=== PATIENT | female | born 2000 | race Two or more races ===

== ENCOUNTER 2024-11-10 09:34 | Outpatient (OUT) | payer OTHER, SELFPAY ==
--- OUTSIDE RECORDS SUMMARY | 2024-04-20 12:30 | XMS_ITS ---
Author Organization [facility] es Address [address] [place] [address] Care Team Providers Care Assistant Financial Accountant Name Role Phone Elizabeth Keating Primary Care Provider [phone] DUKE ANDREWS Unavailable Unavailable Sarita Allen Unavailable [phone] REASON FOR VISIT biweekly f/u Encounters Encounter Location Date Provider Diagnosis [facility] [address] [place] [address] 04/20/2024 Sarita Allen Plan Of Treatment Next Appt Details Provider Name:Elizabeth hazel, 12/09/2024 03:15:00 PM, [address] [place], [address], Progress Notes * JOSÉ LUIS NOVOA PDOB:2000 (23 yo F)Acc No.[id number]:04/20/2024 F/U - Patient Patient: Corie JIN JOSÉ LUIS Reyes Provider: Reynaldo Allen LPC :2000 A ge:23 Y S ex:Female Date:04/20/2024 Address:[address] [facility], [address] , [place], [place] Pcp:Elizabeth Keating Subjective: * Chief Complaints: * 1 . Biweekly f/u. Objective: Therapeutic Interventions: Assessment: Plan: * Images: Care Plan Details* * Electronic signature of Makenna Allen LPC on 11/10/2024 at 09:44 AM EDT Sign off status: Pending * Provider: Reynaldo Allen LPC Date: 06/20/2023 Generated for John otney/Wagner/Vivek on: 0 11/10/2024 09:44 AM EDT
--- OUTSIDE RECORDS SUMMARY | 2024-10-27 11:40 | XMS_ITS | Encounter Summary ---
Author Organization [facility] Address [address] [place] [address] Care Team Providers Care Water Quality Analyst Name Role Phone Kym Peraza MD Primary Care Provider [phone] Rosita Yanes MD Unavailable [phone] Reason for Visit * Reason Comments Nausea Diarrhea Encounter Details Date Type Department Care Team ([facility] Contact Info) Description 10/27/2024 11:40 AM EDT Office Visit [facility] [address] [place] [address] Kym Peraza MD [address] [place] [address] Nausea (Primary Dx); Diarrhea, unspecified type; 8 weeks gestation of Social History Tobacco Use Types Packs/Day Years Used Date Smoking Tobacco: Never Smokeless Tobacco: Never Alcohol Use Standard Drinks/Week Comments Never 0 (1 standard drink = 0.6 oz pur e alcohol) Humiliation, Afraid, Rape, and Kick questionnair e Answer Date Recorded Within the last year, have y ou been afraid of your partner or ex-partner? No 02/20/2023 Within the last year, have y ou been humiliated or emotionally abused in other ways by your partner or ex-partner? No Within the last year, have y ou been kicked, hit, slapped, or otherwise physically hurt by your partner or ex-partner? No 02/20/2023 Within the last year, have y ou been raped or forced to have any kind of sexual activity by your partner or ex-partner? No 02/20/2023 Social Connection and Isolat ion Panel [NHANES] Answer Date Recorded In a typical week, how many times do you talk on the phone with family, friends, or neighbors? More than three times a week 02/20/2023 How often do you get togethe r with friends or relatives? More than three times a week 02/20/2023 How often do you attend chur ch or samaritan services? 1 to 4 times per year 02/20/2023 Do you belong to any clubs o r organizations such as adventism groups, unions, fraternal or athletic groups, or school groups? No 02/20/2023 How often do you attend meet ings of the clubs or organizations you belong to? Never 02/20/2023 Are you , , di vorced, , never , or living with a partner? Living with partner 02/20/2023 AUDIT-C Answer Date Recorded Q1: How often do you have a drink containing alc ohol? Monthly or less 02/20/2023 Q2: How many drinks containi ng alcohol do you have on a typical day when you are drinking? 3 or 4 02/20/2023 Q3: How often do you have si x or more drinks on one occasion? Never 02/20/2023 Overall Financial Resource Strain (CARDIA) Answe r Date Recorded How hard is it for you to pa y for the very basics like food, housing, medical care, and heating? Not very hard 02/20/2023 PHQ-2 Answer Date Recorded Patient Health Questionnaire-2 Score 0 10/27/2024 [facility] - Occupational Stress Questionnaire Answer Date Recorded Do you feel stress - tense, restless, nervous, or anxious, or unable to sleep at night because your mind is troubled all the time - these days? Only a little 02/20/2023 Exercise Vital Sign Answer Date Recorde d On average, how many days pe r week do you engage in moderate to strenuous exercise (like a brisk walk)? 3 days 02/20/2023 On average, how many minutes do you engage in exercise at this level? 150+ min 02/20/2023 Hunger Vital Sign Answer Date Recorded Within the past 12 months, y ou worried that your food would run out before you got the money to buy more. Never true 02/21/20 23 Within the past 12 months, t he food you bought just didn't last and you didn't have money to get more. Never true 02/20/2023 PRAPARE - Transportation Answer Date Re corded In the past 12 months, has l ack of transportation kept you from medical appointments or from getting medications? No 11/2022 In the past 12 months, has l ack of transportation kept you from meetings, work, or from getting things needed for daily living? No 02/20/2023 Housing Stability Vital Sign Answer Amado e Recorded In the last 12 months, was t here a time when you were not able to pay the mortgage or rent on time? No 02/20/2023 In the last 12 months, how many places have you lived? 1 02/20/2023 In the last 12 months, was t here a time when you did not have a steady place to sleep or slept in a long term (including now)? No 02/20/2023 Estimated Date of Delivery Comme nts Yes 06/14/2025 Based on Ultraso und, FHR- 176 Sex and Gender Information Value Date Recorded Sex Assigned at Not on file Legal Sex Female 6:51 PM EDT Gender Identity Not on file Sexual Orientation Not on file documented as of this encounter Last Filed Vital Signs Vital Sign Reading Time Taken Comments Blood Pressure 114/70 10/27/2024 11:44 AM EDT Pulse 81 10/27/2024 11:44 AM EDT Temperature 36.8 C (98.3 F) 10/27/2024 11:44 AM EDT Respiratory Rate - - Oxygen Saturation 98% 10/27/2024 11:44 AM EDT Inhaled Oxygen Concentration - - Weight 52.2 kg (115 lb) 10/27/2024 11:44 AM EDT Height 165.1 cm (5' 5 ) 10/27/2024 11:44 AM EDT Body Mass Index 19.14 10/27/2024 11:44 AM EDT documented in this encounter Functional Status * Over the past 2 weeks, how often have you been bothered by any of the following problems? Question Answer Date of Assessment Author Little interest or pleasure in doing things Not at all 10/27/2024 2:05 PM EDT Kym Peraza MD Feeling down, depressed, or hopeless Not at all 10/27/2024 2:05 PM EDT Kym Peraza MD Patient Health Questionnaire -2 Score 0 10/27/2024 2:05 PM EDT Kym Peraza MD documented as of this encounter Progress Notes * Kym Peraza MD - 10/27/2024 11:40 AM EDT Images from the original note were not included. Subjective Patient ID: Augustine Jimenes is a 23 y.o. female who presents for Nausea and Diarrhea. HPI Pt here for acute visit. States she has had 1-2 days of nausea w/o vomiting and NB diarrhea. Denies significant abd pain. NoOTC tx. Has tried to eat more bland foods. No known sick contacts. Is currently 8 weeks , will follow w/ Dr. Rosa. Review of Systems General: Denies fever, chills CV: Denies CP, palpitations or swelling in legs Resp: denies cough, SOB or wheezing Skin: Denies rash Neuro: Denies LH or dizziness Objective Blood pressure 114/70, pulse 81, temperature 98.3 ??F, height 5' 5 , weight 115 lb, SpO2 98%. Body mass index is 19.14 kg/m??. Physical Exam General: alert & oriented, NAD Head: NC/AT Oral Cavity: MMM Skin: warm, dry Heart: RRR, No m/r/g, S1S2 nml Lungs: CTA b/l Abdomen: soft, ND/NT, BS wnl Musculoskeletal: normal gait Extremities: no clubbing, cyanosis or edema Neurological: nonfocal Psych: mood/affect full range Assessment/Plan Augustine was seen today for nausea and diarrhea. Diagnoses and all orders for this visit: Nausea (Primary) - ondansetron ODT (Zofran-ODT) 4 MG disintegrating tablet; Take 1 tablet (4 mg) by mouth every 8 (eight) hours if needed for vomiting or nausea Discussed sx tx, side effects of meds and concerning sx to monitor for. Diarrhea, unspecified type 8 weeks gestation of - multivitamin () 27-0.8 MG tablet; Take 1 tablet by mouth Daily - continue to follow w/ OB documented in this encounter Plan of Treatment Upcoming Encounters Date Type Department Care Team (Late st Contact Info) Description 12/09/2024 1:20 PM EDT Routine [facility] [address] [facility] [place] [address] Mendel Rosa, DO [address] [facility] [place] [address] documented as of this encounter Visit Diagnoses Diagnosis Nausea- Primary Nausea alone Diarrhea, unspecified type 8 weeks gestation of documented in this encounter Care Teams Water Quality Analyst Relationship Specialty Start Date End Date Kym Peraza MD [address] [place] [address] PCP - General Family Medicine 11/28/22 Rosita Yanes MD [address] [place] [address] Referring Physician Family Medicine 11/28/22 documented as of this encounter
--- OUTSIDE RECORDS SUMMARY | 2024-11-06 09:00 | XMS_ITS | Encounter Summary ---
Author Organization [facility] Address [address] [place] [address] Care Team Providers Care Cctv Technician Name Role Phone Kym Peraza MD Primary Care Provider [phone] Rosita Yanes MD Unavailable [phone] Encounter Details Date Type Department Care Team (Late st Contact Info) Description 11/06/2024 9:00 AM EDT Ancillary Procedure [facility] [address] [place] [address] [place] [address] Missed menses Social History Tobacco Use Types Packs/Day Years [...] often do you attend chur ch or lutheran services? 1 to 4 times per year 02/20/2023 Do you belong to any clubs o r organizations such as restoration groups, unions, fraternal or athletic groups, or [...] Recorded Patient Health Questionnaire-2 Score 0 10/27/2024 [facility] - Occupational Stress Questionnaire Answer Date Recorded [...] place to sleep or slept in a fdc (including now)? No 02/20/2023 Estimated Date of Delivery Comme nts Yes 06/14/2025 Based on Ultraso und, FHR- 176 Sex and Gender Information Value Date Recorded Sex Assigned at Not on file Legal Sex Female 6:51 PM EDT Gender Identity Not on file Sexual Orientation Not on file documented as of this encounter Plan of Treatment Upcoming Encounters Date Type Department Care Team (Late st Contact Info) Description 12/09/2024 1:20 PM EDT Routine [facility] [address] [facility] [place] [address] Mendel Rosa, DO [address] [place] [address] [place] [address] documented as of this encounter Procedures Procedure Name Priority Date/Time Associated Diagnosis Comments US OB TRANSVAGINAL Routine 11/06/2024 9: 29 AM EDT Missed menses documented in this encounter Results * US OB transvaginal (11/06/2024 9:29 AM EDT) Anatomical Region Laterality Modality Body Ultrasound 11/06/2024 12:2 1 PM EDT Narrative 11/06/2024 12:21 PM EDT EXAM: US OB TRANSVAGINAL HISTORY: Dating. COMPARISON: None available. TECHNIQUE: Two-dimensional transvaginal grayscale ultrasound imaging of the pelvis was performed. Color Doppler evaluation of the ovaries was also performed. FINDINGS: The uterus demonstrates a normal homogeneous echotexture. The cervix measures 4.4 cm in length and the cervical os is closed. The right ovary measures 2.2 x 1.5 x 1.9 cm and demonstrates a normal echotexture. There is normal color Doppler flow. The left ovary measures 4.1 x 2.0 x 2.9 cm and demonstrates a normal echotexture. There is normal color Doppler flow. No fluid is present within the cul-de-sac. There is a single, live intrauterine gestation identified with a heart rate of 176 beats per minute and a crown-rump length measurement of 2.0 cm, correlating to a gestational age of 8 weeks 4 days (+/- 5 days). There is a 1.8 cm subchorionic hemorrhage visualized. A yolk sac is visualized. IMPRESSION: 1. Single, live intrauterine gestation with today's ultrasound measurements correlating to a gestational age of 8 weeks 4 days (+/- 5 days). MAKENZIE by today's ultrasound is 06/14/2025. 2. Subchorionic hemorrhage. A short-term follow-up ultrasound is recommended to monitor for resolution. 3. Normal color Doppler evaluation of the bilateral ovaries. Interpreted by: Electronically signed by PRATEEK MIKE II, MD, PHD at 06-Nov-2024 12:20:22 PM [facility] Procedure Note Prateek Mike MD - 11/06/2024 EXAM: US OB TRANSVAGINAL HISTORY: Dating. COMPARISON: None available. TECHNIQUE: Two-dimensional transvaginal grayscale ultrasound imaging ofthe pelvis was performed. Color Doppler evaluation of the ovaries was alsoperformed. FINDINGS: The uterus demonstrates a normal homogeneous echotexture. The cervixmeasures 4.4 cm in length and the cervical os is closed. The right ovary measures 2.2 x 1.5 x 1.9 cm and demonstrates a normalechotexture. There is normal color Doppler flow. The left ovary measures 4.1 x 2.0 x 2.9 cm and demonstrates a normalechotexture. There is normal color Doppler flow. No fluid is present within the cul-de-sac. There is a single, live intrauterine gestation identified with a fetalheart rate of 176 beats per minute and a crown-rump length measurement of2.0 cm, correlating to a gestational age of 8 weeks 4 days (+/- 5 days).There is a 1.8 cm subchorionic hemorrhage visualized. A yolk sac isvisualized. IMPRESSION: 1. Single, live intrauterine gestation with today's ultrasoundmeasurements correlating to a gestational age of 8 weeks 4 days (+/- 5days). MAKENZIE by today's ultrasound is 06/14/2025. 2. Subchorionic hemorrhage. A short-term follow-up ultrasound isrecommended to monitor for resolution. 3. Normal color Doppler evaluation of the bilateral ovaries. Interpreted by: Electronically signed by PRATEEK MIKE II, MD, PHD [id number] 12:20:22 PM [facility] us Mendel Shelley DO IMG OB US PROCEDURES Final Resul t documented in this encounter Visit Diagnoses Diagnosis Missed menses documented in this encounter Care Teams Cctv Technician Relationship Specialty Start Date End Date Kym Peraza MD [address] [place] [address] PCP - General Family Medicine 11/28/22 Rosita Yanes MD [address] [place] [address] Referring Physician Family Medicine 11/28/22 documented as of this encounter
--- OUTSIDE RECORDS SUMMARY | 2024-11-06 09:30 | XMS_ITS | Encounter Summary ---
Author Organization [facility] Address [address] [place] [address] Care Team Providers Care Technical Rep Name Role Phone Kym Peraza MD Primary Care Provider [phone] Rosita Yanes MD Unavailable [phone] Reason for Visit * Reason Comments Amenorrhea Encounter Details Date Type Department Care Team (Late st Contact Info) Description 11/06/2024 9:30 AM EDT Initial [facility] OB [address] [place] [address] [place] [address] [place]: 8w4d Social History Tobacco Use Types Packs/Day Years [...] 02/20/2023 How often do you attend chur or muslim services? 1 to 4 times per year 02/20/2023 Do you belong to any clubs o r organizations such as buddhism groups, unions, fraternal or athletic groups, or [...] Recorded Patient Health Questionnaire-2 Score 0 10/27/2024 [facility] - Occupational Stress Questionnaire Answer Date Recorded [...] place to sleep or slept in a longterm (including now)? No 02/20/2023 Estimated Date of [...] Sign Reading Time Taken Comments Blood Pressure 120/70 11/06/2024 9:56 AM EDT Pulse - - Temperature - - Respiratory Rate - - Oxygen Saturation - - Inhaled Oxygen Concentration - - Weight 53.4 kg (117 lb 12.8 oz) 11/06/2024 9:56 AM EDT Height - - Body Mass Index 19.6 10/27/2024 11:44 AM EDT documented in this encounter Progress Notes * Roselyn Ramesh LPN - 11/06/2024 9:30 AM EDT Reason for Appointment: Patient ID: Augustine Jimenes is a 23 y.o. female who presents for Amenorrhea Patient presents today for a Nurse OB Intake appointment. Patient is 8w4d with a Estimated Date of Delivery: 06/14/25 OB History Para Term AB Living 5 2 2 2 1 SAB IAB Ectopic Multiple Live Births 2 1 # Outcome Date GA Lbr Alexandr/2nd Weight Sex Type Anes PTL Lv 5 Current 4 IAB 2024 3 IAB 2023 2 Term 11/30/21 7 lb 3 oz M Vag-Spont KEI 1 Term 12/08/19 7 lb 6 oz M Vag-Spont Current Medications: has a current medication list which includes the following prescription(s): multivitamin and ondansetron odt. Medical History: Active Ambulatory Problems Diagnosis Date Noted Anxiety 11/30/2022 Mild episode of recurrent major depressive disorder (HCC) (CMS/HCC) 11/30/2022 Resolved Ambulatory Problems Diagnosis Date Noted Bronchospasm 08/02/2023 Acute cough 08/23/2023 No Additional Past Medical History Family History Problem Relation Name Age of Onset Hypertension Other Social History Tobacco Use Smoking status: Never Smokeless tobacco: Never Substance Use Topics Alcohol use: Never Drug use: Yes Types: Marijuana History reviewed. No pertinent surgical history. No Known Allergies Vitals: Estimated body mass index is 19.6 kg/m?? as calculated from the following: Height as of 10/27/24: 5' 5 . Weight as of this encounter: 117 lb 12.8 oz. BP: 120/70 No LMP recorded. Patient is . Assessment/Plan Diagnoses and all orders for this visit: Missed menses - US OB transvaginal; Future - Type and screen; Future - ABO/Rh; Future - CBC and differential - Hemoglobin A1c - RPR - Rubella antibody, IgG - Hepatitis B surface antigen - Hepatitis C antibody - HIV-1 and HIV-2 antibodies - Urine culture - POCT , urine manually resulted - POCT urinalysis dipstick manually resulted , unspecified gestational age - Type and screen; Future - ABO/Rh; Future - CBC and differential - Hemoglobin A1c - RPR - Rubella antibody, IgG - Hepatitis B surface antigen - Hepatitis C antibody - HIV-1 and HIV-2 antibodies - Rapid drug screen, urine; Future Encounter for supervision of normal first in first trimester - Rapid drug screen, urine; Future Nurse Note: OB Intake: Patient presents today for first OB visit. Patients history has been reviewed in great detail including any potential risks. Patient signed consent forms and patient desires testing in both trimesters. Patient currently has no complaints and has been advised to drink 6-8 glasses of water a day, eatno raw or undercooked meat, and stay away from [facility]. Patient has also been advised to not change litter boxes and eat 6 small meals a day. Patient has been consulted regarding the do's and don'ts ofpregnancy. Patient was given labs and all questions and concerns were answered. Patient given [place] labs to have completed with Routine initial labs. Follow Up: Patient is to return in 4 weeks for routine OB appointment. Follow Up: Patient is to have labs drawn at directed and return to office for initial OB appointment with provider. Patient may call office as needed with any concerns or questions. Nurse Visit Completed by: Roselyn Ramesh LPN documented in this encounter Plan of Treatment Upcoming Encounters Date Type Department Care Team (Late st Contact Info) Description 12/09/2024 1:20 PM EDT Routine [facility] OB [address] [facility] [place] [address] Mendel Rosa, [address] [facility] [place] [address] Scheduled Orders Name Type Priority Associated Diagnoses Orde r Schedule Type and screen Lab Routine Missed menses , unspecified gestational age Expected: 11/06/2024 (Approximate), Expires: 11/06/2025 ABO/Rh Lab Routine Missed menses , unspecified gestational age Expected: 11/06/2024 (Approximate), Expires: 11/06/2025 CBC and differential Lab Routine Missed menses , unspecified gestational age Ordered: 11/06/2024 Hemoglobin A1c Lab Routine Missed menses , unspecified gestational age Ordered: 11/06/2024 RPR Lab Routine Missed menses , unspecified gestational age Ordered: 11/06/2024 Rubella antibody, IgG Lab Routine Missed menses , unspecified gestational age Ordered: 11/06/2024 Hepatitis B surface antigen Lab Routine Missed menses , unspecified gestational age Ordered: 11/06/2024 Hepatitis C antibody Lab Routine Missed menses , unspecified gestational age Ordered: 11/06/2024 HIV-1 and HIV-2 antibodies Lab Routine Missed menses , unspecified gestational age Ordered: 11/06/2024 Urine culture Microbiology Routine Missed menses Ordered: 11/06/2024 Rapid drug screen, urine Lab Routine , unspecified gestational age Encounter for supervision of normal first in first trimester Expected: 11/06/2024 (Approximate), Expires: 11/06/2025 documented as of this encounter Procedures Procedure Name Priority Date/Time Associated Diagnosis Comments POCT , URINE Routine 11/06/2024 9:32 AM EDT Missed menses POCT URINALYSIS DIPSTICK Routine 11/06/2024 9:32 AM EDT Missed menses documented in this encounter Results * (ABNORMAL) POCT urinalysis dipstick manually resulted (11/06/2024 9:32 AM EDT) Color, UA Yellow Clarity, UA Clear Glucose, UA Negative Negative - 2000(110) ++++ mg/dL Bilirubin, UA Negative Negative - 4(70) +++ mg/dL Ketones, UA Negative Negative - 160(16) ++++ mg/dL Spec Grav, UA 1.030 1 - 1.03 Blood, UA Negative Negative - 50 Ryder/mcL pH, UA 6.0 5 - 9 Protein, UA Trace Negative - 2000(20) ++++ mg/dL Urobilinogen, UA 0.2 0.2 - 12 mg/dL Leukocytes, UA Negative Negative - 500+++ Astrid/mcL Nitrite, UA Negative Negative - Positive Urine 11/06/2024 9:32 AM EDT us Mendel Shelley DO POINT OF CARE TEST ENTER/EDIT OR DERABLES Final Result * (ABNORMAL) POCT , urine manually resulted (11/06/2024 9:32 AM EDT) Preg Test, Ur Positive Negative Urine 11/06/2024 9:32 AM EDT us Mendel Shelley DO POINT OF CARE TEST ENTER/EDIT OR DERABLES Final Result * US OB transvaginal (11/06/2024 9:29 AM [...] II, MD, PHD at 06-Nov-2024 12:20:22 PM [facility] Procedure Note Prateek Mike MD - [...] signed by PRATEEK MIKE II, MD, PHD 12:20:22 PM [facility] us Mendel Shelley DO IMG OB US PROCEDURES Final Resul t documented in this encounter Visit Diagnoses Diagnosis Missed menses Missed menses , unspecified gestational age Encounter for supervision of normal first in first trimester documented in this encounter Care Teams Technical Rep Relationship Specialty Start Date End Date Kym Peraza MD [address] [place] [address] PCP - General Family Medicine 11/28/22 Rosita Yanes MD [address] [place] [address] Referring Physician Family Medicine 11/28/22 documented as of this encounter
--- OUTSIDE RECORDS SUMMARY | 2024-11-10 09:44 | XMS_ITS | Clinical Summary ---
Author Organization [facility] Address [address] [place] [address] Phone Care Team Providers Care Teacher'S Aide Name Role Phone Unavailable Primary Care Provider Unavailabl e Social History Tobacco Use Types Packs/Day Years Used Date Smoking Tobacco: Never Assessed Comments Unknown Sex and Gender Information Value Date Recorded Sex Assigned at Not on file Legal Sex Female 3:31 PM EST Gender Identity Not on file Sexual Orientation Not on file Plan of Treatment Not on file
--- OUTSIDE RECORDS SUMMARY | 2024-11-10 09:44 | XMS_ITS | Encounter Summary ---
Author Organization [facility] Address [address] [place] [address] Care Team Providers Care Cattle Tester Name Role Phone Kym Peraza MD Primary Care Provider [phone] Rosita Yanes MD Unavailable [phone] Encounter Details Date Type Department Care Team (Late st Contact Info) Description 01/24/2024 Orders Only [facility] [address] [place] [address] Timmy Marcelo MD [address] [place] [address] Social History Tobacco Use Types Packs/Day Years [...] often do you attend chur ch or moravian services? 1 to 4 times per year 02/20/2023 Do you belong to any clubs o r organizations such as hindu groups, unions, fraternal or athletic groups, or [...] Date Recorded Patient Health Questionnaire-2 Score 0 11/30/2022 [facility] - Occupational Stress Questionnaire Answer Date [...] place to sleep or slept in a penitentiary (including now)? No 02/20/2023 Comments Unknown Sex and Gender Information Value Date Recorded Sex Assigned at Not on file Legal Sex Female 6:51 PM EDT Gender Identity Not on file Sexual Orientation Not on file documented as of this encounter Plan of Treatment Upcoming Encounters Date Type Department Care Team (Late st Contact Info) Description 12/09/2024 1:20 PM EDT Routine [facility] OB [address] [place] [address] Mendel Rosa, DO [address] [place], [place] [id number] documented as of this encounter Procedures Procedure Name Priority Date/Time Associated Diagnosis Comments HM PAP SMEAR Routine 01/16/2024 4:54 PM EDT documented in this encounter Results * Hm Pap Smear (01/16/2024 4:54 PM EDT) Timmy Marcelo MD HEALTH MAINTENANCE Final Resul t documented in this encounter Visit Diagnoses Not on filedocumented in this encounter Care Teams Cattle Tester Relationship Specialty Start Date End Date Kym Peraza MD [address] [place] [address] PCP - General Family Medicine 11/28/22 Rosita Yanes MD [address] [place] [address] Referring Physician Family Medicine 11/28/22 documented as of this encounter
--- OUTSIDE RECORDS SUMMARY | 2024-11-10 09:44 | XMS_ITS | Encounter Summary ---
Author Organization [facility] Address [address] [place] [address] Care Team Providers Care Staff Toxicologist Name Role Phone Kym Peraza MD Primary Care Provider [phone] Rosita Yanes MD Unavailable [phone] Encounter Details Date Type Department Care Team (Late st Contact Info) Description 11/10/2024 Abstract [facility] OB [address] [facility] [place] [address] Mendel Rosa, DO [address] [facility] [place] [address] Social History Tobacco Use Types Packs/Day Years [...] often do you attend chur ch or advent services? 1 to 4 times per year 02/20/2023 Do you belong to any clubs o r organizations such as sabianism groups, unions, fraternal or athletic groups, or [...] Recorded Patient Health Questionnaire-2 Score 0 10/27/2024 [facility] ional Health - Occupational Stress [...] place to sleep or slept in a fpc (including now)? No 02/20/2023 Estimated Date of [...] EDT Routine [facility] OB [address] [place] [address] Mendel Rosa, DO [address] [facility] [address] [place], [place] [id number] documented as of this encounter Visit Diagnoses Not on filedocumented in this encounter Care Teams Staff Toxicologist Relationship Specialty Start Date End Date Kym Peraza MD [address] [place] [address] PCP - General Family Medicine 11/28/22 Rosita Yanes MD [address] [place] [address] Referring Physician Family Medicine 11/28/22 documented as of this encounter
--- OUTSIDE RECORDS SUMMARY | 2024-11-10 09:44 | XMS_ITS | Encounter Summary ---
Author Organization [facility] Address [address] [place] [address] Care Team Providers Care Game Protector Name Role Phone Kym Peraza MD Primary Care Provider [phone] Rosita Yanes MD Unavailable Encounter Details Date Type Department Care Team (Latest Contact Info) Description 11/03/2024 Travel Social History Tobacco Use Types Packs/Day Years [...] week 02/20/2023 How often do you attend [facility] or episcopal services? 1 to 4 times per year 02/20/2023 Do you belong to any clubs o r organizations such as latter-day groups, unions, fraternal or athletic groups, or [...] Recorded Patient Health Questionnaire-2 Score 0 10/27/2024 [facility] - Occupational Stress [...] place to sleep or slept in a residential (including now)? No 02/20/2023 Estimated Date of [...] BCP OB [address] [place] [address] Mendel Rosa, DO [address] [place] [address] documented as of this encounter Visit Diagnoses Not on filedocumented in this encounter Care Teams Game Protector Relationship Specialty Start Date End Date Kym Peraza MD [address] [place] [address] PCP - General Family Medicine 11/28/22 Rosita Yanes MD [address] [place] [address] Referring Physician Family Medicine 11/28/22 documented as of this encounter
--- OUTSIDE RECORDS SUMMARY | 2024-11-10 09:44 | XMS_ITS | Encounter Summary ---
Author Organization [facility] Healthcare Address [address] [place] [address] Care Team Providers Care Manager Of Change Name Role Phone Kym Peraza MD Primary Care Provider [phone] Rosita Yanes MD Unavailable [phone] Encounter Details Date Type Department Care Team (Late st Contact Info) Description 11/06/2024 Abstract [facility] OB [address] [facility] [place] [address] Mendel Rosa, DO [address] [facility] [place] [address] Social History Tobacco Use Types Packs/Day Years [...] often do you attend chur ch or caodaism services? 1 to 4 times per year 02/20/2023 Do you belong to any clubs o r organizations such as yarsanism groups, unions, fraternal or athletic groups, or [...] Recorded Patient Health Questionnaire-2 Score 0 10/27/2024 [facility] Occupat ional Health - Occupational Stress [...] place to sleep or slept in a nursing home (including now)? No 02/20/2023 Estimated Date of [...] BCP OB [address] [place] [address] Mendel Rosa, DO [address] [facility] [address] [place], [place] [id number] documented as of this encounter Visit Diagnoses Not on filedocumented in this encounter Care Teams Manager Of Change Relationship Specialty Start Date End Date Kym Peraza MD [address] [place] [address] PCP - General Family Medicine 11/28/22 Rosita Yanes MD [address] [place] [address] Referring Physician Family Medicine 11/28/22 documented as of this encounter
--- OUTSIDE RECORDS SUMMARY | 2024-11-10 09:45 | XMS_ITS | Patient Health Record ---
Author Organization [facility] Address [address] [place] [address] Care Team Providers Care Pipe Finisher Name Role Phone Elizabeth Keating Primary Care Provider ANETTE PERAZA Unavailable Unavailable Sarita Allen Unavailable [phone] Reason For Referral Reason 03/20 pt. sheduled referral from Anette Peraza with dx of anxiety. Diagnosis 1 Anxiety (F41.9) Referral Organization Referrals Referring Provider First Name ANETTE Referring Provider Last Name DARRYL Referring Provider Speciality Family Med icine Referred Organization [facility] Referred Provider Sarita Allen Referred Address [address] [place],[address], Referred Provider Specialty Behavioral H ealt Referral Priority Routine Reason 04/06 attempted to r each pt. she requested to call back to scheduled as she was driving. referral from Sarita Allen for eval to treat of anxiety and BPD, requesting female provider. 04/17 *2nd attempt, spoke with pt. and she stated I'm busy . She was informed that referral would be closed but she may call to scheduled with she was ready. Will update referring provider. Diagnosis 1 Encounter for screen ing examination for mental health and behavioral disorders (Z13.30) Referral Organization [facility] Jackie Referring Provider First Name Sarita Referring Provider Last Name Tiffany [facility] Referred Organization [facility] Referred Provider Edie Davis Referred Address [address],[place], [place],[address],[place] Referred Provider Specialty Behavioral H ealt Referral Priority Routine Problems Problem Type SNOMED Code ICD Code Onset Dates Problem Status W/U Status Risk Notes Problem Anxiety (23417185) Anxiety (F41.9) Active confirmed Problem Borderline personality disorder in adult (F60.3) Active confirmed Encounters Encounter Location Date Provider Diagnosis [facility] [address] [place] [address] 04/03/2024 Sarita Allen [facility] [address] [place] [address] 04/17/2024 Sarita Allen [facility] [address] [place] [address] 04/03/2024 Sarita Allen Borderline personality disorder in adult F60.3 and Anxiety F41.9 Assessments Encounter Date Diagnosis (ICD Code) Assessment Notes Treatment Notes Treatment Clinical Notes Section Notes 04/03/2024 Anxiety (ICD-10 - F41.9) 04/03/2024 Borderline personality disorder in adult (ICD-10 - F60.3) Plan Of Treatment Next Appt Details Provider Name:Elizabeth hazel, 12/09/2024 03:15:00 PM, [address] [place], [address], Insurance Providers Payer Name Payer Address Payer Phone Subscriber Number Group Number Insured Name Patient Relationship to Insured Coverage Start Date Coverage End Date [employer] [place] [employer] [address] [place] [address] [phone] [id number] JOSÉ LUIS NOVOA Self - patient is the insured 4 [facility] [address] [place] [address] [id number] JOSÉ LUIS NOVOA Self - patient is the insured 4
--- OUTSIDE RECORDS SUMMARY | 2024-11-10 09:45 | XMS_ITS | Encounter Summary ---
Author Organization [facility] Address [address] [place] [address] Care Team Providers Care Shirring Tender Name Role Phone Kym Peraza MD Primary Care Provider [phone] Rosita Yanes MD Unavailable [phone] Encounter Details Date Type Department Care Team (Late st Contact Info) Description 10/27/2024 Bamboo flowsheet [facility] [address] [place] [address] Kym Peraza MD [address] [place] [address] Social History Tobacco Use Types Packs/Day Years [...] How often do you attend chur or shinto services? 1 to 4 times per year 02/20/2023 Do you belong to any clubs o r organizations such as lutheran groups, unions, fraternal or athletic groups, or [...] Recorded Patient Health Questionnaire-2 Score 0 10/27/2024 [facility] Occupat ional Health - Occupational [...] place to sleep or slept in a long-term (including now)? No 02/20/2023 Estimated Date of [...] BCP OB [address] [place] [id number] Mendel Rosa, DO [address] [place], [place] [id number] documented as of this encounter Visit Diagnoses Not on filedocumented in this encounter Care Teams Shirring Tender Relationship Specialty Start Date End Date Kym Peraza MD [address] [place] [address] PCP - General Family Medicine 11/28/22 Rosita Yanes MD [address] [place] [address] Referring Physician Family Medicine 11/28/22 documented as of this encounter
--- OUTSIDE RECORDS SUMMARY | 2024-11-10 09:45 | XMS_ITS | Encounter Summary ---
Author Organization [facility] Address [address] [place] [address] Care Team Providers Care Resident Physician Name Role Phone Kym Peraza MD Primary Care Provider Rosita Yanes MD Unavailable [phone] Encounter Details Date Type Department Care Team (Latest Contact Info) Description 10/27/2024 Travel Social History Tobacco Use Types Packs/Day [...] week 02/20/2023 How often do you attend [facility] or [facility] services? 1 to 4 times per year 02/20/2023 Do you belong to any clubs o r organizations such as islam groups, unions, fraternal or athletic groups, or [...] Recorded Patient Health Questionnaire-2 Score 0 10/27/2024 [facility] Occupat ional Health - Occupational Stress [...] place to sleep or slept in a fci (including now)? No 02/20/2023 Estimated Date of Delivery Comme nts Yes 06/14/2025 Based on Ultraso und, FHR- 176 Sex and Gender Information Value Date Recorded Sex Assigned at Not on file Legal Sex Female 6:51 PM EDT Gender Identity Not on file Sexual Orientation Not on file documented as of this encounter Functional Status * Over the [...] Peraza MD documented as of this encounter Plan of Treatment Upcoming Encounters Date Type Department Care Team (Late st Contact Info) Description 12/09/2024 1:20 PM EDT Routine [facility] [address] [place] [address] Mendel Rosa, DO [address] [place], [place] [id number] documented as of this encounter Visit Diagnoses Not on filedocumented in this encounter Care Teams Resident Physician Relationship Specialty Start Date End Date Kym Peraza MD [address] [place] [address] PCP - General Family Medicine 11/28/22 Rosita Yanes MD [address] [place] [address] Referring Physician Family Medicine 11/28/22 documented as of this encounter
--- OUTSIDE RECORDS SUMMARY | 2024-11-10 09:45 | XMS_ITS | Encounter Summary ---
Author Organization [facility] Address [address] [place] [address] Care Team Providers Care Straight Line Edger Name Role Phone Kym Peraza MD Primary Care Provider [phone] Rosita Yanes MD Unavailable Encounter Details Date Type Department Care Team (Late st Contact Info) Description 10/07/2024 Abstract [facility] OB [address] [place] [address] Mendel Rosa, DO [address] [facility] [place] [address] Social History Tobacco Use Types Packs/Day Years [...] often do you attend chur ch or sabianist services? 1 to 4 times per year 02/20/2023 Do you belong to any clubs o r organizations such as roman catholic groups, unions, fraternal or athletic groups, or [...] Recorded Patient Health Questionnaire-2 Score 0 11/30/2022 [facility] of Occupat ional Health - Occupational Stress [...] place to sleep or slept in a halfway (including now)? No 02/20/2023 Comments No Sex and Gender Information Value Date Recorded Sex Assigned at Not on file Legal Sex Female 6:51 PM EDT Gender Identity Not on file Sexual Orientation Not on file documented as of this encounter Plan of Treatment Upcoming Encounters Date Type Department Care Team (Late st Contact Info) Description 12/09/2024 1:20 PM EDT Routine [facility] [address] [place] [place] [address] Mendel Rosa, DO [address] [facility] [place] [address] documented as of this encounter Visit Diagnoses Not on filedocumented in this encounter Care Teams Straight Line Edger Relationship Specialty Start Date End Date Kym Peraza MD [address] [place] [address] PCP - General Family Medicine 11/28/22 Rosita Yanes MD [address] [place] [address] Referring Physician Family Medicine 11/28/22 documented as of this encounter
[2024-11-10 10:11] LABS: BOX Test Reference Lab UNITY; BOX Test Sent Out UNITY
[2024-11-10 10:14] LABS: Basophils Percent Auto 0.8 % (0.2-2.0); Eosinophils Absolute Auto 0.2 10^3/uL (0.0-0.7); Eosinophils Percent Auto 3.9 % (0.9-7.0); Hematocrit 38.5 % (36.0-48.0); Immature Granulocytes Abs Auto 0.01 10^3/uL (0.00-0.03); Immature Granulocytes Pct Auto 0.2 % (0.0-0.5); Lymphocytes Absolute Auto 1.6 10^3/uL (1.2-3.8); Lymphocytes Percent Auto 32.4 % (20.5-60.0); Mean Corpuscular HGB Conc 33.8 g/dL (29.9-35.2); Mean Corpuscular Hemoglobin 27.9 pg (26.7-34.0); Mean Corpuscular Volume 82.6 fL (81.0-99.0); Mean Platelet Volume 9.1 fL (9.5-13.5); Monocytes Absolute Auto 0.3 10^3/uL (0.3-0.8); Monocytes Percent Auto 5.4 % (1.7-12.0); Neutrophils Absolute Auto 2.8 10^3/uL (1.4-6.5); Neutrophils Percent Auto 57.3 % (43.0-75.0); Platelet Count 271 10^3/uL (150-450); Red Blood Count 4.66 10^6/uL (4.20-5.40); Red Cell Distribution Width 12.2 % (11.0-15.0); White Blood Count 4.9 10^3/uL (4.0-11.0)
[2024-11-10 10:34] LABS: Amphetamine Screen Urine NEGATIVE (NEGATIVE); Barbiturates Screen Urine NEGATIVE (NEGATIVE); Benzodiazepines Screen Urine NEGATIVE (NEGATIVE); Buprenorphine Screen Urine NEGATIVE (NEGATIVE); Cannabinoid Screen Urine NEGATIVE (NEGATIVE); Cocaine Screen Urine NEGATIVE (NEGATIVE); Methadone Screen Urine NEGATIVE (NEGATIVE); Methamphetamines Screen Urine NEGATIVE (NEGATIVE); Opiate Screen Urine NEGATIVE (NEGATIVE); Oxycodone Screen Urine NEGATIVE (NEGATIVE); Phencyclidine Screen Urine NEGATIVE (NEGATIVE); Tricyclic Antidepressant Urine NEGATIVE (NEGATIVE)
[2024-11-10 11:20] LABS: Estimated Average Glucose 103 mg/dL; Glycohemoglobin A1C 5.2 % (4.5-6.2)
[2024-11-11 05:07] LABS: HIV Ab/p24 Ag Screen Non Reactive (Non Reactive)
[2024-11-11 06:08] LABS: HBsAg Screen Negative (Negative); HCV Ab Non Reactive (Non Reactive)
[2024-11-11 08:08] LABS: Rubella Antibodies, IgG <0.90 index (Immune >0.99)
[2024-11-11 12:08] LABS: Rapid Plasma Reagin, Quant Non Reactive titer (NonRea<1:1)
== END 2024-11-10 09:35 | disposition home or self-care (01) ==
PROVIDERS: PCP Student in an Organized Health Care Education/Training Program; Visit Provider Obstetrics & Gynecology
DX: Z34.01 Encounter for supervision of normal first pregnancy, first trimester (principal); Z36.0 Encounter for antenatal screening for chromosomal anomalies; N92.6 Irregular menstruation, unspecified
CPT/HCPCS: 36415; 80307; 83036; 85025; 86592; 86762; 86803; 86850; 86900; 86901; 87086; 87340; 87389

== ENCOUNTER 2025-02-03 20:05 | Outpatient (REF) | payer OTHER, SELFPAY ==
[2025-02-06 11:09] LABS: Age Gdln ACOG Testing Note (.); IGP, rfx Aptima HPV ASCU Note (.)
== END 2025-02-03 20:06 | disposition home or self-care (01) ==
LOC: LAB 20:05
PROVIDERS: PCP Student in an Organized Health Care Education/Training Program; Visit Provider Obstetrics & Gynecology
DX: Z01.419 Encounter for gynecological examination (general) (routine) without abnormal findings (principal)
CPT/HCPCS: 88175

== ENCOUNTER 2025-03-29 13:37 | Observation (INO) | payer OTHER, SELFPAY ==
--- OUTSIDE RECORDS SUMMARY | 2024-04-20 12:30 | XMS_ITS ---
Author Organization [facility] Address [address] [facility] [place] [address] Care Team Providers Care Poultry Slaughterer Name Role Phone Elizabeth Keating Primary Care Provider [phone] DUKE ANDREWS Unavailable Unavailable Sarita Allen Unavailable [phone] REASON FOR VISIT biweekly f/u Encounters Encounter Location Date Provider Diagnosis [place] [address] [place] [address] 04/20/2024 Sarita Allen Plan Of Treatment No Information Progress Notes * JOSÉ LUIS NOVOA PDOB:2000 (24 yo F)Acc No.[id number]:04/20/2024 F/U - Patient Patient: Corie JOSÉ LUIS JIN Provider: Reynaldo Allen LPC :2000 A ge:23 Y S ex:Female Date:04/20/2024 Address:[address] [place] [address], [address] [place] [address] Pcp:Elizabeth Keating Subjective: * Chief Complaints: * B iweekly f/u Care Plan Details* * Electronic signature of Makenna Allen LPC on 03/29/2025 at 01:43 PM EDT Sign off status: Pending * Provider: Reynaldo Allen LPC Date: 06/20/2023 Generated for Printi ng/Faxing/eTransmitting on: 01:43 PM EDT
--- OUTSIDE RECORDS SUMMARY | 2024-12-09 11:15 | XMS_ITS ---
Author Organization 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 Encounters Encounter Location Date Provider Diagnosis [place] [address] [place] [address] 12/09/2024 Elizabeth Keating Plan Of Treatment No Information Progress Notes * JOSÉ LUIS NOVOA PDOB:2000 (24 yo F)Acc No.[id number]:12/09/2024 Patient: JOSÉ LUIS GRIFFITH Provider: Rupali Keating DDS :2000 A ge:23 Y S ex:Female Date:12/09/2024 Address:[address] [place] [address], [address] [place], [place] [address] Subjective: * Chief Complaints: * N p exam Billing Information: * Procedure Codes: * Electronic signature of Isabela Keating DDS on 03/29/2025 at 01:42 PM EDT Sign off status: Pending * Provider: Rupali Keating DDS Date: 0 12/09/2024 Generated for John toney/Wagner/eTransmitting on: 1 01:42 PM EDT
--- OUTSIDE RECORDS SUMMARY | 2025-03-24 10:30 | XMS_ITS | Encounter Summary ---
Author Organization [facility] Healthcare Address [address] [place] [address] Care Team Providers Care Helper Coordinator Name Role Phone Kym Peraza MD Primary Care Provider [phone] Rosita Yanes MD Unavailable [phone] Reason for Visit * Reason Comments Routine Visit Encounter Details Date Type Department Care Team (Latest Contact Info) Description 03/24/2025 10:30 AM EDT Routine [facility] OBG[facility] [address] [facility] [place] [address] Radha Resendez, CLAU [address] [facility] [place] [place] [address] size inconsistent with dates ([facility]) (Primary Dx); Third trimester ([facility]); 28 weeks gestation of ([facility]) Social History Tobacco Use Types Packs/Day Years [...] or ex-partner? No 02/20/2023 Social Connection and Isolation Panel Answer Date Recorded In a typical week, how many times do you talk on the phone with family, friends, or neighbors? More than three times a week 02/20/2023 How often do you get togethe r with friends or relatives? More than three times a week 02/20/2023 How often do you attend [facility] or baptist services? 1 to 4 times per year 02/20/2023 Do you belong to any clubs o r organizations such as mormonism groups, unions, fraternal or athletic groups, or [...] Date Recorded Patient Health Questionnaire-2 Score 0 03/11/2025 [facility] of Occupat [...] Sign Reading Time Taken Comments Blood Pressure 122/72 03/24/2025 10:39 AM EDT Pulse - - Temperature - - Respiratory Rate - - Oxygen Saturation - - Inhaled Oxygen Concentration - - Weight 63.8 kg (140 lb 12 oz) 03/24/2025 10:39 A M EDT Height - - Body Mass Index 23.42 10/27/2024 11:44 AM EDT documented in this encounter Progress Notes * Radha Resendez NP - 03/24/2025 10:30 AM EDT Reason for Appointment: Patient ID: Augustine Jimenes is a 24 y.o. female who presents for Routine Visit Patient presents today for Return OB appointment. MEDICATIONS Current Outpatient Medications Medication Instructions multivitamin () 27-0.8 MG tablet 1 tablet, Oral, Daily ondansetron ODT (ZOFRAN-ODT) 4 mg, Oral, Every 8 hours PRN pseudoephedrine (SUDAFED) 30 mg, Every 4 hours PRN ALLERGIES No Known Allergies PROBLEMS Active Ambulatory Problems Diagnosis Date Noted Anxiety 11/30/2022 Mild episode of recurrent major depressive disorder 11/30/2022 Resolved Ambulatory Problems Diagnosis Date Noted Bronchospasm 08/02/2023 Acute cough 08/23/2023 No Additional Past Medical History HISTORY PAST MEDICAL HISTORY SOCIAL HISTORY No past medical history on file. Social History Tobacco Use Smoking status: Never Smokeless tobacco: Never Substance Use Topics Alcohol use: Never Drug use: Yes Types: Marijuana FAMILY HISTORY Family History Problem Relation Name Age of Onset Bone cancer Paternal Grandfather Cancer Paternal Grandfather Hypertension Other SURGICAL HISTORY No past surgical history on file. REVIEW OF SYSTEMS Review of Systems: Review of Systems Constitutional: Negative. HENT: Negative. Eyes: Negative. Respiratory: Negative. Cardiovascular: Negative. Gastrointestinal: Negative. Genitourinary: Negative. Musculoskeletal: Negative. Skin: Negative. Neurological: Negative. All other systems reviewed and are negative. Hematological: Negative. Endocrine: Negative. Allergic/Immunologic: Negative. OBJECTIVE Objective: Physical Exam Constitutional: Appearance: Normal appearance. She is well-developed. Cardiovascular: Rate and Rhythm: Normal rate and regular rhythm. Pulmonary: Effort: Pulmonary effort is normal. Breath sounds: Normal breath sounds. Abdominal: General: Bowel sounds are normal. There is no distension. Palpations: Abdomen is soft. Tenderness: There is no abdominal tenderness. There is no guarding or rebound. Musculoskeletal: General: No swelling. Normal range of motion. Right lower leg: No edema. Left lower leg: No edema. Neurological: Mental Status: She is alert and oriented to person, place, and time. Skin: General: Skin is warm and dry. Psychiatric: Mood and Affect: Mood normal. Behavior: Behavior normal. Vitals and nursing note reviewed. Exam conducted with a short filler bunch machine operator present. Vitals: Estimated body mass index is 23.42 kg/m?? as calculated from the following: Height as of 10/27/24: 5' 5 . Weight as of this encounter: 140 lb 12 oz. BP: 122/72 No LMP recorded. Patient is . ASSESSMENT & PLAN ICD-10-CM 1. Third trimester ([facility]) Z34.93 POCT urinalysis dipstick manually resulted 2. 28 weeks gestation of ([facility]) Z3A.28 Return OB: Patient presents today for a routine obstetrics appointment. Patient is currently 28w2d . Patient states she is doing well but has complaints of being tired due to current . Patient has verbalizes frequent movement. labor precautions was discussed/given and patient was instructed to perform kick counts three times a day. Orders Placed This Encounter Procedures POCT urinalysis dipstick manually resulted Follow Up: Patient is to return to office in 2 week for routine OB appointment. Documented by Radha Resendez NP on behalf of: Radha Resendez NP documented in this encounter Plan of Treatment Upcoming Encounters Date Type Department Care Team (Late st Contact Info) Description 03/31/2025 1:30 PM EDT Ancillary Procedure [facility] [address] [facility] [phone] 04/07/2025 10:50 AM EDT Routine [facility] [address] [facility] [address] Marianna Herrera PA [address] [facility] [place] [address] Scheduled Orders Name Type Priority Associated Diagnoses Orde r Schedule US OB follow up transabdominal approach Imaging Routine size inconsistent with dates ([facility]) Expected: 03/24/2025, Expires: 07/25/2025 documented as of this encounter Procedures Procedure Name Priority Date/Time Associated Diagnosis Comments POCT URINALYSIS DIPSTICK Routine 03/24/2025 10:44 AM EDT Third trimester ([facility]) documented in this encounter Results * (ABNORMAL) POCT urinalysis dipstick manually resulted (03/24/2025 10:44 AM EDT) Color, UA Yellow Clarity, UA Clear Glucose, UA Negative Negative - 2000(110) ++++ mg/dL Bilirubin, UA Negative Negative - 4(70) +++ mg/dL Ketones, UA Negative Negative - 160(16) ++++ mg/dL Spec Grav, UA 1.015 1 - 1.03 Blood, UA Negative Negative - 50 Ryder/mcL pH, UA 7.0 5 - 9 Protein, UA Positive Negative - 2000(20) ++++ mg/dL Comment:Trace Urobilinogen, UA 0.2 0.2 - 12 mg/dL Leukocytes, UA Positive Negative - 500+++ Astrid/mcL Comment:3+ Nitrite, UA Negative Negative - Positive Urine 03/24/2025 10:4 4 AM EDT Radha Resendez NP POINT OF CARE TEST ENTER/EDIT ORDERABLES Final Result documented in this encounter Visit Diagnoses Diagnosis size inconsistent with dates ([facility])- Primary Third trimester ([facility]) state, incidental 28 weeks gestation of ([facility]) documented in this encounter Care Teams Helper Coordinator Relationship Specialty Start Date End Date Kym Peraza MD [address] [place] [id number] PCP - General Family Medicine 11/28/22 Rosita Yanes MD [address] [place] [id number] Referring Physician Family Medicine 11/28/22 documented as of this encounter
--- OUTSIDE RECORDS SUMMARY | 2025-03-29 13:41 | XMS_ITS | Encounter Summary ---
Author Organization [facility] Address [address] [place] [address] Care Team Providers Care Dietician Name Role Phone Kym Peraza MD Primary Care Provider [phone] Rosita Yanes MD Unavailable [phone] Encounter Details Date Type Department Care Team (Late st Contact Info) Description 11/24/2024 Abstract [facility] An[facility] CASONN [address] [place] [address] [place] [phone] Tony Cadiz, MA Social History Tobacco Use Types Packs/Day Years [...] often do you attend chur ch or jew services? 1 to 4 times per year 02/20/2023 Do you belong to any clubs o r organizations such as synagogue groups, unions, fraternal or athletic groups, or [...] Recorded Patient Health Questionnaire-2 Score 0 10/27/2024 [facility] - Occupational Stress Questionnaire Answer [...] place to sleep or slept in a half-way (including now)? No 02/20/2023 Estimated Date of [...] 1:30 PM EDT Ancillary Procedure [facility] An[facility] NUNEZ [address] [place] [phone] 04/07/2025 10:50 AM EDT Routine [facility] NUNE[facility] [address] [place] [address] Marianna Herrrea PA [address] [place] [address] documented as of this encounter Visit Diagnoses Not on filedocumented in this encounter Care Teams Dietician Relationship Specialty Start Date End Date Kym Peraza MD [address] [place] [address] PCP - General Family Medicine 11/28/22 Rosita Yanes MD [address] [place] [address] Referring Physician Family Medicine 11/28/22 documented as of this encounter
--- OUTSIDE RECORDS SUMMARY | 2025-03-29 13:41 | XMS_ITS | Encounter Summary ---
Author Organization [facility] Address [address] [place] [address] Care Team Providers Care Cmo Name Role Phone Kym Peraza MD Primary Care Provider [phone] Rosita Yanes MD Unavailable [phone] Encounter Details Date Type Department Care Team (Late st Contact Info) Description 11/16/2024 Abstract [facility] [address] [facility] [place] [address] Mendel Rosa DO [address] [facility] [place] [address] Social History Tobacco Use Types Packs/Day Years [...] How often do you attend chur or hinduism services? 1 to 4 times per year 02/20/2023 Do you belong to any clubs o r organizations such as zoroastrian groups, unions, fraternal or athletic groups, or [...] Recorded Patient Health Questionnaire-2 Score 0 10/27/2024 [facility] of Occupat ional Health - Occupational Stress [...] place to sleep or slept in a senior living (including now)? No 02/20/2023 Estimated Date of [...] EDT Ancillary Procedure [facility] An[facility] NUNEZ [address] [facility] [place] [phone] 04/07/2025 10:50 AM EDT Routine NOMRadha NUNEZ [address] [facility] [place] [address] Marianna Herrera PA [address] [facility] [place] [address] documented as of this encounter Visit Diagnoses Not on filedocumented in this encounter Care Teams Cmo Relationship Specialty Start Date End Date Kym Peraza MD [address] [place] [address] PCP - General Family Medicine 11/28/22 Rosita Yanes MD [address] [place] [address] Referring Physician Family Medicine 11/28/22 documented as of this encounter
--- OUTSIDE RECORDS SUMMARY | 2025-03-29 13:42 | XMS_ITS | Encounter Summary ---
Author Organization [facility] Address [address] [place] [address] Care Team Providers Care Manager Private Name Role Phone Kym Peraza MD Primary Care Provider [phone] Rosita Yanes MD Unavailable [phone] Encounter Details Date Type Department Care Team (Late st Contact Info) Description 03/16/2025 Abstract [facility] NUNEZ [address] [place] [address] [place] [phone] Tony [place], [place] Social History Tobacco Use Types Packs/Day [...] often do you attend chur ch or quaker services? 1 to 4 times per year [...] Recorded Patient Health Questionnaire-2 Score 0 03/11/2025 [facility] Health - Occupational Stress Questionnaire [...] EDT Ancillary Procedure [facility] An[facility] NUNEZ [address] [place] [phone] 04/07/2025 10:50 AM EDT Routine [facility] An[facility] NUNE[facility] [address] [place] [address] Marianna Herrera PA [address] [place] [address] documented as of this encounter Visit Diagnoses Not on filedocumented in this encounter Care Teams Manager Private Relationship Specialty Start Date End Date Kym Peraza MD [address] [place] [address] PCP - General Family Medicine 11/28/22 Rosita Yanes MD [address] [place] [address] Referring Physician Family Medicine 11/28/22 documented as of this encounter
--- OUTSIDE RECORDS SUMMARY | 2025-03-29 13:42 | XMS_ITS | Encounter Summary ---
Author Organization [facility] Address [address] [place] [address] Care Team Providers Care Equine Intern Name Role Phone Kym Peraza MD Primary Care Provider [phone] Rosita Yanes MD Unavailable [phone] Encounter Details Date Type Department Care Team (Late st Contact Info) Description 03/29/2025 Telephone [facility] OBGYEvaristo [address] [email or web address] [address] Mendel Rosa DO [address] [place], [facility] Social History Tobacco Use Types Packs/Day Years [...] How often do you attend chur or pentecostal services? 1 to 4 times per year 02/20/2023 Do you belong to any clubs o r organizations such as caodaism groups, unions, fraternal or athletic groups, or [...] Recorded Patient Health Questionnaire-2 Score 0 03/11/2025 [facility] of Occupat ional Health - Occupational [...] place to sleep or slept in a custodial (including now)? No 02/20/2023 Estimated Date of Delivery Comme nts Yes 06/14/2025 Based on Ultraso und, FHR- 176 Sex and Gender Information Value Date Recorded Sex Assigned at Not on file Legal Sex Female 6:51 PM EDT Gender Identity Not on file Sexual Orientation Not on file documented as of this encounter Miscellaneous Notes * Telephone Encounter - Roselyn Ramesh LPN - 03/29/2025 12:46 PM EDT Patient states that she did have some contractions on Saturday. Patient states that she does have swelling and they feel. Patient states that she has been waiting the past few hours to see if will get better but has not. Patient states has not gone to the bathroom so not sure if anything she states does have some discharge and mom told her could be UTI but she is not having any symptoms. Patient reassured with the continuing cramping to report to [facility]. Called and gave update that patient would be coming over. Episods sent. documented in this encounter Plan of Treatment Upcoming Encounters Date Type Department Care Team (Late st Contact Info) Description 03/31/2025 1:30 PM EDT Ancillary Procedure [facility] An[facility] OBGYEvaristo [address] [place] [address] [place] [address] 04/07/2025 10:50 AM EDT Routine [facility] An[facility] NUNEZ [address] [facility] [place] [address] Marianna Herrera PA [address] [place] [address] documented as of this encounter Visit Diagnoses Not on filedocumented in this encounter Care Teams Equine Intern Relationship Specialty Start Date End Date Kym Peraza MD [address] [place] [address] PCP - General Family Medicine 11/28/22 Rosita Yanes MD [address] [place] [address] Referring Physician Family Medicine 11/28/22 documented as of this encounter
--- OUTSIDE RECORDS SUMMARY | 2025-03-29 13:42 | XMS_ITS | Encounter Summary ---
Author Organization [facility] Address [address] [place] [address] Care Team Providers Care Clay Preparation Supervisor Name Role Phone Kym Peraza MD Primary Care Provider [phone] Rosita Yanes MD Unavailable [phone] Encounter Details Date Type Department Care Team (Late st Contact Info) Description 11/10/2024 Abstract [facility] [address] [facility] [address] Mendel Rosa DO [address] [facility] [place] [address] Social History Tobacco Use Types Packs/Day Years [...] How often do you attend chur or holiness services? 1 to 4 times per year [...] Recorded Patient Health Questionnaire-2 Score 0 10/27/2024 [facility] of Occupat ional Health - Occupational Stress [...] place to sleep or slept in a alf (including now)? No 02/20/2023 Estimated Date of [...] EDT Ancillary Procedure [facility] Anil NUNEZ [address] [facility] [address] 04/07/2025 10:50 AM EDT Routine NOMRadha NUNEZ [address] [facility] [place] [address] Marianna Herrera PA [address] [facility] [place] [address] documented as of this encounter Visit Diagnoses Not on filedocumented in this encounter Care Teams Clay Preparation Supervisor Relationship Specialty Start Date End Date Kym Peraza MD [address] [place] [address] PCP - General Family Medicine 11/28/22 Rosita Yanes MD [address] [place] [address] Referring Physician Family Medicine 11/28/22 documented as of this encounter
--- OUTSIDE RECORDS SUMMARY | 2025-03-29 13:42 | XMS_ITS | Encounter Summary ---
Author Organization [facility] Address [address] [place] [address] Care Team Providers Care Tongue Trimmer Name Role Phone Kym Peraza MD Primary Care Provider [phone] Rosita Yanes MD Unavailable [phone] Encounter Details Date Type Department Care Team (Late st Contact Info) Description 02/19/2025 Orders Only [facility] Anil KRAUSGYEvaristo [address] [place] [address] [place] [address] Kaveh Jimenezserrasukumar [place] Social History Tobacco Use Types Packs/Day Years [...] often do you attend chur ch or shinto services? 1 to 4 times per year 02/20/2023 Do you belong to any clubs o r organizations such as rastafarian groups, unions, fraternal or athletic groups, or [...] Recorded Patient Health Questionnaire-2 Score 0 10/27/2024 [facility] - Occupational Stress Questionnaire Answer Date [...] in a penitentiary (including now)? No 02/20/2023 Estimated Date of [...] Description 03/31/2025 1:30 PM EDT Ancillary Procedure ROZ NUNEZ [address] [place] [address] 04/07/2025 10:50 AM EDT Routine NOMRadha NUNEZ [address] [place] [address] Marianna Herrera PA [address] [facility] [address] [place], [place] [address] documented as of this encounter Procedures Procedure Name Priority Date/Time Associated Diagnosis Comments PAP SMEAR Routine 02/03/2025 12:00 AM EDT documented in this encounter Results * Pap Smear (02/03/2025 12:00 AM EDT) Swab Cervical swab / Unknown us Mendel Shelley DO LAB CYTOLOGY ORDERABLES Final Re sult EXTERNAL LAB documented in this encounter Visit Diagnoses Not on filedocumented in this encounter Care Teams Tongue Trimmer Relationship Specialty Start Date End Date Kym Peraza MD [address] [place] [address] PCP - General Family Medicine 11/28/22 Rosita Yanes MD [address] [place] [address] Referring Physician Family Medicine 11/28/22 documented as of this encounter
--- OUTSIDE RECORDS SUMMARY | 2025-03-29 13:42 | XMS_ITS | Encounter Summary ---
Author Organization [facility] Address [address] [place] [address] Care Team Providers Care Sewer Separation Designer Name Role Phone Kym Peraza MD Primary Care Provider [phone] Rosita Yanes MD Unavailable [phone] Encounter Details Date Type Department Care Team (Late st Contact Info) Description 03/24/2025 Bamboo flowsheet [facility] OBGYN [address] [facility] [place] [address] Radha Resendez, CLAU [address] [place] [address] Social History Tobacco Use Types Packs/Day Years [...] often do you attend chur ch or christianity services? 1 to 4 times per year 02/20/2023 Do you belong to any clubs o r organizations such as protestant groups, unions, fraternal or athletic groups, or [...] Recorded Patient Health Questionnaire-2 Score 0 03/11/2025 [facility] - Occupational Stress Questionnaire Answer Date [...] place to sleep or slept in a detention (including now)? No 02/20/2023 Estimated Date of [...] PM EDT Ancillary Procedure ROZ NUNEZ [address] [facility] [place] [address] 04/07/2025 10:50 AM EDT Routine NOMRdaha NUNEZ [address] [facility] [place] [address] Marianna Herrera PA [address] [place] [address] documented as of this encounter Visit Diagnoses Not on filedocumented in this encounter Care Teams Sewer Separation Designer Relationship Specialty Start Date End Date Kym Peraza MD [address] [place] [address] PCP - General Family Medicine 11/28/22 Rosita Yanes MD [address] [place] [address] Referring Physician Family Medicine 11/28/22 documented as of this encounter
--- OUTSIDE RECORDS SUMMARY | 2025-03-29 13:42 | XMS_ITS | Encounter Summary ---
Author Organization [facility] Healthcare Address [address] [place] [address] Care Team Providers Care Document Image Technician Name Role Phone Kym Peraza MD Primary Care Provider [phone] Rosita Yanes MD Unavailable [phone] Encounter Details Date Type Department Care Team (Late st Contact Info) Description 03/10/2025 Abstract [facility] [address] [place] [phone] Marianna Galdamez LPN [address] [place] [address] Social History Tobacco Use Types Packs/Day Years [...] How often do you attend chur or anglican services? 1 to 4 times per year 02/20/2023 Do you belong to any clubs o r organizations such as sikhism groups, unions, fraternal or athletic groups, or [...] Recorded Patient Health Questionnaire-2 Score 0 03/11/2025 [facility] - Occupational Stress Questionnaire [...] place to sleep or slept in a [place] [facility] [place] facility (including now)? No 02/20/2023 Estimated Date of [...] pleasure in doing things Not at all 03/11/2025 10:12 AM EDT Marianna Galdamez LP N Feeling down, depressed, or hopeless Not at all 03/11/2025 10:12 AM EDT Marianna Galdamez LP N Patient Health Questionnaire -2 Score 0 03/11/2025 10:12 AM EDT Marianna Galdamez LP N documented as of this encounter Plan of Treatment Upcoming Encounters Date Type Department Care Team (Late st Contact Info) Description 03/31/2025 1:30 PM EDT Ancillary Procedure [facility] Anil NUNEZ [address] [place] [address] 04/07/2025 10:50 AM EDT Routine [facility] Anil NUNEZ [address] [facility] [place] [phone] Marianna Herrera PA [address] [facility] [place] [address] documented as of this encounter Visit Diagnoses Not on filedocumented in this encounter Care Teams Document Image Technician Relationship Specialty Start Date End Date Kym Peraza MD [address] [place] [address] PCP - General Family Medicine 11/28/22 Rosita Yanes MD [address] [place] [address] Referring Physician Family Medicine 11/28/22 documented as of this encounter
--- OUTSIDE RECORDS SUMMARY | 2025-03-29 13:42 | XMS_ITS ---
Author Organization [facility] Healthcare Address [address] [facility] [place] [address] Care Team Providers Care Bottom Steep Tender Name Role Phone Kym Peraza MD Primary Care Provider [phone] Rosita Yanes MD Unavailable [facility] Status:Enrolled (Active) Start date:03/01/2025 Enrollment date:03/11/2025 Enrollment reason:Identified by Health Plan Case Team Name Relationship Phone Marianna Galdamez LPN(Responsible Staff) Licensed [facility] [phone] Continued Care and Services Coordination
--- OUTSIDE RECORDS SUMMARY | 2025-03-29 13:42 | XMS_ITS | Encounter Summary ---
Author Organization [facility] Address [address] [place] [address] Care Team Providers Care Research Administrator Name Role Phone Kym Peraza MD Primary Care Provider [phone] Rosita Yanes MD Unavailable [phone] Encounter Details Date Type Department Care Team (Late st Contact Info) Description 11/10/2024 Abstract [facility] [address] [place] [address] Mendel Rosa DO [address] [facility] [place] [address] Social History Tobacco Use Types Packs/Day Years [...] How often do you attend chur or congregation services? 1 to 4 times per year [...] Recorded Patient Health Questionnaire-2 Score 0 10/27/2024 [facility]at [facility] [...] place to sleep or slept in a mcfp (including now)? No 02/20/2023 Estimated Date of [...] EDT Ancillary Procedure [facility] [address] [place] [id number] 04/07/2025 10:50 AM EDT Routine [facility] [address] [place] [address] Marianna Herrera PA [address] [facility] [place] [address] documented as of this encounter Visit Diagnoses Not on filedocumented in this encounter Care Teams Research Administrator Relationship Specialty Start Date End Date Kym Peraza MD [address] [place] [address] PCP - General Family Medicine 11/28/22 Rosita Yanes MD [address] [place] [address] Referring Physician Family Medicine 11/28/22 documented as of this encounter
--- OUTSIDE RECORDS SUMMARY | 2025-03-29 13:42 | XMS_ITS | Encounter Summary ---
Author Organization [facility] Address [address] [place] [address] Care Team Providers Care Channel Marketing Manager Name Role Phone Kym Peraza MD Primary Care Provider [phone] Rosita Yanes MD Unavailable [phone] Encounter Details Date Type Department Care Team (Late st Contact Info) Description 10/07/2024 Abstract [facility] [address] [facility] [place] [address] Mendel Rosa DO [address] [facility] [place] [address] Social History Tobacco Use Types Packs/Day Years [...] How often do you attend chur or buddhism services? 1 to 4 times per year 02/20/2023 Do you belong to any clubs o r organizations such as confucianist groups, unions, fraternal or athletic groups, or [...] Recorded Patient Health Questionnaire-2 Score 0 11/30/2022 [facility] - Occupational [...] in a detention (including now)? No 02/20/2023 Comments No Sex [...] EDT Ancillary Procedure [facility] [address] [facility] [place] [phone] 04/07/2025 10:50 AM EDT Routine [facility] [address] [facility] [place] [address] Marianna Herrera PA [address] [facility] [place] [address] documented as of this encounter Visit Diagnoses Not on filedocumented in this encounter Care Teams Channel Marketing Manager Relationship Specialty Start Date End Date Kym Peraza MD [address] [place] [address] PCP - General Family Medicine 11/28/22 Rosita Yanes MD [address] [place] [address] Referring Physician Family Medicine 11/28/22 documented as of this encounter
--- OUTSIDE RECORDS SUMMARY | 2025-03-29 13:42 | XMS_ITS | Encounter Summary ---
Author Organization [facility] Address [address] [place] [address] Care Team Providers Care Oracle Sql Developer Name Role Phone Kym Peraza MD Primary Care Provider [phone] Rosita Yanes MD Unavailable [phone] Encounter Details Date Type Department Care Team (Late st Contact Info) Description 11/10/2024 Abstract [facility] [address] [place] [address] Mendel Rosa DO [address] [facility] [place] [address] Social History Tobacco Use Types Packs/Day Years [...] How often do you attend chur or cheondoism services? 1 to 4 times per year 02/20/2023 Do you belong to any clubs o r organizations such as oriental orthodox groups, unions, fraternal or athletic groups, or [...] EDT Ancillary Procedure [facility] [address] [facility] [place] [address] 04/07/2025 10:50 AM EDT Routine [facility] [address] [facility] [place] [address] Marianna Herrera PA [address] [facility] [place] [address] documented as of this encounter Visit Diagnoses Not on filedocumented in this encounter Care Teams Oracle Sql Developer Relationship Specialty Start Date End Date Kym Peraza MD [address] [place] [address] PCP - General Family Medicine 11/28/22 Rosita Yanes MD [address] [place] [address] Referring Physician Family Medicine 11/28/22 documented as of this encounter
--- OUTSIDE RECORDS SUMMARY | 2025-03-29 13:42 | XMS_ITS | Encounter Summary ---
Author Organization [facility] Address [address] [place] [address] Care Team Providers Care Interactive Media Marketing Specialist Name Role Phone Kym Peraza MD Primary Care Provider [phone] Rosita Yanes MD Unavailable [phone] Encounter Details Date Type Department Care Team (Late st Contact Info) Description 11/16/2024 Abstract [facility] [address] [facility] [place] [address] Mendel Rosa DO [address] [place] [address] Social History Tobacco Use Types Packs/Day Years [...] How often do you attend chur or spiritism services? 1 to 4 times per year 02/20/2023 Do you belong to any clubs o r organizations such as alevism groups, unions, fraternal or athletic groups, or [...] Recorded Patient Health Questionnaire-2 Score 0 10/27/2024 [facility] Occupat ional Health - Occupational Stress [...] NUNEZ [address] [facility] [phone] 04/07/2025 10:50 AM EDT Routine [facility] [address] [facility] [place] [address] Marianna Herrera PA [address] [place] [address] documented as of this encounter Visit Diagnoses Not on filedocumented in this encounter Care Teams Interactive Media Marketing Specialist Relationship Specialty Start Date End Date Kym Peraza MD [address] [place] [address] PCP - General Family Medicine 11/28/22 Rosita Yanes MD [address] [place] [address] Referring Physician Family Medicine 11/28/22 documented as of this encounter
--- OUTSIDE RECORDS SUMMARY | 2025-03-29 13:42 | XMS_ITS | Encounter Summary ---
Author Organization [facility] Address [address] [place] [address] Care Team Providers Care Tool And Die Repairer Name Role Phone Kym Peraza MD Primary Care Provider [phone] Rosita Yanes MD Unavailable [phone] Encounter Details Date Type Department Care Team (Late st Contact Info) Description 11/10/2024 Abstract [facility] [address] [place] [address] Mendel Rosa DO [address] [facility] [place] [address] Social History Tobacco Use Types Packs/Day Years [...] How often do you attend chur or zoroastrianism services? 1 to 4 times per year [...] Recorded Patient Health Questionnaire-2 Score 0 10/27/2024 [facility] Occupat ional Health - [...] EDT Ancillary Procedure [facility] [address] [place] [phone] 04/07/2025 10:50 AM EDT Routine [facility] [address] [place] [address] Marianna Herrera PA [address] [facility] [place] [address] documented as of this encounter Visit Diagnoses Not on filedocumented in this encounter Care Teams Tool And Die Repairer Relationship Specialty Start Date End Date Kym Peraza MD [address] [place] [address] PCP - General Family Medicine 11/28/22 Rosita Yanes MD [address] [place] [address] Referring Physician Family Medicine 11/28/22 documented as of this encounter
--- OUTSIDE RECORDS SUMMARY | 2025-03-29 13:42 | XMS_ITS | Patient Health Record ---
Author Organization [facility] Address [address] [address] Care Team Providers Care Computer Salesperson Retail Name Role Phone Elizabeth Keating Primary Care Provider [phone] Unavailable Unavailable Sarita Allen Unavailable [phone] Reason For Referral Reason 04/06 attempted to r each pt. [...] health and behavioral disorders (Z13.30) Referral Organization [facility] Referring Provider First Name Sarita Referring Provider Last Name Tiffany Referring Provider Speciality Behavioral Health Referred Organization [facility] Referred Provider Edie Davis Referred Address [address] [place], [place], Referred Provider Specialty Behavioral [facility] Referral Priority Routine Problems Problem Type SNOMED Code ICD Code Onset Dates Problem Status W/U Status Risk Notes Problem Anxiety (59440326) Anxiety (F41.9) Active confirmed Problem Borderline personality disorder (79032391) Borderline personality disorder in adult (F60.3) Active confirmed Encounters Encounter Location Date Provider Diagnosis [facility] [address] [place] [address] 04/03/2024 Sarita Allen [facility] [address] [place] [address] 04/17/[address] [facility] [address] [facility] [place] [address] 04/03/2024 Sarita Allen Borderline personality disorder in adult F60.3 and Anxiety F41.9 Assessments Encounter Date Diagnosis (ICD Code) Assessment Notes Treatment Notes Treatment Clinical Notes Section Notes 04/03/2024 Anxiety (ICD-10 - F41.9) 04/03/2024 Borderline personality disorder in adult (ICD-10 - F60.3) Plan Of Treatment No Information Insurance Providers Payer Name Payer Address Payer Phone Subscriber Number Group Number Insured Name Patient Relationship to Insured Coverage Start Date Coverage End Date [employer] [place] [employer] [address] [place] [address] [phone] [id number] JOSÉ LUIS NOVOA Self - patient is the insured [address] [facility] [address] [place] [address] [id number] JOSÉ LUIS NOVOA Self - patient is the insured 4
--- OUTSIDE RECORDS SUMMARY | 2025-03-29 13:43 | XMS_ITS | Encounter Summary ---
Author Organization [facility] Address [address] [place] [address] Care Team Providers Care Benefits Technician Name Role Phone Kym Peraza MD Primary Care Provider [phone] Rosita Yanes MD Unavailable [phone] Encounter Details Date Type Department Care Team (Late st Contact Info) Description 01/24/2024 Orders Only [facility] Family [facility] [address] [place] [address] Timmy Marcelo MD [address] [place] [address] Social History Tobacco Use Types [...] often do you attend chur ch or episcopal services? 1 to 4 times [...] Recorded Patient Health Questionnaire-2 Score 0 11/30/2022 [facility] - Occupational [...] place to sleep or slept in a retirement (including now)? No 02/20/2023 Comments Unknown Sex [...] EDT Ancillary Procedure [facility] [address] [facility] [place] [address] 04/07/2025 10:50 AM EDT Routine [facility] [address] [facility] [place] [address] Marianna Herrera PA [address] [facility] [place] [address] documented as of this encounter Procedures Procedure Name Priority Date/Time Associated Diagnosis Comments HM PAP SMEAR Routine 01/16/2024 4:54 PM EDT documented in this encounter Results * Hm Pap Smear (01/16/2024 4:54 PM EDT) Timmy Marcelo MD HEALTH MAINTENANCE Final Resul t documented in this encounter Visit Diagnoses Not on filedocumented in this encounter Care Teams Benefits Technician Relationship Specialty Start Date End Date Kym Peraza MD [address] [place] [address] PCP - General Family Medicine 11/28/22 Rosita Yanes MD [address] [place] [address] Referring Physician Family Medicine 11/28/22 documented as of this encounter
--- OUTSIDE RECORDS SUMMARY | 2025-03-29 13:43 | XMS_ITS | Encounter Summary ---
Author Organization [facility] Address [address] [place] [address] Care Team Providers Care Mixer Driver Name Role Phone Kym Peraza MD Primary Care Provider [phone] Rosita Yanes MD Unavailable [phone] Encounter Details Date Type Department Care Team (Late st Contact Info) Description 11/10/2024 Abstract [facility] [address] [facility] [place] [address] Mendel Rosa DO [address] [facility] [place] [address] Social History Tobacco Use Types Packs/Day Years [...] How often do you attend chur or latter day services? 1 to 4 times per year 02/20/2023 Do you belong to any clubs o r organizations such as holiness groups, unions, fraternal or athletic groups, or [...] Recorded Patient Health Questionnaire-2 Score 0 10/27/2024 [facility] - Occupational [...] EDT Ancillary Procedure [facility] [address] [facility] [place] [address] 04/07/2025 10:50 AM EDT Routine [facility] [address] [facility] [place] [address] Marianna Herrera PA [address] [facility] [place] [address] documented as of this encounter Visit Diagnoses Not on filedocumented in this encounter Care Teams Mixer Driver Relationship Specialty Start Date End Date Kym Peraza MD [address] [place] [address] PCP - General Family Medicine 11/28/22 Rosita Yanes MD [address] [place] [address] Referring Physician Family Medicine 11/28/22 documented as of this encounter
--- OUTSIDE RECORDS SUMMARY | 2025-03-29 13:43 | XMS_ITS | Clinical Summary ---
Author Organization [facility] Healthcare Address [address] [place] [address] Care Team Providers Care Fundraising Manager Name Role Phone Kym Peraza MD Primary Care Provider [phone] Rosita Yanes MD Unavailable [phone] Allergies No known active allergies Medications ondansetron ODT (Zofran-ODT) 4 MG disintegrating tabletIndications: Nausea Take 1 tablet (4 mg) by mouth every 8 (eight) hours if needed for vomiting or nausea 20 tablet 5 Active multivitamin () 27-0.8 MG tabletIndications: 8 weeks gestation of ([facility]) Take 1 tablet by mouth Daily 90 tablet 3 5 026 Active pseudoephedrine (Sudafed) 30 MG tablet Take 30 mg by mouth every 4 (four) hours if needed for congestion Active Active Problems Problem Noted Date Diagnosed Date Anxiety 11/30/2022 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/30/2022 Estimated Date of Delivery Comme nts Yes 06/14/2025 Based on Ultraso und, FHR- 176 Resolved Problems Problem Noted Date Diagnosed Date Resolved Date Acute cough 08/23/2023 03/19/2024 Bronchospasm 08/02/2023 03/19/2024 Assessment & Plan (08/02/2023 3:58 PM EST): Will try inhaler and follow up as needed or if symptoms change or worsen Encounters Date Type Department Care Team Description 03/29/2025 Telephone [facility] [address] [address] Charlene RosayDO 03/24/2025 10:30 AM EDT Routine [facility] [address] [address] Radha Resendez, CLAU size inconsistent with dates ([facility]) (Primary Dx); Third trimester ([facility]); 28 weeks gestation of ([facility]) 03/24/2025 Bamboo flowsheet [facility] [address] [place] [address] Radha Resendez NP 03/16/2025 Abstract [facility] [address] [place] [address] Lenka Jimenez [place] 03/11/[address] [facility] [address] [place] [address] Marianna Galdamez LPN 03/10/2025 Abstract [facility] [address] [place] [address] Marianna Galdamez LPN 03/03/2025 10:30 AM EDT Routine [facility] [address] [address] Marianna Herrera PA 25 weeks gestation of ([facility]); Second trimester ([facility]); Diabetes mellitus screening 03/03/2025 Bamboo flowsheet [facility] [address] [address] Marianna Herrera PA 02/19/2025 Orders Only [facility] [address] [address] Lenka Jimenez MI 02/03/2025 11:30 AM EDT Routine [facility] [address] [place] [address] Mendel Rosa, DO 21 weeks gestation of ([facility]); Second trimester ([facility]); Exposure to STD; Vaginal discharge; Well woman exam with routine gynecological exam; Diabetes mellitus screening; Urinary tract infection without hematuria, site unspecified 02/03/2025 Clinisync Result Encounter [facility] External Department Unsolicited Mendel Rosa, DO 02/03/2025 External Result Encounter [facility] External Department Unsolicited Mendel Rosa, DO 02/03/2025 Bamboo flowsheet [facility] [address] [place] [address] Mendel Rosa, DO 01/27/2025 11:00 AM EDT Ancillary Procedure [facility]ON[facility] [address] [place] [address] Screening, , for anatomic survey ([facility]) 01/06/2025 2:40 PM EDT Routine [facility] [address] [place] [address] Marianna Herrera PA Screening, , for anatomic survey ([facility]); Second trimester ([facility]); 17 weeks gestation of ([facility]) 01/06/2025 Bamboo flowsheet [facility] [address] [place] [address] Marianna Herrera PA from Last 3 Months Immunizations Immunization Administration Dates Next Due DTP 01/23/2005,05/07/2001,02/15/2000 DTaP, Unspecified 04/11/2000 HPV 9-Valent 09/10/2016,05/15/2016,03/12/2016 Hep A, ped/adol, 2 dose 09/10/2016,03/12/2016 Hep B, Adolescent or Pediatric 09/23/2000,1999,1999 HiB, unspecified 06/16/2001,05/07/2001, 0,02/05/2000 MMR 01/23/2005,06/16/2001 Meningococcal B, Omv 05/15/2016,03/12/2016 Meningococcal MCV4P 03/12/2016 Polio, Unspecified 01/23/2005,05/07/2001, 000,02/15/2000 Tdap 12/01/2021,12/08/2019,03/03/2012 Varicella 05/15/2016,01/01/2001 Family History Medical History Relation Name Comments Hypertension Other Bone cancer Paternal Grandfather Cancer Paternal Grandfather Relation Name Status Comments Other Paternal Grandfather Social History Tobacco Use Types Packs/Day Years Used Date Smoking Tobacco: Never Smokeless Tobacco: Never Tobacco Cessation:Counseling Given: Not Answered Alcohol Use Standard Drinks/Week Comments Never 0 [...] any clubs o r organizations such as christian groups, unions, fraternal or athletic groups, or [...] Recorded Patient Health Questionnaire-2 Score 0 03/11/2025 [facility] - [...] to sleep or slept in a senior care (including now)? No 02/20/2023 Estimated Date of Delivery Comme nts Yes 06/14/2025 Based on Ultraso und, FHR- 176 Sex and Gender Information Value Date Recorded Sex Assigned at Not on file Legal Sex Female 6:51 PM EDT Gender Identity Not on file Sexual Orientation Not on file Last Filed Vital Signs Vital Sign Reading Time Taken Comments Blood Pressure 122/72 03/24/2025 10:39 AM EDT Pulse 81 10/27/2024 11:44 AM EDT Temperature 36.8 C (98.3 F) 10/27/2024 11:44 AM EDT Respiratory Rate - - Oxygen Saturation 98% 10/27/2024 11:44 AM EDT Inhaled Oxygen Concentration - - Weight 63.8 kg (140 lb 12 oz) 03/24/2025 10:39 A M EDT Height 165.1 cm (5' 5 ) 10/27/2024 11:44 AM EDT Body Mass Index 23.42 10/27/2024 11:44 AM EDT Plan of Treatment Upcoming Encounters Date Type Department Care Team (Late st Contact Info) Description 03/31/2025 1:30 PM EDT Ancillary Procedure [facility] [address] [address] 04/07/2025 10:50 AM EDT Routine [facility] [address] [place] [address] Marianna Herrera PA [address] [place] [address] Health Maintenance Due Date Last Done Comments Influenza Vaccine (#1) 2025 Procedures Procedure Name Priority Date/Time Associated Diagnosis Comments POCT URINALYSIS DIPSTICK Routine 03/24/2025 10:44 AM EDT Third trimester ([facility]) POCT URINALYSIS DIPSTICK Routine 03/03/2025 10:37 AM EDT 25 weeks gestation of ([facility] Second trimester ([facility]) URINARY TRACT INFECTION (HTRX) Routine 02/03/2025 12:13 PM EDT RECURRENT VAGINITIS (HTRX) Routine 02/03/2025 12:11 PM EDT POCT URINALYSIS DIPSTICK Routine 02/03/2025 12:05 PM EDT 21 weeks gestation of ([facility]) Second trimester ([facility]) IGP,APTIMA HPV,AGE GDLN Routine 02/03/2025 11:48 AM EDT PAP SMEAR Routine 02/03/2025 12:00 AM EDT US OB 14+ WEEKS ANATOMY SCAN Routine 01/27/2025 11:57 AM EDT Screening, , for anatomic survey ([facility]) POCT URINALYSIS DIPSTICK Routine 01/06/2025 2:44 PM EDT Screening, , for anatomic survey ([facility]) from Last 3 Months Results * (ABNORMAL) POCT urinalysis dipstick manually resulted (03/24/2025 10:44 AM EDT) Only the most recent of4 resultswithin the time period is included. Color, UA Yellow Clarity, UA Clear Glucose, UA Negative Negative - 1999(110) ++++ mg/dL Bilirubin, UA Negative Negative - 4(70) +++ mg/dL Ketones, UA Negative Negative - 160(16) ++++ mg/dL Spec Grav, UA 1.015 1 - 1.03 Blood, UA Negative Negative - 50 Ryder/mcL pH, UA 7.0 5 - 9 Protein, UA Positive Negative - 1999(20) ++++ mg/dL Comment:Trace Urobilinogen, UA 0.2 0.2 - 12 mg/dL Leukocytes, UA Positive Negative - 500+++ Astrid/mcL Comment:3+ Nitrite, UA Negative Negative - Positive Urine 03/24/2025 10:4 4 AM EDT Radha Resendez NP POINT OF CARE TEST ENTER/EDIT ORDERABLES Final Result * URINARY TRACT INFECTION (HTRX) (02/03/2025 12:13 PM EDT) [facility] ACINETOBACTER BAUMANII 0 19.961 - 24.689 ppm 02/04/2025 7:12 AM EDT [facility] ACINETOBACTER BAUMANII Not Detected 19.961 - 24.689 ppm 02/04/2025 7:12 AM EDT [facility] CITROBACTER FREUNDII 0 23.000 - 32.015 ppm 02/04/2025 7:12 AM EDT [facility] CITROBACTER FREUNDII Not Detected 23.000 - 32.015 ppm 02/04/2025 7:12 AM EDT [facility] ENTEROBACTER AEROGENES, CLOACAE 0 23.000 - 32.290 ppm 02/04/2025 7:12 AM EDT [facility] ENTEROBACTER AEROGENES, CLOACAE Not Detected 23.000 - 32.290 ppm 02/04/2025 7:12 AM EDT [facility] ENTEROCOCCUS FAECALIS, FAECIUM 0 26.000 - 33.043 ppm 02/04/2025 7:12 AM EDT [facility] ENTEROCOCCUS FAECALIS, FAECIUM Not Detected 26.000 - 33.043 ppm 02/04/2025 7:12 AM EDT [facility] ESCHERICHIA COLI 0 23.000 - 28.500 ppm 02/04/2025 7:12 AM EDT [facility] ESCHERICHIA COLI Not Detected 23.000 - 28.500 ppm 02/04/2025 7:12 AM EDT [facility] KLEBSIELLA PNEUMONIAE, OXYTOCA 0 23.000 - 31.865 ppm 02/04/2025 7:12 AM EDT [facility] KLEBSIELLA PNEUMONIAE, OXYTOCA Not Detected 23.000 - 31.865 ppm 02/04/2025 7:12 AM EDT [facility] MORGANELLA MORGANII 0 19.961 - 24.689 ppm 02/04/2025 7:12 AM EDT [facility] MORGANELLA MORGANII Not Detected 19.961 - 24.689 ppm 02/04/2025 7:12 AM EDT [facility] PROTEUS MIRABILIS, VULGARIS 0 23.000 - 28.500 ppm 02/04/2025 7:12 AM EDT [facility] PROTEUS MIRABILIS, VULGARIS Not Detected 23.000 - 28.500 ppm 02/04/2025 7:12 AM EDT [facility] PSEUDOMONAS AERUGINOSA 0 23.000 - 31.801 ppm 02/04/2025 7:12 AM EDT [facility] PSEUDOMONAS AERUGINOSA Not Detected 23.000 - 31.801 ppm 02/04/2025 7:12 AM EDT [facility] STAPHYLOCOCCUS AUREUS 0 26.000 - 31.595 ppm 02/04/2025 7:12 AM EDT [facility] STAPHYLOCOCCUS AUREUS Not Detected 26.000 - 31.595 ppm 02/04/2025 7:12 AM EDT [facility] STREPTOCOCCUS AGALACTIAE (GROUP B STREP) 0 26.000 - 32.435 ppm 02/04/2025 7:12 AM EDT [facility] STREPTOCOCCUS AGALACTIAE (GROUP B STREP) Not Detected 26.000 - 32.435 ppm 02/04/2025 7:12 AM EDT [facility] HORACE ALBICANS, PARAPSILOSIS, TROPICALIS 0 23.000 - 30.347 ppm 02/04/2025 7:12 AM EDT [facility] HORACE ALBICANS, PARAPSILOSIS, TROPICALIS Not Detected 23.000 - 30.347 ppm 02/04/2025 7:12 AM EDT [facility] HORACE GLABRATA 0 23.000 - 31.618 ppm 02/04/2025 7:12 AM EDT [facility] HORACE GLABRATA Not Detected 23.000 - 31.618 ppm 02/04/2025 7:12 AM EDT [facility] HORACE KRUSEI 0 23.000 - 30.873 ppm 02/04/2025 7:12 AM EDT [facility] HORACE KRUSEI Not Detected 23.000 - 30.873 ppm 02/04/2025 7:12 AM EDT [facility] SERRATIA MARCESCENS 0 23.000 - 31.581 ppm 02/04/2025 7:12 AM EDT [facility] SERRATIA MARCESCENS Not Detected 23.000 - 31.581 ppm 02/04/2025 7:12 AM EDT [facility] STREPTOCOCCUS PYOGENES (GROUP A STREP) 0 19.961 - 24.689 ppm 02/04/2025 7:12 AM EDT [facility] STREPTOCOCCUS PYOGENES (GROUP A STREP) Not Detected 19.961 - 24.689 ppm 02/04/2025 7:12 AM EDT [facility] STAPHYLOCOCCUS EPIDERMIDIS, HAEMOLYTICUS, LUGDUNENSIS, SAPROPHYTICUS (URINA 0 19.961 - 24.689 ppm 02/04/2025 7:12 AM EDT [facility] STAPHYLOCOCCUS EPIDERMIDIS, HAEMOLYTICUS, LUGDUNENSIS, SAPROPHYTICUS (URINA Not Detected 19.961 - 24.689 ppm 02/04/2025 7:12 AM EDT [facility] STAPHYLOCOCCUS EPIDERMIDIS, HAEMOLYTICUS, LUGDUNENSIS, SAPROPHYTICUS (URINA 0 19.961 - 24.689 ppm 02/04/2025 7:12 AM EDT [facility] STAPHYLOCOCCUS EPIDERMIDIS, HAEMOLYTICUS, LUGDUNENSIS, SAPROPHYTICUS (URINA Not Detected 19.961 - 24.689 ppm 02/04/2025 7:12 AM EDT [facility] Urine 02/03/2025 12:1 3 PM EDT 02/04/2025 1:34 AM EDT us Mendel Shelley DO LAB BLOOD ORDERABLES Final Resul t [facility] [address] [address] * RECURRENT VAGINITIS (HTRX) (02/03/2025 12:11 PM EDT) [facility] ATOPOBIUM VAGINAE 0 19.961 - 24.689 ppm 02/04/2025 6:13 AM EDT [facility] ATOPOBIUM VAGINAE Not Detected 19.961 - 24.689 ppm 02/04/2025 6:13 AM EDT [facility] BVAB 2,3 (BACTERIAL VAGINOSIS ASSOCIATED BACTERIA 2, 3); MOBILUNCUS SPP 0 19.961 - 24.689 ppm 02/04/2025 6:13 AM EDT [facility] BVAB 2,3 (BACTERIAL VAGINOSIS ASSOCIATED BACTERIA 2, 3); MOBILUNCUS SPP Not Detected 19.961 - 24.689 ppm 02/04/2025 6:13 AM EDT [facility] HORACE ALBICANS, PARAPSILOSIS, TROPICALIS 0 23.000 - 30.347 ppm 02/04/2025 6:13 AM EDT [facility] HORACE ALBICANS, PARAPSILOSIS, TROPICALIS Not Detected 23.000 - 30.347 ppm 02/04/2025 6:13 AM EDT [facility] HORACE GLABRATA 0 23.000 - 31.618 ppm 02/04/2025 6:13 AM EDT [facility] HORACE GLABRATA Not Detected 23.000 - 31.618 ppm 02/04/2025 6:13 AM EDT [facility] HORACE KRUSEI 0 23.000 - 30.873 ppm 02/04/2025 6:13 AM EDT [facility] HORACE KRUSEI Not Detected 23.000 - 30.873 ppm 02/04/2025 6:13 AM EDT [facility] CHLAMYDIA TRACHOMATIS 0 23.000 - 31.586 ppm 02/04/2025 6:13 AM EDT [facility] CHLAMYDIA TRACHOMATIS Not Detected 23.000 - 31.586 ppm 02/04/2025 6:13 AM EDT [facility] GARDNERELLA VAGINALIS 0 19.961 - 24.689 ppm 02/04/2025 6:13 AM EDT [facility] GARDNERELLA VAGINALIS Not Detected 19.961 - 24.689 ppm 02/04/2025 6:13 AM EDT [facility] MEGASPHAERA (TYPES 1, 2) 0 19.961 - 24.689 ppm 02/04/2025 6:13 AM EDT [facility] MEGASPHAERA (TYPES 1, 2) Not Detected 19.961 - 24.689 ppm 02/04/2025 6:13 AM EDT [facility] NEISSERIA GONORRHOEAE 0 23.000 - 32.587 ppm 02/04/2025 6:13 AM EDT [facility] NEISSERIA GONORRHOEAE Not Detected 23.000 - 32.587 ppm 02/04/2025 6:13 AM EDT [facility] TRICHOMONAS VAGINALIS 0 23.000 - 31.995 ppm 02/04/2025 6:13 AM EDT [facility] TRICHOMONAS VAGINALIS Not Detected 23.000 - 31.995 ppm 02/04/2025 6:13 AM EDT [facility] MYCOPLASMA GENITALIUM 0 19.961 - 24.689 ppm 02/04/2025 6:13 AM EDT [facility] MYCOPLASMA GENITALIUM Not Detected 19.961 - 24.689 ppm 02/04/2025 6:13 AM EDT [facility] Tissue 02/03/2025 12:1 1 PM EDT 02/04/2025 1:34 AM EDT us Mendel Rosa DO LAB BLOOD ORDERABLES Final Resul t [facility] [address] [address] * IGP,APTIMA HPV,AGE GDLN (02/03/2025 11:48 AM EDT) Pathologist [facility] AGE GDLN ACOG TESTING Note . [facility] Comment: TESTS RESULT FLAG UNITS REF RANGE LAB Clinician Provided Cytology Information Source.............Endocervix No. of containers..01 ThinPrep Vial Age Laurao AC Nighat... FLAG LEGEND: L-Low Normal,H-High Normal,LL-Alert Low,HH-Alert High <-Panic Low,>-Panic High,A-Abnormal,AA-Critical Abnormal Performed at: 01 =G [address] [address] Brittany Marshall MD, IGP, RFX APTIMA HPV ASCU Note . [facility] Comment: TESTS RESULT FLAG UNITS REF RANGE LAB DIAGNOSIS: 02 NEGATIVE FOR INTRAEPITHELIAL LESION OR MALIGNANCY. Specimen adequacy: 02 Satisfactory for evaluation. No endocervical component is identified. Performed by: 02 Meliza Rangel Life Insurance Sales Agent ([facility]) . 02 Note: Note 02 The Pap smear is a screening test designed to aid in the detection of premalignant and malignant conditions of the uterine cervix. It is not a diagnostic procedure and should not be used as the sole means of detecting cervical cancer. Both false-positive and false-negative reports do occur. Test Methodology: Note 02 This liquid based ThinPrep(R) pap test was screened with the use of an image guided system. . 02 The HPV DNA reflex criteria were not met with this specimen result therefore, no HPV testing was performed. FLAG LEGEND: L-Low Normal,H-High Normal,LL-Alert Low,HH-Alert High <-Panic Low,>-Panic High,A-Abnormal,AA-Critical Abnormal Performed at: [address] [address] Brittany Marshall MD, Performed at: = - [facility] [id number] Oleo Hasher And Renderer: Brittany Marshall MD, Phone: [phone] Performed at: [address] [id number] Oleo Hasher And Renderer: Brittany Marshall MD, Phone: [phone] 02/03/2025 11:4 8 AM EDT 02/03/2025 9:18 PM EDT Narrative [facility] - 02/06/2025 11:09 AM EDT SPATULA-ALONE ENDOCERVIX Mendel Rosa DO LAB BLOOD ORDERABLES Final Resul t [facility] * Pap Smear (02/03/2025 12:00 AM EDT) Swab Cervical swab / Unknown [employer] Mendel Shelley DO LAB CYTOLOGY ORDERABLES Final Re sult EXTERNAL LAB * US OB 14+ weeks anatomy scan (01/27/2025 11:57 AM EDT) Anatomical Region Laterality Modality Body Ultrasound 01/27/2025 1:37 PM EDT Impressions 01/28/2025 7:54 AM EDT Single, live intrauterine , current sonographic age of 20 weeks and 5 days, with an estimated date of delivery of June 11, 2025. * Estimated Weight (g) by Percentile is based upon an accurate estimated age based on last menstrual period. TRANSCRIBED BY: ELECTRONICALLY SIGNED BY: Laci Boykin MD Narrative 01/28/2025 7:54 AM EDT FINDINGS: Comparison made with prior examination of November 06, 2024 delivery date at that time was June 14, 2025. A single, live intrauterine is present with normal cardiac rate of 144 beats per minute. Normal activity and amniotic fluid volume. Morphology is grossly normal. The cervix is long and closed, cm. The placenta is anterior, inferior margin 5.3 cm from the closed internal cervical os, 3.3 cm length. not associated with the cervical os. The current sonographic age is 20 weeks and 5 days, based on the following measurements: BPD 4.9 cm (20 weeks, 6 days) Head Circumference 18.6cm (21 weeks, 0 days) Abdominal Circumference 14.8cm (20 weeks, 0 days) Femur Length 3.4cm ( 20 weeks,5 days) Presentation Cephalic Placenta Anterior Weight (g) by Percentile 54.9 % * These measurements result in an estimated date of delivery of June 11, 2025 The current estimated weight is 355 +/- 53 grams ( pound, 13 ounces). Procedure Note Laci Boykin MD - 01/28/2025 FINDINGS: Comparison made with prior examination of November 06, 2024 delivery date atthat time was June 14, 2025. A single, live intrauterine ispresent with normal cardiac rate of 144 beats per minute. Normalfetal activity and amniotic fluid volume. Morphology is grossly normal.The cervix is long and closed, cm. The placenta is anterior, inferiormargin 5.3 cm from the closed internal cervical os, 3.3 cm length. notassociated with the cervical os. The current sonographic age is 20 weeksand 5 days, based on the following measurements: BPD 4.9 cm (20 weeks, 6 days) Head Circumference 18.6cm (21 weeks, 0 days) Abdominal Circumference 14.8cm (20 weeks, 0 days) Femur Length 3.4cm ( 20 weeks,5 days) Presentation Cephalic Placenta Anterior Weight (g) by Percentile 54.9 % * These measurements result in an estimated date of delivery of May The current estimated weight is 355 +/- 53 grams ( pound,13 ounces). IMPRESSION: Single, live intrauterine , current sonographic age of 20 weeksand 5 days, with an estimated date of delivery of June 11, 2025. * Estimated Weight (g) by Percentile is based upon an accurateestimated age based on last menstrual period. TRANSCRIBED BY: ELECTRONICALLY SIGNED BY: Laci Boykin MD us Marianna SMITH IMG OB US PROCEDURES Final Resul t from Last 3 Months Insurance [employer] Care Teams Fundraising Manager Relationship Specialty Start Date End Date Kym Peraza MD [address] [place] [address] PCP - General Family Medicine 11/28/22 Rosita Yanes MD [address] [place] [address] Referring Physician Family Medicine 11/28/22
--- OUTSIDE RECORDS SUMMARY | 2025-03-29 13:43 | XMS_ITS | Encounter Summary ---
Author Organization [facility] Address [address] [place] [address] Care Team Providers Care Flour Distributor Name Role Phone Kym Peraza MD Primary Care Provider [phone] Rosita Yanes MD Unavailable [phone] Encounter Details Date Type Department Care Team (Late st Contact Info) Description 11/06/2024 Abstract [facility] [address] [place] [address] Mendel Rosa DO [address] [place] [address] Social History Tobacco Use Types Packs/Day Years [...] How often do you attend chur or hindu services? 1 to 4 times per year [...] Recorded Patient Health Questionnaire-2 Score 0 10/27/2024 [facility] - Occupational [...] EDT Ancillary Procedure [facility] [address] [place] [id number] 04/07/2025 10:50 AM EDT Routine [facility] [address] [place] [address] Marianna Herrera PA [address] [place] [address] documented as of this encounter Visit Diagnoses Not on filedocumented in this encounter Care Teams Flour Distributor Relationship Specialty Start Date End Date Kym Peraza MD [address] [place] [address] PCP - General Family Medicine 11/28/22 Rosita Yanes MD [address] [place] [address] Referring Physician Family Medicine 11/28/22 documented as of this encounter
[2025-03-29 13:50] VITALS: BP 131/79; PULSE 87
[2025-03-29 14:25] LABS: Glucose Urine UA NEGATIVE (NEGATIVE)
[2025-03-29 14:38] LABS: Cast Seen? NONE SEEN #/LPF (NONE SEEN); Crystals Seen? None Seen #/HPF (None Seen)
[2025-03-29 14:39] LABS: Urine Culture Indicated YES-LC
== END 2025-03-29 15:15 | disposition home or self-care (01) ==
PROVIDERS: Admitting Provider Obstetrics & Gynecology; PCP Student in an Organized Health Care Education/Training Program; Visit Provider Obstetrics & Gynecology
DX: O26.893 Other specified pregnancy related conditions, third trimester (principal); R10.9 Unspecified abdominal pain; Z3A.29 29 weeks gestation of pregnancy
CPT/HCPCS: 81001; 87086; G0378; G0379

== ENCOUNTER 2025-04-07 11:40 | Outpatient (OUT) | payer OTHER, SELFPAY ==
[2025-04-07 12:31] VITALS: BP 121/71; PULSE 74
== END 2025-04-07 12:32 | disposition home or self-care (01) ==
LOC: FBCO 11:42 → FBC 12:04
PROVIDERS: PCP Student in an Organized Health Care Education/Training Program; Visit Provider Physician Assistant
DX: O41.03X0 Oligohydramnios, third trimester, not applicable or unspecified (principal); O28.8 Other abnormal findings on antenatal screening of mother; Z3A.30 30 weeks gestation of pregnancy
CPT/HCPCS: 59025

== ENCOUNTER 2025-04-10 15:30 | Outpatient (OUT) | payer OTHER, SELFPAY ==
--- OUTSIDE RECORDS SUMMARY | 2024-04-20 12:30 | XMS_ITS ---
Author Organization [facility] es Address [address] [facility] [address] Care Team Providers Care Elastic Tape Inserter Name Role Phone Elizabeth Keating Primary Care Provider DUKE ANDREWS Unavailable Unavailable Sarita Allen Unavailable [phone] REASON FOR VISIT biweekly f/u Encounters Encounter Location Date Provider Diagnosis [place] [address] [place] [address] 04/20/2024 Sarita Allen Plan Of Treatment No Information Progress Notes * JOSÉ LUIS NOVOA PDOB:2000 (24 yo F)Acc No.[id number]:04/20/2024 F/U - Patient Patient: Corie JIN JOSÉ LUIS Reyes :?Sarita Allen LPCDOB:2000???Age:23 Y ???Sex:FemaleDate:04/20/2024hone:[phone]:[address] [facility], [address], [place], [place]Xsh:Elizabeth Keating Subjective: * Chief Complaints: * B iweekly f/u Care Plan Details* * Electronic signature of Sarita Allen LPC on 04/10/2025 at 03:33 PM EDTSign off status: Pending * Provider: Reynaldo Allen LPC Date: 06/20/2023 Generated for Printing/Faxing/eTransmitting on:?04/10/2025 03:33 PM EDT
--- OUTSIDE RECORDS SUMMARY | 2024-12-09 11:15 | XMS_ITS ---
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 Encounters Encounter Location Date Provider Diagnosis [place] [address] [place] [address] 12/09/2024 Elizabeth Keating Plan Of Treatment No Information Progress Notes * JOSÉ LUIS NOVOA PDOB:2000 (24 yo F)Acc No.[id number]:12/09/2024 Patient:?JOSÉ LUIS NOVOA :?Elizabeth Keating DDSDOB:2000???Age:23 Y ???Sex:FemaleDate:12/09/2024Phone:[phone]:[address] [facility], [address], [place], [place] Subjective: * Chief Complaints: * N p exam Billing Information: * Procedure Codes: * Electronic signature of Elizabeth Keating DDS on 04/10/2025 at 03:33 PM EDTSign off status: Pending * Provider: Rupali Keating DDS Date: 0 12/09/2024 Generated for Printing/Faxing/eTransmitting on:?04/10/2025 03:33 PM EDT
--- OUTSIDE RECORDS SUMMARY | 2025-03-31 13:30 | XMS_ITS | Encounter Summary ---
Author Organization [facility] Address [address] [place] [address] Care Team Providers Care Guard Museum Name Role Phone Kym Peraza MD Primary Care Provider [phone] Rosita Yanes MD Unavailable [phone] Encounter Details DateTypeDepartmentCare Team (Latest Contact Info)Vutgovxvsck36/15/2025 1:30 PM EDTAncillary Procedure ROZ Ma OBGYEvaristo [address] [place] [address] [place] [phone] size inconsistent with dates ([facility]) Social History Tobacco UseTypesPacks/DayYears UsedDateSmoking [...] times a week02/20/2023How often do you attend faith or sabianist services?1 to 4 times per year02/20/2023 Do you belong to any clubs or organizations such as faith groups, unions, fraternal or athletic groups, or school groups?No02/20/2023How often do you attend meetings of the clubs or organizations you belong to?Never02/20/2023re you , , , , never , or living with a partner?Living with zbanilv2702/20/2023UDIT-CAnswerDate RecordedQ1: How often do you have a [...] and heating?Not very hard02/20/2023HQ-2AnswerDate RecordedPatient Health Questionnaire-2 Gidnl416Fincentral valley medical center [place] of Occupational Health - Occupational Stress QuestionnaireAnswerDate RecordedDo you feel stress - tense, restless, nervous, or anxious, or unable to sleep at night because yourmind is troubled all the time - these days?Only a biqrzk7102/20/2023Exercise Vital Sign AnswerDate RecordedOn average, how many [...] in ashelter (including now)?No 02/20/2023Estimated Date of ZcdmfdvuLxbmogqbBxs88/29/2025Based on Ultrasound, FHR- 176Sex and Gender InformationValueDate RecordedSex Assigned at BirthNot on fileLegal EyiIlrcok83/15/2023 6:51 PM EDTGender IdentityNot on file Sexual OrientationNot on filedocumented as of this encounter Plan of Treatment DateTypeDepartmentCare Team (Latest Contact Info)Dxnijjknsvb73/05/2025 11:00 AM ESTRoutine [facility] [address] [facility] [phone] Mendel Rosa, [address] [facility] [address] [place], [place] [phone] documented as of this encounter Procedures Procedure NamePriorityDate/TimeAssociated DiagnosisCommentsUS OB FOLLOW UP TRANSABDOMINAL NLMGSCXIWjsfpiu50/15/2025 1:59 PM EDT size inconsistent with dates ([facility]) documented in this encounter Results [...] Visit Diagnoses Diagnosis size inconsistent with dates ([facility]) documented in this encounter Care Teams Team MemberRelationshipSpecialtyStart DateEnd Date Kym Peraza MD [address] [place] [address] PCP - GeneralFamily Medicine11/28/22 Rosita Yanes MD [address] [place] [address] Referring PhysicianFamily Medicine11/28/22documented as of this encounter
--- OUTSIDE RECORDS SUMMARY | 2025-04-07 10:50 | XMS_ITS | Encounter Summary ---
Author Organization [facility] Address [address] [place] [address] Care Team Providers Care Investigator Cash Shortage Name Role Phone Kym Peraza MD Primary Care Provider [phone] Rosita Yanes MD Unavailable [phone] Reason for Visit * ReasonCommentsRoutine Visit Encounter Details DateTypeDepartmentCare Team (Latest Contact Info)Bfnqqfnehgn95/22/2025 10:50 AM EDTRoutine ROZ Ma OBGYEvaristo [address] [place] [address] Marianna Herrera PA [address] [place] [address] Third trimester ([facility]); 30 weeks gestation of ([facility]); Exposure to STD; RUCHI (amniotic fluid index) [...] times a week02/20/2023How often do you attend methodist or sikh services?1 to 4 times per year02/20/2023 Do you belong to any clubs or organizations such as methodist groups, unions, fraternal or athletic groups, or school groups?No02/20/2023How often do you attend meetings of the clubs or organizations you belong to?Never02/20/2023re you , , , , never , or living with a partner?Living with uhgcqxl0702/20/2023UDIT-CAnswerDate RecordedQ1: How often do you have a [...] and heating?Not very hard02/20/2023HQ-2AnswerDate RecordedPatient Health Questionnaire-2 Dpleo714Finencompass health [place] of Occupational Health - Occupational Stress QuestionnaireAnswerDate RecordedDo you feel stress - tense, restless, nervous, or anxious, or unable to sleep at night because yourmind is troubled all the time - these days?Only a qdslag6802/20/2023Exercise Vital Sign AnswerDate RecordedOn average, how many [...] steady place to sleep or slept in [place] (including now)?No 02/20/2023Estimated Date of YgpftaupDcbosumaIwa31/29/2025Based on Ultrasound, FHR- 176Sex and Gender InformationValueDate RecordedSex Assigned at BirthNot on fileLegal GmkMcsycl19/15/2023 6:51 PM EDTGender IdentityNot on file Sexual OrientationNot on filedocumented as of this encounter Last Filed Vital Signs Vital SignReadingTime TakenCommentsBlood Vhbuiuet225/7204/07/2025 10:51 AM EDT Pulse--Temperature--Respiratory Rate--Oxygen Saturation--Inhaled Oxygen Concentration--Bbxesd46.3 kg (144 lb)04/07/2025 10:51 AM EDTHeight--Body Mass [...] nursing note reviewed. Exam conducted with a honing machine set up operator tool present. Vitals: Estimated body mass index is 23.42 kg/m?? as calculated from the following: Height as of 10/27/24: 5' 5 . Weight as of 03/24/25: 140 lb 12 oz. BP: No LMP recorded. Patient is . Assessment/Plan ICD-10-CM 1. Third trimester ([facility]) Z34.93 POCT urinalysis dipstick manually resulted 2. 30 weeks gestation of ([facility]) Z3A.30 3. Exposure to STD Z20.2 SURESWAB(R) [...] Plan of Treatment DateTypeDepartmentCare Team (Latest Contact Info)Ukocceaytmy08/05/2025 11:00 AM ESTRoutine [facility] [address] [place] [phone] Mendel Rosa DO [address] [place] [address] NameTypePriorityAssociated DiagnosesOrder ScheduleSURESWAB(R) ADVANCED VAGINITIS PLUS, TMAPathology and CytologyRoutine Exposure to STD Ordered: 04/07/2025HLAMYDIA TRACHOMATIS (GENITO/STI)LabRoutine Exposure to STD Ordered: 04/07/2025Neisseria gonorrhea DNA probe, directLabRoutine Exposure to STD Ordered: 04/07/2025US biophysical profile w non stress testImagingRoutine RUCHI (amniotic fluid index) borderline low Expected: 04/07/2025 (Approximate), Expires: 10/06/2025documented as of this encounter Procedures Procedure NamePriorityDate/TimeAssociated DiagnosisCommentsPOCT URINALYSIS LYLMZLCOOtyxfbi52/22/2025 10:53 AM EDT Third trimester ([facility]) documented in this encounter Results * POCT [...] 10:53 AM EDT Narrative Authorizing ProviderResult TypeResult StatusRappahann[facility] TEST ENTER/EDIT ORDERABLESFinal Result documented in this encounter Visit Diagnoses Diagnosis Third trimester ([facility]) state, incidental 30 weeks gestation of ([facility]) Exposure to STD RUCHI (amniotic fluid index) borderline low Nonspecific abnormal finding in amniotic fluid BV (bacterial vaginosis) Unspecified vaginitis and vulvovaginitis documented in this encounter Care Teams Team MemberRelationshipSpecialtyStart DateEnd Date Kym Peraza MD [address] [place] [address] PCP - GeneralFamily Medicine11/28/22 Rosita Yanes MD [address] [place] [address] Referring PhysicianFamily Medicine11/28/22documented as of this encounter
--- OUTSIDE RECORDS SUMMARY | 2025-04-10 15:33 | XMS_ITS ---
Author Organization [facility] Source Produ ction (ClinicalSummary Clone) Address Unknown Care Team Providers Care Air Twist Operator Name Role Phone Unavailable Primary Care Physician Unavailab le Results * [UNITY] CARRIER SCREEN Performed by: [employer] Component Value Range Date Sickle Cell Disease/Beta-Thalassemia/Hemoglobino pathies carrier screen NEGATIVE 11/20/2024 06:29 pm UTCAlpha-Thalassemia carrier nohljoPETIHJEA11/06/2025 06:29 pm UTCCystic Fibrosis carrier oxdvaiVSRXYSDD68/06/2025 06:29 pm UTCSpinal Muscular Atrophy carrier screenNEGATIVE 2 SMN1 copies, SNP not jucsbwk9511/20/2024 06:29 pm UTCFor detailed report, see PDFSee PDF11/20/2024 06:29 pm UTC 11/20/2024 06:29 pm UTC Social History Observation Value Start Date End Date
--- OUTSIDE RECORDS SUMMARY | 2025-04-10 15:33 | XMS_ITS | Clinical Summary ---
Author Organization [facility] Healthcare Address [address] [place] [address] Care Team Providers Care Silk Brusher Name Role Phone Kym Peraza MD Primary Care Provider [phone] Rosita Yanes MD Unavailable [phone] Allergies No known active allergies Medications MedicationSigDispense QuantityRefillsLast FilledStart DateEnd DateStatus ondansetron ODT (Zofran-ODT) 4 MG disintegrating tablet Indications:NauseaTake 1 tablet (4 mg) by mouth every 8 (eight) hours if needed for vomiting or nausea 20 tablet 5Active multivitamin () 27-0.8 MG tablet Indications:8 weeks gestation of ([facility])Take 1 tablet by mouth Daily 90 tablet 6Active pseudoephedrine (Sudafed) 30 MG tablet Take 30 mg by mouth every 4 (four) hours if needed for congestionActive nitrofurantoin, macrocrystal-monohydrate, (Macrobid) 100 MG capsule TAKE 1 CAPSULE BY MOUTH EVERY MORNING, and ONE CAPSULE before bedtime FOR 7 DAYS 5Active metroNIDAZOLE (Metrogel) 0.75 % vaginal gel Indications:BV (bacterial vaginosis)Insert into the vagina Daily for 5 days 70 g 5Active metroNIDAZOLE (Flagyl) 500 MG tablet Indications:Vaginal odorTake 1 tablet (500 mg) by mouth in the morning and 1 tablet (500 mg) before bedtime. Do all this for 7 days. Do not drink alcohol while taking this medication. 14 tablet 10/13/316893/22/2025Discontinued(Therapy completed) Active Problems ProblemNoted DateDiagnosed UsxrYncubmq33/16/2023Mild episode of recurrent major depressive /16/2023Estimated Date of DeliveryCommentsYes 5Based on Ultrasound, FHR- 176 Resolved Problems ProblemNoted DateDiagnosed DateResolved DateAcute cough/08/2023 Jpvskqxixnvm38 Assessment & Plan (08/02/2023 3:58 PM EST): Will try inhaler and follow up as needed or if symptoms change or worsen Encounters DateTypeDepartmentCare UxfgOnfislyjcxk05/24/2025Patient Outreach [facility] [address] [place] [address] Marianna Galdamez LPN 04/07/2025 10:50 AM EDTRoutine N[facility] NUNEZ [address] [place] [address] Marianna Herrera PA Third trimester ([facility]); 30 weeks gestation of ([facility]); Exposure to STD; RUCHI (amniotic fluid index) borderline low; BV (bacterial vaginosis)04/07/2025amboo flowsheet [facility] An[facility] NUNEZ [address] [place] [address] Marianna Herrera PA 04/06/2025Telephone [facility] NUNE[facility] [address] [place] [address] Mendel Rosa DO 04/05/2025Telephone [facility] An[facility] KRAUSGYN [address] [place] [address] Lenka Jimenez MA 03/31/2025 1:30 PM EDTAncillary Procedure [facility] Anil KRAUSGYN [address] [place] [address] size inconsistent with dates ([facility])03/29/2025Telephone [facility] [address] [place] [phone] Mendel Rosa DO 03/24/2025 10:30 AM EDTRoutine N[facility] [address] [place] [phone] Radha Resendez, CLAU size inconsistent with dates ([facility]) (Primary Dx); Third trimester ([facility]); 28 weeks gestation of ([facility])03/24/2025amboo flowsheet [facility] [address] [place] [address] Radha Resendez NP 03/16/2025bstract [facility] [address] [place] [address] Lenka Jimenez MA 03/11/2025Patient Outreach [facility] [address] [place] [address] Marianna Galdamez LPN 03/10/2025bstract [facility] [address] [place] [address] Marianna Galdamez LPN 03/03/2025 10:30 AM EDTRoutine N[facility] [address] [place] [address] Marianna Herrera PA 25 weeks gestation of ([facility]); Second trimester ([facility]); Diabetes mellitus uopugpcya82/17/2025Bamboo flowsheet [facility] [address] [place] [address] Marianna Herrera PA 02/19/2025Orders Only [facility] [address] [place] [address] Lenka Jimenez MA 02/03/2025 11:30 AM EDTRoutine NOMS Anil OBPARISN [address] [place] [address] Mendel Rosa, DO 21 weeks gestation of ([facility]); Second trimester ([facility]); Exposure to STD; Vaginal discharge; Well woman exam with routine gynecological exam; Diabetes mellitus screening; Urinary tract infection without hematuria, site hzoywirwedh37/20/2025linisync Result Encounter NOMS External Department Unsolicited Mendel Rosa, DO 02/03/2025External Result Encounter NOMS External Department Unsolicited Mendel Rosa, DO 02/03/2025amboo flowsheet [facility] An[facility] [address]UN[address] [place] [address] Mendel Rosa, DO 01/27/2025 11:00 AM EDTAncillary Procedure [facility] An[facility] [address]UNEZ [address] [place] [address] Screening, , for anatomic survey ([facility])from Last 3 Months Immunizations ImmunizationAdministration DatesNext SqvNBE7201/23/2005,05/07/2001,02/15/2000DTaP, Kzrbqxroget34/26/2000HPV 9-Vmyavk3109/10/2016,05/15/2016,03/12/2016Hep A, ped/adol, 2 dose09/10/2016,03/12/2016Hep B, Adolescent or Cnhjhbfkj68/09/2001, 02/15/2000,1999HiB, edfbacnpbcz45/31/2001,05/07/2001,04/11/2000,02/05/2000 MMR01/23/2005,06/16/2001Meningococcal B, Omv107/15/2015,03/12/2016Meningococcal SAW3A0003/12/2016Polio, Drdetofbzrz24/09/2005,05/07/2001,04/11/2000,02/15/2000Tdap 12/01/2021,12/08/2019,03/03/20127480Nfvyxmiua48/29/2016,01/01/2001 Family History Medical HistoryRelationNameCommentsHypertensionOtherBone cancerPaternal GrandfatherCancerPaternal GrandfatherRelationNameStatusCommentsOtherPaternal Grandfather Social History Tobacco UseTypesPacks/DayYears UsedDateSmoking Tobacco: NeverSmokeless Tobacco: Never Tobacco Cessation:Counseling Given: Not Answered Alcohol UseStandard Drinks/WeekCommentsNever0 (1 standard drink = 0.6 oz pure alcohol)Humiliation, Afraid, Rape, and Kick questionnaireAnswerDate Recorded Within the last year, have you been afraid of your partner or ex-partner?No 02/20/2023Within the last year, have you been humiliated or emotionally abused in other ways by your partner or ex-partner?No02/20/2023Within the last year, have you been kicked, hit, slapped, or otherwise physically hurt by your partner or ex-partner?No02/20/2023Within the last year, have you been raped or forced to have any kind of sexual activity by your partner or ex-partner?No02/20/2023 Social Connection and Isolation PanelAnswerDate RecordedIn a typical week, how many times do you talk on the phone with family, friends, or neighbors?More than three times a week02/20/2023How often do you get together with friends or relatives?More than three times a week02/20/2023How often do you attend lutheran or roman catholic services?1 to 4 times per year02/20/2023o you belong to any clubs or organizations such as lutheran groups, unions, fraternal or athletic groups, or school groups?No02/20/2023How often do you attend meetings of the clubs or organizations you belong to?Never02/20/2023re you , , , , never , or living with a partner?Living with auxxhsx9002/20/2023 AUDIT-CAnswerDate RecordedQ1: How often do you have a drink containing alcohol? Monthly or less02/20/2023Q2: How many drinks containing alcohol do you have on a typical day when you are drinking?3 or Q3: How often do you have six or more drinks on one occasion?Never02/20/2023Overall Financial Resource Strain (CARDIA)AnswerDate RecordedHow hard is it for you to pay for the very basics like food, housing, medical care, and heating?Not very hard02/20/2023HQ-2Answer Date RecordedPatient Health Questionnaire-2 Sgvmn049Fin[facility] [place] [facility] Occup[facility] - Occupational Stress QuestionnaireAnswerDate RecordedDo you feel stress - tense, restless, nervous, or anxious, or unable to sleep at night because yourmind is troubled all the time - these days?Only a itbnvi2702/20/2023 Exercise Vital SignAnswerDate RecordedOn average, how many days per week do you engage in moderate to strenuous exercise (like a brisk walk)?3 days02/20/2023On average, how many minutes do you engage in exercise at this level?150+ min 02/20/2023Hunger Vital SignAnswerDate RecordedWithin the past 12 months, you worried that your food would run out before you got the money to buymore.Never true02/20/2023Within the past 12 months, the food you bought just didn't last and you didn't have money to get more.Never true02/20/2023RAPARE - TransportationAnswerDate RecordedIn the past 12 months, has lack of transportation kept you from medical appointments or from getting medications?No 02/20/2023In the past 12 months, has lack of transportation kept you from meetings, work, or from getting things needed for daily living?No02/20/2023 Housing Stability Vital SignAnswerDate RecordedIn the last 12 months, was there a time when you were not able to pay the mortgage or rent on time?No02/20/2023In the last 12 months, how many places have you lived?In the last 12 months, was there a time when you did not have a steady place to sleep or slept in ashelter (including now)?No02/20/2023Estimated Date of Delivery AmbaftqeQmm11/29/2025Based on Ultrasound, FHR- 176Sex and Gender Information ValueDate RecordedSex Assigned at BirthNot on fileLegal ZhhOidhwr57/15/2023 6:51 PM EDTGender IdentityNot on fileSexual OrientationNot on file Last Filed Vital Signs Vital SignReadingTime TakenCommentsBlood Vchamqus356/7204/07/2025 10:51 AM EDT Ibxlw861210/27/2024 11:44 AM NBBJhkvjrvbabd76.8 ??C (98.3 ??F)10/27/2024 11:44 AM EDTRespiratory Rate--Oxygen Bpkiqpufxy04%10/27/2024 11:44 AM EDTInhaled Oxygen Concentration--Xfjpdu79.3 kg (144 lb)04/07/2025 10:51 AM RGIUkigej798.1 cm (5' 5 )10/27/2024 11:44 AM EDTBody Mass Index23.9610/27/2024 11:44 AM EDT Plan of Treatment DateTypeDepartmentCare Team (Latest Contact Info)Lsjexfbqrqv53/05/2025 11:00 AM ESTRoutine N[facility] [address] [place] [address] Mendel Rosa, [address] [address] Health MaintenanceDue DateLast DoneCommentsInfluenza Vaccine (#1)02/15/2025 Procedures Procedure NamePriorityDate/TimeAssociated DiagnosisCommentsRECURRENT VAGINITIS (HTRX)Ohjvazl7104/07/2025 11:52 AM EDT POCT URINALYSIS JNQILEIQXxdseew93/22/2025 10:53 AM EDT Third trimester ([facility]) OB FOLLOW UP TRANSABDOMINAL ISYJYMYWPxjdxhx38/15/2025 1:59 PM EDT size inconsistent with dates ([facility]) POCT URINALYSIS ZLZTYIJHJcagyvl59/08/2025 10:44 AM EDT Third trimester ([facility]) POCT URINALYSIS GPKYWPPXAkkvgzl61/17/2025 10:37 AM EDT 25 weeks gestation of ([facility]) Second trimester ([facility]) URINARY TRACT INFECTION (HTRX)Kjxqtpd5202/03/2025 12:13 PM EDT RECURRENT VAGINITIS (HTRX)Ojgzdyh6702/03/2025 12:11 PM EDT POCT URINALYSIS LORHKCPQUmnbkxa69/20/2025 12:05 PM EDT 21 weeks gestation of ([facility]) Second trimester ([facility]) IGP,APTIMA HPV,AGE QNBXJuxiekm15/20/2025 11:48 AM EDT PAP QFYBDQgzumud00/20/2025 12:00 AM EDTUS OB 14+ WEEKS ANATOMY SCANRoutine 01/27/2025 11:57 AM EDT Screening, , for anatomic survey ([facility]) from Last 3 Months Results * RECURRENT VAGINITIS (HTRX) (04/07/2025 11:52 AM EDT) Only the most recent of2 resultswithin the time period is included. ComponentValueRef RangeTest MethodAnalysis TimePerformed AtPathologist Signature ATOPOBIUM RUHNFPV112.961 - 24.689 ppm04/08/2025 7:42 AM EDTHealthTrackRx at PeaceHealthATOPOBIUM VAGINAENot Wiwwseis71.961 - 24.689 ppm04/08/2025 7:42 AM EDT [facility]HealthBVAB 2,3 (BACTERIAL VAGINOSIS ASSOCIATED BACTERIA 2, 3); MOBILUNCUS JXY856.961 - 24.689 ppm04/08/2025 7:42 AM EDTHealthTrackRx at [facility] BVAB 2,3 (BACTERIAL VAGINOSIS ASSOCIATED BACTERIA 2, 3); MOBILUNCUS SPPNot Zyhplknc29.961 - 24.689 ppm04/08/2025 7:42 AM EDTHealthTrackRx at PeaceHealthCANDIDA ALBICANS, PARAPSILOSIS, EGEOGBVKZP962.000 - 30.347 ppm10/ 7:42 AM EDT [facility]HealthCANDIDA ALBICANS, PARAPSILOSIS, TROPICALISNot Detected 23.000 - 30.347 ppm04/08/2025 7:42 AM EDTHealthTrackRx at LabPortCANDIDA WXYIOGHJ342.000 - 31.618 ppm04/08/2025 7:42 AM EDTHealthTrackRx at [facility] HORACE GLABRATANot Zqghovoq24.000 - 31.618 ppm04/08/2025 7:42 AM EDT [facility] LabPortCANDIDA MTBJAL985.000 - 30.873 ppm04/08/2025 7:42 AM EDT [facility]PortCANDIDA KRUSEINot Xfkobdbd88.000 - 30.873 ppm04/08/2025 7:42 AM EDTHealthTrackRx at LabPortCHLAMYDIA SUVMYQKDQZD921.000 - 31.586 ppm 04/08/2025 7:42 AM EDTHealthTrackRx at LabPortCHLAMYDIA TRACHOMATISNot Detected 23.000 - 31.586 ppm04/08/2025 7:42 AM EDTHealthTrackRx at PeaceHealthGARDNERELLA SOFFZTUUI632.961 - 24.689 ppm04/08/2025 7:42 AM EDTHealthTrackRx at [facility] GARDNERELLA VAGINALISNot Fxkjaqbn72.961 - 24.689 ppm04/08/2025 7:42 AM EDT [facility] at LabPortMEGASPHAERA (TYPES 1, 2)019.961 - 24.689 ppm04/08/2025 7:42 AM EDTHealthTrackRx at LabPortMEGASPHAERA (TYPES 1, 2)Not Myqlbzrm07.961 - 24.689 ppm04/08/2025 7:42 AM EDTHealthTrackRx at LabPortNEISSERIA GONORRHOEAE0 23.000 - 32.587 ppm04/08/2025 7:42 AM EDTHealthTrackRx at LabPortNEISSERIA GONORRHOEAENot Hptukoxx72.000 - 32.587 ppm04/08/2025 7:42 AM EDTHealthTrackRx at LabPortTRICHOMONAS FZTQZIRGG591.000 - 31.995 ppm04/08/2025 7:42 AM EDT [facility] at LabPortTRICHOMONAS VAGINALISNot Cfspvkie76.000 - 31.995 ppm 04/08/2025 7:42 AM EDTHealthTrackRx at LabSchneck Medical CenterMYCOPLASMA QJZLNATBDS303.961 - 24.689 ppm04/08/2025 7:42 AM EDTHealthTrackRx at LabSchneck Medical CenterMYCOPLASMA GENITALIUMNot Mtbimxzd93.961 - 24.689 ppm04/08/2025 7:42 AM EDTHealthTrackRx at [facility] Specimen (Source)Anatomical Location / LateralityCollection Method / Volume Collection TimeReceived OosrLnlsgo82/22/2025 11:52 AM EDT1 1:22 AM EDT Narrative Authorizing ProviderResult TypeResult StatusAmy [facility] BLOOD ORDERABLES Final ResultPerforming OrganizationAddressCity/State/ZIP CodePhone Number [facility] [address] [address] * POCT urinalysis dipstick manually resulted (04/07/2025 10:53 AM EDT) Only the most recent of4 resultswithin the time period is included. ComponentValueRef RangeTest MethodAnalysis TimePerformed AtPathologist Signature Color, UAYellowClarity, UAClearGlucose, UANegativeNegative - 1999(110) ++++ mg/dLBilirubin, UANegativeNegative - 4(70) +++ mg/dLKetones, UANegativeNegative - 160(16) ++++ mg/dLSpec Grav, UA1.0101 - 1.03Blood, UANegativeNegative - 50 Ryder/mcLpH, UA7.05 - 9Protein, UANegativeNegative - 2000(20) ++++ mg/dL Urobilinogen, UA1.00.2 - 12 mg/dLLeukocytes, UANegativeNegative - 500+++ Astrid/mcL Nitrite, UANegativeNegative - PositiveSpecimen (Source)Anatomical Location / LateralityCollection Method / VolumeCollection TimeReceived CkgfZuakl85/22/2025 10:53 AM EDT Narrative Authorizing ProviderResult TypeResult StatusAmy Sharon [facility] TEST ENTER/EDIT ORDERABLESFinal Result * US OB follow up transabdominal approach [...] BY: Laci Boykin MD Authorizing ProviderResult TypeResult StatusKrThe [facility] NPIMG OB US PROCEDURESFinal Result * URINARY TRACT INFECTION (HTRX) (02/03/2025 12:13 PM EDT)ComponentValueRef RangeTest MethodAnalysis TimePerformed AtPathologist SignatureACINETOBACTER KQMBIQLG601.961 - 24.9 ppm02/04/2025 7:12 AM EDTHealthTrackRx at [facility]Port ACINETOBACTER BAUMANIINot Lvpurjus70.961 - 24.689 ppm02/04/2025 7:12 AM EDT [facility] at LabPortCITROBACTER SEGMBOXL039.000 - 32.015 ppm02/04/2025 7:12 AM EDTHealthTrackRx at LabPortCITROBACTER FREUNDIINot Updotezf88.000 - 32.015 ppm02/04/2025 7:12 AM EDTHealthTrackRx at LabPortENTEROBACTER AEROGENES, ZZFJIHS758.000 - 32.290 ppm02/04/2025 7:12 AM EDTHealthTrackRx at LabPortENTEROBACTER AEROGENES, CLOACAENot Ssozizvx74.000 - 32.290 ppm 02/04/2025 7:12 AM EDTHealthTrackRx at LabPortENTEROCOCCUS FAECALIS, FAECIUM0 26.000 - 33.043 ppm02/04/2025 7:12 AM EDTHealthTrackRx at LabPortENTEROCOCCUS FAECALIS, FAECIUMNot Rhenavwc77.000 - 33.043 ppm02/04/2025 7:12 AM EDT [facility] at LabPortESCHERICHIA UPLW703.000 - 28.500 ppm02/04/2025 7:12 AM EDTHealthTrackRx at LabPortESCHERICHIA COLINot Ysvbjxil94.000 - 28.500 ppm 02/04/2025 7:12 AM EDTHealthTrackRx at LabPortKLEBSIELLA PNEUMONIAE, OXYTOCA0 23.000 - 31.865 ppm02/04/2025 7:12 AM EDTHealthTrackRx at LabPortKLEBSIELLA PNEUMONIAE, OXYTOCANot Bnzaxfbu04.000 - 31.865 ppm02/04/2025 7:12 AM EDT [facility] at LabPortMORGANELLA BVTGFUCE940.961 - 24.689 ppm02/04/2025 7:12 AM EDTHealthTrackRx at LabPortMORGANELLA MORGANIINot Ltgvilgc92.961 - 24.689 ppm02/04/2025 7:12 AM EDTHealthTrackRx at LabPortPROTEUS MIRABILIS, VULGARIS0 23.000 - 28.500 ppm02/04/2025 7:12 AM EDTHealthTrackRx at LabPortPROTEUS MIRABILIS, VULGARISNot Lzuvithl96.000 - 28.500 ppm02/04/2025 7:12 AM EDT [facility] at LabPortPSEUDOMONAS HIXDVGECIJ561.000 - 31.801 ppm02/04/2025 7:12 AM EDTHealthTrackRx at LabPortPSEUDOMONAS AERUGINOSANot Zafrvkdd31.000 - 31.801 ppm02/04/2025 7:12 AM EDTHealthTrackRx at LabPortSTAPHYLOCOCCUS AUREUS0 26.000 - 31.595 ppm02/04/2025 7:12 AM EDTHealthTrackRx at [facility] STAPHYLOCOCCUS AUREUSNot Eqyfabkd53.000 - 31.595 ppm02/04/2025 7:12 AM EDT [facility] at LabPortSTREPTOCOCCUS AGALACTIAE (GROUP B STREP)026.000 - 32.435 ppm02/04/2025 7:12 AM EDTHealthTrackRx at LabPortSTREPTOCOCCUS AGALACTIAE (GROUP B STREP)Not Ifybcpgg86.000 - 32.435 ppm02/04/2025 7:12 AM EDTHealthTrackRx at LabPortCANDIDA ALBICANS, PARAPSILOSIS, QPGMVUYDIE973.000 - 30.347 ppm02/04/2025 7:12 AM EDTHealthTrackRx at LabPortCANDIDA ALBICANS, PARAPSILOSIS, TROPICALISNot Axdopvgh66.000 - 30.347 ppm02/04/2025 7:12 AM EDT [facility] LabPortCANDIDA XZORHCHS254.000 - 31.618 ppm02/04/2025 7:12 AM EDTHealthTrackRx at LabPortCANDIDA GLABRATANot Dbwhhxmu38.000 - 31.618 ppm 02/04/2025 7:12 AM EDTHealthTrackRx at LabPortCANDIDA YOEAZS582.000 - 30.873 ppm02/04/2025 7:12 AM EDTHealthTrackRx at LabPortCANDIDA KRUSEINot Detected 23.000 - 30.873 ppm02/04/2025 7:12 AM EDTHealthTrackRx at LabPortSERRATIA QWTLALMRLH915.000 - 31.581 ppm02/04/2025 7:12 AM EDTHealthTrackRx at LabPort SERRATIA MARCESCENSNot Euztvaet15.000 - 31.581 ppm02/04/2025 7:12 AM EDT [facility]HealthSTREPTOCOCCUS PYOGENES (GROUP A STREP)019.961 - 24.689 ppm02/04/2025 7:12 AM EDTHealthTrackRx at PeaceHealthSTREPTOCOCCUS PYOGENES (GROUP A STREP)Not Tpjjccql37.961 - 24.689 ppm02/04/2025 7:12 AM EDTHealthTrackRx at PeaceHealthSTAPHYLOCOCCUS EPIDERMIDIS, HAEMOLYTICUS, LUGDUNENSIS, SAPROPHYTICUS (LRGGQ196.961 - 24.689 ppm02/04/2025 7:12 AM EDTHealth[facility] at [facility] STAPHYLOCOCCUS EPIDERMIDIS, HAEMOLYTICUS, LUGDUNENSIS, SAPROPHYTICUS (URINANot Ybzwtjyp85.961 - 24.689 ppm02/04/2025 7:12 AM EDTHealth[facility] at [facility] STAPHYLOCOCCUS EPIDERMIDIS, HAEMOLYTICUS, LUGDUNENSIS, SAPROPHYTICUS (URINA0 19.961 - 24.689 ppm02/04/2025 7:12 AM EDT[facility] at [facility] STAPHYLOCOCCUS EPIDERMIDIS, HAEMOLYTICUS, LUGDUNENSIS, SAPROPHYTICUS (URINANot Tjctfkfn20.961 - 24.689 ppm02/04/2025 7:12 AM EDTHealth[facility]Rx at [facility] Specimen (Source)Anatomical Location / LateralityCollection Method / Volume Collection TimeReceived XhzsIhqud98/20/2025 12:13 PM EDT02/04/2025 1:34 AM EDT Narrative Authorizing ProviderResult TypeResult StatusCorey Shelley DOLAB BLOOD ORDERABLES Final ResultPerforming OrganizationAddressCity/State/ZIP CodePhone Number [facility] [address] [phone] * IGP,APTIMA HPV,AGE GDLN (02/03/2025 11:48 AM EDT)ComponentValueRef RangeTest MethodAnalysis TimePerformed AtPathologist SignatureAGE GDLN ACOG TESTINGNote. TBHComment: ?? TESTS ? RESULT ??FLAG ??UNITS ?REF RANGE ??LAB ?? Clinician Provided Cytology Information ?? Source.............Endocervix ?? No. of containers..01 ThinPrep Vial Age Algo ACOG Nighat... ??- ? 01 ?FLAG LEGEND: ?L-Low Normal,H-High Normal,LL-Alert Low,HH-Alert High <-Panic Low,>-Panic High,A-Abnormal,AA-Critical Abnormal Performed at: 01 =G ?[facility] ?? [address] [place] ??[phone] ?? Brittany Marshall MD, IGP, RFX APTIMA HPV ASCUNote.TBHComment: ?? TESTS ? RESULT ??FLAG ??UNITS ?REF RANGE ??LAB DIAGNOSIS: ?02 ?? NEGATIVE FOR INTRAEPITHELIAL LESION OR MALIGNANCY. Specimen adequacy: ?02 ?? Satisfactory for evaluation. No endocervical component is identified. Performed by: ? 02 ?? Meliza Rangel, Dry Transfer Man (ASCP) . ? 02 Note: ? Note ?02 ?? The Pap smear is a screening test designed to aid in the ?? detection of premalignant and malignant conditions of the ?? uterine cervix. ??It is not a diagnostic procedure and ?? should not be used as the sole means of detecting cervical ?? cancer. ??Both false-positive and false-negative reports do ?? occur. Test Methodology: ? Note ?02 ?? This liquid based ThinPrep(R) pap test was screened with ?? the use of an image guided system. . ? 02 ?? The HPV DNA reflex criteria were not met with this specimen ?? result therefore, no HPV testing was performed. ?FLAG LEGEND: ?L-Low Normal,H-High Normal,LL-Alert Low,HH-Alert High <-Panic Low,>-Panic High,A-Abnormal,AA-Critical Abnormal Performed at: 02 WB ?[facility] ?? [address] [place], [place] ??[phone] ?? Brittany Marshall MD, Performed at: ??=G - [facility] [place] ??[id number] Spool Salvager: Brittany Marshall MD, Phone: ??[phone] Performed at: ??WB - [facility] [place] ??[id number] Spool Salvager: Brittany Marshall MD, Phone: ??[phone] Specimen (Source)Anatomical Location / LateralityCollection Method / Volume Collection TimeReceived Time02/03/2025 11:48 AM EDT02/03/2025 9:18 PM EDT Narrative CLINISYNC - 02/06/2025 11:09 AM EDT SPATULA-ALONE ENDOCERVIX Authorizing ProviderResult TypeResult StatusCorey Shelley DOLAB BLOOD ORDERABLES Final ResultPerforming OrganizationAddressCity/State/ZIP CodePhone Number [facility]INIS[facility]NC [facility] * Pap Smear (02/03/2025 12:00 AM EDT)Specimen (Source)Anatomical Location / LateralityCollection Method / VolumeCollection TimeReceived TimeSwabCervical swab / Unknown Narrative Authorizing ProviderResult TypeResult StatusCorey Shelley DOLAB CYTOLOGY ORDERABLESFinal ResultPerforming OrganizationAddressCity/State/ZIP CodePhone Number EXTERNAL LAB * US OB 14+ weeks anatomy scan (01/27/2025 11:57 AM EDT)Anatomical Region LateralityModalityBodyUltrasoundSpecimen (Source)Anatomical Location / LateralityCollection Method / VolumeCollection TimeReceived Time01/27/2025 1:37 PM EDT Impressions 01/28/2025 7:54 AM EDT Single, live intrauterine , current sonographic age of 20 weeks and 5 days, with an estimated date of delivery of June 11, 2025. * ??Estimated Weight (g) by Percentile is based upon an accurate estimated age based onlast menstrual period. ?? TRANSCRIBED BY: ? ELECTRONICALLY SIGNED BY: Laci Boykin MD Narrative 01/28/2025 7:54 AM EDT FINDINGS: Comparison made with prior examination of November 06, 2024 delivery date at that time was June 14, 2025. A single, live intrauterine is present with normal cardiac rate of 144 ??beatsper minute. Normal activity and amniotic fluid volume. ??Morphology is grossly normal. The cervix is long and closed, ?cm. ??The placenta is anterior, inferior margin 5.3 cm from the closedinternal cervical os, 3.3 cm length. not associated with the cervical os. ??The current sonographicage is 20 weeks and 5 ??days, based on the following measurements: BPD ? 4.9 cm (20 ??weeks, ??6 days) Head Circumference ? 18.6cm (21 ??weeks, 0 days) Abdominal Circumference ? 14.8cm (20 ??weeks, 0 days) Femur Length ?3.4cm ( 20 weeks,5 ??days) Presentation ? Cephalic ? Placenta ? Anterior Weight (g) by Percentile ??54.9 % * These measurements result in an estimated date of delivery of June 11, 2025 ?? The current estimated weight is ??355 ??+/- 53 ??grams ( ??pound, 13 ??ounces). ?? Procedure Note Laci Boykin MD - 01/28/2025 [...] BY: Laci Boykin MD Authorizing ProviderResult TypeResult StatusAmy [facility] US PROCEDURES Final Result from Last 3 Months Insurance Care Teams Team MemberRelationshipSpecialtyStart DateEnd Kym Peraza MD [address] [place] [address] PCP - GeneralFachanning home Medicine11/28/22 Rosita Yanes MD [address] [place] [address] Referring PhysicianSouth [facility]11/28/22
--- OUTSIDE RECORDS SUMMARY | 2025-04-10 15:33 | XMS_ITS | Encounter Summary ---
Author Organization [facility] Address [address] [place] [address] Care Team Providers Care Field Producer Name Role Phone Kym Peraza MD Primary Care Provider [phone] Rosita Yanes MD Unavailable [phone] Encounter Details DateTypeDepartmentCare Team (Latest Contact Info)Fdmyqkoletg71/22/2025amboo flowsheet ROZ NUNEZ [address] [place] [address] Marianna Herrera PA [address] [place], [facility]11 Social History Tobacco UseTypesPacks/DayYears UsedDateSmoking Tobacco: NeverSmokeless [...] otherwise physically hurt by your partner or ex-partner?02/20/2023Within the last year, have you been raped or forced to have any kind of sexual activity by your part ner or ex-partner?02/20/2023Social Connection and Isolation PanelAnswerDate RecordedIn a typical week, how many times do you talk on the phone with family, friends, or neighbors?More than three times a week02/20/2023How often do you get together with friends or relatives?More than three times a week02/20/2023How often do you attend taoism or synagogue services?1 to 4 times per year02/20/2023 Do you belong to any clubs or organizations such as taoism groups, unions, fraternal or athletic groups, or school groups?No02/20/2023How often do you attend meetings of the clubs or organizations you belong to?Never02/20/2023re you , , , , never , or living with a partner?Living with rditjoo7802/20/2023UDIT-CAnswerDate RecordedQ1: How often do you have a [...] and heating?Not very hard02/20/2023HQ-2AnswerDate RecordedPatient Health Questionnaire-2 Pyhhq832F[facility] [place] of Occupational Health - Occupational Stress QuestionnaireAnswerDate RecordedDo you feel stress - tense, restless, nervous, or anxious, or unable to sleep at night because yourmind is troubled all the time - these days?Only a juayko9002/20/2023Exercise Vital Sign AnswerDate RecordedOn average, how many [...] you didn't have money to get more.Never true3PRAPARE - TransportationAnswerDate RecordedIn the past 12 months, [...] sleep or slept in ashelter (including now)?No 3Estimated Date of IoqtelqgOofnynysMxl96/29/2025Based on Ultrasound, FHR- 176Sex and Gender InformationValueDate RecordedSex Assigned at BirthNot on fileLegal KgfKczjbl21/15/2023 6:51 PM EDTGender IdentityNot on file Sexual OrientationNot on filedocumented as of this encounter Plan of Treatment DateTypeDepartmentCare Team (Latest Contact Info)Pwyrjdhebfu30/05/2025 11:00 AM ESTRoutine [facility] [address] [place] [phone] Mendel Rosa DO [address] [place], [place] [id number] documented as of this encounter Visit Diagnoses Not on filedocumented in this encounter Care Teams Team MemberRelationshipSpecialtyStart DateEnd Date Kym Peraza MD [address] [place] [address] PCP - GeneralFloyd Valley Healthcarely Medicine11/28/22 Rosita Yanes MD [address] [place] [address] Referring PhysicianFamily Medicine11/28/22documented as of this encounter
--- OUTSIDE RECORDS SUMMARY | 2025-04-10 15:33 | XMS_ITS | Encounter Summary ---
Author Organization [facility] Address [address] [place] [address] Care Team Providers Care Global Chief Creative Officer Name Role Phone Kym Peraza MD Primary Care Provider Rosita Yanes MD Unavailable [phone] Encounter Details DateTypeDepartmentCare Team (Latest Contact Info)Rlvpxqagihl52/20/2025Telephone ROZ Ma [facility] [place] [address] Lenka Jimenez MA Social History Tobacco UseTypesPacks/DayYears UsedDateSmoking Tobacco: NeverSmokeless [...] week02/20/2023How often do you attend methodist or presybeterian services?1 to 4 times per year02/20/2023 Do you belong to any clubs or organizations such as methodist groups, unions, fraternal or athletic groups, or school groups?No02/20/2023How often do you attend meetings of the clubs or organizations you belong to?Never02/20/2023re you , , , , never , or living with a partner?Living with fbbcqma6002/20/2023UDIT-CAnswerDate RecordedQ1: How often do you have a [...] and heating?Not very hard02/20/2023HQ-2AnswerDate RecordedPatient Health Questionnaire-2 Lhxev605Finblue mountain hospital, inc[facility] [place] of Occupational Health - Occupational Stress QuestionnaireAnswerDate RecordedDo you feel stress - tense, restless, nervous, or anxious, or unable to sleep at night because yourmind is troubled all the time - these days?Only a wfujsd3102/20/2023Exercise Vital Sign AnswerDate RecordedOn average, how many [...] in ashelter (including now)?No 02/20/2023Estimated Date of ZdwdxdmkAckauqumSgg64/29/2025Based on Ultrasound, FHR- 176Sex and Gender InformationValueDate RecordedSex Assigned at BirthNot on fileLegal IveNsubaf73/15/2023 6:51 PM EDTGender IdentityNot on file Sexual OrientationNot on filedocumented as of this encounter Miscellaneous Notes * Telephone Encounter - Lenka Jimenez MA - 04/05/2025 3:24 PM EDT Pt advised of results and recommendations. Pt has an appt on Saturday and will cook pickled meat paperwork on how to schedule appts then. documented in this encounter Plan of Treatment DateTypeDepartmentCare Team (Latest Contact Info)Evlawvugmrt40/05/2025 11:00 AM ESTRoutine [facility] [address] [address] Mendel Rosa, [address] [place] [address] NameTypePriorityAssociated DiagnosesOrder ScheduleUS biophysical profile w non stress testImagingRoutine Oligohydramnios in third trimester, fetus 1 of multiple gestation ([facility]) Expected: 04/05/2025 (Approximate), Expires: 10/04/2025documented as of this encounter Visit Diagnoses Diagnosis Oligohydramnios in third trimester, fetus 1 of multiple gestation ([facility]) documented in this encounter Care Teams Team MemberRelationshipSpecialtyStart DateEnd Date Kym Peraza MD [address] [place] [address] PCP - GeneralFamily Medicine11/28/22 Rosita Yanes MD [address] [place] [address] Referring PhysicianFamily Medicine11/28/22documented as of this encounter
--- OUTSIDE RECORDS SUMMARY | 2025-04-10 15:33 | XMS_ITS | Encounter Summary ---
Author Organization [facility] Address [address] [place] [address] Care Team Providers Care Health Aid Name Role Phone Kym Peraza MD Primary Care Provider [phone] Rosita Yanes MD Unavailable [phone] Encounter Details DateTypeDepartmentCare Team (Latest Contact Info)Pzaikatyptb97/13/2025Telephone RO[facility] [address] [place] [address] Mendel Rosa DO [address] [place], [facility]11 Social History Tobacco UseTypesPacks/DayYears UsedDateSmoking Tobacco: NeverSmokeless [...] times a week02/20/2023How often do you attend tenriism or yazidism services?1 to 4 times per year02/20/2023 Do you belong to any clubs or organizations such as tenriism groups, unions, fraternal or athletic groups, or school groups?No02/20/2023How often do you attend meetings of the clubs or organizations you belong to?Never02/20/2023re you , , , , never , or living with a partner?Living with hthycgg7202/20/2023UDIT-CAnswerDate RecordedQ1: How often do you have a [...] and heating?Not very hard02/20/2023HQ-2AnswerDate RecordedPatient Health Questionnaire-2 Gogdx821Fin[facility] [place] of Occupational Health - Occupational Stress QuestionnaireAnswerDate RecordedDo you feel stress - tense, restless, nervous, or anxious, or unable to sleep at night because yourmind is troubled all the time - these days?Only a kpakei1602/20/2023Exercise Vital Sign AnswerDate RecordedOn average, how many [...] in ashelter (including now)?No 02/20/2023Estimated Date of JjepvbinEgpdaqbaRav28/29/2025Based on Ultrasound, FHR- 176Sex and Gender InformationValueDate RecordedSex Assigned at BirthNot on fileLegal MfmLdnaok41/15/2023 6:51 PM EDTGender IdentityNot on file Sexual OrientationNot on filedocumented as of this encounter Miscellaneous Notes * Addendum Note - Roselyn Peterson LPN - 03/29/2025 3:25 PM EDTAddended by: ROSELYN PETERSON on: 03/29/2025 03:25 PM Modules accepted: Orders * Telephone Encounter - Roselyn Peterson LPN - 03/29/2025 3:24 PM EDT Verbal orders received to send script for patient for odor and would like flagyl. Script sent at this time. * Telephone Encounter - Roselyn Peterson LPN - 03/29/2025 12:46 PM EDT Patient [...] Plan of Treatment DateTypeDepartmentCare Team (Latest Contact Info)Chlmycgutdd55/05/2025 11:00 AM ESTRoutine [facility] [address] [facility] [place] [address] Mendel Rosa DO [address] [facility] [address] [address] documented as of this encounter Visit Diagnoses Diagnosis Vaginal odor Unspecified symptom associated with female genital organs documented in this encounter Care Teams Team MemberRelationshipSpecialtyStart DateEnd Date Kym Peraza MD [address] [place] [address] PCP - GeneralFamily Medicine11/28/22 Rosita Yanes MD [address] [place] [address] Referring PhysicianFamily Medicine11/28/22documented as of this encounter
--- OUTSIDE RECORDS SUMMARY | 2025-04-10 15:33 | XMS_ITS ---
Author Organization [facility] Source Produ ction (ClinicalSummary Clone) Address Unknown Care Team Providers Care Elementary School Band Director Name Role Phone Unavailable Primary Care Physician Unavailab le Results * [UNITY] ANEUPLOIDY NIPT Performed by: INVOLTA Component Value Range Date Fraction 6.6% 11/15/2024 05:07 pm UTCRh(D) NIPTRhD DYAGWYUB03/01/2025 05:07 pm UTCSex Chromosome AneuploidyNOT HRWHCEPV91/01/2025 05:07 pm UTCMonosomy XLOW RISK <1 in , 05:07 pm UTCTrisomy 13LOW RISK <1 in , 05:07 pm UTCTrisomy 18LOW RISK <1 in , 05:07 pm UTCTrisomy 21LOW RISK <1 in 10, 05:07 pm UTCFetal AmzPFDA4211/15/2024 05:07 pm UTCPregnancy WzskwrhicGFEEQQZZR35/01/2025 05:07 pm UTCFor detailed report, see PDFSee PDF 11/15/2024 05:07 pm UTC11/15/2024 05:07 pm UTC Social History Observation Value Start Date End Date
--- OUTSIDE RECORDS SUMMARY | 2025-04-10 15:33 | XMS_ITS | Encounter Summary ---
Author Organization [facility] Address [address] [place] [address] Care Team Providers Care Project Administrator Name Role Phone Kym Peraza MD Primary Care Provider [phone] Rosita Yanes MD Unavailable [phone] Encounter Details DateTypeDepartmentCare Team (Latest Contact Info)Yxedytpntuo25/21/2025Telephone RO[facility] [address] [facility] [place] [address] Mendel Rosa DO [address] [place], [facility]11 Social History Tobacco UseTypesPacks/DayYears UsedDateSmoking Tobacco: NeverSmokeless [...] times a week02/20/2023How often do you attend alevism or jew services?1 to 4 times per year02/20/2023 Do you belong to any clubs or organizations such as alevism groups, unions, fraternal or athletic groups, or school groups?No02/20/2023How often do you attend meetings of the clubs or organizations you belong to?Never02/20/2023re you , , , , never , or living with a partner?Living with fzwzohb1802/20/2023UDIT-CAnswerDate RecordedQ1: How often do you have a [...] and heating?Not very hard02/20/2023HQ-2AnswerDate RecordedPatient Health Questionnaire-2 Tlumz531Finhighland ridge hospital [place] of Occupational Health - Occupational Stress QuestionnaireAnswerDate RecordedDo you feel stress - tense, restless, nervous, or anxious, or unable to sleep at night because yourmind is troubled all the time - these days?Only a saiyra8502/20/2023Exercise Vital Sign AnswerDate RecordedOn average, how many [...] in ashelter (including now)?No 02/20/2023Estimated Date of MgyyjpvpLuinbvzkRjn44/29/2025Based on Ultrasound, FHR- 176Sex and Gender InformationValueDate RecordedSex Assigned at BirthNot on fileLegal CaoCqxzev39/15/2023 6:51 PM EDTGender IdentityNot on file Sexual OrientationNot on filedocumented as of this encounter Miscellaneous Notes * Telephone Encounter - Amrita Madera LPN - 04/06/2025 3:04 PM EDT 04/06/25 3:04 pm Called patient to discuss symptoms. Advised patient to increase oral fluid intake.Patient denies vaginal bleeding and states she is just having a discharge. Patient voiced that she has not been able to take antibiotic as directed. Patient desires to have vaginal cultures obtained at next appointment. Patient voiced she is still feeling movement and that has not been effecte d at all. Amrita Gomez LPN * Telephone Encounter - Giselle Coronado - 04/06/2025 11:26 AM EDT Patient reached out and was concerned as she having some lower pelvic cramping, she states she alsohad some increased discharge past few days. She is currently around 30 weeks and recently went to [facility] er and they sent her home as everything checked out ok, Patient is scheduled tomorrow. Please advise. documented in this encounter Plan of Treatment DateTypeDepartmentCare Team (Latest Contact Info)Bprqplvxhna99/05/2025 11:00 AM ESTRoutine [facility] [address] [place] [address] Mendel Rosa DO [address] [facility] [place] [address] documented as of this encounter Visit Diagnoses Not on filedocumented in this encounter Care Teams Team MemberRelationshipSpecialtyStart DateEnd Date Kym Peraza MD [address] [place] [address] PCP - GeneralFamily Medicine11/28/22 Rosita Yanes MD [address] [place] [address] Referring PhysicianFamily Medicine11/28/22documented as of this encounter
--- OUTSIDE RECORDS SUMMARY | 2025-04-10 15:33 | XMS_ITS | Patient Health Record ---
Author Organization [facility] Address [address] [place] [address] Care Team Providers Care Tank Setter Name Role Phone Elizabeth Keating Primary Care Provider DUKE ANDREWS Unavailable Unavailable Sarita Allen Unavailable [phone] Reason For Referral No Information Problems Problem Type SNOMED Code ICD Code Onset Dates Problem Status W/U Status Risk Notes Problem Anxiety (60044292) Anxiety (F41.9) ActiveconfirmedProblemBorderline personality disorder (43426773)Borderline personality disorder in adult (F60.3)Activeconfirmed Encounters Encounter Location Date Provider [facility] [address] [place] [address] 04/17/2024 Sarita Allen Plan Of Treatment No Information Insurance Providers Payer Name Payer Address Payer Phone Subscriber Number Group Number Insured Name Patient Relationship to Insured Coverage Start Date Coverage End Date [employer] [place] [employer] [address] [facility] [address] [id number] Tip NOVOA - patient is the [id number] 2024 [address] [facility] [address] [place] [id number], MORGANSelf - patient is the [id number] 2023
--- OUTSIDE RECORDS SUMMARY | 2025-04-10 15:33 | XMS_ITS | Encounter Summary ---
Author Organization [facility] Address [address] [place] [address] Care Team Providers Care Senior Technical Analyst Name Role Phone Kym Peraza MD Primary Care Provider [phone] Rosita Yanes MD Unavailable [phone] Encounter Details DateTypeDepartmentCare Team (Latest Contact Info)Lgvzlpfdboy97/24/2025Patient Outreach [facility] [address] [place] [address] Marianna Galdamez, GABRIELLA [address] [place] [address] Social History Tobacco UseTypesPacks/DayYears UsedDateSmoking Tobacco: NeverSmokeless [...] times a week02/20/2023How often do you attend gnosticism or christian services?1 to 4 times per year02/20/2023 Do you belong to any clubs or organizations such as gnosticism groups, unions, fraternal or athletic groups, or school groups?No02/20/2023How often do you attend meetings of the clubs or organizations you belong to?Never02/20/2023re you , , , , never , or living with a partner?Living with elmhgzt4202/20/2023UDIT-CAnswerDate RecordedQ1: How often do you have a [...] and heating?Not very hard02/20/2023HQ-2AnswerDate RecordedPatient Health Questionnaire-2 Hmabj972Finsevier valley hospital [place] of Occupational Health - Occupational Stress QuestionnaireAnswerDate RecordedDo you feel stress - tense, restless, nervous, or anxious, or unable to sleep at night because yourmind is troubled all the time - these days?Only a tbtopq5902/20/2023Exercise Vital Sign AnswerDate RecordedOn average, how many [...] in ashelter (including now)?No 02/20/2023Estimated Date of CvzetylzYftwmgsoEqv75/29/2025Based on Ultrasound, FHR- 176Sex and Gender InformationValueDate RecordedSex Assigned at BirthNot on fileLegal NdxEatjgw36/15/2023 6:51 PM EDTGender IdentityNot on file Sexual OrientationNot on filedocumented as of this encounter Functional Status * Over the past 2 weeks, how often have you been bothered by any of the following problems?QuestionAnswerDate of AssessmentAuthorLittle interest or pleasure in doing thingsNot at all04/09/2025 3:42 PM Marianna Santos LPN Feeling down, depressed, or hopelessNot at all04/09/2025 3:42 PM Marianna Santos LPNPatient Health Questionnaire-2 Lyxnm392 3:42 PM Marianna Santos LPN documented as of this encounter Progress Notes * Marianna Galdamez LPN - 04/09/2025 3:41 PM EDT Monthly Outreach. Call to pt. Pt report she feels bay moving frequently. Appetite and sleep are adequate. Pt had one episode of vomiting today she believes due to eating too fast. Bowels are regular.Pt denies any depression or difficulty coping at this time. Pt denies any questions, concerns or needs today. Next OB OV 11/5/25. documented in this encounter Plan of Treatment DateTypeDepartmentCare Team (Latest Contact Info)Yaabcwiohiw48/05/2025 11:00 AM ESTRoutine [facility] [address] [place] [address] Mendel Rosa DO [address] [facility] [place] [address] documented as of this encounter Visit Diagnoses Not on filedocumented in this encounter Care Teams Team MemberRelationshipSpecialtyStart DateEnd Date Kym Peraza MD [address] [place] [address] PCP - GeneralFamily Medicine11/28/22 Rosita Yanes MD [address] [place] [address] Referring PhysicianFamily Medicine11/28/22documented as of this encounter
[2025-04-10 15:36] VITALS: BP 125/73; PULSE 90
== END 2025-04-10 16:00 | disposition home or self-care (01) ==
LOC: FBCO 15:30 → FBC 15:33
PROVIDERS: PCP Student in an Organized Health Care Education/Training Program; Visit Provider Obstetrics & Gynecology
DX: O26.893 Other specified pregnancy related conditions, third trimester (principal); Z3A.30 30 weeks gestation of pregnancy
CPT/HCPCS: 59025

== ENCOUNTER 2025-04-14 10:56 | Outpatient (OUT) | payer OTHER, SELFPAY ==
--- OUTSIDE RECORDS SUMMARY | 2024-04-20 12:30 | XMS_ITS ---
Author Organization [facility] Address [address] [facility] [place] [address] Care Team Providers Care Content Checker Name Role Phone Elizabeth Keating Primary Care Provider DUKE ANDREWS Unavailable Unavailable Sarita Allen Unavailable [phone] REASON FOR VISIT biweekly f/u Encounters Encounter Location Date Provider Diagnosis [place] [address] [place] [address] 04/20/2024 Sarita Allen Plan Of Treatment No Information Progress Notes * JOSÉ LUIS NOVOA PDOB:2000 (24 yo F)Acc No.[id number]:04/20/2024 F/U - Patient Patient: Corie JIN JOSÉ LUIS Reyes :?Sarita Allen LPCDOB:2000???Age:23 Y ???Sex:FemaleDate:04/20/2024hone:[phone]:[address] [facility], [address], [place], [place]Trf:Elizabeth Keating Subjective: * Chief Complaints: * B iweekly f/u Care Plan Details* * Electronic signature of Sarita Allen LPC on 04/14/2025 at 11:00 AM EDTSign off status: Pending * Provider: Reynaldo Allen LPC Date: 06/20/2023 Generated for Printing/Faxing/eTransmitting on:?04/14/2025 11:00 AM EDT
--- OUTSIDE RECORDS SUMMARY | 2024-12-09 11:15 | XMS_ITS ---
Author Organization [facility] Address [address] [place] [address] Care Team Providers Care Remnant Sorter Name Role Phone Elizabeth Keating Primary Care Provider DUKE ANDREWS Unavailable Unavailable REASON FOR VISIT acid concentrator exam Encounters Encounter Location Date Provider Diagnosis [place] [address] [place] [address] 12/09/2024 Elizabeth Keating Plan Of Treatment No Information Progress Notes * JOSÉ LUIS NOVOA PDOB:2000 (24 yo F)Acc No.[id number]:12/09/2024 Patient:?JOSÉ LIUS NOVOA :?Elizabeth Keating DDSDOB:2000???Age:23 Y ???Sex:FemaleDate:12/09/2024Phone:[phone]:[address] [facility], [address], [place], [place] Subjective: * Chief Complaints: * N p exam Billing Information: * Procedure Codes: * Electronic signature of Elizabeth Keating DDS on 04/14/2025 at 11:00 AM EDTSign off status: Pending * Provider: Rupali Keating DDS Date: 0 12/09/2024 Generated for Printing/Faxing/eTransmitting on:?04/14/2025 11:00 AM EDT
--- OUTSIDE RECORDS SUMMARY | 2025-03-31 13:30 | XMS_ITS | Encounter Summary ---
Author Organization [facility] Address [address] [place] [address] Care Team Providers Care Mortgage Or Loan Underwriter Name Role Phone Kym Peraza MD Primary Care Provider [phone] Rosita Yanes MD Unavailable [phone] Encounter Details DateTypeDepartmentCare Team (Latest Contact Info)Oorzhuhxpyp14/15/2025 1:30 PM EDTAncillary Procedure ROZ Ma OBGYEvaristo [address] [place] [address] [place] [phone] size inconsistent with dates ([facility]) Social History Tobacco UseTypesPacks/DayYears UsedDateSmoking Tobacco: NeverSmokeless Tobacco: NeverAlcohol UseStandard Drinks/WeekCommentsNever0 (1 standard drink = 0.6 oz pure alcohol)Humiliation, Afraid, Rape, and Kick questionnaireAnswerDate RecordedWithin the last year, have you been afraid of your partner or ex-partner?No02/20/2023Within the last year, have you been humiliated or emotionally abused in other ways by your partner or ex-partner?No02/20/2023 Within the last year, have you been kicked, hit, slapped, or otherwise physically hurt by your partner or ex-partner?No02/20/2023Within the last year, have you been raped or forced to have any kind of sexual activity by your part ner or ex-partner?No02/20/2023Social Connection and Isolation PanelAnswerDate RecordedIn a typical week, how many times do you talk on the phone with family, friends, or neighbors?More than three times a week02/20/2023How often do you get together with friends or relatives?More than three times a week02/20/2023How often do you attend hinduism or protestant services?1 to 4 times per year02/20/2023 Do you belong to any clubs or organizations such as hinduism groups, unions, fraternal or athletic groups, or school groups?No02/20/2023How often do you attend meetings of the clubs or organizations you belong to?Never02/20/2023re you , , , , never , or living with a partner?Living with mwbiomz0902/20/2023UDIT-CAnswerDate RecordedQ1: How often do you have a drink containing alcohol?Monthly or less02/20/2023Q2: How many drinks containing alcohol do you have on a typical day when you are drinking?3 or 4 02/20/2023Q3: How often do you have six or more drinks on one occasion?Never 02/20/2023Overall Financial Resource Strain (CARDIA)AnswerDate RecordedHow hard is it for you to pay for the very basics like food, housing, medical care, and heating?Not very hard02/20/2023HQ-2AnswerDate RecordedPatient Health Questionnaire-2 Ehwtq043[facility] [place] of Occupational Health - Occupational Stress QuestionnaireAnswerDate RecordedDo you feel stress - tense, restless, nervous, or anxious, or unable to sleep at night because yourmind is troubled all the time - these days?Only a drvtat4902/20/2023Exercise Vital Sign AnswerDate RecordedOn average, how many days per week do you engage in moderate to strenuous exercise (like a brisk walk)?3 days02/20/2023On average, how many minutes do you engage in exercise at this level?150+ min02/20/2023Hunger Vital SignAnswerDate RecordedWithin the past 12 months, you worried that your food would run out before you got the money to buymore.Never true02/20/2023Within the past 12 months, the food you bought just didn't last and you didn't have money to get more.Never true09/06/2023PRAPARE - TransportationAnswerDate RecordedIn the past 12 months, has lack of transportation kept you from medical appointments or from getting medications?No02/20/2023In the past 12 months, has lack of transportation kept you from meetings, work, or from getting things needed for daily living?No02/20/2023Housing Stability Vital SignAnswerDate RecordedIn the last 12 months, was there a time when you were not able to pay the mortgage or rent on time?No02/20/2023In the last 12 months, how many places have you lived?In the last 12 months, was there a time when you did not have a steady place to sleep or slept in ashelter (including now)?No 02/20/2023Estimated Date of WpojszdmSfiunsjqZjo44/29/2025Based on Ultrasound, FHR- 176Sex and Gender InformationValueDate RecordedSex Assigned at BirthNot on fileLegal VwmGyxkyg65/15/2023 6:51 PM EDTGender IdentityNot on file Sexual OrientationNot on filedocumented as of this encounter Plan of Treatment DateTypeDepartmentCare Team (Latest Contact Info)Qlmzvuhslco74/05/2025 11:00 AM ESTRoutine [facility] [address] [place] [phone] Mendel Rosa, [address] [place], [place] [id number] documented as of this encounter Procedures Procedure NamePriorityDate/TimeAssociated DiagnosisCommentsUS OB FOLLOW UP TRANSABDOMINAL VPLERWAFZrjswrp32/15/2025 1:59 PM EDT size inconsistent with dates ([facility]) documented in this encounter Results * US OB follow up transabdominal approach (03/31/2025 1:59 PM EDT)Anatomical RegionLateralityModalityBodyUltrasoundSpecimen (Source)Anatomical Location / LateralityCollection Method / VolumeCollection TimeReceived Time04/01/2025 12:35 PM EDT Impressions 04/01/2025 1:17 PM EDT 1. Single, live intrauterine , current sonographic age of 29 weeks and 5 days, with an estimated date of delivery of June 11, 2025. 2. ??Prior examination date of delivery was June 11, 2025 and weight was 59%. 3. ??RUCHI measures 9.0 cm * ??Estimated Weight (g) by Percentile is based upon an accurate estimated age based onlast menstrual period. ?? TRANSCRIBED BY: ? ELECTRONICALLY SIGNED BY: Laci Boykin MD Narrative 04/01/2025 1:17 PM EDT Comparison made with prior examination of January 26, 2025. A single, live intrauterine is present with normal cardiac rate of 147 beats per minute. Normal activity and amniotic fluid volume. Amniotic fluid index is 9.0 cm. (Largest fluid pocket 3.5 cm) he current sonographic age is 29 weeks and 5 days, based on the following measurements: BPD ? 7.6cm (30 weeks, 3 days) Head Circumference ?27.9cm (30 weeks,3 ??days) Abdominal Circumference ? 24.8cm (29 weeks, 0 days) Femur Length ? 5.5cm ( 28weeks, 0 ??days) Presentation ? Cephalic ? Weight (g) by Percentile ??34.6 % * These measurements result in an estimated date of delivery of June 11, 2025. The current estimated weight is 1357 grams ( 3 pound, 0 ounces). ?? Procedure Note Laci Boykin MD - 04/01/2025 Comparison made with prior examination of January 26, 2025. A single, live intrauterine is present with normal cardiac rate of 147beats per minute. Normal activity and amniotic fluid volume.Amniotic fluid index is 9.0 cm. (Largest fluid pocket 3.5 cm) hecurrent sonographic age is 29 weeks and 5 days, based on the followingmeasurements: BPD 7.6cm (30 weeks, 3 days) Head Circumference 27.9cm (30 weeks,3 days) Abdominal Circumference 24.8cm (29 weeks, 0 days) Femur Length 5.5cm ( 28weeks, 0 days) Presentation Cephalic Weight (g) by Percentile 34.6 % * These measurements result in an estimated date of delivery of May. The current estimated weight is 1357 grams ( 3 pound, 0ounces). IMPRESSION: 1. Single, live intrauterine , current sonographic age of 29weeks and 5 days, with an estimated date of delivery of May. 2. Prior examination date of delivery was June 11, 2025 and fetalweight was 59%. 3. RUCHI measures 9.0 cm * Estimated Weight (g) by Percentile is based upon an accurateestimated age based on last menstrual period. TRANSCRIBED BY: ELECTRONICALLY SIGNED BY: Laci Boykin MD Authorizing ProviderResult TypeResult StatusRadha Resendez NPIMG OB US PROCEDURESFinal Result documented in this encounter Visit Diagnoses Diagnosis size inconsistent with dates ([facility]) documented in this encounter Care Teams Team MemberRelationshipSpecialtyStart DateEnd Date Kym Peraza MD [address] [place] [address] PCP - GeneralFamily Medicine11/28/22 Rosita Yanes MD [address] [place] [address] Referring PhysicianFamily Medicine11/28/22documented as of this encounter
--- OUTSIDE RECORDS SUMMARY | 2025-04-07 10:50 | XMS_ITS | Encounter Summary ---
Author Organization [facility] Address [address] [place] [address] Care Team Providers Care Medical Authorization Specialist Name Role Phone Kym Peraza MD Primary Care Provider [phone] Rosita Yanes MD Unavailable [phone] Reason for Visit * ReasonCommentsRoutine Visit Encounter Details DateTypeDepartmentCare Team (Latest Contact Info)Mdnbcepfxnn79/22/2025 10:50 AM EDTRoutine ROZ Ma OBGYEvaristo [address] [place] [phone] Marianna Herrera PA [address] [address] Third trimester ([facility]); 30 weeks gestation of ([facility]); Exposure to STD; RUCHI (amniotic fluid [...] times a week02/20/2023How often do you attend yazidism or taoism services?1 to 4 times per year02/20/2023 Do you belong to any clubs or organizations such as yazidism groups, unions, fraternal or athletic groups, or school groups?No02/20/2023How often do you attend meetings of the clubs or organizations you belong to?Never02/20/2023re you , , , , never , or living with a partner?Living with ktbfnze4502/20/2023UDIT-CAnswerDate RecordedQ1: How often do you have a [...] and heating?Not very hard02/20/2023HQ-2AnswerDate RecordedPatient Health Questionnaire-2 Lifwr826Fin[facility] of Occupational Health - Occupational Stress QuestionnaireAnswerDate RecordedDo you feel stress - tense, restless, nervous, or anxious, or unable to sleep at night because yourmind is troubled all the time - these days?Only a xewfcc7402/20/2023Exercise Vital Sign AnswerDate RecordedOn average, how many [...] steady place to sleep or slept in vancouverelter (including now)?No 02/20/2023Estimated Date of TsvvpicxCxmusuonGpu91/29/2025Based on Ultrasound, FHR- 176Sex and Gender InformationValueDate RecordedSex Assigned at BirthNot on fileLegal TvzZmsqhf23/15/2023 6:51 PM EDTGender IdentityNot on file Sexual OrientationNot on filedocumented as of this encounter Last Filed Vital Signs Vital SignReadingTime TakenCommentsBlood Gnaievcs644/7204/07/2025 10:51 AM EDT Pulse--Temperature--Respiratory Rate--Oxygen Saturation--Inhaled Oxygen Concentration--Gogymz71.3 kg (144 lb)04/07/2025 10:51 AM EDTHeight--Body Mass [...] nursing note reviewed. Exam conducted with a jigger machine operator present. Vitals: Estimated body mass index is 23.42 kg/m?? as calculated from the following: Height as of 10/27/24: 5' 5 . Weight as of 03/24/25: 140 lb 12 oz. BP: No LMP recorded. Patient is . Assessment/Plan ICD-10-CM 1. Third trimester ([facility]) Z34.93 POCT urinalysis dipstick manually resulted 2. 30 weeks gestation of ([facility]) Z3A.30 3. Exposure to STD Z20.2 [...] Plan of Treatment DateTypeDepartmentCare Team (Latest Contact Info)Gpbutbmrhlq52/05/2025 11:00 AM ESTRoutine [facility] [address] [place] [phone] Mendel Rosa DO [address] [place] [address] NameTypePriorityAssociated DiagnosesOrder ScheduleSURESWAB(R) ADVANCED VAGINITIS PLUS, TMAPathology and CytologyRoutine Exposure to STD Ordered: 04/07/2025HLAMYDIA TRACHOMATIS (GENITO/STI)LabRoutine Exposure to STD Ordered: 04/07/2025Neisseria gonorrhea DNA probe, directLabRoutine Exposure to STD Ordered: 04/07/2025US biophysical profile w non stress testImagingRoutine RUCHI (amniotic fluid index) borderline low Expected: 04/07/2025 (Approximate), Expires: 10/06/2025documented as of this encounter Procedures Procedure NamePriorityDate/TimeAssociated DiagnosisCommentsPOCT URINALYSIS MVWDBARORcqawby23/22/2025 10:53 AM EDT Third trimester ([facility]) documented in this encounter Results * [...] AM EDT Narrative Authorizing ProviderResult TypeResult Status[facility] TEST [facility]TER/EDIT ORDERABLESFinal Result documented in this encounter Visit Diagnoses Diagnosis Third trimester ([facility]) state, incidental 30 weeks gestation of ([facility]) Exposure to STD RUCHI (amniotic fluid index) borderline low Nonspecific abnormal finding in amniotic fluid BV (bacterial vaginosis) Unspecified vaginitis and vulvovaginitis documented in this encounter Care Teams Team MemberRelationshipSpecialtyStart DateEnd Date Kym Peraza MD [address] [place] [address] PCP - GeneralFamily Medicine11/28/22 Rosita Yanes MD [address] [place] [address] Referring PhysicianFamily Medicine11/28/22documented as of this encounter
--- NOTE | 2025-04-14 | US_ITS ---
[facility] [place] [id number] Patient Name: JOSÉ LUIS NOVOA MRN: [id number] date: 2000 Sex: F Assigned Patient Location: [facility] Current Patient Location: [facility] Accession/Order Number: [id number] Exam Date: 04/14/2025 11:00 Report Date: 04/14/2025 11:19 At the request of: CRESENCIO VARELA Procedure: US OB BPP w non-stress BIOPHYSICAL PROFILE: CLINICAL INFORMATION: OLIGOHYDRAMNIOS COMPARISON: None. There is a single live intrauterine gestation in cephalic presentation. The reported gestational age is 31 weeks 2 days. The heart rate measures 139 beats per minute. FINDINGS: TONE: 1 or more episodes of activity extension and flexion of extremity or opening and closing of the hand [Y] 2/2 GROSS BODY MOVEMENTS: 3 or more discrete body or limb movements [Y] 2/2 BREATHING MOVEMENTS: 1 or more episodes of breathing lasting at least 30 seconds [Y] 2/2 RUCHI: A single deepest vertical pocket of amniotic fluid greater than 2 cm [Y] 2/2 RUCHI: 11.5 cm. This is in low-normal range. Total score: 8/8 US/US OB BPP w non-stress IMPRESSION: NORMAL BIOPHYSICAL PROFILE Impression dictated by: Jacqui Mendoza M.D. 04/14/2025 11:19 AM Dictation Location: [place] [address] Electronically authenticated by: [id number] Y Date: 04/14/2025 11:19
--- OUTSIDE RECORDS SUMMARY | 2025-04-14 11:00 | XMS_ITS | Encounter Summary ---
Author Organization [facility] Healthcare Address [address] [place] [address] Care Team Providers Care Patient Safety Officer Name Role Phone Kym Peraza MD Primary Care Provider [phone] Rosita Yanes MD Unavailable [phone] Encounter Details DateTypeDepartmentCare Team (Latest Contact Info)Vxiosyydgko63/24/2025Patient Outreach [facility] [address] [place] [address] Marianna Galdamez, GABRIELLA [address] [place] [address] Social History Tobacco UseTypesPacks/DayYears UsedDateSmoking Tobacco: NeverSmokeless [...] times a week02/20/2023How often do you attend voodoo or sikh services?1 to 4 times per year02/20/2023 Do you belong to any clubs or organizations such as voodoo groups, unions, fraternal or athletic groups, or school groups?No02/20/2023How often do you attend meetings of the clubs or organizations you belong to?Never02/20/2023re you , , , , never , or living with a partner?Living with jilhazr6202/20/2023UDIT-CAnswerDate RecordedQ1: How often do you have a [...] and heating?Not very hard02/20/2023HQ-2AnswerDate RecordedPatient Health Questionnaire-2 Fzylb417Finalta [facility] hospital [place] of Occupational Health - Occupational Stress QuestionnaireAnswerDate RecordedDo you feel stress - tense, restless, nervous, or anxious, or unable to sleep at night because yourmind is troubled all the time - these days?Only a trvyrx5602/20/2023Exercise Vital Sign AnswerDate RecordedOn average, how many [...] in ashelter (including now)?No 02/20/2023Estimated Date of NohkggphYswvausuPdl19/29/2025Based on Ultrasound, FHR- 176Sex and Gender InformationValueDate RecordedSex Assigned at BirthNot on fileLegal OjsFsixdd53/15/2023 6:51 PM EDTGender IdentityNot on file Sexual OrientationNot on filedocumented as of this encounter Functional Status * Over the past 2 weeks, how often have you been bothered by any of the following problems?QuestionAnswerDate of AssessmentAuthorLittle interest or pleasure in doing thingsNot at all04/09/2025 3:42 PM Marianna Santos LPN Feeling down, depressed, or hopelessNot at all04/09/2025 3:42 PM Marianna Santos LPNPatient Health Questionnaire-2 Kegey193 3:42 PM Marianna Santos LPN documented as [...] Plan of Treatment DateTypeDepartmentCare Team (Latest Contact Info)Kvlozdmxlqv13/05/2025 11:00 AM ESTRoutine [facility] [address] [address] Mendel Rosa DO [address] [place] [address] documented as of this encounter Visit Diagnoses Not on filedocumented in this encounter Care Teams Team MemberRelationshipSpecialtyStart DateEnd Date Kym Peraza MD [address] [place] [address] PCP - GeneralFamily Medicine11/28/22 Rosita Yanes MD [address] [place] [address] Referring PhysicianFamily Medicine11/28/22documented as of this encounter
--- OUTSIDE RECORDS SUMMARY | 2025-04-14 11:00 | XMS_ITS | Patient Health Record ---
Author Organization [facility] Address [address] [place] [address] Care Team Providers Care Vice President Of Business Development Name Role Phone Elizabeth Keating Primary Care Provider DUKE ANDREWS Unavailable Unavailable Sarita Allen Unavailable [phone] Reason For Referral No Information Problems Problem Type SNOMED Code ICD Code Onset Dates Problem Status W/U Status Risk Notes Problem Anxiety (84605633) Anxiety (F41.9) ActiveconfirmedProblemBorderline personality disorder (06921039)Borderline personality disorder in adult (F60.3)Activeconfirmed Encounters Encounter Location Date Provider [facility] [address] [place] [address] 04/17/2024 Sarita Allen Plan Of Treatment No Information Insurance Providers Payer Name Payer Address Payer Phone Subscriber Number Group Number Insured Name Patient Relationship to Insured Coverage Start Date Coverage End Date [employer] [place] [employer] [address] [facility] [place] [address] [id number] Tip NOVOA - patient is the [id number] 2024 [address] [facility] [address] [place] [id number], MORGANSelf - patient is the [id number] 2023
--- OUTSIDE RECORDS SUMMARY | 2025-04-14 11:01 | XMS_ITS | Encounter Summary ---
Author Organization [facility] Address [address] [place] [address] Care Team Providers Care Chair Installer Name Role Phone Kym Peraza MD Primary Care Provider [phone] Rosita Yanes MD Unavailable [phone] Encounter Details DateTypeDepartmentCare Team (Latest Contact Info)Jzmbfurgjxs62/22/2025amboo flowsheet ROZ NUNEZ [address] [place] [address] Marianna Herrera PA [address] [facility] [address] [place], [facility]11 Social History Tobacco UseTypesPacks/DayYears UsedDateSmoking Tobacco: [...] times a week02/20/2023How often do you attend scientology or congregational services?1 to 4 times per year02/20/2023 Do you belong to any clubs or organizations such as scientology groups, unions, fraternal or athletic groups, or school groups?No02/20/2023How often do you attend meetings of the clubs or organizations you belong to?Never02/20/2023re you , , , , never , or living with a partner?Living with xcxbtfo3702/20/2023UDIT-CAnswerDate RecordedQ1: How often do you have a [...] and heating?Not very hard02/20/2023HQ-2AnswerDate RecordedPatient Health Questionnaire-2 Yerhj716Finjordan [facility] [place] of Occupational Health - Occupational Stress QuestionnaireAnswerDate RecordedDo you feel stress - tense, restless, nervous, or anxious, or unable to sleep at night because yourmind is troubled all the time - these days?Only a dsybbx7902/20/2023Exercise Vital Sign AnswerDate RecordedOn average, how many [...] in ashelter (including now)?No 3Estimated Date of KldfwlnwXfqctrfeAtf20/29/2025Based on Ultrasound, FHR- 176Sex and Gender InformationValueDate RecordedSex Assigned at BirthNot on fileLegal WqyUckytw10/15/2023 6:51 PM EDTGender IdentityNot on file Sexual OrientationNot on filedocumented as of this encounter Plan of Treatment DateTypeDepartmentCare Team (Latest Contact Info)Khpclruiamq88/05/2025 11:00 AM ESTRoutine [facility] [address] [place] [phone] Mendel Rosa DO [address] [facility] [address] [place], [place] [id number] documented as of this encounter Visit Diagnoses Not on filedocumented in this encounter Care Teams Team MemberRelationshipSpecialtyStart DateEnd Date Kym Peraza MD [address] [place] [address] PCP - GeneralMercyone [facility] Centerly Medicine11/28/22 Rosita Yanes MD [address] [place] [address] Referring PhysicianFamily Medicine11/28/22documented as of this encounter
--- OUTSIDE RECORDS SUMMARY | 2025-04-14 11:01 | XMS_ITS | Clinical Summary ---
Author Organization [facility] Address [address] [place] [address] Care Team Providers Care Controlled Atmospheric Furnace Brazer Name Role Phone Kym Peraza MD Primary Care Provider [phone] Rosita Yanes MD Unavailable [phone] Allergies No known active allergies Medications MedicationSigDispense QuantityRefillsLast FilledStart DateEnd DateStatus ondansetron ODT (Zofran-ODT) 4 MG disintegrating tablet Indications:NauseaTake 1 tablet (4 mg) by mouth every 8 (eight) hours if needed for vomiting or nausea 20 tablet 5Active multivitamin () 27-0.8 MG tablet Indications:8 weeks gestation of ([facility])Take 1 tablet by mouth Daily 90 tablet /6Active pseudoephedrine (Sudafed) 30 MG tablet Take 30 mg by mouth every 4 (four) hours if needed for congestionActive nitrofurantoin, macrocrystal-monohydrate, (Macrobid) 100 MG capsule TAKE 1 CAPSULE BY MOUTH EVERY MORNING, and ONE CAPSULE before bedtime FOR 7 DAYS 5Active metroNIDAZOLE (Flagyl) 500 MG tablet Indications:Vaginal odorTake 1 tablet (500 mg) by mouth in the morning and 1 tablet (500 mg) before bedtime. Do all this for 7 days. Do not drink alcohol while taking this medication. 14 tablet /Discontinued(Therapy completed) metroNIDAZOLE (Metrogel) 0.75 % vaginal gel Indications:BV (bacterial vaginosis)Insert into the vagina Daily for 5 days 70 g 10/22/Expired Active Problems ProblemNoted DateDiagnosed MhmtEflrtoz20/16/2023Mild episode of recurrent major depressive /16/2023Estimated Date of DeliveryCommentsYes 06/14/2025ased on Ultrasound, FHR- 176 Resolved Problems ProblemNoted DateDiagnosed DateResolved DateAcute cough/08/2023 Ynmznffuytlw84 Assessment & Plan (08/02/2023 3:58 PM EST): Will try inhaler and follow up as needed or if symptoms change or worsen Encounters DateTypeDepartmentCare TqnsUprhlscfzvq45/24/2025Patient Outreach [facility] [address] [place] [address] Marianna Galdamez LPN 04/07/2025 10:50 AM EDTRoutine [facility] [address] [facility] [place] [address] Marianna Herrera PA Third trimester ([facility]); 30 weeks gestation of ([facility]); Exposure to STD; RUCHI (amniotic fluid index) borderline low; BV (bacterial vaginosis)04/07/2025amboo flowsheet [facility] [address] [facility] [place] [place] [address] Marianna Herrera PA 04/06/2025Telephone [facility] [address] [facility] [place] [place] [address] Mendel Rosa DO 04/05/2025Telephone [facility] [address] [facility] [place] [address] Lenka Jimenez MA 03/31/2025 1:30 PM EDTAncillary Procedure [facility] [address] [facility] [place] [place] [address] size inconsistent with dates ([facility])03/29/2025Telephone [facility] [address] [facility] [place] [address] Mendel Rosa DO 03/24/2025 10:30 AM EDTRoutine [facility] [address] [facility] [place] [place] [address] Radha Resendez, CLAU size inconsistent with dates ([facility]) (Primary Dx); Third trimester ([facility]); 28 weeks gestation of ([facility])03/24/2025amboo flowsheet [facility] [address] [facility] [place] [address] Radha Resendez, CLAU 03/16/2025bstract [facility] [address] [facility] [place] [place] [address] Lenka Jimenez MA 03/11/2025Patient Outreach [facility] [address] [place] [address] Marianna Galdamez LPN 03/10/2025bstract [facility] [address] [place] [address] Marianna Galdamez LPN 03/03/2025 10:30 AM EDTRoutine [facility] [address] [facility] [place] [address] Marianna Herrera PA 25 weeks gestation of ([facility]); Second trimester ([facility]); Diabetes mellitus lidmsuzuq36/17/2025Bamboo flowsheet [facility] [address] [facility] [place] [address] Marianna Herrera PA 02/19/2025Orders Only [facility] [address] [facility] [place] [place] [address] Lenka Jimenez MA 02/03/2025 11:30 AM EDTRoutine [facility] [address] [place] [address] Mendel Rosa, DO 21 weeks gestation of ([facility]); Second trimester ([facility]); Exposure to STD; Vaginal discharge; Well woman exam with routine gynecological exam; Diabetes mellitus screening; Urinary tract infection without hematuria, site yzppfxxiwbg41/20/2025linisync Result Encounter [facility] Unsolicited Mendel Rosa, DO 02/03/2025External Result Encounter [facility] External [facility] Unsolicited Mendel Rosa, DO 02/03/2025amboo flowsheet [facility] [address] [place] [address] Mendel Rosa, DO 01/27/2025 11:00 AM EDTAncillary Procedure [facility] NUNE[facility] [address] [place] [address] Screening, , for anatomic survey ([facility])from Last 3 Months Immunizations ImmunizationAdministration DatesNext NxdZAS9401/23/2005,05/07/2001,02/15/2000DTaP, Tqxsorijuie33/26/2000HPV 9-Yxlhto7109/10/2016,05/15/2016,03/12/2016Hep A, ped/adol, 2 dose09/10/2016,03/12/2016Hep B, Adolescent or Ggztmfzpk53/09/2001, 02/15/2000,1999HiB, xqzunrbeaxr92/31/2001,05/07/2001,04/11/2000,02/05/2000 MMR01/23/2005,06/16/2001Meningococcal B, Omv107/15/2015,03/12/2016Meningococcal BUA1U3203/12/2016Polio, Dxtylzeabyd45/09/2005,05/07/2001,04/11/2000,02/15/2000Tdap 12/01/2021,12/08/2019,03/03/20126670Aihlcatxz78/29/2016,01/01/2001 Family History Medical HistoryRelationNameCommentsHypertensionOtherBone cancerPaternal GrandfatherCancerPaternal GrandfatherRelationNameStatusCommentsOtherPaternal [...] times a week02/20/2023How often do you attend buddhism or scientologist services?1 to 4 times per year02/20/2023o you belong to any clubs or organizations such as buddhism groups, unions, fraternal or athletic groups, or school groups?No02/20/2023How often do you attend meetings of the clubs or organizations you belong to?Never02/20/2023re you , , , , never , or living with a partner?Living with oztukog5302/20/2023 AUDIT-CAnswerDate RecordedQ1: How often do you have [...] heating?Not very hard02/20/2023HQ-2Answer Date RecordedPatient Health Questionnaire-2 Rbcmp231Finjordan [facility] [place] of Occupational Health - Occupational Stress QuestionnaireAnswerDate RecordedDo you feel stress - tense, restless, nervous, or anxious, or unable to sleep at night because yourmind is troubled all the time - these days?Only a ihycox1502/20/2023 Exercise Vital SignAnswerDate RecordedOn average, how many [...] in ashelter (including now)?No02/20/2023Estimated Date of Delivery RohcoycdWtj57/29/2025Based on Ultrasound, FHR- 176Sex and Gender Information ValueDate RecordedSex Assigned at BirthNot on fileLegal SpdNzubyj10/ 6:51 PM EDTGender IdentityNot on fileSexual OrientationNot on file Last Filed Vital Signs Vital SignReadingTime TakenCommentsBlood Rygojjvt609/7204/07/2025 10:51 AM EDT Frvqp360810/27/2024 11:44 AM CTCSxjjgibloph81.8 ??C (98.3 ??F)10/27/2024 11:44 AM EDTRespiratory Rate--Oxygen Jtacnziflo03%10/27/2024 11:44 AM EDTInhaled Oxygen Concentration--Bmhlbf90.3 kg (144 lb)04/07/2025 10:51 AM EBBXszhxl438.1 cm (5' 5 )10/27/2024 11:44 AM EDTBody Mass Index23.9610/27/2024 11:44 AM EDT Plan of Treatment DateTypeDepartmentCare Team (Latest Contact Info)Exfznevtwyx59/05/2025 11:00 AM ESTRoutine [facility] [address] [facility] [place] [address] Mendel Rosa, [address] [facility] [place] [address] Health MaintenanceDue DateLast DoneCommentsInfluenza Vaccine (#1)02/15/2025 Procedures Procedure NamePriorityDate/TimeAssociated DiagnosisCommentsRECURRENT VAGINITIS (HTRX)Hegkulc4904/07/2025 11:52 AM EDT POCT URINALYSIS OXOIABBXTdazgea32/22/2025 10:53 AM EDT Third trimester ([facility]) US OB FOLLOW UP TRANSABDOMINAL NDWDQENVJxlhsnx65/15/2025 1:59 PM EDT size inconsistent with dates ([facility]) POCT URINALYSIS MSZVPKEPQodique65/08/2025 10:44 AM EDT Third trimester ([facility]) POCT URINALYSIS YTWPGBDYNbeepcu38/ 10:37 AM EDT 25 weeks gestation of ([facility]) Second trimester ([facility]) URINARY TRACT INFECTION (HTRX)Edugpbq5602/03/2025 12:13 PM EDT RECURRENT VAGINITIS (HTRX)Yanygtk9202/03/2025 12:11 PM EDT POCT URINALYSIS OTWWTHWGMkimufh29/20/2025 12:05 PM EDT 21 weeks gestation of ([facility]) Second trimester ([facility]) IGP,APTIMA HPV,AGE XJBCKqwjdpv24/20/2025 11:48 AM EDT PAP RAWCZXjbukvf68/20/2025 12:00 AM EDTUS OB 14+ WEEKS ANATOMY SCANRoutine 01/27/2025 11:57 AM EDT Screening, , for anatomic survey ([facility]) from Last 3 Months Results * RECURRENT VAGINITIS (HTRX) (04/07/2025 11:52 AM EDT) Only the most recent of2 resultswithin the time period is included. ComponentValueRef RangeTest MethodAnalysis TimePerformed AtPathologist Signature ATOPOBIUM DGJYYGH293.961 - 24.689 ppm04/08/2025 7:[address] Joseph Medical CenterATOPOBIUM VAGINAENot Gfldkjay40.961 - 24.689 ppm04/08/2025 7:42 AM EDT [facility] CenterBVAB 2,3 (BACTERIAL VAGINOSIS ASSOCIATED BACTERIA 2, 3); MOBILUNCUS QCA681.961 - 24.689 ppm04/08/2025 7:[address] [facility] BVAB 2,3 (BACTERIAL VAGINOSIS ASSOCIATED BACTERIA 2, 3); MOBILUNCUS SPPNot Obcggmvk69.961 - 24.689 ppm04/08/2025 7:[address] Joseph Medical CenterCANDIDA ALBICANS, PARAPSILOSIS, LZGLXAOUIF334.000 - 30.347 ppm04/08/2025 7:42 AM EDT [facility] LabO[facility] CenterCANDIDA ALBICANS, PARAPSILOSIS, TROPICALISNot Detected 23.000 - 30.347 ppm04/08/2025 7:42 AM EDTHealthTrackRx at LabPortCANDIDA TYKWCRPZ657.000 - 31.618 ppm04/08/2025 7:42 AM EDTHealthTrackRx at LabPort HORACE GLABRATANot Dhmrxiel77.000 - 31.618 ppm04/08/2025 7:42 AM EDT [facility] LabPortCANDIDA XWGBYE244.000 - 30.873 ppm04/08/2025 7:42 AM EDT [facility] LabPortCANDIDA KRUSEINot Kkrardhk25.000 - 30.873 ppm04/08/2025 7:42 AM EDTHealthTrackRx at LabPortCHLAMYDIA XSGKYXFWQTE814.000 - 31.586 ppm 04/08/2025 7:42 AM EDTHealthTrackRx at LabPortCHLAMYDIA TRACHOMATISNot Detected 23.000 - 31.586 ppm04/08/2025 7:[address] Joseph Medical CenterGARDNERELLA LDNPADOAZ086.961 - 24.689 ppm04/08/2025 7:42 AM EDTHealthTrackRx at LabPort GARDNERELLA VAGINALISNot Pyqpmgwg49.961 - 24.689 ppm04/08/2025 7:42 AM EDT [facility] at LabPortMEGASPHAERA (TYPES 1, 2)019.961 - 24.689 ppm04/08/2025 7:42 AM EDTHealthTrackRx at LabPortMEGASPHAERA (TYPES 1, 2)Not Wnqxzmjq16.961 - 24.689 ppm04/08/2025 7:42 AM EDTHealthTrackRx at LabPortNEISSERIA GONORRHOEAE0 23.000 - 32.587 ppm04/08/2025 7:42 AM EDTHealthTrackRx at LabPortNEISSERIA GONORRHOEAENot Cdywigsb79.000 - 32.587 ppm04/08/2025 7:42 AM EDTHealthTrackRx at LabPortTRICHOMONAS RZHMKRIHA129.000 - 31.995 ppm04/08/2025 7:42 AM EDT [facility] LabPortTRICHOMONAS VAGINALISNot Bmzvkbyy17.000 - 31.995 ppm 04/08/2025 7:42 AM EDTHealthTrackRx at LabPortMYCOPLASMA HRXDSBZFUA124.961 - 24.689 ppm04/08/2025 7:42 AM EDTHealthTrackRx at LabOaklawn Psychiatric CenterMYCOPLASMA GENITALIUMNot Btuiljea86.961 - 24.689 ppm04/08/2025 7:[address] Specimen (Source)Anatomical Location / LateralityCollection Method / Volume Collection TimeReceived HrfnAwexud07/22/2025 11:52 AM EDT1 1:22 AM EDT Narrative Authorizing ProviderResult TypeResult StatusAmy [facility] BLOOD ORDERABLES Final ResultPerforming OrganizationAddressCity/State/ZIP CodePhone Number [facility] [address] [facility] [address] [place] [address] * POCT urinalysis dipstick manually resulted (04/07/2025 [...] Location / LateralityCollection Method / VolumeCollection TimeReceived OqzdZdobm86/22/2025 10:53 AM EDT Narrative Authorizing ProviderResult TypeResult StatusAmy Sharon [facility] EMERGENCY [facility]PARTMENT TEST ENTER/EDIT ORDERABLESFinal Result * US OB [...] BY: Laci Boykin MD Authorizing ProviderResult TypeResult StatusKrHudson County Meadowview Hospital NPIMG OB US PROCEDURESFinal Result * URINARY TRACT INFECTION (HTRX) (02/03/2025 12:13 PM EDT)ComponentValueRef RangeTest MethodAnalysis TimePerformed AtPathologist SignatureACINETOBACTER KQMPQCVO518.961 - 24.9 ppm02/04/2025 7:12 AM EDTHealthTrackRx at LabPort ACINETOBACTER BAUMANIINot Vgvsqhmo99.961 - 24.689 ppm02/04/2025 7:12 AM EDT [facility] LabPortCITROBACTER ERCFKWOF056.000 - 32.015 ppm02/04/2025 7:12 AM EDTHealthTrackRx at LabPortCITROBACTER FREUNDIINot Ygswxwgd67.000 - 32.015 ppm02/04/2025 7:12 AM EDTHealthTrackRx at LabPortENTEROBACTER AEROGENES, ZIUQNPQ795.000 - 32.290 ppm02/04/2025 7:12 AM EDTHealthTrackRx at LabPortENTEROBACTER AEROGENES, CLOACAENot Oqzbquhn71.000 - 32.290 ppm 02/04/2025 7:12 AM EDTHealthTrackRx at LabPortENTEROCOCCUS FAECALIS, FAECIUM0 26.000 - 33.043 ppm02/04/2025 7:12 AM EDTHealthTrackRx at LabPortENTEROCOCCUS FAECALIS, FAECIUMNot Cuagejrb70.000 - 33.043 ppm02/04/2025 7:12 AM EDT [facility] LabPortESCHERICHIA XBGG763.000 - 28.500 ppm02/04/2025 7:12 AM EDTHealthTrackRx at LabPortESCHERICHIA COLINot Igvqqqlx85.000 - 28.500 ppm 02/04/2025 7:12 AM EDTHealthTrackRx at LabPortKLEBSIELLA PNEUMONIAE, OXYTOCA0 23.000 - 31.865 ppm02/04/2025 7:12 AM EDTHealthTrackRx at LabPortKLEBSIELLA PNEUMONIAE, OXYTOCANot Hxgsyrrh39.000 - 31.865 ppm02/04/2025 7:12 AM EDT [facility] LabPortMORGANELLA UMRZRRDL479.961 - 24.689 ppm02/04/2025 7:12 AM EDTHealthTrackRx at LabPortMORGANELLA MORGANIINot Xgihkxok71.961 - 24.689 ppm02/04/2025 7:12 AM EDTHealthTrackRx at LabPortPROTEUS MIRABILIS, VULGARIS0 23.000 - 28.500 ppm02/04/2025 7:12 AM EDTHealthTrackRx at LabPortPROTEUS MIRABILIS, VULGARISNot Edglewwt60.000 - 28.500 ppm02/04/2025 7:12 AM EDT [facility] at LabPortPSEUDOMONAS CCFTHQILQK128.000 - 31.801 ppm02/04/2025 7:12 AM EDTHealthTrackRx at LabPortPSEUDOMONAS AERUGINOSANot Kvfkhgnu05.000 - 31.801 ppm02/04/2025 7:12 AM EDTHealthTrackRx at LabPortSTAPHYLOCOCCUS AUREUS0 26.000 - 31.595 ppm02/04/2025 7:12 AM EDTHealthTrackRx at LabPort STAPHYLOCOCCUS AUREUSNot Nhkwapga56.000 - 31.595 ppm02/04/2025 7:12 AM EDT [facility] at LabPortSTREPTOCOCCUS AGALACTIAE (GROUP B STREP)026.000 - 32.435 ppm02/04/2025 7:12 AM EDTHealthTrackRx at LabPortSTREPTOCOCCUS AGALACTIAE (GROUP B STREP)Not Meopjcik57.000 - 32.435 ppm02/04/2025 7:12 AM EDTHealthTrackRx at LabPortCANDIDA ALBICANS, PARAPSILOSIS, FHZFPATSVG964.000 - 30.347 ppm02/04/2025 7:12 AM EDTHealthTrackRx at LabPortCANDIDA ALBICANS, PARAPSILOSIS, TROPICALISNot Srrqhwub49.000 - 30.347 ppm02/04/2025 7:12 AM EDT [facility] LabPortCANDIDA WCZMMNNB149.000 - 31.618 ppm02/04/2025 7:12 AM EDTHealthTrackRx at LabPortCANDIDA GLABRATANot Fmagpbch25.000 - 31.618 ppm 02/04/2025 7:12 AM EDTHealthTrackRx at LabPortCANDIDA PHIOWP465.000 - 30.873 ppm02/04/2025 7:12 AM EDTHealthTrackRx at LabPortCANDIDA KRUSEINot Detected 23.000 - 30.873 ppm02/04/2025 7:12 AM EDTHealthTrackRx at LabPortSERRATIA XWWVFUBYEC517.000 - 31.581 ppm02/04/2025 7:12 AM EDTHealthTrackRx at LabPort SERRATIA MARCESCENSNot Yfulqwid40.000 - 31.581 ppm02/04/2025 7:12 AM EDT [facility] CenterSTREPTOCOCCUS PYOGENES (GROUP A STREP)019.961 - 24.689 ppm02/04/2025 7:[address] Joseph Medical CenterSTREPTOCOCCUS PYOGENES (GROUP A STREP)Not Hqhtrkeh60.961 - 24.689 ppm02/04/2025 7:[address] Joseph Medical CenterSTAPHYLOCOCCUS EPIDERMIDIS, HAEMOLYTICUS, LUGDUNENSIS, SAPROPHYTICUS (BXMLE764.961 - 24.689 ppm02/04/2025 7:[address] [facility] STAPHYLOCOCCUS EPIDERMIDIS, HAEMOLYTICUS, LUGDUNENSIS, SAPROPHYTICUS (URINANot Reaxzmvh74.961 - 24.689 ppm02/04/2025 7:[address] [facility] STAPHYLOCOCCUS EPIDERMIDIS, HAEMOLYTICUS, LUGDUNENSIS, SAPROPHYTICUS (URINA0 19.961 - 24.689 ppm02/04/2025 7:[address] [facility] STAPHYLOCOCCUS EPIDERMIDIS, HAEMOLYTICUS, LUGDUNENSIS, SAPROPHYTICUS (URINANot Uqpqawkp77.961 - 24.689 02/04/2025 7:[address] Specimen (Source)Anatomical Location / LateralityCollection Method / Volume Collection TimeReceived YbbbLgtoc70/20/2025 12:13 PM EDT02/04/2025 1:34 AM EDT Narrative Authorizing ProviderResult TypeResult StatusCorey Shelley DOLAB BLOOD ORDERABLES Final ResultPerforming OrganizationAddressCity/State/ZIP CodePhone Number [facility] [address] [phone] * IGP,APTIMA HPV,AGE GDLN (02/03/2025 11:48 AM [...] at: 01 =G ?[facility] [address] ?? [address] [place] ??[phone] ?? Brittany Marshall MD, IGP, RFX APTIMA HPV ASCUNote.TBHComment: ?? TESTS ? RESULT ??FLAG ??UNITS ?REF RANGE ??LAB DIAGNOSIS: ?02 ?? NEGATIVE FOR INTRAEPITHELIAL LESION OR MALIGNANCY. Specimen adequacy: ?02 ?? Satisfactory for evaluation. No endocervical component is identified. Performed by: ? 02 ?? Meliza Rangel, School Physical Therapist (ASCP) . ? 02 Note: ? Note [...] High,A-Abnormal,AA-Critical Abnormal Performed at: 02 WB ?[facility] ?? [address] [place], [place] ??[phone] ?? Brittany Marshall MD, Performed at: ??=G - [facility] [address] ??[id number] Agriculture Instructor: Brittany Marshall MD, Phone: ??[phone] Performed at: ??WB - [facility] [address] ??[id number] Agriculture Instructor: Brittany Marshall MD, Phone: ??[phone] Specimen (Source)Anatomical Location / LateralityCollection Method / [...] Laci Boykin MD Authorizing ProviderResult TypeResult StatusAmy [facility] US PROCEDURES Final Result from Last 3 Months Insurance Care Teams Team MemberRelationshipSpecialtyStart DateEnd Kym Peraza MD [address] [place] [address] PCP - GeneralFamily Medicine11/28/22 Rosita Yanes MD [address] [place] [address] Referring PhysicianFamily Medicine11/28/22
--- OUTSIDE RECORDS SUMMARY | 2025-04-14 11:01 | XMS_ITS | Encounter Summary ---
Author Organization [facility] Address [address] [place] [address] Care Team Providers Care Highway Maintenance Technician Name Role Phone Kym Peraza MD Primary Care Provider [phone] Rosita Yanes MD Unavailable [phone] Encounter Details DateTypeDepartmentCare Team (Latest Contact Info)Fcumvajgmaj40/21/2025Telephone [facility] [address] [place] [address] Mendel Rosa DO [address] [place], [facility] Social History Tobacco UseTypesPacks/DayYears UsedDateSmoking Tobacco: [...] times a week02/20/2023How often do you attend rastafari or scientologist services?1 to 4 times per year02/20/2023 Do you belong to any clubs or organizations such as rastafari groups, unions, fraternal or athletic groups, or school groups?No02/20/2023How often do you attend meetings of the clubs or organizations you belong to?Never02/20/2023re you , , , , never , or living with a partner?Living with ulhjtwy1602/20/2023UDIT-CAnswerDate RecordedQ1: How often do you have a [...] and heating?Not very hard02/20/2023HQ-2AnswerDate RecordedPatient Health Questionnaire-2 Eezsx669[facility] [place] [facility] Occup[facility] - Occupational Stress QuestionnaireAnswerDate RecordedDo you feel stress - tense, restless, nervous, or anxious, or unable to sleep at night because yourmind is troubled all the time - these days?Only a vhiere7002/20/2023Exercise Vital Sign AnswerDate RecordedOn average, how many [...] in ashelter (including now)?No 02/20/2023Estimated Date of KghdcomuRjhaobjiEjr28/29/2025Based on Ultrasound, FHR- 176Sex and Gender InformationValueDate RecordedSex Assigned at BirthNot on fileLegal PzqZbpuiw05/15/2023 6:51 PM EDTGender IdentityNot on file Sexual [...] around 30 weeks and recently went to [facility] and they sent her home as everything checked out ok, Patient is scheduled tomorrow. Please advise. documented in this encounter Plan of Treatment DateTypeDepartmentCare Team (Latest Contact Info)Mgrtpuugjju25/05/2025 11:00 AM ESTRoutine [facility] [address] [place] [address] Mendel Rosa DO [address] [place] [address] documented as of this encounter Visit Diagnoses Not on filedocumented in this encounter Care Teams Team MemberRelationshipSpecialtyStart DateEnd Date Kym Peraza MD [address] [place] [address] PCP - GeneralFamily Medicine11/28/22 Rosita Yanes MD [address] [place] [address] Referring PhysicianFamily Medicine11/28/22documented as of this encounter
--- OUTSIDE RECORDS SUMMARY | 2025-04-14 11:01 | XMS_ITS | Encounter Summary ---
Author Organization [facility] Address [address] [place] [address] Care Team Providers Care Sensor Operator Name Role Phone Kym Peraza MD Primary Care Provider [phone] Rosita Yanes MD Unavailable [phone] Encounter Details DateTypeDepartmentCare Team (Latest Contact Info)Mnxtccpxyzj38/20/2025Telephone ROZ Ma OBGY[address] [place] [address] Lenka Jimenez MA Social History [...] times a week02/20/2023How often do you attend sikhism or mandaen services?1 to 4 times per year02/20/2023 Do you belong to any clubs or organizations such as sikhism groups, unions, fraternal or athletic groups, or school groups?No02/20/2023How often do you attend meetings of the clubs or organizations you belong to?Never02/20/2023re you , , , , never , or living with a partner?Living with ytumqxw6902/20/2023UDIT-CAnswerDate RecordedQ1: How often do you have a [...] and heating?Not very hard02/20/2023HQ-2AnswerDate RecordedPatient Health Questionnaire-2 Yfpqr366[facility] [place] of Occupational Health - Occupational Stress QuestionnaireAnswerDate RecordedDo you feel stress - tense, restless, nervous, or anxious, or unable to sleep at night because yourmind is troubled all the time - these days?Only a ecfqxw3702/20/2023Exercise Vital Sign AnswerDate RecordedOn average, how many [...] in ashelter (including now)?No 02/20/2023Estimated Date of QclyfhojRitynhxfBnq68/29/2025Based on Ultrasound, FHR- 176Sex and Gender InformationValueDate RecordedSex Assigned at BirthNot on fileLegal WmfVfnvzn82/15/2023 6:51 PM EDTGender IdentityNot on file Sexual OrientationNot on filedocumented as of this encounter Miscellaneous Notes * Telephone Encounter - Lenka Jimenez MA - 04/05/2025 3:24 PM EDT Pt advised of results and recommendations. Pt has an appt on Saturday and will sisal picker paperwork on how to schedule appts then. documented in this encounter Plan of Treatment DateTypeDepartmentCare Team (Latest Contact Info)Zynzkgnqsuh07/05/2025 11:00 AM ESTRoutine [facility] [address] [place] [address] Mendel Rosa, [address] [facility] [address] [place] [address] NameTypePriorityAssociated DiagnosesOrder ScheduleUS biophysical profile w non stress testImagingRoutine Oligohydramnios in third trimester, fetus 1 of multiple gestation ([facility]) Expected: 04/05/2025 (Approximate), Expires: 10/04/2025documented as of this encounter Visit Diagnoses Diagnosis Oligohydramnios in third trimester, fetus 1 of multiple gestation ([facility]) documented in this encounter Care Teams Team MemberRelationshipSpecialtyStart DateEnd Date Kym Peraza MD [address] [place] [address] PCP - GeneralFamily Medicine11/28/22 Rosita Yanes MD [address] [place] [address] Referring PhysicianFamily Medicine11/28/22documented as of this encounter
[2025-04-14 11:14] VITALS: BP 119/67; PULSE 84
== END 2025-04-14 11:51 | disposition home or self-care (01) ==
LOC: US 10:57 → FBC 10:58
PROVIDERS: PCP Student in an Organized Health Care Education/Training Program; Visit Provider Physician Assistant
DX: O28.8 Other abnormal findings on antenatal screening of mother (principal); Z3A.31 31 weeks gestation of pregnancy
CPT/HCPCS: 76818

== ENCOUNTER 2025-04-17 15:30 | Outpatient (OUT) | payer OTHER, SELFPAY ==
--- OUTSIDE RECORDS SUMMARY | 2024-04-20 12:30 | XMS_ITS ---
Author Organization [facility] es Address [address] [place] [address] Care Team Providers Care Food Prep Worker Name Role Phone Elizabeth Keating Primary Care Provider [phone] DUKE ANDREWS Unavailable Unavailable Sarita Allen Unavailable [phone] REASON FOR VISIT biweekly f/u Encounters Encounter Location Date Provider Diagnosis [place] [address] [place] [address] 04/20/2024 Sarita Allen Plan Of Treatment No Information Progress Notes * JOSÉ LUIS NOVOA PDOB:2000 (24 yo F)Acc No.[id number]:04/20/2024 F/U - Patient Patient: Corie JIN JOSÉ LUIS Reyes :?Sarita Allen LPCDOB:2000???Age:23 Y ???Sex:FemaleDate:04/20/2024hone:[phone]:[address] [facility], [address], [place], [place]Vav:Elizabeth Keating Subjective: * Chief Complaints: * B iweekly f/u Care Plan Details* * Electronic signature of Sarita Allen LPC on 04/17/2025 at 03:33 PM EDTSign off status: Pending * Provider: Reynaldo Allen LPC Date: 06/20/2023 Generated for Printing/Faxing/eTransmitting on:?04/17/2025 03:33 PM EDT
--- OUTSIDE RECORDS SUMMARY | 2024-12-09 11:15 | XMS_ITS ---
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 Encounters Encounter Location Date Provider Diagnosis [place] [address] [place] [address] 12/09/2024 Elizabeth Keating Plan Of Treatment No Information Progress Notes * JOSÉ LUIS NOVOA PDOB:2000 (24 yo F)Acc No.[id number]:12/09/2024 Patient:?JOSÉ LUIS NOVOA :?Elizabeth Keating DDSDOB:2000???Age:23 Y ???Sex:FemaleDate:12/09/2024Phone:[phone]:[address] [facility], [address], [place], [place] Subjective: * Chief Complaints: * N p exam Billing Information: * Procedure Codes: * Electronic signature of Elizabeth Keating DDS on 04/17/2025 at 03:33 PM EDTSign off status: Pending * Provider: Rupali Keating DDS Date: 0 12/09/2024 Generated for Printing/Faxing/eTransmitting on:?04/17/2025 03:33 PM EDT
--- OUTSIDE RECORDS SUMMARY | 2025-04-07 10:50 | XMS_ITS | Encounter Summary ---
Author Organization [facility] Address [address] [place] [address] Care Team Providers Care Textile Cutting Machine Operator Name Role Phone Kym Peraza MD Primary Care Provider [phone] Rosita Yanes MD Unavailable [phone] Reason for Visit * ReasonCommentsRoutine Visit Encounter Details DateTypeDepartmentCare Team (Latest Contact Info)Nwuqhsvxdlo26/22/2025 10:50 AM EDTRoutine ROZ Ma OBGYEvaristo [address] [phone] Marianna Herrera PA [address] [place] [place] [address] Third trimester ([facility]); 30 weeks gestation of ([facility]); Exposure to STD; RUCHI (amniotic [...] times a week02/20/2023How often do you attend uatsdin or sikh services?1 to 4 times per year02/20/2023 Do you belong to any clubs or organizations such as uatsdin groups, unions, fraternal or athletic groups, or school groups?No02/20/2023How often do you attend meetings of the clubs or organizations you belong to?Never02/20/2023re you , , , , never , or living with a partner?Living with hhyzrnv9302/20/2023UDIT-CAnswerDate RecordedQ1: How often do you have a [...] and heating?Not very hard02/20/2023HQ-2AnswerDate RecordedPatient Health Questionnaire-2 Ctnyw881Finmountainstar healthcare [place] of Occupational Health - Occupational Stress QuestionnaireAnswerDate RecordedDo you feel stress - tense, restless, nervous, or anxious, or unable to sleep at night because yourmind is troubled all the time - these days?Only a ybcqbo1102/20/2023Exercise Vital Sign AnswerDate RecordedOn average, how many [...] steady place to sleep or slept in stronghurstelter (including now)?No 02/20/2023Estimated Date of KtlwanuuIzbeogiuVuf80/29/2025Based on Ultrasound, FHR- 176Sex and Gender InformationValueDate RecordedSex Assigned at BirthNot on fileLegal YrzHpejoe09/15/2023 6:51 PM EDTGender IdentityNot on file Sexual OrientationNot on filedocumented as of this encounter Last Filed Vital Signs Vital SignReadingTime TakenCommentsBlood Ksraibma285/7204/07/2025 10:51 AM EDT Pulse--Temperature--Respiratory Rate--Oxygen Saturation--Inhaled Oxygen Concentration--Mrxizb62.3 kg (144 lb)04/07/2025 10:51 AM EDTHeight--Body Mass [...] nursing note reviewed. Exam conducted with a voice writing reporter present. Vitals: Estimated body mass index is 23.42 kg/m?? as calculated from the following: Height as of 10/27/24: 5' 5 . Weight as of 03/24/25: 140 lb 12 oz. BP: No LMP recorded. Patient is . Assessment/Plan ICD-10-CM 1. Third trimester ([facility]) Z34.93 POCT urinalysis dipstick manually resulted 2. 30 weeks gestation of ([facility]) Z3A.30 3. Exposure to STD [...] Plan of Treatment DateTypeDepartmentCare Team (Latest Contact Info)Tsbmcfqxtqa61/05/2025 11:00 AM ESTRoutine [facility] [address] [phone] Mendel Rosa DO [address] [place] [address] NameTypePriorityAssociated DiagnosesOrder ScheduleSURESWAB(R) ADVANCED VAGINITIS PLUS, TMAPathology and CytologyRoutine Exposure to STD Ordered: 04/07/2025HLAMYDIA TRACHOMATIS (GENITO/STI)LabRoutine Exposure to STD Ordered: 04/07/2025Neisseria gonorrhea DNA probe, directLabRoutine Exposure to STD Ordered: 04/07/2025US biophysical profile w non stress testImagingRoutine RUCHI (amniotic fluid index) borderline low Expected: 04/07/2025 (Approximate), Expires: 10/06/2025documented as of this encounter Procedures Procedure NamePriorityDate/TimeAssociated DiagnosisCommentsPOCT URINALYSIS ARUXOZUKRlvlqld50/22/2025 10:53 AM EDT Third trimester ([facility]) documented in this encounter [...] 10:53 AM EDT Narrative Authorizing ProviderResult TypeResult Status[facility]/EDIT ORDERABLESFinal Result documented in this encounter Visit Diagnoses Diagnosis Third trimester ([facility]) state, incidental 30 weeks gestation of ([facility]) Exposure to STD RUCHI (amniotic fluid index) borderline low Nonspecific abnormal finding in amniotic fluid BV (bacterial vaginosis) Unspecified vaginitis and vulvovaginitis documented in this encounter Care Teams Team MemberRelationshipSpecialtyStart DateEnd Date Kym Peraza MD [address] [place] [address] PCP - GeneralFamily Medicine11/28/22 Rosita Yanes MD [address] [place] [address] Referring PhysicianFamily Medicine11/28/22documented as of this encounter
--- OUTSIDE RECORDS SUMMARY | 2025-04-17 15:33 | XMS_ITS | Patient Health Record ---
Author Organization [facility] Address [address] [place] [address] Care Team Providers Care Supervisor Core Drilling Name Role Phone Elizabeth Keating Primary Care Provider DUKE ANDREWS Unavailable Unavailable Sarita Allen Unavailable [phone] Reason For Referral No Information Problems Problem Type SNOMED Code ICD Code Onset Dates Problem Status W/U Status Risk Notes Problem Anxiety (84697906) Anxiety (F41.9) ActiveconfirmedProblemBorderline personality disorder (87857553)Borderline personality disorder in adult (F60.3)Activeconfirmed Encounters Encounter Location Date Provider Diagnosis [facility] [address] [address] 04/17/2024 Sarita Allen Plan Of Treatment No Information Insurance Providers Payer Name Payer Address Payer Phone Subscriber Number Group Number Insured Name Patient Relationship to Insured Coverage Start Date Coverage End Date [employer] [place] [employer] [address] [facility] [place] [address] [id number] Tip NOVOA - patient is the [id number] 2024 [facility] [address] [place] [id number], MORGANSelf - patient is the [id number] 2023
--- OUTSIDE RECORDS SUMMARY | 2025-04-17 15:33 | XMS_ITS | Clinical Summary ---
Author Organization [facility] Healthcare Address [address] [place] [address] Care Team Providers Care Customer Experience Professional Name Role Phone Kym Peraza MD Primary Care Provider [phone] Rosita Yanes MD Unavailable [phone] Allergies No known active allergies Medications MedicationSigDispense QuantityRefillsLast FilledStart DateEnd DateStatus ondansetron ODT (Zofran-ODT) 4 MG disintegrating tablet Indications:NauseaTake 1 tablet (4 mg) by mouth every 8 (eight) hours if needed for vomiting or nausea 20 tablet 5Active multivitamin () 27-0.8 MG tablet Indications:8 weeks gestation of ([facility])Take 1 tablet by mouth Daily 90 tablet [...] 70 g 10/22/Expired Active Problems ProblemNoted DateDiagnosed LebiZijgltq08/16/2023Mild episode of recurrent major depressive rxunrdrk12/16/2023Estimated Date of DeliveryCommentsYes 06/14/2025ased on Ultrasound, FHR- 176 Resolved Problems ProblemNoted DateDiagnosed DateResolved DateAcute cough/08/2023 Ziuqnluzbsir69 Assessment & Plan (08/02/2023 3:58 PM EST): Will try inhaler and follow up as needed or if symptoms change or worsen Encounters DateTypeDepartmentCare CylcLegpivjwmhv02/29/2025Telephone [facility] [address] [place] [address] Mendel Rosa DO 04/14/2025linisync Result Encounter NOMS External Department Unsolicited Marianna Varela PA 04/09/2025Patient Outreach NOMS [address] [place] [address] Marianna Galdamez LPN 04/07/2025 10:50 AM EDTRoutine NOMS Anil [facility] [address] [place] [address] Marianna Varela PA Third trimester ([facility]); 30 weeks gestation of ([facility]); Exposure to STD; RUCHI (amniotic fluid index) borderline low; BV (bacterial vaginosis)04/07/2025amboo flowsheet NOMS Anil NUNE[facility] [address] [place] [address] Marianna Varela PA 04/06/2025Telephone NOM[facility] Anil [facility] [address] [facility] [place] [address] Mendel Rosa DO 04/05/2025Telephone [facility] Anil [facility] [address] [facility] [place] [address] Kaveh Jimenezserrat, MA 03/31/2025 1:30 PM EDTAncillary Procedure [facility] [place] [facility] [address] [facility] [place] [address] size inconsistent with dates ([facility])03/29/2025Telephone [facility] [address] [facility] [place] [address] Mendel Rosa DO 03/24/2025 10:30 AM EDTRoutine NOM[facility] [address] [facility] [place] [address] Radha Resendez, CLAU size inconsistent with dates ([facility]) (Primary Dx); Third trimester ([facility]); 28 weeks gestation of ([facility])03/24/2025amboo flowsheet [facility] [address] [facility] [place] [address] Radha Resendez NP 03/16/2025bstract [facility] [address] [facility] [place] [address] Tony [place], [place] 03/11/2025Patient Outreach [facility] [address] [place] [address] Marianna Galdamez LPN 03/10/2025bstract [facility] [address] [place] [address] Marianna Galdamez, GABRIELLA 03/03/2025 10:30 AM EDTRoutine [facility] [address] [facility] [place] [address] Marianna Varela, PA 25 weeks gestation of ([facility]); Second trimester ([facility]); Diabetes mellitus fbbpjyelr06/17/2025amboo flowsheet [facility] [address] [facility] [place] [address] Marianna Varela PA 02/19/2025Orders Only [facility] [address] [address] [place] [address] Lenka Jimenez MA 02/03/2025 11:30 AM EDTRoutine NOMS [facility] [address] [address] [place] [address] Mendel Rosa, DO 21 weeks gestation of ([facility]); Second trimester ([facility]); Exposure to STD; Vaginal discharge; Well woman exam with routine gynecological exam; Diabetes mellitus screening; Urinary tract infection without hematuria, site nqgxjtushrx56/20/2025linisync Result Encounter NOMS External Department Unsolicited Mendel Rosa, DO 02/03/2025External Result Encounter NOMS External Department Unsolicited Mendel Rosa, DO 02/03/2025[place] [address] Mendel Rosa, DO 01/27/2025 11:00 AM EDTAncillary Procedure [facility] [address] [address] [place] [address] Screening, , for anatomic survey ([facility])from Last 3 Months Immunizations ImmunizationAdministration DatesNext MuzDAC1201/23/2005,05/07/2001,02/15/2000DTaP, Pppxjgsppqp10/26/2000HPV 9-Uvqlae0009/10/2016,05/15/2016,03/12/2016Hep A, ped/adol, 2 dose09/10/2016,03/12/2016Hep B, Adolescent or Dsjmutzhg59/09/2001, 02/15/2000,1999HiB, eutywdnekmw56/31/2001,05/07/2001,04/11/2000,02/05/2000 MMR01/23/2005,06/16/2001Meningococcal B, Omv107/15/2015,03/12/2016Meningococcal JLU6J9703/12/2016Polio, Mgjdsyhcbzq32/02/2005,05/07/2001,04/11/2000,02/15/2000Tdap 12/01/2021,12/08/2019,03/03/20120509Kvxrgkfui54/29/2016,01/01/2001 Family History Medical HistoryRelationNameCommentsHypertensionOtherBone cancerPaternal GrandfatherCancerPaternal GrandfatherRelationNameStatusCommentsOtherPaternal [...] times a week02/20/2023How often do you attend nondenominational or adventist services?1 to 4 times per year02/20/2023o you belong to any clubs or organizations such as nondenominational groups, unions, fraternal or athletic groups, or school groups?No02/20/2023How often do you attend meetings of the clubs or organizations you belong to?Never02/20/2023re you , , , , never , or living with a partner?Living with mebozkw0202/20/2023 AUDIT-CAnswerDate RecordedQ1: How often do you have [...] heating?Not very hard02/20/2023HQ-2Answer Date RecordedPatient Health Questionnaire-2 Zgrmt939FinSt. Catherine Hospital [facility] - Occupational Stress QuestionnaireAnswerDate RecordedDo you feel stress - tense, restless, nervous, or anxious, or unable to sleep at night because yourmind is troubled all the time - these days?Only a ayssdg7202/20/2023 Exercise Vital SignAnswerDate RecordedOn average, how many [...] steady place to sleep or slept in [facility] (including now)?No3Estimated Date of Delivery IblvnwhvTtz08/29/2025Based on Ultrasound, FHR- 176Sex and Gender Information ValueDate RecordedSex Assigned at BirthNot on fileLegal JudZdaiee15/15/2023 6:51 PM EDTGender IdentityNot on fileSexual OrientationNot on file Last Filed Vital Signs Vital SignReadingTime TakenCommentsBlood Xsuiyzdx613/7210 10:51 AM EDT Dqsys056910/27/2024 11:44 AM YBINernmmnjdvx41.8 ??C (98.3 ??F)10/27/2024 11:44 AM EDTRespiratory Rate--Oxygen Opidhxphxd87%10/27/2024 11:44 AM EDTInhaled Oxygen Concentration--Fdkplt47.3 kg (144 lb)04/07/2025 10:51 AM BSARtkkty184.1 cm (5' 5 )10/27/2024 11:44 AM EDTBody Mass Index23.9610/27/2024 11:44 AM EDT Plan of Treatment DateTypeDepartmentCare Team (Latest Contact Info)Illavzvxste14/05/2025 11:00 AM ESTRoutine N[facility] [address] [place] [address] Mendel Rosa DO [address] [facility] [address] [place], [place] [id number] Health MaintenanceDue DateLast DoneCommentsCOVID-19 Vaccine (1 - season) 2025Influenza Vaccine (#1)2025DTaP/Tdap/Td Vaccines (8 - Td or Tdap) , 12/08/2019, 03/03/2012, Additional history existsHepatitis B YcdpbyjmIqiyxrjig89/09/2001, 02/15/2000, 1999HIB VaccinesCompleted 06/16/2001, 05/07/2001, 04/11/2000, Additional history existsIPV Vaccines Ncdymdyim54/09/2005, 05/07/2001, 04/11/2000, Additional history existsMMR CjpztyhgWdcertvms38/09/2005, 06/16/2001Meningococcal B VaccineCompleted 05/15/2016, 03/12/2016Varicella QjhbtnnxEwamnphur64/29/2016, 01/01/2001HPV EfbpiqcaIfzazlnxl87/27/2017, 05/15/2016, 03/12/2016Hepatitis A VaccinesCompleted 09/10/2016, 03/12/2016Meningococcal VaccineAged OutNo longer eligible based on patient's age to complete this topicPneumococcal Vaccine: Pediatrics (0 to 5 Years) and At-Risk Patients (6 to 64 Years)Aged OutNo longer eligible based on patient's age to complete this topicRotavirus VaccinesAged OutNo longer eligible based on patient's age to complete this topic Procedures Procedure NamePriorityDate/TimeAssociated DiagnosisCommentsUS OB BPP W NON-NVYFKR0804/14/2025 11:19 AM EDT RECURRENT VAGINITIS (HTRX)Gyhwcud9504/07/2025 11:52 AM EDT POCT URINALYSIS ZUMWYZWGTtwercu55/22/2025 10:53 AM EDT Third trimester ([facility]) OB FOLLOW UP TRANSABDOMINAL KRCIUTAUMoocfge29/15/2025 1:59 PM EDT size inconsistent with dates ([facility]) POCT URINALYSIS IIZQGPQCVoxaqrf04/08/2025 10:44 AM EDT Third trimester ([facility]) POCT URINALYSIS MNTYDVLABcqirnd83/17/2025 10:37 AM EDT 25 weeks gestation of ([facility]) Second trimester ([facility]) URINARY TRACT INFECTION (HTRX)Zlwnbrn4502/03/2025 12:13 PM EDT RECURRENT VAGINITIS (HTRX)Qoxibki5702/03/2025 12:11 PM EDT POCT URINALYSIS TVDLNTCZGjinzwg86/20/2025 12:05 PM EDT 21 weeks gestation of ([facility]) Second trimester ([facility]) IGP,APTIMA HPV,AGE NWIMFqegfnb14/20/2025 11:48 AM EDT PAP GWTFAYjovwnf41/20/2025 12:00 AM EDTUS OB 14+ WEEKS ANATOMY SCANRoutine 01/27/2025 11:57 AM EDT Screening, , for anatomic survey ([facility]) from Last 3 Months Results * US OB BPP W NON-STRESS (04/14/2025 11:19 AM EDT)Anatomical Region LateralityModalityOtherSpecimen (Source)Anatomical Location / Laterality Collection Method / VolumeCollection TimeReceived Time04/14/2025 11:19 AM EDT Narrative 04/14/2025 11:21 AM EDT [facility] ?[address] ? [place] [address] ? Ultrasound Report ? Signed ? Patient: JOSÉ LUIS NOVOA ? MR#: [id number] ?? : 2000 ?Acct:[id number] ?? Age/Sex: 24 / F ?ADM Date: 04/14/25 ?? Loc: [facility] ??250-1 ? Attending Dr: Marianna Varela ? Ordering Physician: Marianna Varela ?? Date of Service: 04/14/25 ?? Procedure(s): US OB BPP w non-stress ?? Accession Number(s): [id number] ? cc: Marianna Varela; [facility] ? [facility] ? [address] ? [place] [address] ? Patient Name: ?? JOSÉ LUIS ??SOMMER ? MRN: [id number] ? date: 2000 ?Sex: F ?? Assigned Patient Location: [facility] ?? Current Patient Location: [facility] ?? Accession/Order Number: [id number] ?? Exam Date: 04/14/2025 ??11:00 ?Report Date: 04/14/2025 ??11:19 ? At the request of: ?? MARIANNA ??NICHOLE ? Procedure: ??US OB BPP w non-stress ? BIOPHYSICAL PROFILE: ? CLINICAL INFORMATION: OLIGOHYDRAMNIOS ? COMPARISON: None. ? There is a single live intrauterine gestation in cephalic presentation. ??The ?? reported gestational age is 31 weeks 2 days. ??The heart rate measures ?? 139 beats per minute. ? FINDINGS: ? TONE: 1 or more episodes of activity extension and flexion of ?? extremity or opening and closing of the hand ?[Y] ? 2/2 ?? GROSS BODY MOVEMENTS: 3 or more discrete body or limb movements ?[Y] ? 2/2 ?? BREATHING MOVEMENTS: 1 or more episodes of breathing lasting at ?? least 30 seconds ? [Y] ? 2/2 ?? RUCHI: A single deepest vertical pocket of amniotic fluid greater than 2 cm ? [Y] ? 2/2 ?RUCHI: 11.5 cm. ??This is in low-normal range. ? Total score: ? 8/8 ? US/US OB BPP w non-stress ?? IMPRESSION: ? NORMAL BIOPHYSICAL PROFILE ? Impression dictated by: Jacqui Mendoza M.D. ??04/14/2025 11:19 AM ? Dictation Location: RADIO-PC-02 ? Electronically authenticated by: [id number] ??Y ?? Date: 04/14/2025 ??11:19 ? Dictated By: ?Jacqui Mendoza M.D. ? Signed By: ?10/29/25 1121 ? DD/ 1119 ? TD/TT: ? Instructor Tap Dancing: Procedure Note Radiology, Radiologist, - 04/14/2025 [place] [address] Ultrasound Report Signed Patient: JOSÉ LIUS NOVOAMR#: [id number] : 2000Acct:[id number] Age/Sex: 24 / FADM Date: 04/14/25 Loc: [facility] 250-[address]: Marianna Varela Ordering Physician: Marianna Varela Date of Service: 04/14/25 Procedure(s): US OB BPP w non-stress Accession Number(s): [id number] cc: Marianna Varela; [facility] The [address] [address] Patient Name: JOSÉ LUIS NOVOA MRN: [id number] date: 2000 Sex: F Assigned Patient Location: [facility] Current Patient Location: [facility] Accession/Order Number: [id number] Exam Date: 04/14/2025 11:00 Report Date: 04/14/2025 11:19 At the request of: MARIANNA VARELA Procedure: US OB BPP w non-stress BIOPHYSICAL PROFILE: CLINICAL INFORMATION: OLIGOHYDRAMNIOS COMPARISON: None. There is a single live intrauterine gestation in cephalic presentation.The reported gestational age is 31 weeks 2 days. The heart ratemeasures 139 beats per minute. FINDINGS: TONE: 1 or more episodes of activity extension and flexion of extremity or opening and closing of the hand [Y] 2/2 GROSS BODY MOVEMENTS: 3 or more discrete body or limb movements [Y] 2/2 BREATHING MOVEMENTS: 1 or more episodes of breathing lastingat least 30 seconds [Y] 2/2 RUCHI: A single deepest vertical pocket of amniotic fluid greater than 2 cm [Y] 2/2 RUCHI: 11.5 cm. This is in low-normal range. Total score: 8/8 US/ OB BPP w non-stress IMPRESSION: NORMAL BIOPHYSICAL PROFILE Impression dictated by: Jacqui Mendoza M.D. 04/14/2025 11:19 AM Dictation Location: [place] [address] Electronically authenticated by: [id number] Y Date: :19 Dictated By: Jacqui Mendoza M.D. Signed By:04/14/25 1121 DD/ 1119 TD/TT: Instructor Tap Dancing: Authorizing ProviderResult TypeResult StatusMarianna Varela PACLINISYNC IMAGINGFinal Result * RECURRENT VAGINITIS (HTRX) (04/07/2025 11:52 AM EDT) Only the most recent of2 resultswithin the time period is included. ComponentValueRef RangeTest MethodAnalysis TimePerformed AtPathologist Signature ATOPOBIUM HCJZHQL509.961 - 24.689 ppm04/08/2025 7:42 AM EDTHealthTrackRx at LabPortATOPOBIUM VAGINAENot Uqpyexdd04.961 - 24.689 ppm04/08/2025 7:42 AM EDT [facility] at LabPortBVAB 2,3 (BACTERIAL VAGINOSIS ASSOCIATED BACTERIA 2, 3); MOBILUNCUS BYK700.961 - 24.689 ppm04/08/2025 7:42 AM EDTHealthTrackRx at LabPortBVAB 2,3 (BACTERIAL VAGINOSIS ASSOCIATED BACTERIA 2, 3); MOBILUNCUS SPP Not Cpjxjhaq55.961 - 24.689 ppm04/08/2025 7:42 AM EDTHealthTrackRx at LabPort HORACE ALBICANS, PARAPSILOSIS, ZICJOEGIZB929.000 - 30.347 ppm04/08/2025 7:42 AM EDTHealthTrackRx at LabPortCANDIDA ALBICANS, PARAPSILOSIS, TROPICALISNot Emuwqwkj53.000 - 30.347 ppm04/08/2025 7:42 AM EDTHealthTrackRx at LabPortCANDIDA CISSNFZY770.000 - 31.618 ppm04/08/2025 7:42 AM EDTHealthTrackRx at LabPort HORACE GLABRATANot Zgbxudld57.000 - 31.618 ppm04/08/2025 7:42 AM EDT [facility] at LabPortCANDIDA AYGVSJ351.000 - 30.873 ppm04/08/2025 7:42 AM EDT [facility] at LabPortCANDIDA KRUSEINot Xalrneut89.000 - 30.873 ppm04/08/2025 7:42 AM EDTHealthTrackRx at LabPortCHLAMYDIA FZSEVUCUUDR206.000 - 31.586 ppm 04/08/2025 7:42 AM EDTHealthTrackRx at LabPortCHLAMYDIA TRACHOMATISNot Detected 23.000 - 31.586 ppm04/08/2025 7:42 AM EDTHealthTrackRx at LabPortGARDNERELLA SHTHIPLKC695.961 - 24.689 ppm04/08/2025 7:42 AM EDTHealthTrackRx at LabPort GARDNERELLA VAGINALISNot Stdevlim10.961 - 24.689 ppm04/08/2025 7:42 AM EDT [facility] at LabPortMEGASPHAERA (TYPES 1, 2)019.961 - 24.689 ppm04/08/2025 7:42 AM EDTHealthTrackRx at LabPortMEGASPHAERA (TYPES 1, 2)Not Qizysxxk82.961 - 24.689 ppm10 7:42 AM EDTHealthTrackRx at LabDeaconess HospitalNEISSERIA GONORRHOEAE0 23.000 - 32.587 ppm04/08/2025 7:42 AM EDTHealthTrackRx at LabDeaconess HospitalNEISSERIA GONORRHOEAENot Yaufioim12.000 - 32.587 ppm04/08/2025 7:42 AM EDTHealthTrackRx at LabDeaconess HospitalTRICHOMONAS WJFPKJHXQ747.000 - 31.995 ppm04/08/2025 7:42 AM EDT [facility] at LabDeaconess HospitalTRICHOMONAS VAGINALISNot Oyosjafn45.000 - 31.995 ppm 04/08/2025 7:42 AM EDTHealthTrackRx at Located within [facility] CenterMYCOPLASMA SWXDJQNQLB297.961 - 24.689 ppm04/08/2025 7:42 AM EDTHealthTrackRx at Located within [facility] CenterMYCOPLASMA GENITALIUMNot Lkciaqym47.961 - 24.689 ppm04/08/2025 7:42 AM EDTHealthTrackRx at Located within [facility] Specimen (Source)Anatomical Location / LateralityCollection Method / Volume Collection TimeReceived NdxdIzfcfh41/22/2025 11:52 AM EDT1 1:22 AM EDT Narrative Authorizing ProviderResult TypeResult StatusAmy [facility] BLOOD ORDERABLES Final ResultPerforming OrganizationAddressCity/State/ZIP CodePhone Number [facility] LabDeaconess Hospital [address] [facility] [address] [place] [address] * POCT urinalysis dipstick manually resulted (04/07/2025 10:53 AM EDT) Only the most recent of4 resultswithin the time period is included. ComponentValueRef RangeTest MethodAnalysis TimePerformed AtPathologist Signature Color, UAYellowClarity, UAClearGlucose, UANegativeNegative - 2000(110) ++++ mg/dLBilirubin, UANegativeNegative - 4(70) +++ mg/dLKetones, UANegativeNegative - 160(16) ++++ mg/dLSpec Grav, UA1.0101 - 1.03Blood, UANegativeNegative - 50 Ryder/mcLpH, UA7.05 - 9Protein, UANegativeNegative - 2000(20) ++++ mg/dL Urobilinogen, UA1.00.2 - 12 mg/dLLeukocytes, UANegativeNegative - 500+++ Astrid/mcL Nitrite, UANegativeNegative - PositiveSpecimen (Source)Anatomical Location / LateralityCollection Method / VolumeCollection TimeReceived EjxxAjkia66/22/2025 10:53 AM EDT Narrative Authorizing ProviderResult TypeResult StatusAmy [facility]'s HospitalOINT OF CARE TEST ENTER/EDIT ORDERABLESFinal Result * US OB [...] Boykin MD Authorizing ProviderResult TypeResult StatusRadha Resendez NPNORTHEAST GEORGIA MEDICAL C[facility] BARROW PROCEDURESFinal Result * URINARY TRACT INFECTION (HTRX) (02/03/2025 12:13 PM EDT)ComponentValueRef RangeTest MethodAnalysis TimePerformed AtPathologist SignatureROS MARTÍNEZII019.961 - 24.689 [facility]02/04/2025 7:12 AM EDTHealthTrackRx at LabPort ACINETOBACTER BAUMANIINot Iqgjibqj81.961 - 24.689 ppm02/04/2025 7:12 AM EDT [facility] at LabPortCITROBACTER PKYYIPDI320.000 - 32.015 ppm02/04/2025 7:12 AM EDTHealthTrackRx at LabPortCITROBACTER FREUNDIINot Hmtsnltg32.000 - 32.015 ppm02/04/2025 7:12 AM EDTHealthTrackRx at LabPortENTEROBACTER AEROGENES, ITWXIPH588.000 - 32.290 ppm02/04/2025 7:12 AM EDTHealthTrackRx at LabPortENTEROBACTER AEROGENES, CLOACAENot Rlpdlwdt39.000 - 32.290 ppm 02/04/2025 7:12 AM EDTHealthTrackRx at LabPortENTEROCOCCUS FAECALIS, FAECIUM0 26.000 - 33.043 ppm02/04/2025 7:12 AM EDTHealthTrackRx at LabPortENTEROCOCCUS FAECALIS, FAECIUMNot Lxxhylfq51.000 - 33.043 ppm02/04/2025 7:12 AM EDT [facility] at LabPortESCHERICHIA QAMQ291.000 - 28.500 ppm02/04/2025 7:12 AM EDTHealthTrackRx at LabPortESCHERICHIA COLINot Zxwdwbjt81.000 - 28.500 ppm 02/04/2025 7:12 AM EDTHealthTrackRx at LabPortKLEBSIELLA PNEUMONIAE, OXYTOCA0 23.000 - 31.865 ppm02/04/2025 7:12 AM EDTHealthTrackRx at LabPortKLEBSIELLA PNEUMONIAE, OXYTOCANot Vgmzawhi67.000 - 31.865 ppm02/04/2025 7:12 AM EDT [facility] at LabPortMORGANELLA YIDWEDIS815.961 - 24.689 ppm02/04/2025 7:12 AM EDTHealthTrackRx at LabPortMORGANELLA MORGANIINot Lhgyvuts24.961 - 24.689 ppm02/04/2025 7:12 AM EDTHealthTrackRx at LabPortPROTEUS MIRABILIS, VULGARIS0 23.000 - 28.500 ppm02/04/2025 7:12 AM EDTHealthTrackRx at LabPortPROTEUS MIRABILIS, VULGARISNot Lgivmnrc80.000 - 28.500 ppm02/04/2025 7:12 AM EDT [facility] at LabPortPSEUDOMONAS DRHMLBIWPI838.000 - 31.801 ppm02/04/2025 7:12 AM EDTHealthTrackRx at LabPortPSEUDOMONAS AERUGINOSANot Jpmscsxn06.000 - 31.801 ppm02/04/2025 7:12 AM EDTHealthTrackRx at LabPortSTAPHYLOCOCCUS AUREUS0 26.000 - 31.595 ppm02/04/2025 7:12 AM EDTHealthTrackRx at LabPort STAPHYLOCOCCUS AUREUSNot Vxhgcfqz64.000 - 31.595 ppm02/04/2025 7:12 AM EDT [facility] at LabPortSTREPTOCOCCUS AGALACTIAE (GROUP B STREP)026.000 - 32.435 ppm02/04/2025 7:12 AM EDTHealthTrackRx at LabPortSTREPTOCOCCUS AGALACTIAE (GROUP B STREP)Not Grtzodlg59.000 - 32.435 ppm02/04/2025 7:12 AM EDTHealthTrackRx at LabPortCANDIDA ALBICANS, PARAPSILOSIS, ZQIWUWRAEL214.000 - 30.347 ppm02/04/2025 7:12 AM EDTHealthTrackRx at LabPortCANDIDA ALBICANS, PARAPSILOSIS, TROPICALISNot Brlqpxwq63.000 - 30.347 ppm02/04/2025 7:12 AM EDT [facility] at LabPortCANDIDA ASLYFELU737.000 - 31.618 ppm02/04/2025 7:12 AM EDTHealthTrackRx at LabPortCANDIDA GLABRATANot Ddmeqcqa39.000 - 31.618 ppm 02/04/2025 7:12 AM EDTHealthTrackRx at LabPortCANDIDA DTHHTT172.000 - 30.873 ppm02/04/2025 7:12 AM EDTHealthTrackRx at LabPortCANDIDA KRUSEINot Detected 23.000 - 30.873 ppm02/04/2025 7:12 AM EDTHealthTrackRx at LabPortSERRATIA BOLPCLKQHB506.000 - 31.581 ppm02/04/2025 7:12 AM EDTHealthTrackRx at Located within [facility] SERRATIA MARCESCENSNot Yggnfwic16.000 - 31.581 ppm02/04/2025 7:12 AM EDT [facility] at LabDeaconess HospitalSTREPTOCOCCUS PYOGENES (GROUP A STREP)019.961 - 24.689 ppm02/04/2025 7:12 AM EDTHealthTrackRx at LabDeaconess HospitalSTREPTOCOCCUS PYOGENES (GROUP A STREP)Not Icvzqpik57.961 - 24.689 ppm02/04/2025 7:12 AM EDT [facility] at [facility] within [facility] CenterSTAPHYLOCOCCUS EPIDERMIDIS, HAEMOLYTICUS, LUGDUNENSIS, SAPROPHYTICUS (OVLDI915.961 - 24.689 ppm02/04/2025 7:12 AM EDTHealthTrackRx at [facility] within [facility] CenterSTAPHYLOCOCCUS EPIDERMIDIS, HAEMOLYTICUS, LUGDUNENSIS, SAPROPHYTICUS (URINANot Zybkyybz65.961 - 24.689 ppm02/04/2025 7:12 AM EDTHealthTrackRx at [facility] within [facility] CenterSTAPHYLOCOCCUS EPIDERMIDIS, HAEMOLYTICUS, LUGDUNENSIS, SAPROPHYTICUS (LDRXL659.961 - 24.689 ppm02/04/2025 7:12 AM EDTHealthTrackRx at [facility] within [facility] STAPHYLOCOCCUS EPIDERMIDIS, HAEMOLYTICUS, LUGDUNENSIS, SAPROPHYTICUS (URINANot Ufdxbigz86.961 - 24.689 ppm02/04/2025 7:12 AM EDTHealthTrackRx at [facility] within [facility] Specimen (Source)Anatomical Location / LateralityCollection Method / Volume Collection TimeReceived HzjzMkacp46/20/2025 12:13 PM EDT02/04/2025 1:34 AM EDT Narrative Authorizing ProviderResult TypeResult StatusCorey Shelleylorenzo ZHANG BLOOD ORDERABLES Final ResultPerforming OrganizationAddressCity/State/ZIP CodePhone Number [facility] at Located within [facility] [address] [facility] [address] [place] [address] * IGP,APTIMA HPV,AGE GDLN (02/03/2025 11:48 AM [...] at: 01 =G ?[facility] [address] ?? [address] [place], [place] ??[phone] ?? Brittany Marshall MD, IGP, RFX APTIMA HPV ASCUNote.TBHComment: ?? TESTS ? RESULT ??FLAG ??UNITS ?REF RANGE ??LAB DIAGNOSIS: ?02 ?? NEGATIVE FOR INTRAEPITHELIAL LESION OR MALIGNANCY. Specimen adequacy: ?02 ?? Satisfactory for evaluation. No endocervical component is identified. Performed by: ? 02 ?? Meliza Rangel Head Porter (ASCP) . ? 02 Note: ? Note [...] High,A-Abnormal,AA-Critical Abnormal Performed at: 02 WB ?[facility] ?? [address], [place] ??[id number] ?? Brittany Marshall MD, Performed at: ??=G - [facility] ??[id number] Play Writer: Brittany Marshall MD, Phone: ??[phone] Performed at: ??WB - [facility] [address], [place] ??[id number] Play Writer: Brittany Marshall MD, Phone: ??[phone] Specimen (Source)Anatomical Location / LateralityCollection Method / Volume Collection TimeReceived Time02/03/2025 11:48 AM EDT02/03/2025 9:18 PM EDT Narrative [facility]IN[facility] - 02/06/2025 11:09 AM EDT SPATULA-ALONE ENDOCERVIX Authorizing ProviderResult TypeResult StatusCorey Shelley DOLAB BLOOD ORDERABLES Final ResultPerforming OrganizationAddressCity/State/ZIP CodePhone Number [facility]UL[facility] * Pap Smear (02/03/2025 12:00 AM [...] Laci Boykin MD Authorizing ProviderResult TypeResult StatusAmy [facility] [place] PROCEDURES Final Result from Last 3 Months Insurance Care Teams Team MemberRelationshipSpecialtyStart DateEnd Date Kym Peraza MD [address] [place] [address] PCP - GeneralFamily Medicine11/28/22 Rosita Yanes MD [address] [place] [address] Referring PhysicianFamily Medicine11/28/22
--- OUTSIDE RECORDS SUMMARY | 2025-04-17 15:33 | XMS_ITS | Encounter Summary ---
Author Organization [facility] Healthcare Address [address] [place] [address] Care Team Providers Care Senior Government Program Analyst Name Role Phone Kym Peraza MD Primary Care Provider [phone] Rosita Yanes MD Unavailable [phone] Encounter Details DateTypeDepartmentCare Team (Latest Contact Info)Vnhfqkbsouy77/24/2025Patient Outreach [facility] POP[facility]ATION [facility] [address] [place] [address] Marianna Galdamez, GABRIELLA [address] [place] [address] Social History Tobacco UseTypesPacks/DayYears UsedDateSmoking Tobacco: NeverSmokeless [...] times a week02/20/2023How often do you attend confucianist or jainism services?1 to 4 times per year02/20/2023 Do you belong to any clubs or organizations such as confucianist groups, unions, fraternal or athletic groups, or school groups?No02/20/2023How often do you attend meetings of the clubs or organizations you belong to?Never02/20/2023re you , , , , never , or living with a partner?Living with ehnkkdk6102/20/2023UDIT-CAnswerDate RecordedQ1: How often do you have a [...] and heating?Not very hard02/20/2023HQ-2AnswerDate RecordedPatient Health Questionnaire-2 Gbppp356Fin[facility] [place] of Occupational Health - Occupational Stress QuestionnaireAnswerDate RecordedDo you feel stress - tense, restless, nervous, or anxious, or unable to sleep at night because yourmind is troubled all the time - these days?Only a vjebgv0502/20/2023Exercise Vital Sign AnswerDate RecordedOn average, how many [...] in ashelter (including now)?No 02/20/2023Estimated Date of EmrycstsQijhommmGoe30/29/2025Based on Ultrasound, FHR- 176Sex and Gender InformationValueDate RecordedSex Assigned at BirthNot on fileLegal OukEafdar88/15/2023 6:51 PM EDTGender IdentityNot on file Sexual OrientationNot on filedocumented as of this encounter Functional Status * Over the past 2 weeks, how often have you been bothered by any of the following problems?QuestionAnswerDate of AssessmentAuthorLittle interest or pleasure in doing thingsNot at all04/09/2025 3:42 PM Marianna Santos LPN Feeling down, depressed, or hopelessNot at all04/09/2025 3:42 PM Marianna Santos LPNPatient Health Questionnaire-2 Ovgfc097 3:42 PM Marianna Santos LPN documented as [...] Plan of Treatment DateTypeDepartmentCare Team (Latest Contact Info)Ynzepypqzyz29/05/2025 11:00 AM ESTRoutine [facility] [address] [facility] [place] [address] Mendel Rosa DO [address] [facility] [place] [address] documented as of this encounter Visit Diagnoses Not on filedocumented in this encounter Care Teams Team MemberRelationshipSpecialtyStart DateEnd Date Kym Peraza MD [address] [place] [address] PCP - GeneralFamily Medicine11/28/22 Rosita Yanes MD [address] [place] [address] Referring PhysicianFamily Medicine11/28/22documented as of this encounter
--- OUTSIDE RECORDS SUMMARY | 2025-04-17 15:33 | XMS_ITS | Encounter Summary ---
Author Organization [facility] Address [address] [place] [address] Care Team Providers Care Credit And Collections Analyst Name Role Phone Kym Peraza MD Primary Care Provider [phone] Rosita Yanes MD Unavailable [phone] Encounter Details DateTypeDepartmentCare Team (Latest Contact Info)Ggmjfnimfjg29/29/2025Telephone [facility] [address] [place] [address] Mendel oRsa DO [address] [place], [facility]11 Social History Tobacco UseTypesPacks/DayYears UsedDateSmoking Tobacco: [...] times a week02/20/2023How often do you attend jain or gnosticism services?1 to 4 times per year02/20/2023 Do you belong to any clubs or organizations such as jain groups, unions, fraternal or athletic groups, or school groups?No02/20/2023How often do you attend meetings of the clubs or organizations you belong to?Never02/20/2023re you , , , , never , or living with a partner?Living with msqodlf8502/20/2023UDIT-CAnswerDate RecordedQ1: How often do you have a [...] and heating?Not very hard02/20/2023HQ-2AnswerDate RecordedPatient Health Questionnaire-2 Oweig368Finlakeview hospital [place] of Occupational Health - Occupational Stress QuestionnaireAnswerDate RecordedDo you feel stress - tense, restless, nervous, or anxious, or unable to sleep at night because yourmind is troubled all the time - these days?Only a iltwps9002/20/2023Exercise Vital Sign AnswerDate RecordedOn average, how many [...] in ashelter (including now)?No 02/20/2023Estimated Date of TvkaqnaqVbkxkrhzSeq72/29/2025Based on Ultrasound, FHR- 176Sex and Gender InformationValueDate RecordedSex Assigned at BirthNot on fileLegal YrfYxyfdp28/15/2023 6:51 PM EDTGender IdentityNot on file Sexual OrientationNot on filedocumented as of this encounter Miscellaneous Notes * Telephone Encounter - Roselyn Ramesh LPN - 04/14/2025 1:10 PM EDT Patient called the office and she was asking for her Pap results in a message. Patient call was returned and she was asked if she received a letter as we mail these out and if no call then it is negative. Patient asked what this will test for and she was advised cervical cancer and HPV if abnormal.Patient asked if this would test for STI and she was advised this does not and she states that is what she wanted done last visit. Patient was advised on 04/07/2025 she did have cultures obtained as she did request these and that will test for BV, Yeast and STI and this was negative. Patient statesthat she is still having the drainage. Patient was advised that I can transfer her to schedule an appointment and she states that she works the next 2 days and can't do this. 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 documented in this encounter Plan of Treatment DateTypeDepartmentCare Team (Latest Contact Info)Yvxvfjunfgv40/05/2025 11:00 AM ESTRoutine [facility]il KRAUSGYN [address] [facility] [place] [address] Mendel Rosa DO [address] [facility] [place] [address] documented as of this encounter Visit Diagnoses Not on filedocumented in this encounter Care Teams Team MemberRelationshipSpecialtyStart DateEnd Date Kym Peraza MD [address] [place] [address] PCP - GeneralFamily Medicine11/28/22 Rosita Yanes MD [address] [place] [address] Referring PhysicianFamily Medicine11/28/22documented as of this encounter
--- OUTSIDE RECORDS SUMMARY | 2025-04-17 15:33 | XMS_ITS | Encounter Summary ---
Author Organization [facility] Address [address] [place] [address] Care Team Providers Care Biogeographer Name Role Phone Kym Peraza MD Primary Care Provider [phone] Rosita Yanes MD Unavailable [phone] Encounter Details DateTypeDepartmentCare Team (Latest Contact Info)Ftkfjlwyajo02/29/2025Clinisync Result Encounter [facility] External Department Unsolicited Marianna Varela PA [address] [place] [address] [place] [address] Social History Tobacco UseTypesPacks/DayYears UsedDateSmoking Tobacco: NeverSmokeless [...] times a week02/20/2023How often do you attend samaritan or caodaism services?1 to 4 times per year02/20/2023 Do you belong to any clubs or organizations such as samaritan groups, unions, fraternal or athletic groups, or school groups?No02/20/2023How often do you attend meetings of the clubs or organizations you belong to?Never02/20/2023re you , , , , never , or living with a partner?Living with rywgavl9202/20/2023UDIT-CAnswerDate RecordedQ1: How often do you have a [...] and heating?Not very hard02/20/2023HQ-2AnswerDate RecordedPatient Health Questionnaire-2 Raxym533Fin[facility] healthcare [place] of Occupational Health - Occupational Stress QuestionnaireAnswerDate RecordedDo you feel stress - tense, restless, nervous, or anxious, or unable to sleep at night because yourmind is troubled all the time - these days?Only a mhndnu0902/20/2023Exercise Vital Sign AnswerDate RecordedOn average, how many [...] in ashelter (including now)?No 3Estimated Date of OigxejwoUzxawjwyHzm86/29/2025Based on Ultrasound, FHR- 176Sex and Gender InformationValueDate RecordedSex Assigned at BirthNot on fileLegal QrdHwxtvc92/15/2023 6:51 PM EDTGender IdentityNot on file Sexual OrientationNot on filedocumented as of this encounter Plan of Treatment DateTypeDepartmentCare Team (Latest Contact Info)Bhvblmwzuwc00/05/2025 11:00 AM ESTRoutine [facility] [address] [facility] [place] [address] Mendel Rosa, [address] [facility] [place] [address] documented as of this encounter Procedures Procedure NamePriorityDate/TimeAssociated DiagnosisCommentsUS OB BPP W NON-NBYVXF6604/14/2025 11:19 AM EDT documented in this encounter Results * US OB BPP W NON-STRESS (04/14/2025 11:19 AM EDT)Anatomical Region LateralityModalityOtherSpecimen (Source)Anatomical Location / Laterality Collection Method / VolumeCollection TimeReceived Time04/14/2025 11:19 AM EDT Narrative 04/14/2025 11:21 AM EDT [facility] ?[address] ? [place] [address] ? Ultrasound Report ? Signed ? Patient: SOMMER,JOSÉ LUIS ? MR#: [id number] ?? : 2000 ?Acct:[id number] ?? Age/Sex: 24 / F ?ADM Date: 10/29/25 ?? Loc: [facility] ??250-1 ? Attending Dr: Marianna Varela ? Ordering Physician: Marianna Varela ?? Date of Service: 04/14/25 ?? Procedure(s): US OB BPP w non-stress ?? Accession Number(s): [id number] ? cc: Marianna Varela; DUKE PERAZA ? [facility] ? [address] ? [place] [address] ? Patient Name: ?? JOSÉ LUIS ??SOMMER ? MRN: [facility]:[id number] ? date: 2000 ?Sex: F ?? Assigned Patient Location: [facility] ?? Current Patient Location: [facility] ?? Accession/Order Number: [id number] ?? Exam Date: 04/14/2025 ??11:00 ?Report Date: [...] Dictation Location: RADIO-PC-02 ? Electronically authenticated by: [id number] ??Y ?? Date: 04/14/2025 ??11:19 ? Dictated By: ?Jacqui Mendoza M.D. ? Signed By: ?04/14/25 1121 ? DD/ 1119 ? TD/TT: ? Zinc Plater: Procedure Note Radiology, Radiologist, MD - 04/14/2025 [place] [address] Ultrasound Report Signed Patient: JOSÉ LUIS NOVOAMR#: [id number] : 2000Acct:[id number] Age/Sex: 24 / FADM Date: 04/14/25 Loc: [facility] 250- Attending Dr: Marianna Varela Ordering Physician: Marianna Varela Date of Service: 04/14/25 Procedure(s): US OB BPP w non-stress Accession Number(s): [id number] cc: Marianna Varela; DUKE PERAZA The [place] [id number] Patient Name: JOSÉ LUIS NOVOA MRN: [id number] date: 2000 Sex: F Assigned Patient Location: [facility] Current Patient Location: [facility] Accession/Order Number: [id number] Exam Date: 04/14/2025 11:00 Report Date: 04/14/2025 [...] is in low-normal range. Total score: 8/8 US/US OB BPP w non-stress IMPRESSION: NORMAL BIOPHYSICAL PROFILE Impression dictated by: Jacqui Mendoza M.D. 04/14/2025 11:19 AM Dictation Location: [place] [address] Electronically authenticated by: [id number] Y Date: 1:19 Dictated By: Jacqui Mendoza M.D. Signed By:04/14/25 1121 DD/ 1119 TD/TT: Zinc Plater: Authorizing ProviderResult TypeResult StatusAmy Nichole PACLINISYNC IMAGINGFinal Result documented in this encounter Visit Diagnoses Not on filedocumented in this encounter Care Teams Team MemberRelationshipSpecialtyStart DateEnd Date Kym Peraza MD [address] [place] [address] PCP - GeneralFamily Medicine11/28/22 Rosita Yanes MD [address] [place] [address] Referring PhysicianFamily Medicine11/28/22documented as of this encounter
--- OUTSIDE RECORDS SUMMARY | 2025-04-17 15:34 | XMS_ITS | Encounter Summary ---
Author Organization [facility] Address [address] [place] [address] Care Team Providers Care Bridal Stylist Sales Consultant Name Role Phone Kym Peraza MD Primary Care Provider [phone] Rosita Yanes MD Unavailable [phone] Encounter Details DateTypeDepartmentCare Team (Latest Contact Info)Neusybsrwrs24/21/2025Telephone [facility] [address] [place] [address] Mendel Rosa DO [address] [place], [facility]11 Social History Tobacco UseTypesPacks/DayYears UsedDateSmoking Tobacco: [...] week02/20/2023How often do you attend sikhism or voodoo services?1 to 4 times per year02/20/2023 Do you belong to any clubs or organizations such as sikhism groups, unions, fraternal or athletic groups, or school groups?No02/20/2023How often do you attend meetings of the clubs or organizations you belong to?Never02/20/2023re you , , , , never , or living with a partner?Living with fjairrk3202/20/2023UDIT-CAnswerDate RecordedQ1: How often do you have a [...] and heating?Not very hard02/20/2023HQ-2AnswerDate RecordedPatient Health Questionnaire-2 Ocjek105Finriverton hospital [place] of Occupational Health - Occupational Stress QuestionnaireAnswerDate RecordedDo you feel stress - tense, restless, nervous, or anxious, or unable to sleep at night because yourmind is troubled all the time - these days?Only a fyhtmf9602/20/2023Exercise Vital Sign AnswerDate RecordedOn average, how many [...] in ashelter (including now)?No 02/20/2023Estimated Date of ItfnharyFwtulvbwDuz55/29/2025Based on Ultrasound, FHR- 176Sex and Gender InformationValueDate RecordedSex Assigned at BirthNot on fileLegal EnoEswcnx41/15/2023 6:51 PM EDTGender IdentityNot on file Sexual [...] around 30 weeks and recently went to [facility] and they sent her home as everything checked out ok, Patient is scheduled tomorrow. Please advise. documented in this encounter Plan of Treatment DateTypeDepartmentCare Team (Latest Contact Info)Giqwankenaj92/05/2025 11:00 AM ESTRoutine [facility] [address] [place] [address] Mendel Rosa DO [address] [facility] [place] [address] documented as of this encounter Visit Diagnoses Not on filedocumented in this encounter Care Teams Team MemberRelationshipSpecialtyStart DateEnd Date Kym Peraza MD [address] [place] [address] PCP - GeneralFamily Medicine11/28/22 Rosita Yanes MD [address] [place] [address] Referring PhysicianFamily Medicine11/28/22documented as of this encounter
--- OUTSIDE RECORDS SUMMARY | 2025-04-17 15:34 | XMS_ITS | Encounter Summary ---
Author Organization [facility] Address [address] [place] [address] Care Team Providers Care Heating And Ventilating Drafter Name Role Phone Kym Peraza MD Primary Care Provider Rosita Yanes MD Unavailable [phone] Encounter Details DateTypeDepartmentCare Team (Latest Contact Info)Bbzanrpuads89/20/2025Telephone ROZ Ma OBGY[address] [place] [address] Lenka Jimenez MA Social History [...] times a week02/20/2023How often do you attend rastafarian or synagogue services?1 to 4 times per year02/20/2023 Do you belong to any clubs or organizations such as rastafarian groups, unions, fraternal or athletic groups, or school groups?No02/20/2023How often do you attend meetings of the clubs or organizations you belong to?Never02/20/2023re you , , , , never , or living with a partner?Living with ndadbov2402/20/2023UDIT-CAnswerDate RecordedQ1: How often do you have a [...] and heating?Not very hard02/20/2023HQ-2AnswerDate RecordedPatient Health Questionnaire-2 Aatwt057Fin[facility]s hospital [place] of Occupational Health - Occupational Stress QuestionnaireAnswerDate RecordedDo you feel stress - tense, restless, nervous, or anxious, or unable to sleep at night because yourmind is troubled all the time - these days?Only a hucxfk8402/20/2023Exercise Vital Sign AnswerDate RecordedOn average, how many [...] in ashelter (including now)?No 02/20/2023Estimated Date of KkqjhwhjHmkazzccUll57/29/2025Based on Ultrasound, FHR- 176Sex and Gender InformationValueDate RecordedSex Assigned at BirthNot on fileLegal HhpFvfref60/15/2023 6:51 PM EDTGender IdentityNot on file Sexual OrientationNot on filedocumented as of this encounter Miscellaneous Notes * Telephone Encounter - Lenka Jimenez MA - 04/05/2025 3:24 PM EDT Pt advised of results and recommendations. Pt has an appt on Saturday and will pick up worker paperwork on how to schedule appts then. documented in this encounter Plan of Treatment DateTypeDepartmentCare Team (Latest Contact Info)Vrwclixykem61/05/2025 11:00 AM ESTRoutine [facility] [address] [facility] [place] [address] Mendel Rosa, [address] [facility] [place] [address] NameTypePriorityAssociated DiagnosesOrder ScheduleUS biophysical profile w non stress testImagingRoutine Oligohydramnios in third trimester, fetus 1 of multiple gestation ([facility]) Expected: 04/05/2025 (Approximate), Expires: 10/04/2025documented as of this encounter Visit Diagnoses Diagnosis Oligohydramnios in third trimester, fetus 1 of multiple gestation ([facility]) documented in this encounter Care Teams Team MemberRelationshipSpecialtyStart DateEnd Date Kym Peraza MD [address] [place] [address] PCP - GeneralFamily Medicine11/28/22 Rosita Yanes MD [address] [place] [address] Referring PhysicianFamily Medicine11/28/22documented as of this encounter
--- OUTSIDE RECORDS SUMMARY | 2025-04-17 15:34 | XMS_ITS | Encounter Summary ---
Author Organization [facility] Address [address] [place] [address] Care Team Providers Care Cooler Deliverer Name Role Phone Kym Peraza MD Primary Care Provider [phone] Rosita Yanes MD Unavailable [phone] Encounter Details DateTypeDepartmentCare Team (Latest Contact Info)Myvfuzymwsm00/22/2025amboo flowsheet ROZ NUNEZ [address] [facility] [place] [address] Marianna Herrera PA [address] [facility] [address] [place], [facility]11 Social History Tobacco UseTypesPacks/DayYears UsedDateSmoking Tobacco: [...] times a week02/20/2023How often do you attend restorationist or moravian services?1 to 4 times per year02/20/2023 Do you belong to any clubs or organizations such as restorationist groups, unions, fraternal or athletic groups, or school groups?No02/20/2023How often do you attend meetings of the clubs or organizations you belong to?Never02/20/2023re you , , , , never , or living with a partner?Living with hunbhkr2102/20/2023UDIT-CAnswerDate RecordedQ1: How often do you have a [...] and heating?Not very hard02/20/2023HQ-2AnswerDate RecordedPatient Health Questionnaire-2 Twgyz720Finblue [facility] hospital [place] of Occupational Health - Occupational Stress QuestionnaireAnswerDate RecordedDo you feel stress - tense, restless, nervous, or anxious, or unable to sleep at night because yourmind is troubled all the time - these days?Only a njnprd7202/20/2023Exercise Vital Sign AnswerDate RecordedOn average, how many [...] in ashelter (including now)?No 3Estimated Date of KlyoitlrBntqutumPwr29/29/2025Based on Ultrasound, FHR- 176Sex and Gender InformationValueDate RecordedSex Assigned at BirthNot on fileLegal LnuHfbkrx45/15/2023 6:51 PM EDTGender IdentityNot on file Sexual OrientationNot on filedocumented as of this encounter Plan of Treatment DateTypeDepartmentCare Team (Latest Contact Info)Jgikcqwkuwh64/05/2025 11:00 AM ESTRoutine [facility] [address] [facility] [place] [address] Mendel Rosa DO [address] [facility] [address] [place], [place] [address] documented as of this encounter Visit Diagnoses Not on filedocumented in this encounter Care Teams Team MemberRelationshipSpecialtyStart DateEnd Date Kym Peraza MD [address] [place] [address] PCP - [facility] Hospitally [facility]11/28/22 Rosita Yanes MD [address] [place] [address] Referring PhysicianFamily Medicine11/28/22documented as of this encounter
[2025-04-17 15:35] VITALS: BP 120/67; PULSE 88
== END 2025-04-17 15:58 | disposition home or self-care (01) ==
LOC: FBCO 15:30 → FBC 15:32
PROVIDERS: PCP Student in an Organized Health Care Education/Training Program; Visit Provider Obstetrics & Gynecology
DX: O41.00X0 Oligohydramnios, unspecified trimester, not applicable or unspecified (principal)
CPT/HCPCS: 59025

== ENCOUNTER 2025-04-21 11:30 | Outpatient (OUT) | payer OTHER, SELFPAY ==
--- OUTSIDE RECORDS SUMMARY | 2024-04-20 11:30 | XMS_ITS ---
Author Organization [facility] es Address [address] [facility] [place] [address] Care Team Providers Care Laboratory Equipment Cleaner Name Role Phone Elizabeth Keating Primary Care Provider DUKE ANDREWS Unavailable Unavailable Sarita Allen Unavailable [phone] REASON FOR VISIT biweekly f/u Encounters Encounter Location Date Provider Diagnosis [place] [address] [place] [address] 04/20/2024 Sarita Allen Plan Of Treatment No Information Progress Notes * JOSÉ LUIS NOVOA PDOB:2000 (24 yo F)Acc No.[id number]:04/20/2024 F/U - Patient Patient: Corie JIN JOSÉ LUIS Reyes :?Sarita Allen LPCDOB:2000???Age:23 Y ???Sex:FemaleDate:04/20/2024hone:[phone]:[address] [facility], [address], [place], [place]Rny:Elizabeth Keating Subjective: * Chief Complaints: * B iweekly f/u Care Plan Details* * Electronic signature of Sarita Allen LPC on 04/21/2025 at 11:33 AM ESTSign off status: Pending * Provider: Reynaldo Allen LPC Date: 06/20/2023 Generated for Printing/Faxing/eTransmitting on:?04/21/2025 11:33 AM EST
--- OUTSIDE RECORDS SUMMARY | 2024-12-09 10:15 | XMS_ITS ---
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 Encounters Encounter Location Date Provider Diagnosis [place] [address] [place] [address] 12/09/2024 Elizabeth Keating Plan Of Treatment No Information Progress Notes * JOSÉ LUIS NOVOA PDOB:2000 (24 yo F)Acc No.[id number]:12/09/2024 Patient:?JOSÉ LUIS NOVOA :?Elizabeth Keating DDSDOB:2000???Age:23 Y ???Sex:FemaleDate:12/09/2024Phone:[phone]:[address] [facility], [address], [place], [place] Subjective: * Chief Complaints: * N p exam Billing Information: * Procedure Codes: * Electronic signature of Elizabeth Keating DDS on 04/21/2025 at 11:33 AM ESTSign off status: Pending * Provider: Rupali Keating DDS Date: 12/09/2024 Generated for Printing/Faxing/eTransmitting on:?04/21/2025 11:33 AM EST
--- OUTSIDE RECORDS SUMMARY | 2025-04-07 09:50 | XMS_ITS | Encounter Summary ---
Author Organization [facility] Address [address] [place] [address] Care Team Providers Care Tower Loader Operator Name Role Phone Kym Peraza MD Primary Care Provider [phone] Rosita Yanes MD Unavailable [phone] Reason for Visit * ReasonCommentsRoutine Visit Encounter Details DateTypeDepartmentCare Team (Latest Contact Info)Ucmxljjtewx37/22/2025 10:50 AM EDTRoutine ROZ Ma OBGYEvaristo [address] [place] [address] Marianna Herrera PA [address] [place] [address] Third trimester ([facility]); 30 weeks gestation of ([facility]); Exposure to STD; RUCHI (amniotic fluid index) borderline low; BV (bacterial vaginosis) Social History Tobacco UseTypesPacks/DayYears UsedDateSmoking Tobacco: NeverSmokeless [...] times a week02/20/2023How often do you attend denominational or baptist services?1 to 4 times per year02/20/2023 Do you belong to any clubs or organizations such as denominational groups, unions, fraternal or athletic groups, or school groups?No02/20/2023How often do you attend meetings of the clubs or organizations you belong to?Never02/20/2023re you , , , , never , or living with a partner?Living with iaimkmg1002/20/2023UDIT-CAnswerDate RecordedQ1: How often do you have a [...] and heating?Not very hard02/20/2023HQ-2AnswerDate RecordedPatient Health Questionnaire-2 Srelk135Fin[facility] [place] of Occupational Health - Occupational Stress QuestionnaireAnswerDate RecordedDo you feel stress - tense, restless, nervous, or anxious, or unable to sleep at night because yourmind is troubled all the time - these days?Only a ykmrmr8702/20/2023Exercise Vital Sign AnswerDate RecordedOn average, how many [...] you didn't have money to get more.Never true02/20/2023RAPARE - TransportationAnswerDate RecordedIn the past 12 months, [...] steady place to sleep or slept in [place] (including now)?No 02/20/2023Estimated Date of XnbnuzmkMlugqitrMrp13/29/2025Based on Ultrasound, FHR- 176Sex and Gender InformationValueDate RecordedSex Assigned at BirthNot on fileLegal XidLjjgye04/15/2023 6:51 PM EDTGender IdentityNot on file Sexual OrientationNot on filedocumented as of this encounter Last Filed Vital Signs Vital SignReadingTime TakenCommentsBlood Qfvifhca379/7204/07/2025 10:51 AM EDT Pulse--Temperature--Respiratory Rate--Oxygen Saturation--Inhaled Oxygen Concentration--Spraci02.3 kg (144 lb)04/07/2025 10:51 AM EDTHeight--Body Mass Index23.9610/27/2024 11:44 AM EDTdocumented in this encounter Progress Notes * SARAH Bartlett - 04/07/2025 10:50 AM EDT Reason for Appointment: Patient ID: Augustine Jimenes is a 24 y.o. female who presents for Routine Visit Patient presents today for STD Check. and Return OB appointment. MEDICATIONS Current Outpatient Medications Medication Instructions multivitamin () 27-0.8 MG tablet 1 tablet, Oral, Daily nitrofurantoin, macrocrystal-monohydrate, (Macrobid) 100 MG capsule TAKE 1 CAPSULE BY MOUTH EVERY MORNING, and ONE CAPSULE before bedtime FOR 7 DAYS ondansetron ODT (ZOFRAN-ODT) 4 mg, Oral, Every [...] Cancer Paternal Grandfather Hypertension Other SURGICAL HISTORY History reviewed. No pertinent surgical history. REVIEW OF SYSTEMS Review of Systems: Review of Systems All other systems reviewed and are negative. OBJECTIVE Objective: Physical Exam Constitutional: Appearance: Normal appearance. Genitourinary: Right Adnexa: not tender and no mass present. Left Adnexa: not tender and no mass present. No cervical discharge. Breasts: Breasts are soft. Right: Normal. Left: Normal. HENT: Head: Normocephalic. Nose: Nose normal. Mouth/Throat: Mouth: Mucous membranes are moist. Cardiovascular: Rate and Rhythm: Normal rate. Pulmonary: Effort: Pulmonary effort is normal. Abdominal: General: Bowel sounds are normal. Palpations: Abdomen is soft. Musculoskeletal: General: Normal range of motion. Cervical back: Normal range of motion. Neurological: General: No focal deficit present. Mental Status: She is alert. Skin: General: Skin is warm and dry. Psychiatric: Mood and Affect: Mood normal. Vitals and nursing note reviewed. Exam conducted with a public speaking instructor present. Vitals: Estimated body mass index is 23.42 kg/m?? as calculated from the following: Height as of 10/27/24: 5' 5 . Weight as of 03/24/25: 140 lb 12 oz. BP: No LMP recorded. Patient is . Assessment/Plan ICD-10-CM 1. Third trimester ([facility]) Z34.93 POCT urinalysis dipstick manually resulted 2. 30 weeks gestation of ([facility]) Z3A.30 3. Exposure to STD Z20.2 SURESWAB(R) ADVANCED VAGINITIS PLUS, TMA CHLAMYDIA TRACHOMATIS (GENITO/STI) Neisseria gonorrhea DNA probe, direct Return OB: Patient presents today for a routine obstetrics appointment. Patient is currently 30w2d . Patient states she is doing well but has complaints of being tired due to current . Patient is requesting for cx's to be done at this visit. Pt complaining of having some vaginal discharge andodor for a week. CX's were obtained by Marianna Herrera. Pt is aware results takes up 1-2 days to come back. PVU. Patient has verbalizes frequent movement. labor precautions was discussed/given and patient was instructed to perform kick counts three times a day. Orders Placed This Encounter Procedures CHLAMYDIA TRACHOMATIS (GENITO/STI) Neisseria gonorrhea DNA probe, direct POCT urinalysis dipstick manually resulted Follow Up: Patient is to return to office in 2 week for routine OB appointment. Documented by Nan Denson MA on behalf of: SARAH Bartlett documented in this encounter Plan of Treatment DateTypeDepartmentCare Team (Latest Contact Info)Zraesfjutcn47/19/2025 3:00 PM ESTAncillary Procedure [facility] [address] [place] [phone] 05/05/2025 3:30 PM ESTPostpartum Visit [facility] [address] [address] [place] [phone] Marianna Herrera PA [address] [place] [address] NameTypePriorityAssociated DiagnosesOrder ScheduleSURESWAB(R) ADVANCED VAGINITIS PLUS, TMAPathology and CytologyRoutine Exposure to STD Ordered: 5CHLAMYDIA TRACHOMATIS (GENITO/STI)LabRoutine Exposure to STD Ordered: 04/07/2025Neisseria gonorrhea DNA probe, directLabRoutine Exposure to STD Ordered: 04/07/2025US biophysical profile w non stress testImagingRoutine RUCHI (amniotic fluid index) borderline low Expected: 04/07/2025 (Approximate), Expires: 10/06/2025documented as of this encounter Procedures Procedure NamePriorityDate/TimeAssociated DiagnosisCommentsPOCT URINALYSIS GYSNWJTRDqygnay48/22/2025 10:53 AM EDT Third trimester ([facility]) documented in this encounter Results * POCT urinalysis dipstick manually resulted (04/07/2025 10:53 AM EDT)Component ValueRef RangeTest MethodAnalysis TimePerformed AtPathologist SignatureColor, UAYellowClarity, UAClearGlucose, UANegativeNegative - 2000(110) ++++ mg/dL Bilirubin, UANegativeNegative - 4(70) +++ mg/dLKetones, UANegativeNegative - 160(16) ++++ mg/dLSpec Grav, UA1.0101 - 1.03Blood, UANegativeNegative - 50 Ryder/mcLpH, UA7.05 - 9Protein, UANegativeNegative - 2000(20) ++++ mg/dL Urobilinogen, UA1.00.2 - 12 mg/dLLeukocytes, UANegativeNegative - 500+++ Astrid/mcLNitrite, UANegativeNegative - PositiveSpecimen (Source)Anatomical Location / LateralityCollection Method / VolumeCollection TimeReceived Time Urine04/07/2025 10:53 AM EDT Narrative Authorizing ProviderResult TypeResult StatusCarilion [facility] TEST ENTER/EDIT ORDERABLESFinal Result documented in this encounter Visit Diagnoses Diagnosis Third trimester ([facility] state, incidental 30 weeks gestation of ([facility]) Exposure to STD RUCHI (amniotic fluid index) borderline low Nonspecific abnormal finding in amniotic fluid BV (bacterial vaginosis) Unspecified vaginitis and vulvovaginitis documented in this encounter Care Teams Team MemberRelationshipSpecialtyStart DateEnd Date Kym Peraza MD [address] [place] [address] [facility] - [facility]11/28/22 Rosita Yanes MD [address] [place] [address] Referring PhysicianMilford Regional Medical Center Medicine11/28/22documented as of this encounter
--- OUTSIDE RECORDS SUMMARY | 2025-04-17 23:55 | XMS_ITS | Continuity of Care Document ---
Author Organization [facility] Address Unknown Care Team Providers Care Utility Inspector Name Role Phone Kym Peraza Primary Care Physician Inna Horton Unavailable Unavailable Encounter [facility] [id number] Date(s): 04/17/25 - 04/18/25 [facility] [address], [place] [address] Discharge Disposition: Home (Routine DC) Attending Physician: Timmy Marcelo MD Admitting Physician: Timmy Marcelo MD Encounter Type: Outpatient in a Bed Allergies, Adverse Reactions, Alerts No Known Allergies Immunizations Given and Recorded VaccineDateStatusRefusal Reasondiphtheria/pertussis, acel/tetanus adult// Givendiphtheria/pertussis, acel/tetanus adult12/08/19Given 1Reason for Medication: Other (see comment) Medications ibuprofen 600 mg Tab 600 mg = 1 tab(s), Oral, q6hr, # 15 tab(s), Refills(s) 0, Pharmacy: [facility]/pharmacy #[id number], 162.5, cm, 11/30/21 15:14:00 EDT, Height/Length Dosing, 73.2, kg, 11/30/21 15:14:00 EDT, Weight Dosing Start Date: 12/02/21 Status: Ordered Medication Dispense Status: Completed Quantity: 15.0 Unit: tab(s) Total Allowed Fills: 1 Fills Dispensed: 0 naproxen 500 mg Tab 500 mg = 1 tab(s), Oral, BID, Take one tab by mouth two times a day, # 14 tab(s), Refills(s) 0, Pharmacy: [facility], 160, cm, 12/20/23 7:48:00 EDT, Height/Length Dosing, 55, kg, 12/20/23 7:48:00 EDT, Weight Dosing Start Date: 12/20/23 Status: Ordered Medication Dispense Status: Completed Quantity: 14.0 Unit: tab(s) Total Allowed Fills: 1 Fills Dispensed: 0 Multivitamins 1 tab(s), Oral, Daily, Refill(s) 0 Start Date: 04/17/25 Status: Ordered Medication Dispense Status: Completed Total Allowed Fills: 1 Fills Dispensed: 0 Reglan 10 mg Tab 10 mg = 1 tab(s), Oral, q6hr, PRN Nausea, # 10 tab(s), Refills(s) 0, Pharmacy: [facility], 160, cm, 12/20/23 7:48:00 EDT, Height/Length Dosing, 55, kg, 12/20/23 7:48:00 EDT, Weight Dosing Start Date: 12/20/23 Status: Ordered Medication Dispense Status: Completed Quantity: 10.0 Unit: tab(s) Total Allowed Fills: 1 Fills Dispensed: 0 Problem List ConditionConfirmationCourseEffective DatesStatusHealth StatusInformantADHD (attention deficit hyperactivity disorder)ConfirmedActiveFetal growth restrictionConfirmedActiveGroup B streptococcusConfirmedActiveHistory of COVID- 19 (06-25-2021)ConfirmedActiveMarijuana useConfirmedActiveNoneConfirmedResolved Supervision of normal first in third trimesterConfirmedActivePregnancy Confirmed03/10/19 - 12/08/1925TckozgfkCsqnspycyYfqcbpayc0/16/21 - 11/30/21Resolved BspdyovzoUtehljqzu78/1/99KnzynjEswppi0YpppvodprFlcpjqSwjdc B streptococcus urinary tract infection affecting pregnancyConfirmedActive 1Added secondary to documentation in Social History. Procedures ProcedureDateRelated DiagnosisBody SiteStatustonsilsCompleted Results Laboratory List KptvIyuoSwenVmjp62/1/58DCP88/1/25CBC w/ Sfpmzlc39/1/93Cvkipwowyo14/1/25 Electrolyte Panel04/17/25Fibrinogen Lvl106/17/24Hepatic Function Panel04/17/25PT & PTT04/17/25Uric Acid04/17/2575lAUC09/1/25UA with Cult Rflx106/17/24UA with Cult Rflx SP106/17/24 Most recent to oldest [Reference Range]:1RBC MorphNORMAL *NA* (04/17/25 11:08 PM)UA Bacteria [Trace /HPF]2+ /HPF *ABN* (04/17/25 10:21 PM)UA Bili [Negative mg/dL]Negative mg/dL (04/17/25 10:21 PM)UA Color [Yellow]Yellow1 (04/17/25 10:21 PM)UA Glucose [Negative mg/dL]Negative mg/dL (04/17/25 10:21 PM)UA Ketones [Negative mg/dL]Negative mg/dL (04/17/25 10:21 PM)UA Leuk Est [Negative Astrid/uL]75 Astrid/uL Astrid/uL *ABN* (04/17/25 10:21 PM)UA Mucous [Negative graded/LPF]Trace graded/LPF (04/17/25 10:21 PM)UA Nitrite [Negative mg/dL]Negative mg/dL (04/17/25 10:21 PM)UA Protein [Negative mg/dL]Trace mg/dL *ABN* (04/17/25 10:21 PM)UA RBC [0-3 graded/HPF]0-3 graded/HPF (04/17/25 10:21 PM)UA Squam Epithelial5-8 graded/HPF *NA* (04/17/25 10:21 PM)UA Urobilinogen [Negative mg/dL]2 mg/dL mg/dL *ABN* (04/17/25 10:21 PM)UA WBC [0-5 graded/HPF]0-5 graded/HPF (04/17/25 10:21 PM)UA Spec DescClean Catch (04/17/25 10:21 PM)UA Blood [Negative mg/dL]Negative mg/dL (04/17/25 10:21 PM)UA Clarity [Clear]Clear (04/17/25 10:21 PM)INR0.862 *NA* (04/17/25 11:08 PM)A/G Ratio [1.1-2.2]1.4 (04/17/2508 PM)AGAP [6-16 mEq/L]10 mEq/L (04/17/25 11:08 PM)Albumin Lvl [3.3-5.0 gm/dL]4.1 gm/dL (04/17/25 1108 PM)Alk Phos [21-98 Int._Unit/L]93 Int._Unit/L (04/17/25 11:08 PM)ALT [6-46 Int._Unit/L]10 Int._Unit/L (04/17/25 1108 PM)AST [5-43 Int._Unit/L]15 Int._Unit/L (04/17/25 11:08 PM)Bili Direct [0.0-0.4 mg/dL]0.0 mg/dL (04/17/2508 PM)Bili Total [0.0-1.1 mg/dL]0.3 mg/dL (04/17/25 1108 PM)CO2 [21-31 mmol/L]27 mmol/L (04/17/2508 PM)Fibrinogen [200-393 mg/dL]349 mg/dL (04/17/2508 PM)Hct [34.0-46.0 %]34.9 % (04/17/2508 PM)Hgb [12.0-16.0 gm/dL]12.3 gm/dL (04/17/2508 PM)PT [9.4-12.5 second(s)]9.6 second(s)3 (04/17/2508 PM)PTT [25.1-36.5 second(s)]24.8 second(s)4 *LOW* (04/17/25 PM)RBC [4.3-5.9 E12/L]4.4 E12/L (04/17/2508 PM)RDW [10.9-14.2 %]13.4 % (04/17/2508 PM)Sodium Lvl [135-145 mmol/L]136 mmol/L (04/17/25 11:08 PM)Total Protein [6.0-7.8 gm/dL]7.0 gm/dL (04/17/25 11:08 PM)MCH [27.0-34.0 pg]28.0 pg (04/17/25 11:08 PM)MCHC [31.4-36.0 gm/dL]35.2 gm/dL (04/17/25 1108 PM)MCV [80.0-100.0 fL]79.7 fL *LOW* (04/17/25:08 PM)MPV [6.4-10.8 fL]7.3 fL (04/17/25:08 PM)UA pH [5.0-9.0]6.0 *NA* (04/17/25 10:21 PM)BUN [5-21 mg/dL]12 mg/dL (04/17/25 11:08 PM)Platelet [150.0-500.0 E9/L]235.0 E9/L (04/17/25:08 PM)Potassium Lvl [3.5-5.3 mmol/L]3.8 mmol/L (04/17/25 11:08 PM)UA Spec Grav [1.005-1.030]1.031 *NA* (04/17/25 10:21 PM)Uric Acid [2.2-7.4 mg/dL]3.6 mg/dL (04/17/25 11:08 PM)WBC [4.0-11.0 E9/L]8.6 E9/L (04/17/25 11:08 PM)Chloride [101-111 mmol/L]103 mmol/L (04/17/25 11:08 PM)Bili Indirect [0.1-0.9 mg/dL]0.3 mg/dL (04/17/2508 PM)eGFR [>=59 mL/min/1.73 m2]123 mL/min/1.73 m2 (04/17/25 11:08 PM)Globulin [1.4-4.0 gm/dL]2.9 gm/dL (04/17/2508 PM)Creatinine [0.5-1.3 mg/dL]0.7 mg/dL (04/17/25 11:08 PM)PAMG-1 Protein [Negative]Negative (04/17/25 11:32 PM) 1Interpretive Data: Microscopic readings are only performed on those samples that meet specific criteria set forth by [facility]. 2Interpretive Data: INR results are specifically intended to assess patients stabilized on long-term Anticoagulation therapy suggested INR???s ???Less Intensive Anticoagulation?? 2.0 ??? 3.0 Conventional Range 3.0 ??? 4.5 3Interpretive Data: 15 days - 4 weeks 1 - 5 months 6 -11 months 1 ??? 5 years 6 ??? 10 years 11 -17 years Mean: 11.2?? (9.5 ??? 12.6) Mean: 11.0?? (9.7 ??? 12.8) Mean: 11.0 (9.8 ??? 13.0) Mean: 11.3 (9.9 ??? 13.4) Mean: 11.7 (10.0 ??? 14.6) Mean: 11.8? (10.0 - 14.1) Pediatric Reference ranges were obtained from a study by Andriy Arrington et al. prepared from 1437 samples obtained at 7 different centers using the same coagulation reagent and instrumentation as [facility]. Currently there are no coagulation studies available worldwide for children to 14 days, andno normal ranges. 4Interpretive Data: Parameter 15 days -? 4 weeks 1 - 5 months 6 - 11 months 1 - 5 years 6 - 10 years 11 - 17 years PTT Mean: 35.4 (27.6-45.6) Mean: 33.5 (24.8-40.7) Mean: 32.4 (25.1-40.7) Mean: 31.6 (24.0-39.2) Mean: 31.6 (26.9-38.7) Mean: 31.0 (24.6-38.4) Pediatric Reference ranges were obtained from a study by dudley Woodard al. prepared from 1437 samples obtained at 7 different centers using the same coagulation reagent and instrumentation as [facility]. Currently there are no coagulation studies available worldwide for children to 14 days, andno normal ranges. Heparin therapeutic range (represented by Anti-Factor Xa activity of 0.2 - 0.4 U/mL) corresponds to PTT of 56.6 - 109.0 sec. Orders for Microbiology Reports NameDateUrine Ezdhjpo72/1/25 Microbiology Reports TEST:Urine Culture STATUS:Order in Progress BODY SITE: SOURCE:Urine, Clean Catch COLLECTED DATE/TIME:04/17/25 10:21 PM PRELIMINARY REPORT No growth to date Social History Social History TypeResponseSmoking StatusNever (less than 100 in lifetime);Never entered on: 02/05/20Birth SexFemaleSex RepresentationFemale (finding) Hospital Discharge Instructions Patient Education 04/18/2025 00:47:20 Third Trimester of , Ftll-rt-Fymn Third Trimester of The third trimester of is from week 28 through week 40. This is also called months 7 through 9. This trimester is when your unborn baby (fetus) is growing very fast. At the end of the ninmonth, the unborn baby is about 20 inches long. It weighs about 6???10 pounds. Body changes during your third trimester Your body continues to go through many changes during this time. The changes vary and generally return to normal after the baby is born. Physical changes ??? Your weight will continue to increase. You may gain 25???35 pounds (11???16 kg) by the end of the . If you are underweight, you may gain 28???40 lb (about 13???18 kg). If you are overweight, you may gain 15???25 lb (about 7???11 kg). ??? You may start to get stretch soni on your hips, belly (abdomen), and breasts. ??? Your breasts will continue to grow and may hurt. A yellow fluid (colostrum) may leak from your breasts. This is the first milk you are making for your baby. ??? You may have changes in your hair. ??? Your belly button may stick out. ??? You may have more swelling in your hands, face, or ankles. Health changes ??? You may have heartburn. ??? You may have trouble pooping (constipation). ??? You may get hemorrhoids. These are swollen veins in the butt that can itch or get painful. ??? You may have swollen veins (varicose veins) in your legs. ??? You may have more body aches in the pelvis, back, or thighs. ??? You may have more tingling or numbness in your hands, arms, and legs. The skin on your belly may also feel numb. ??? You may feel short of breath as your womb (uterus) gets bigger. Other changes ??? You may pee (urinate) more often. ??? You may have more problems sleeping. ??? You may notice the unborn baby dropping, or moving lower in your belly. ??? You may have more discharge coming from your vagina. ??? Your joints may feel loose, and you may have pain around your pelvic bone. Follow these instructions at home: Medicines ??? Take qpbj-vvy-mfakkeu and prescription medicines only as told by your doctor. Some medicines are not safe during . ??? Take a vitamin that contains at least 600 micrograms (mcg) of folic acid. Eating and drinking ??? Eat healthy meals that include: ??? Fresh fruits and vegetables. ??? Whole grains. ??? Good sources of protein, such as meat, eggs, or tofu. ??? Low-fat dairy products. ??? Avoid raw meat and unpasteurized juice, milk, and cheese. These carry germs that can harm you and your baby. ??? Eat 4 or 5 small meals rather than 3 large meals a day. ??? You may need to take these actions to prevent or treat trouble pooping: ??? Drink enough fluids to keep your pee (urine) pale yellow. ??? Eat foods that are high in fiber. These include beans, whole grains, and fresh fruits and vegetables. ??? Limit foods that are high in fat and sugar. These include fried or sweet foods. Activity ??? Exercise only as told by your doctor. Stop exercising if you start to have cramps in your womb. ??? Avoid heavy lifting. ??? Do not exercise if it is too hot or too humid, or if you are in a place of great height (high altitude). ??? If you choose to, you may have sex unless your doctor tells you not to. Relieving pain and discomfort ??? Take breaks often, and rest with your legs raised (elevated) if you have leg cramps or low backpain. ??? Take warm water baths (sitz baths) to soothe pain or discomfort caused by hemorrhoids. Use hemorrhoid cream if your doctor approves. ??? Wear a good support bra if your breasts are tender. ??? If you develop bulging, swollen veins in your legs: ??? Wear support hose as told by your doctor. ??? Raise your feet for 15 minutes, 3???4 times a day. ??? Limit salt in your food. Safety ??? Talk to your doctor before traveling far distances. ??? Do not use hot tubs, steam rooms, or saunas. ??? Wear your seat belt at all times when you are in a car. ??? Talk with your doctor if someone is hurting you or yelling at you a lot. Preparing for your baby's arrival To prepare for the arrival of your baby: ??? Take classes. ??? Visit the hospital and tour the maternity area. ??? Buy a rear-facing car seat. Learn how to install it in your car. ??? Prepare the baby's room. Take out all pillows and stuffed animals from the baby's crib. General instructions ??? Avoid cat litter boxes and soil used by cats. These carry germs that can cause harm to the babyand can cause a loss of your baby by miscarriage or stillbirth. ??? Do not douche or use tampons. Do not use scented sanitary pads. ??? Do not smoke or use any products that contain nicotine or tobacco. If you need help quitting, ask your doctor. ??? Do not drink alcohol. ??? Do not use herbal medicines, illegal drugs, or medicines that were not approved by your doctor.Chemicals in these products can affect your baby. ??? Keep all follow-up visits. This is important. Where to find more information ??? [place] Association: americanpregnancy.org ??? [place] [employer]: www.acog.org ??? Office on Women's Health: womenshealth.gov/ Contact a doctor if: ??? You have a fever. ??? You have mild cramps or pressure in your lower belly. ??? You have a nagging pain in your belly area. ??? You vomit, or you have watery poop (diarrhea). ??? You have bad-smelling fluid coming from your vagina. ??? You have pain when you pee, or your pee smells bad. ??? You have a headache that does not go away when you take medicine. ??? You have changes in how you see, or you see spots in front of your eyes. Get help right away if: ??? Your water breaks. ??? You have regular contractions that are less than 5 minutes apart. ??? You are spotting or bleeding from your vagina. ??? You have very bad belly cramps or pain. ??? You have trouble breathing. ??? You have chest pain. ??? You faint. ??? You have not felt the baby move for the amount of time told by your doctor. ??? You have new or increased pain, swelling, or redness in an arm or leg. Summary ??? The third trimester is from week 28 through week 40 (months 7 through 9). This is the time whenyour unborn baby is growing very fast. ??? During this time, your discomfort may increase as you gain weight and as your baby grows. ??? Get ready for your baby to arrive by taking classes, buying a rear- facing car seat, and preparing the baby's room. ??? Get help right away if you are bleeding from your vagina, you have chest pain and trouble breathing, or you have not felt the baby move for the amount of time told by your doctor. This information is not intended to replace advice given to you by your health care provider. Make sure you discuss any questions you have with your health care provider. Document Revised: 11/09/2020 Document Reviewed: 09/15/2020 Elsevier Patient Education ?? 2023 [employer] 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 Physician Address: [facility] [address] [place] [address]- Telecom: Name: Kym Peraza MD Member Role: Primary Care Physician Address: [facility] [address] Telecom: Name: Inna Horton Position: [employer] Outreach Office Staff Search Member Role: Other Care Team Related Persons Name: ROQUE NOVOA Name: KERRI MANN Name: KERRI MANN Name: CRISTÓBAL ZHAO Insurance Providers Guarantor name: JOSÉ LUIS NOVOA Health Plan Information #: 1 Payer: [facility] Payer Identifier: [id number] Member Number: [id number] Group Number: [id number] Subscriber Identifier: [id number] Relationship to Subscriber: self Coverage Type: MEDICAID Coverage Verification Date: 25 Telecom: [phone] Address: [address]
--- OUTSIDE RECORDS SUMMARY | 2025-04-21 11:00 | XMS_ITS | Encounter Summary ---
Author Organization [facility] Address [address] [place] [address] Care Team Providers Care Lumber Stacker Driver Name Role Phone Kym Peraza MD Primary Care Provider [phone] Rosita Yanes MD Unavailable [phone] Reason for Visit * ReasonCommentsRoutine Visit Encounter Details DateTypeDepartmentCare Team (Latest Contact Info)Qhetowufzju51/05/2025 11:00 AM ESTRoutine NOMRadha Ma OBGYN [address] [facility] [place] [address] Mendel Rosa DO [address] [facility] [address] [place], [place] [address] Third trimester ([facility]); 32 weeks gestation of ([facility]); RUCHI (amniotic fluid index) borderline low; Oligohydramnios in third trimester, fetus 1 of multiple gestation ([facility]) Social History Tobacco UseTypesPacks/DayYears UsedDateSmoking Tobacco: [...] times a week02/20/2023How often do you attend restoration or congregation services?1 to 4 times per year02/20/2023 Do you belong to any clubs or organizations such as restoration groups, unions, fraBullionVault or athletic groups, or school groups?No02/20/2023How often do you attend meetings of the clubs or organizations you belong to?Never02/20/2023re you , , , , never , or living with a partner?Living with ngtsnap9102/20/2023UDIT-CAnswerDate RecordedQ1: How often do you have a [...] and heating?Not very hard02/20/2023HQ-2AnswerDate RecordedPatient Health Questionnaire-2 Lwhej189Finintermountain medical center [place] of Occupational Health - Occupational Stress QuestionnaireAnswerDate RecordedDo you feel stress - tense, restless, nervous, or anxious, or unable to sleep at night because yourmind is troubled all the time - these days?Only a bmqtsk4402/20/2023Exercise Vital Sign AnswerDate RecordedOn average, how many [...] steady place to sleep or slept in [place] (including now)?No 02/20/2023Estimated Date of QmyezglbNqemiqpwVwc69/29/2025Based on Ultrasound, FHR- 176Sex and Gender InformationValueDate RecordedSex Assigned at BirthNot on fileLegal VkqWvlgtu35/15/2023 6:51 PM EDTGender IdentityNot on file Sexual OrientationNot on filedocumented as of this encounter Last Filed Vital Signs Vital SignReadingTime TakenCommentsBlood Cfxwlost636/6204/21/2025 11:02 AM EST Pulse--Temperature--Respiratory Rate--Oxygen Saturation--Inhaled Oxygen Concentration--Izdpwd59.6 kg (149 lb)04/21/2025 11:02 AM ESTHeight--Body Mass Index24.7905 11:44 AM EDTdocumented in this encounter Plan of Treatment DateTypeDepartmentCare Team (Latest Contact Info)Growalgpedj10/19/2025 3:00 PM ESTAncillary Procedure [facility] Anil [facility] [address] [place] [address] [place] [address] 05/05/2025 3:30 PM ESTPostpartum Visit [facility] [address] [facility] [address] [place] [address] Marianna Herrera PA [address] [facility] [place] [address] NameTypePriorityAssociated DiagnosesOrder ScheduleUS OB follow up transabdominal approachImagingRoutine RUCHI (amniotic fluid index) borderline low Oligohydramnios in third trimester, fetus 1 of multiple gestation ([facility]) every 4 weeks for 2 Occurrences starting 04/21/2025 until 07/22/2025documented as of this encounter Visit Diagnoses Diagnosis Third trimester ([facility]) state, incidental 32 weeks gestation of ([facility]) RUCHI (amniotic fluid index) borderline low Nonspecific abnormal finding in amniotic fluid Oligohydramnios in third trimester, fetus 1 of multiple gestation ([facility]) documented in this encounter Care Teams Team MemberRelationshipSpecialtyStart DateEnd Date Kym Peraza MD [address] [place] [address] PCP - GeneralFamily Medicine11/28/22 Rosita Yanes MD [address] [place] [address] Referring PhysicianFamily Medicine11/28/22documented as of this encounter
--- OUTSIDE RECORDS SUMMARY | 2025-04-21 11:32 | XMS_ITS | Encounter Summary ---
Author Organization [facility] Address [address] [place] [address] Care Team Providers Care Grease Worker Name Role Phone Kym Peraza MD Primary Care Provider [phone] Rosita Yanes MD Unavailable [phone] Encounter Details DateTypeDepartmentCare Team (Latest Contact Info)Klgsfkmdexw84/29/2025Clinisync Result Encounter [facility] External Department Unsolicited Mairanna Varela PA [address] [place] [address] [place] [address] Social History Tobacco UseTypesPacks/DayYears UsedDateSmoking Tobacco: NeverSmokeless [...] times a week02/20/2023How often do you attend temple or anglican services?1 to 4 times per year02/20/2023 Do you belong to any clubs or organizations such as temple groups, unions, fraternal or athletic groups, or school groups?No02/20/2023How often do you attend meetings of the clubs or organizations you belong to?Never02/20/2023re you , , , , never , or living with a partner?Living with bcedquh7302/20/2023UDIT-CAnswerDate RecordedQ1: How often do you have a [...] and heating?Not very hard02/20/2023HQ-2AnswerDate RecordedPatient Health Questionnaire-2 Zdhtd013Finuintah basin medical center [place] of Occupational Health - Occupational Stress QuestionnaireAnswerDate RecordedDo you feel stress - tense, restless, nervous, or anxious, or unable to sleep at night because yourmind is troubled all the time - these days?Only a dbhszq3902/20/2023Exercise Vital Sign AnswerDate RecordedOn average, how many [...] in ashelter (including now)?No 3Estimated Date of QgpnsjoqMxxnbrhnLrs98/29/2025Based on Ultrasound, FHR- 176Sex and Gender InformationValueDate RecordedSex Assigned at BirthNot on fileLegal XhkNagxgm35/15/2023 6:51 PM EDTGender IdentityNot on file Sexual OrientationNot on filedocumented as of this encounter Plan of Treatment DateTypeDepartmentCare Team (Latest Contact Info)Vlonfbmfczq95/19/2025 3:00 PM ESTAncillary Procedure [facility] Anil NUNEZ [address] [facility] [place] [address] 05/05/2025 3:30 PM ESTPostpartum Visit [facility] Anil NUNE[facility] [address] [facility] [place] [address] Marianna Varela PA [address] [place] [address] documented as of this encounter Procedures Procedure NamePriorityDate/TimeAssociated DiagnosisCommentsUS OB BPP W NON-NXQITU7504/14/2025 11:19 AM EDT documented in this encounter Results * US OB BPP W NON-STRESS (04/14/2025 11:19 AM EDT)Anatomical Region LateralityModalityOtherSpecimen (Source)Anatomical Location / Laterality Collection Method / VolumeCollection TimeReceived Time04/14/2025 11:19 AM EDT Narrative 04/14/2025 11:21 AM EDT [facility] ?[address] ? [place] [address] ? Ultrasound Report ? Signed ? Patient: JOSÉ LUIS NOVOA ? MR#: [id number] ?? : 2000 ?Acct:[id number] ?? Age/Sex: 24 / F ?ADM Date: 04/14/25 ?? Loc: [facility] ??250-1 ? Attending Dr: Marianna Varela ? Ordering Physician: Marianna Varela ?? Date of Service: 04/14/25 ?? Procedure(s): US OB BPP w non-stress ?? Accession Number(s): [id number] ? cc: Marianna Varela; DUKE PERAZA ? [facility] ? [address] ? [place] [address] ? Patient Name: ?? JOSÉ LUIS ??SOMMER ? MRN: [facility]:[id number] ? date: 2000 ?Sex: F ?? Assigned Patient Location: [facility] ?? Current Patient Location: [facility] ?? Accession/Order Number: [id number] ?? Exam Date: 04/14/2025 ??11:00 ?Report Date: [...] Dictation Location: RADIO-PC-02 ? Electronically authenticated by: [id number] ??Y ?? Date: 04/14/2025 ??11:19 ? Dictated By: ?Jacqui Mendoza M.D. ? Signed By: ?10/29/25 1121 ? DD/DT: 04/14/ 1119 ? TD/TT: ? Mechanical Inspector: Procedure Note Radiology, Radiologist, - 04/14/2025 [place] [address] Ultrasound Report Signed Patient: JOSÉ LUIS NOVOAMR#: [id number] : 2000Acct:[id number] Age/Sex: 24 / FADM Date: 04/14/25 Loc: [facility] 250-[address]: Marianna Varela Ordering Physician: Marianna Varela Date of Service: 04/14/25 Procedure(s): US OB BPP w non-stress Accession Number(s): [id number] cc: Marianna Varela; DUKE PERAZA The [place] [address] Patient Name: JOSÉ LUIS NOVOA MRN: [id number] date: 2000 Sex: F Assigned Patient Location: [facility] Current Patient Location: [facility] Accession/Order Number: [id number] Exam Date: 04/14/2025 11:00 Report Date: 04/14/2025 [...] Mendoza M.D. 04/14/2025 11:19 AM Dictation Location: [place] [address] Electronically authenticated by: [id number] Y Date: 1:19 Dictated By: Jacqui Mendoza M.D. Signed By:04/14/25 1121 DD/ 1119 TD/TT: Mechanical Inspector: Authorizing ProviderResult TypeResult StatusAmy Nichole PACLINISYNC IMAGINGFinal Result documented in this encounter Visit Diagnoses Not on filedocumented in this encounter Care Teams Team MemberRelationshipSpecialtyStart DateEnd Date Kym Peraza MD [address] [place] [address] PCP - [facility] Medicine11/28/22 Rosita Yanes MD [address] [place] [address] Referring PhysicianFavalley springs behavioral health hospital Medicine11/28/22documented as of this encounter
--- OUTSIDE RECORDS SUMMARY | 2025-04-21 11:32 | XMS_ITS | Encounter Summary ---
Author Organization [facility] Address [address] [place] [address] Care Team Providers Care Chair Lift Operator Name Role Phone Kym Peraza MD Primary Care Provider [phone] Rosita Yanes MD Unavailable [phone] Encounter Details DateTypeDepartmentCare Team (Latest Contact Info)Oirjsqwnpyf26/05/2025amboo flowsheet ROZ Ma OBGYN [address] [facility] [place] [address] Mendel Rosa DO [address] [facility] [address] [place], [facility] Social History Tobacco UseTypesPacks/DayYears UsedDateSmoking Tobacco: NeverSmokeless [...] sexual activity by your part ner or ex-partner?No09/06/2023Social Connection and Isolation PanelAnswerDate RecordedIn a typical week, how many times do you talk on the phone with family, friends, or neighbors?More than three times a week02/20/2023How often do you get together with friends or relatives?More than three times a week02/20/2023How often do you attend christian or taoism services?1 to 4 times per year02/20/2023 Do you belong to any clubs or organizations such as christian groups, unions, fraternal or athletic groups, or school groups?No02/20/2023How often do you attend meetings of the clubs or organizations you belong to?Never02/20/2023re you , , , , never , or living with a partner?Living with zfqtyzu1802/20/2023UDIT-CAnswerDate RecordedQ1: How often do you have a [...] and heating?Not very hard02/20/2023HQ-2AnswerDate RecordedPatient Health Questionnaire-2 Rzoct214Finsalt [facility] [place] of Occupational Health - Occupational Stress QuestionnaireAnswerDate RecordedDo you feel stress - tense, restless, nervous, or anxious, or unable to sleep at night because yourmind is troubled all the time - these days?Only a wpzffw5102/20/2023Exercise Vital Sign AnswerDate RecordedOn average, how many days per week do you engage in moderate to strenuous exercise (like a brisk walk)?3 days02/20/2023On average, how many minutes do you engage in exercise at this level?150+ min02/20/2023Hunger Vital SignAnswerDate RecordedWithin the past 12 months, you worried that your food would run out before you got the money to buymore.Never true09/06/2023Within the past 12 months, the food you [...] in ashelter (including now)?No 02/20/2023Estimated Date of AbfurwjyYmphunbiIlk47/29/2025Based on Ultrasound, FHR- 176Sex and Gender InformationValueDate RecordedSex Assigned at BirthNot on fileLegal KmmNkcdhi64/15/2023 6:51 PM EDTGender IdentityNot on file Sexual OrientationNot on filedocumented as of this encounter Plan of Treatment DateTypeDepartmentCare Team (Latest Contact Info)Fwtizdxjnme09/19/2025 3:00 PM ESTAncillary Procedure [facility] Anil NUNEZ [address] [place] [address] [place] [address] 05/05/2025 3:30 PM ESTPostpartum Visit [facility] Anil NUNE[facility] [address] [place] [address] [place] [address] Marianna Herrera PA [address] [facility] [address] [place], [place] [address] documented as of this encounter Visit Diagnoses Not on filedocumented in this encounter Care Teams Team MemberRelationshipSpecialtyStart DateEnd Date Kym Peraza MD [address] [place] [address] PCP - GeneralFamily Medicine11/28/22 Rosita Yanes MD [address] [place] [address] Referring PhysicianFamily Medicine11/28/22documented as of this encounter
--- OUTSIDE RECORDS SUMMARY | 2025-04-21 11:32 | XMS_ITS | Encounter Summary ---
Author Organization [facility] Address [address] [place] [address] Care Team Providers Care Sign Painter Helper Name Role Phone Kym Peraza MD Primary Care Provider [phone] Rosita Yanes MD Unavailable [phone] Encounter Details DateTypeDepartmentCare Team (Latest Contact Info)Hznyjyrrldl14/24/2025Patient Outreach [facility] [address] [place] [place] [address] Marianna Galdamez, GABRIELLA [address] [place] [address] Social History Tobacco UseTypesPacks/DayYears UsedDateSmoking Tobacco: NeverSmokeless [...] times a week02/20/2023How often do you attend jainism or roman catholic services?1 to 4 times per year02/20/2023 Do you belong to any clubs or organizations such as jainism groups, unions, fraternal or athletic groups, or school groups?No02/20/2023How often do you attend meetings of the clubs or organizations you belong to?Never02/20/2023re you , , , , never , or living with a partner?Living with gstspqw7202/20/2023UDIT-CAnswerDate RecordedQ1: How often do you have a [...] and heating?Not very hard02/20/2023HQ-2AnswerDate RecordedPatient Health Questionnaire-2 Ajhtp376Finsevier valley hospital [place] of Occupational Health - Occupational Stress QuestionnaireAnswerDate RecordedDo you feel stress - tense, restless, nervous, or anxious, or unable to sleep at night because yourmind is troubled all the time - these days?Only a lpuarg3802/20/2023Exercise Vital Sign AnswerDate RecordedOn average, how many [...] in ashelter (including now)?No 02/20/2023Estimated Date of QtnibkrlOttovcpgNve78/29/2025Based on Ultrasound, FHR- 176Sex and Gender InformationValueDate RecordedSex Assigned at BirthNot on fileLegal RrsLqcgzu12/15/2023 6:51 PM EDTGender IdentityNot on file Sexual OrientationNot on filedocumented as of this encounter Functional Status * Over the past 2 weeks, how often have you been bothered by any of the following problems?QuestionAnswerDate of AssessmentAuthorLittle interest or pleasure in doing thingsNot at all04/09/2025 3:42 PM Marianna Santos LPN Feeling down, depressed, or hopelessNot at all04/09/2025 3:42 PM Marianna Santos LPNPatient Health Questionnaire-2 Nnjao088 3:42 PM Marianna Santos LPN documented as [...] Plan of Treatment DateTypeDepartmentCare Team (Latest Contact Info)Tkoqjmfamwm66/19/2025 3:00 PM ESTAncillary Procedure [facility]il [facility]YN [address] [facility] [place] [address] 05/05/2025 3:30 PM ESTPostpartum Visit [facility] Anil CASONN [address] [facility] [place] [address] Marianna Herrera, SARAH [address] [facility] [place] [address] documented as of this encounter Visit Diagnoses Not on filedocumented in this encounter Care Teams Team MemberRelationshipSpecialtyStart DateEnd Date Kym Peraza MD [address] [place] [address] PCP - GeneralFamily Medicine11/28/22 Rosita Yanes MD [address] [place] [address] Referring PhysicianFamily Medicine11/28/22documented as of this encounter
--- OUTSIDE RECORDS SUMMARY | 2025-04-21 11:32 | XMS_ITS | Encounter Summary ---
Author Organization [facility] Address [address] [place] [address] Care Team Providers Care Comprehensive Ophthalmologist Name Role Phone Kym Peraza MD Primary Care Provider [phone] Rosita Yanes MD Unavailable [phone] Encounter Details DateTypeDepartmentCare Team (Latest Contact Info)Gjupzvmilff73/29/2025Telephone [facility] [address] [facility] [address] Mendel Rosa DO [address] [place], [facility]11 Social History Tobacco UseTypesPacks/DayYears UsedDateSmoking [...] times a week02/20/2023How often do you attend jehovah's witness or quaker services?1 to 4 times per year02/20/2023 Do you belong to any clubs or organizations such as jehovah's witness groups, unions, fraternal or athletic groups, or school groups?No02/20/2023How often do you attend meetings of the clubs or organizations you belong to?Never02/20/2023re you , , , , never , or living with a partner?Living with kyakwcj2302/20/2023UDIT-CAnswerDate RecordedQ1: How often do you have a [...] and heating?Not very hard02/20/2023HQ-2AnswerDate RecordedPatient Health Questionnaire-2 Ojwpd441Finblue mountain hospital, inc. [place] of Occupational Health - Occupational Stress QuestionnaireAnswerDate RecordedDo you feel stress - tense, restless, nervous, or anxious, or unable to sleep at night because yourmind is troubled all the time - these days?Only a dgcppm7402/20/2023Exercise Vital Sign AnswerDate RecordedOn average, how many [...] in ashelter (including now)?No 02/20/2023Estimated Date of KvzhhfpgTxsahlubNkv33/29/2025Based on Ultrasound, FHR- 176Sex and Gender InformationValueDate RecordedSex Assigned at BirthNot on fileLegal BvgVjzbgu36/15/2023 6:51 PM EDTGender IdentityNot on file Sexual [...] Plan of Treatment DateTypeDepartmentCare Team (Latest Contact Info)Eothdehznof77/19/2025 3:00 PM ESTAncillary Procedure [facility] Anil NUNEZ [address] [facility] [place] [address] 05/05/2025 3:30 PM ESTPostpartum Visit [facility] Anil NUNEZ [address] [facility] [place] [address] Marianna Herrera PA [address] [facility] [address] [place], [place] [address] documented as of this encounter Visit Diagnoses Not on filedocumented in this encounter Care Teams Team MemberRelationshipSpecialtyStart DateEnd Date Kym Peraza MD [address] [place] [address] PCP - GeneralFamily Medicine11/28/22 Rosita Yanes MD [address] [place] [address] Referring PhysicianFamily Medicine11/28/22documented as of this encounter
--- OUTSIDE RECORDS SUMMARY | 2025-04-21 11:32 | XMS_ITS | Patient Health Record ---
Author Organization [facility] Address [address] [facility] [place] [address] Care Team Providers Care Pan Pusher Name Role Phone Elizabeth Keating Primary Care Provider DUKE ANDREWS Unavailable Unavailable Reason For Referral No Information Problems Problem Type SNOMED Code ICD Code Onset Dates Problem Status W/U Status Risk Notes Problem Anxiety (97041136) Anxiety (F41.9) ActiveconfirmedProblemBorderline personality disorder (47608723)Borderline personality disorder in adult (F60.3)Activeconfirmed Plan Of Treatment No Information Insurance Providers Payer Name Payer Address Payer Phone Subscriber Number Group Number Insured Name Patient Relationship to Insured Coverage Start Date Coverage End Date [employer] [place] [employer] [address] [facility] [place] [address] [id number] Tip NOVOA - patient is the [id number] [address] [facility] [address] [place] [id number], MORGANSelf - patient is the [id number] 2023
--- OUTSIDE RECORDS SUMMARY | 2025-04-21 11:33 | XMS_ITS | Encounter Summary ---
Author Organization [facility] Address [address] [place] [address] Care Team Providers Care Contract Modeler Name Role Phone Kym Peraza MD Primary Care Provider [phone] Rosita Yanes MD Unavailable [phone] Encounter Details DateTypeDepartmentCare Team (Latest Contact Info)Mdarvvrmbmd15/22/2025amboo flowsheet ROZ NUNEZ [address] [facility] [place] [address] Marianna Herrera PA [address] [facility] [address] [place], [facility]11 Social History Tobacco UseTypesPacks/DayYears UsedDateSmoking Tobacco: [...] week02/20/2023How often do you attend jain or shinto services?1 to 4 times per year02/20/2023 Do you belong to any clubs or organizations such as jain groups, unions, fraternal or athletic groups, or school groups?No02/20/2023How often do you attend meetings of the clubs or organizations you belong to?Never02/20/2023re you , , , , never , or living with a partner?Living with xtysfuo1302/20/2023UDIT-CAnswerDate RecordedQ1: How often do you have a [...] and heating?Not very hard02/20/2023HQ-2AnswerDate RecordedPatient Health Questionnaire-2 Qjjed103Finencompass health [place] of Occupational Health - Occupational Stress QuestionnaireAnswerDate RecordedDo you feel stress - tense, restless, nervous, or anxious, or unable to sleep at night because yourmind is troubled all the time - these days?Only a yfnxst9902/20/2023Exercise Vital Sign AnswerDate RecordedOn average, how many [...] in ashelter (including now)?No 02/20/2023Estimated Date of PutajcovOslifcgdHkq04/29/2025Based on Ultrasound, FHR- 176Sex and Gender InformationValueDate RecordedSex Assigned at BirthNot on fileLegal SfmWnvkps98/15/2023 6:51 PM EDTGender IdentityNot on file Sexual OrientationNot on filedocumented as of this encounter Plan of Treatment DateTypeDepartmentCare Team (Latest Contact Info)Yhawtuaarba12/19/2025 3:00 PM ESTAncillary Procedure [facility] Anil NUNEZ [address] [place] [address] [place] [phone] 05/05/2025 3:30 PM ESTPostpartum Visit [facility] Anil NUNEZ [address] [place] [address] [place] [address] Marianna Herrera PA [address] [facility] [address] [place], [place] [address] documented as of this encounter Visit Diagnoses Not on filedocumented in this encounter Care Teams Team MemberRelationshipSpecialtyStart DateEnd Date Kym Peraza MD [address] [place] [address] PCP - GeneralFamily Medicine11/28/22 Rosita Yanes MD [address] [place] [address] Referring PhysicianFamily Medicine11/28/22documented as of this encounter
--- OUTSIDE RECORDS SUMMARY | 2025-04-21 11:33 | XMS_ITS | Clinical Summary ---
Author Organization [facility] Healthcare Address [address] [place] [address] Care Team Providers Care Yeast Pusher Name Role Phone Kym Peraza MD Primary Care Provider [phone] oRsita Yanes MD Unavailable [phone] Allergies No known active allergies Medications MedicationSigDispense QuantityRefillsLast FilledStart DateEnd DateStatus ondansetron ODT (Zofran-ODT) 4 MG disintegrating tablet Indications:NauseaTake 1 tablet (4 mg) by mouth every 8 (eight) hours if needed for vomiting or nausea 20 tablet 5Active multivitamin () 27-0.8 MG tablet Indications:8 weeks gestation of ([facility])Take 1 tablet by mouth Daily 90 [...] 70 g 10/22/Expired Active Problems ProblemNoted DateDiagnosed UqfnPkfmgkb47/16/2023Mild episode of recurrent major depressive pncsutal23/16/2023Estimated Date of DeliveryCommentsYes 06/14/2025ased on Ultrasound, FHR- 176 Resolved Problems ProblemNoted DateDiagnosed DateResolved DateAcute cough//08/2023 Phzleogbfsjv68 Assessment & Plan (08/02/2023 3:58 PM EST): Will try inhaler and follow up as needed or if symptoms change or worsen Encounters DateTypeDepartmentCare KhpvSdryqtrpzxi62/05/2025 11:00 [place] [phone] Mendel Rosa, DO Third trimester ([facility]); 32 weeks gestation of ([facility]); RUCHI (amniotic fluid index) borderline low; Oligohydramnios in third trimester, fetus 1 of multiple gestation ([facility]) 04/21/2025amboo flowsheet [facility] [address] [address] [place] [phone] Mendel Rosa, 04/14/2025Telephone [facility] [address] [facility] [place] [phone] Mendel Rosa, 04/14/2025linisync Result Encounter NOMS External Department Unsolicited Marianna Varela PA 04/09/2025Patient Outreach [facility] [address] [place] [address] Marianna Galdamez LPN 04/07/2025 10:50 AM EDTRoutine [facility] [address] [place] [address] Marianna Varela PA Third trimester ([facility]); 30 weeks gestation of ([facility]); Exposure to STD; RUCHI (amniotic fluid index) borderline low; BV (bacterial vaginosis)04/07/2025amboo flowsheet [facility] [address] [facility] [place] [address] Marianna Varela PA 04/06/2025Telephone [facility] [address] [facility] [place] [address] Mendel Rosa, DO 04/05/2025Telephone [facility] [address] [facility] [place] [address] Lenka Jimenez MA 03/31/2025 1:30 PM EDTAncillary Procedure [facility] [address] [facility] [place] [address] size inconsistent with dates ([facility])03/29/2025Telephone [facility] [address] [facility] [place] [address] Mendel Rosa, DO 03/24/2025 10:30 AM EDTRoutine [facility] [address] [place] [address] [place] [address] Radha Resendez, CLAU size inconsistent with dates ([facility]) (Primary Dx); Third trimester ([facility]); 28 weeks gestation of ([facility])03/24/2025amb flowsheet [facility] [address] [place] [address] [place] [address] Radha Resendez, CLAU 03/16/2025bstract [facility] [address] [place] [address] [place] [address] Lenka Jimenez MA 03/11/2025Patient Outreach [facility] [place] [address] [place] [address] Marianna Galdamez LPN 09/24/2025Abstract [facility] [address] [place] [address] Marianna Galdamez LPN 03/03/2025 10:30 AM EDTRoutine [facility] [address] [facility] [place] [address] Marianna Varela PA 25 weeks gestation of ([facility]); Second trimester ([facility]); Diabetes mellitus khzsqoxcr86/17/2025Bamboo flowsheet [facility] [address] [facility] [place] [address] Marianna Varela PA 02/19/2025Orders Only [facility] [address] [facility] [place] [address] Lenka Jimenez MA 02/03/2025 11:30 AM EDTRoutine N[facility] [place] [address] Mendel Rosa, 21 weeks gestation of ([facility]); Second trimester ([facility]); Exposure to STD; Vaginal discharge; Well woman exam with routine gynecological exam; Diabetes mellitus screening; Urinary tract infection without hematuria, site uqqwvolgzcb21/20/2025Clinisync Result Encounter NOMS External Department Unsolicited Mendel Rosa, DO 02/03/2025External Result Encounter NOMS External Department Unsolicited Mendel Rosa, 5Bamboo flowsheet [facility] [address] [facility] [place] [address] Mendel Rosa, 01/27/2025 11:00 AM EDTAncillary Procedure NOMRadha De[facility] [place] [address] Screening, , for anatomic survey ([facility])from Last 3 Months Immunizations ImmunizationAdministration DatesNext OawLWE3801/23/2005,05/07/2001,02/15/2000DTaP, Qkshhotpywq11/26/2000HPV 9-Nfvzji3509/10/2016,05/15/2016,03/12/2016Hep A, ped/adol, 2 dose09/10/2016,03/12/2016Hep B, Adolescent or Ollqyxoxs47/09/2001, 02/15/2000,1999HiB, teteicjphjr51/31/2001,05/07/2001,04/11/2000,02/05/2000 MMR01/23/2005,06/16/2001Meningococcal B, Omv107/15/2015,03/12/2016Meningococcal PIB6G1803/12/2016Polio, Gtqyrvxcyts69/09/2005,05/07/2001,04/11/2000,02/15/2000Tdap 12/01/2021,12/08/2019,03/03/20122437Zjezrbrai03/29/2016,01/01/2001 Family History Medical HistoryRelationNameCommentsHypertensionOtherBone cancerPaternal GrandfatherCancerPaternal GrandfatherRelationNameStatusCommentsOtherPaternal [...] times a week02/20/2023How often do you attend christianity or jew services?1 to 4 times per year02/20/2023o you belong to any clubs or organizations such as christianity groups, unions, fraternal or athletic groups, or school groups?No02/20/2023How often do you attend meetings of the clubs or organizations you belong to?Never02/20/2023re you , , , , never , or living with a partner?Living with gtflngv9902/20/2023 AUDIT-CAnswerDate RecordedQ1: How often do you have [...] heating?Not very hard02/20/2023HQ-2Answer Date RecordedPatient Health Questionnaire-2 Coduo686Fincentral [facility] [place] of Occupational Health - Occupational Stress QuestionnaireAnswerDate RecordedDo you feel stress - tense, restless, nervous, or anxious, or unable to sleep at night because yourmind is troubled all the time - these days?Only a zroaqk7602/20/2023 Exercise Vital SignAnswerDate RecordedOn average, how many [...] steady place to sleep or slept in [facility] (including now)?No02/20/2023Estimated Date of Delivery DqjwebkyMnx08/29/2025Based on Ultrasound, FHR- 176Sex and Gender Information ValueDate RecordedSex Assigned at BirthNot on fileLegal YhdFlrbva67/15/2023 6:51 PM EDTGender IdentityNot on fileSexual OrientationNot on file Last Filed Vital Signs Vital SignReadingTime TakenCommentsBlood Yaztankt767/6204/21/2025 11:02 AM EST Lecev416710/27/2024 11:44 AM CCLPbuwwvpphnm12.8 ??C (98.3 ??F)10/27/2024 11:44 AM EDTRespiratory Rate--Oxygen Mjmytcihra86%10/27/2024 11:44 AM EDTInhaled Oxygen Concentration--Yjmade10.6 kg (149 lb)04/21/2025 11:02 AM TTQBttzuc056.1 cm (5' 5 )10/27/2024 11:44 AM EDTBody Mass Index24.7910/27/2024 11:44 AM EDT Plan of Treatment DateTypeDepartmentCare Team (Latest Contact Info)Dyggtifvwjo39/19/2025 3:00 PM ESTAncillary Procedure [facility] [address] [place] [address] 05/05/2025 3:30 PM ESTPostpartum Visit [facility] [address] [facility] [address] Marianna Varela PA [address] [place] [address] [place] [address] Health MaintenanceDue DateLast DoneCommentsCOVID-19 Vaccine (2023- season) 2025Influenza Vaccine (#1)2025Pneumococcal Vaccine: Pediatrics (0 to 5 Years) and At-Risk Patients (6 to 64 Years)Aged OutNo longer eligible based on patient's age to complete this topic Procedures Procedure NamePriorityDate/TimeAssociated DiagnosisCommentsUS OB BPP W NON-JVNORH2704/14/2025 11:19 AM EDT RECURRENT VAGINITIS (HTRX)Llgmlry6304/07/2025 11:52 AM EDT POCT URINALYSIS TMRQGLXQRncnorr21/22/2025 10:53 AM EDT Third trimester ([facility]) US OB FOLLOW UP TRANSABDOMINAL INSZQNTSYhtuunz06/15/2025 1:59 PM EDT size inconsistent with dates ([facility]) POCT URINALYSIS MFEQKSFGBfbhckf68/08/2025 10:44 AM EDT Third trimester ([facility]) POCT URINALYSIS KEYMZJGILvsodgb97/17/2025 10:37 AM EDT 25 weeks gestation of ([facility]) Second trimester ([facility]) URINARY TRACT INFECTION (HTRX)Lwefncl1902/03/2025 12:13 PM EDT RECURRENT VAGINITIS (HTRX)Rklhnui8502/03/2025 12:11 PM EDT POCT URINALYSIS ACBDHYDVHzzeqrp18/20/2025 12:05 PM EDT 21 weeks gestation of ([facility]) Second trimester ([facility]) IGP,APTIMA HPV,AGE ZMNPGqizyld95/20/2025 11:48 AM EDT PAP VCUQBDbwimhb39/20/2025 12:00 AM EDTUS OB 14+ WEEKS ANATOMY SCANRoutine 01/27/2025 11:57 AM EDT Screening, , for anatomic survey ([facility]) from Last 3 Months Results * US OB BPP W NON-STRESS (04/14/2025 11:19 AM EDT)Anatomical Region LateralityModalityOtherSpecimen (Source)Anatomical Location / Laterality Collection Method / VolumeCollection TimeReceived Time04/14/2025 11:19 AM EDT Narrative 04/14/2025 11:21 AM EDT The [facility] ?[address] ? [place] [address] ? Ultrasound Report ? Signed ? Patient: JOSÉ LUIS NOVOA ? MR#: [id number] ?? : 2000 ?Acct:[id number] ?? Age/Sex: 24 / F ?ADM Date: 04/14/25 ?? Loc: [facility] ??250-1 ? Attending Dr: Marianna Varela ? Ordering Physician: Marianna Varela ?? Date of Service: 04/14/25 ?? Procedure(s): US OB BPP w non-stress ?? Accession Number(s): [id number] ? cc: Marianna Varela; DUKE PERAZA ? The [facility] ? [address] ? [place] [address] ? Patient Name: ?? JOSÉ LUIS ??SOMMER ? MRN: [id number] ? date: 2000 ?Sex: F ?? Assigned Patient Location: [facility] ?? Current Patient Location: [facility] ?? Accession/Order Number: [id number] ?? Exam Date: 04/14/2025 ??11:00 ?Report Date: [...] Dictation Location: RADIO-PC-02 ? Electronically authenticated by: [id number] ??Y ?? Date: 04/14/2025 ??11:19 ? Dictated By: ?Jacqui Mendoza M.D. ? Signed By: ?10/29/25 1121 ? DD/ 1119 ? TD/TT: ? Package Worker: Procedure Note Radiology, Radiologist, MD - 04/14/2025 [place] [address] Ultrasound Report Signed Patient: JOSÉ LUIS NOVOAMR#: [id number] : 2000Acct:[id number] Age/Sex: 24 / FADM Date: 04/14/25 Loc: [facility] 250-[address]: Marianna Varela Ordering Physician: Marianna Varela Date of Service: 04/14/25 Procedure(s): US OB BPP w non-stress Accession Number(s): [id number] cc: Marianna Varela; DUKE PERAZA The [address] [address] Patient Name: JOSÉ LUIS NOVOA MRN: [id number] date: 2000 Sex: F Assigned Patient Location: [facility] Current Patient Location: [facility] Accession/Order Number: [id number] Exam Date: 04/14/2025 11:00 Report Date: 04/14/2025 [...] Mendoza M.D. 04/14/2025 11:19 AM Dictation Location: [place] [address] Electronically authenticated by: [id number] Y Date: 1:19 Dictated By: Jacqui Mendoza M.D. Signed By:04/14/25 1121 DD/ 1119 TD/TT: Package Worker: Authorizing ProviderResult TypeResult StatusAmy [facility] IMAGINGFinal Result * RECURRENT VAGINITIS (HTRX) (04/07/2025 11:52 AM EDT) Only the most recent of2 resultswithin the time period is included. ComponentValueRef RangeTest MethodAnalysis TimePerformed AtPathologist Signature ATOPOBIUM NBRGWJL970.961 - 24.689 ppm04/08/2025 7:[address] [facility] HospitalATOPOBIUM VAGINAENot Vgrsyoup52.961 - 24.689 ppm04/08/2025 7:42 AM EDT [facility] HospitalBVAB 2,3 (BACTERIAL VAGINOSIS ASSOCIATED BACTERIA 2, 3); MOBILUNCUS PFF693.961 - 24.689 ppm04/08/2025 7:42 AM EDTHealthTrackRx at [facility] CenterBVAB 2,3 (BACTERIAL VAGINOSIS ASSOCIATED BACTERIA 2, 3); MOBILUNCUS SPP Not Bjcudmqr72.961 - 24.689 ppm04/08/2025 7:[address] [facility] HORACE ALBICANS, PARAPSILOSIS, JFPPUAXFGL864.000 - 30.347 ppm10/ 7:42 AM EDTHealthTrackRx at [facility]Mem[facility] Care CenterCANDIDA ALBICANS, PARAPSILOSIS, TROPICALISNot Jzbiqrdu89.000 - 30.347 ppm04/08/2025 7:42 AM EDTHealthTrackRx at LabPortCANDIDA WVHEACTA072.000 - 31.618 ppm04/08/2025 7:42 AM EDTHealthTrackRx at Lab[facility] HORACE GLABRATANot Xxqwkbyc26.000 - 31.618 ppm04/08/2025 7:42 AM EDT [facility] CenterCANDIDA ZGQEBM328.000 - 30.873 ppm04/08/2025 7:42 AM EDT [facility] LabPortCANDIDA KRUSEINot Icfqdjza99.000 - 30.873 ppm04/08/2025 7:42 AM EDTHealthTrackRx at LabPortCHLAMYDIA TUQUUUASRNN844.000 - 31.586 ppm 04/08/2025 7:42 AM EDTHealthTrackRx at LabPortCHLAMYDIA TRACHOMATISNot Detected 23.000 - 31.586 ppm04/08/2025 7:[address] Anthony HospitalGARDNERELLA WMJOUCFQF687.961 - 24.689 ppm04/08/2025 7:42 AM EDTHealthTrackRx at LabPort GARDNERELLA VAGINALISNot Tcgkytvl14.961 - 24.689 ppm04/08/2025 7:42 AM EDT [facility] at LabPortMEGASPHAERA (TYPES 1, 2)019.961 - 24.689 ppm04/08/2025 7:42 AM EDTHealthTrackRx at LabPortMEGASPHAERA (TYPES 1, 2)Not Qncpvjrl39.961 - 24.689 ppm04/08/2025 7:42 AM EDTHealthTrackRx at LabPortNEISSERIA GONORRHOEAE0 23.000 - 32.587 ppm04/08/2025 7:42 AM EDTHealthTrackRx at LabPortNEISSERIA GONORRHOEAENot Bpfrzlmg84.000 - 32.587 ppm04/08/2025 7:42 AM EDTHealthTrackRx at LabPortTRICHOMONAS CJVDUAGOJ356.000 - 31.995 ppm04/08/2025 7:42 AM EDT [facility] at LabPortTRICHOMONAS VAGINALISNot Ihqlhkta76.000 - 31.995 ppm 04/08/2025 7:42 AM EDTHealthTrackRx at [facility] Care CenterMYCOPLASMA LBKIBPBDQT091.961 - 24.689 ppm04/08/2025 7:42 AM EDTHealthTrackRx at [facility] Health Care CenterMYCOPLASMA GENITALIUMNot Aasphujq12.961 - 24.689 ppm04/08/2025 7:[address] [address] Specimen (Source)Anatomical Location / LateralityCollection Method / Volume Collection TimeReceived VytqQxxkgr35/22/2025 11:52 AM EDT1 1:22 AM EDT Narrative Authorizing ProviderResult TypeResult StatusAmy [facility] BLOOD ORDERABLES Final ResultPerforming OrganizationAddressCity/State/ZIP CodePhone Number [facility] [address] [address] * POCT urinalysis dipstick manually resulted (04/07/2025 [...] Location / LateralityCollection Method / VolumeCollection TimeReceived TdzqOrobf69/22/2025 10:53 AM EDT Narrative Authorizing ProviderResult TypeResult StatusAmy Nichole [facility] TEST ENTER/EDIT ORDERABLESFinal Result * US OB [...] BY: Laci Boykin MD Authorizing ProviderResult TypeResult StatusKrOcean [facility] Center NPIMG OB US PROCEDURESFinal Result * URINARY TRACT INFECTION (HTRX) (02/03/2025 12:13 PM EDT)ComponentValueRef RangeTest MethodAnalysis TimePerformed AtPathologist SignatureACINETOBACTER EQCYONCS207.961 - 24.9 ppm02/04/2025 7:12 AM EDTHealthTrackRx at LabPort ACINETOBACTER BAUMANIINot Shxhznae47.961 - 24.689 ppm02/04/2025 7:12 AM EDT [facility] at LabPortCITROBACTER XPKNFDBY793.000 - 32.015 ppm02/04/2025 7:12 AM EDTHealthTrackRx at LabPortCITROBACTER FREUNDIINot Vikpwyhw99.000 - 32.015 ppm02/04/2025 7:12 AM EDTHealthTrackRx at LabPortENTEROBACTER AEROGENES, PSVMLZW590.000 - 32.290 ppm02/04/2025 7:12 AM EDTHealthTrackRx at LabPortENTEROBACTER AEROGENES, CLOACAENot Aijlebbj61.000 - 32.290 ppm 02/04/2025 7:12 AM EDTHealthTrackRx at LabPortENTEROCOCCUS FAECALIS, FAECIUM0 26.000 - 33.043 ppm02/04/2025 7:12 AM EDTHealthTrackRx at LabPortENTEROCOCCUS FAECALIS, FAECIUMNot Giozjxms12.000 - 33.043 ppm02/04/2025 7:12 AM EDT [facility] at LabPortESCHERICHIA GCZX115.000 - 28.500 ppm02/04/2025 7:12 AM EDTHealthTrackRx at LabPortESCHERICHIA COLINot Wuzhtroj52.000 - 28.500 ppm 02/04/2025 7:12 AM EDTHealthTrackRx at LabPortKLEBSIELLA PNEUMONIAE, OXYTOCA0 23.000 - 31.865 ppm02/04/2025 7:12 AM EDTHealthTrackRx at LabPortKLEBSIELLA PNEUMONIAE, OXYTOCANot Hbcsxziw97.000 - 31.865 ppm02/04/2025 7:12 AM EDT [facility] at LabPortMORGANELLA QKQJNXUP976.961 - 24.689 ppm02/04/2025 7:12 AM EDTHealthTrackRx at LabPortMORGANELLA MORGANIINot Cfvhcauw70.961 - 24.689 ppm02/04/2025 7:12 AM EDTHealthTrackRx at LabPortPROTEUS MIRABILIS, VULGARIS0 23.000 - 28.500 ppm02/04/2025 7:12 AM EDTHealthTrackRx at LabPortPROTEUS MIRABILIS, VULGARISNot Oolhyzmr14.000 - 28.500 ppm02/04/2025 7:12 AM EDT [facility] at LabPortPSEUDOMONAS KYKDELDTYW787.000 - 31.801 ppm02/04/2025 7:12 AM EDTHealthTrackRx at LabPortPSEUDOMONAS AERUGINOSANot Wcbmnsst22.000 - 31.801 ppm02/04/2025 7:12 AM EDTHealthTrackRx at LabPortSTAPHYLOCOCCUS AUREUS0 26.000 - 31.595 ppm02/04/2025 7:12 AM EDTHealthTrackRx at LabPort STAPHYLOCOCCUS AUREUSNot Sqscdmut02.000 - 31.595 ppm02/04/2025 7:12 AM EDT [facility] at LabPortSTREPTOCOCCUS AGALACTIAE (GROUP B STREP)026.000 - 32.435 ppm02/04/2025 7:12 AM EDTHealthTrackRx at LabPortSTREPTOCOCCUS AGALACTIAE (GROUP B STREP)Not Iiwobisk17.000 - 32.435 ppm02/04/2025 7:12 AM EDTHealthTrackRx at LabPortCANDIDA ALBICANS, PARAPSILOSIS, ERWNFKVTWS855.000 - 30.347 ppm02/04/2025 7:12 AM EDTHealthTrackRx at LabPortCANDIDA ALBICANS, PARAPSILOSIS, TROPICALISNot Zbgwcexg11.000 - 30.347 ppm02/04/2025 7:12 AM EDT [facility] LabPortCANDIDA GUDHATYA962.000 - 31.618 ppm02/04/2025 7:12 AM EDTHealthTrackRx at LabPortCANDIDA GLABRATANot Mtqhyaws32.000 - 31.618 ppm 02/04/2025 7:12 AM EDTHealthTrackRx at LabPortCANDIDA JBRKWF874.000 - 30.873 ppm02/04/2025 7:12 AM EDTHealthTrackRx at LabPortCANDIDA KRUSEINot Detected 23.000 - 30.873 ppm02/04/2025 7:12 AM EDTHealthTrackRx at LabPortSERRATIA JPYWJQHYFN691.000 - 31.581 ppm02/04/2025 7:12 AM EDTHealthTrackRx at LabPort SERRATIA MARCESCENSNot Ioydihwc47.000 - 31.581 ppm02/04/2025 7:12 AM EDT [facility] HospitalSTREPTOCOCCUS PYOGENES (GROUP A STREP)019.961 - 24.689 ppm02/04/2025 7:[address] Anthony HospitalSTREPTOCOCCUS PYOGENES (GROUP A STREP)Not Fxaauypm04.961 - 24.689 ppm02/04/2025 7:12 AM EDT [facility] Anthony HospitalSTAPHYLOCOCCUS EPIDERMIDIS, HAEMOLYTICUS, LUGDUNENSIS, SAPROPHYTICUS (SPPSX155.961 - 24.689 ppm02/04/2025 7:[address] Anthony HospitalSTAPHYLOCOCCUS EPIDERMIDIS, HAEMOLYTICUS, LUGDUNENSIS, SAPROPHYTICUS (URINANot Yjvmpfga34.961 - 24.689 ppm02/04/2025 7:[address] Anthony HospitalSTAPHYLOCOCCUS EPIDERMIDIS, HAEMOLYTICUS, LUGDUNENSIS, SAPROPHYTICUS (MASIS824.961 - 24.689 ppm02/04/2025 7:[address] [facility] STAPHYLOCOCCUS EPIDERMIDIS, HAEMOLYTICUS, LUGDUNENSIS, SAPROPHYTICUS (URINANot Zhcatdpt50.961 - 24.689 ppm02/04/2025 7:[address] [address] [facility] Specimen (Source)Anatomical Location / LateralityCollection Method / Volume Collection TimeReceived JgnyEqwxq15/20/2025 12:13 PM EDT02/04/2025 1:34 AM EDT Narrative Authorizing ProviderResult TypeResult StatusCorey Shelley DOLAB BLOOD ORDERABLES Final ResultPerforming OrganizationAddressCity/State/ZIP CodePhone Number [facility] [address] [place] [address] * IGP,APTIMA HPV,AGE GDLN (02/03/2025 11:48 AM [...] at: 01 =G ?[facility] ?? [address] [place] ??[address] ?? Brittany Marshall MD, IGP, RFX APTIMA HPV ASCUNote.TBHComment: ?? TESTS ? RESULT ??FLAG ??UNITS ?REF RANGE ??LAB DIAGNOSIS: ?02 ?? NEGATIVE FOR INTRAEPITHELIAL LESION OR MALIGNANCY. Specimen adequacy: ?02 ?? Satisfactory for evaluation. No endocervical component is identified. Performed by: ? 02 ?? Meliza Rangel Cafe Attendant (ASCP) . ? 02 Note: ? Note [...] High,A-Abnormal,AA-Critical Abnormal Performed at: 02 WB ?[facility] ?? [address] [place], [place] ??[address] ?? Brittany Marshall MD, Performed at: ??=G - [facility] ??[phone] Reliability Specialist: Brittany Marshall MD, Phone: ??[phone] Performed at: ??WB - [facility] ??[id number] Reliability Specialist: Brittany Marshall MD, Phone: ??[phone] Specimen (Source)Anatomical Location / LateralityCollection Method / [...] Laci Boykin MD Authorizing ProviderResult TypeResult StatusAmy [facility] US PROCEDURES Final Result from Last 3 Months Insurance Care Teams Team MemberRelationshipSpecialtyStart DateEnd Kym Peraza MD [address] [place] [address] PCP - GeneralFamily Medicine11/28/22 Rosita Yanes MD [address] [place] [address] Referring PhysicianFamily Medicine11/28/22
--- NOTE | 2025-04-21 11:34 | US_ITS ---
The [address] [address] Patient Name: JOSÉ LUIS NOVOA MRN: [id number] date: 2000 Sex: F Assigned Patient Location: [facility] Current Patient Location: Accession/Order Number: [id number] Exam Date: 04/21/2025 11:35 Report Date: 04/22/2025 07:58 At the request of: CRESENCIO VARELA Procedure: US OB BPP w non-stress BIOPHYSICAL PROFILE: CLINICAL INFORMATION: RUCHI borderline low COMPARISON: 04/14/2025 There is a single live intrauterine gestation in cephalic presentation. The reported gestational age is 32 weeks 2 days. The heart rate measures 136 beats per minute. FINDINGS: TONE: 1 or more episodes of activity extension and flexion of extremity or opening and closing of the hand [Y] 2/2 GROSS BODY MOVEMENTS: 3 or more discrete body or limb movements [Y] 2/2 BREATHING MOVEMENTS: 1 or more episodes of breathing lasting at least 30 seconds [N] 0/2 RUCHI: A single deepest vertical pocket of amniotic fluid greater than 2 cm [Y] 2/2 RUCHI: 11.6 cm. This is in low-normal range. Total score: 6/8 US/US OB BPP w non-stress IMPRESSION: FAILED BIOPHYSICAL PROFILE WITH NO BREATHING Impression dictated by: Jacqui Mendoza M.D. 04/22/2025 7:58 AM Dictation Location: [place] [address] Electronically authenticated by: [id number] Y Date: 04/22/2025 07:58
[2025-04-21 12:42] VITALS: BP 114/74; PULSE 84
== END 2025-04-21 12:50 | disposition home or self-care (01) ==
LOC: US 11:31 → FBC 11:33
PROVIDERS: PCP Student in an Organized Health Care Education/Training Program; Visit Provider Physician Assistant
DX: O41.93X0 Disorder of amniotic fluid and membranes, unspecified, third trimester, not applicable or unspecified (principal); Z3A.32 32 weeks gestation of pregnancy
CPT/HCPCS: 76818

== ENCOUNTER 2025-04-28 11:09 | Outpatient (OUT) | payer OTHER, SELFPAY ==
--- OUTSIDE RECORDS SUMMARY | 2024-04-20 11:30 | XMS_ITS ---
Author Organization [facility] es Address [address] [place] [address] Care Team Providers Care Principal Database Developer Name Role Phone Elizabeth Keating Primary Care Provider [phone] DUKE ANDREWS Unavailable Unavailable Sarita Allen Unavailable [phone] REASON FOR VISIT biweekly f/u Encounters Encounter Location Date Provider Diagnosis [place] [address] [place] [address] 04/20/2024 Sarita Allen Plan Of Treatment No Information Progress Notes * JOSÉ LUIS NOVOA PDOB:2000 (24 yo F)Acc No.[id number]:04/20/2024 F/U - Patient Patient: Corie JIN JOSÉ LUIS Reyes :?Sarita Allen LPCDOB:2000???Age:23 Y ???Sex:FemaleDate:04/20/2024hone:[phone]:[address] [facility], [address], [place], [place]Npa:Elizabeth Keating Subjective: * Chief Complaints: * B iweekly f/u Care Plan Details* * Electronic signature of Sarita Allen LPC on 04/28/2025 at 11:16 AM ESTSign off status: Pending * Provider: Reynaldo Allen LPC Date: 06/20/2023 Generated for Printing/Faxing/eTransmitting on:?04/28/2025 11:16 AM EST
--- OUTSIDE RECORDS SUMMARY | 2024-12-09 10:15 | XMS_ITS ---
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 Encounters Encounter Location Date Provider Diagnosis [place] [address] [place] [address] 12/09/2024 Elizabeth Keating Plan Of Treatment No Information Progress Notes * JOSÉ LUIS NOVOA PDOB:2000 (24 yo F)Acc No.[id number]:12/09/2024 Patient:?JOSÉ LUIS NOVOA :?Elizabeth Keating DDSDOB:2000???Age:23 Y ???Sex:FemaleDate:12/09/2024Phone:[phone]:[address] [facility], [address], [place], [place] Subjective: * Chief Complaints: * N p exam Billing Information: * Procedure Codes: * Electronic signature of Elizabeth Keating DDS on 04/28/2025 at 11:16 AM ESTSign off status: Pending * Provider: Rupali Keating DDS Date: 12/09/2024 Generated for Printing/Faxing/eTransmitting on:?04/28/2025 11:16 AM EST
--- OUTSIDE RECORDS SUMMARY | 2025-04-21 11:00 | XMS_ITS | Encounter Summary ---
Author Organization [facility] Address [address] [place] [address] Care Team Providers Care Trauma Program Manager Name Role Phone Kym Peraza MD Primary Care Provider [phone] Rosita Yanes MD Unavailable [phone] Reason for Visit * ReasonCommentsRoutine Visit Encounter Details DateTypeDepartmentCare Team (Latest Contact Info)Nbwxkyjasip72/05/2025 11:00 AM ESTRoutine [facility] [address] [place] [id number] Mendel Rosa DO [address] [place] [id number] Third trimester ([facility]); 32 weeks gestation of ([facility]); RUCHI (amniotic fluid index) borderline low; Oligohydramnios in third trimester, fetus 1 of multiple gestation ([facility]) Social History Tobacco UseTypesPacks/DayYears UsedDateSmoking Tobacco: NeverSmokeless [...] week02/20/2023How often do you attend sikhism or restorationism services?1 to 4 times per year02/20/2023 Do you belong to any clubs or organizations such as sikhism groups, unions, fraStarvine or athletic groups, or school groups?No02/20/2023How often do you attend meetings of the clubs or organizations you belong to?Never02/20/2023re you , , , , never , or living with a partner?Living with zxewmwn7202/20/2023UDIT-CAnswerDate RecordedQ1: How often do you have a [...] and heating?Not very hard02/20/2023HQ-2AnswerDate RecordedPatient Health Questionnaire-2 Vlive321[facility] [place] of Occupational Health - Occupational Stress QuestionnaireAnswerDate RecordedDo you feel stress - tense, restless, nervous, or anxious, or unable to sleep at night because yourmind is troubled all the time - these days?Only a twqcaw9302/20/2023Exercise Vital Sign AnswerDate RecordedOn average, how many [...] steady place to sleep or slept in savannahelter (including now)?No 02/20/2023Estimated Date of NsxxlnzeEqtvyhhxKju39/29/2025Based on Ultrasound, FHR- 176Sex and Gender InformationValueDate RecordedSex Assigned at BirthNot on fileLegal MwmOildur79/15/2023 6:51 PM EDTGender IdentityNot on file Sexual OrientationNot on filedocumented as of this encounter Last Filed Vital Signs Vital SignReadingTime TakenCommentsBlood Jphsyowe395/6204/21/2025 11:02 AM EST Pulse--Temperature--Respiratory Rate--Oxygen Saturation--Inhaled Oxygen Concentration--Nijmjb38.6 kg (149 lb)04/21/2025 11:02 AM ESTHeight--Body Mass Index24.7910/27/2024 11:44 AM EDTdocumented in this encounter Progress Notes * Jacqui Mcclain LPN - 04/21/2025 11:00 AM EST Reason for Appointment: Patient ID: Augustine Jimenes [...] nursing note reviewed. Exam conducted with a cash office worker present. Vitals: Estimated body mass index is 24.79 kg/m?? as calculated from the following: Height as of 25: 5' 5 . Weight as of this encounter: 149 lb. BP: 108/62 No LMP recorded. Patient is . Assessment/Plan ICD-10-CM 1. Third trimester ([facility]) Z34.93 2. 32 weeks gestation of ([facility]) Z3A.32 Return OB: Patient presents today for a routine obstetrics appointment. Patient is currently 32w2d . Patient states she is doing well but has complaints of being tired due to current . Patient has verbalizes frequent movement. labor precautions was discussed/given and patient was instructed to perform kick counts three times a day. Pt to continue NST/BPPs and growth ultrasounds every 4 weeks. Orders Placed This Encounter Procedures US OB follow up transabdominal approach Follow Up: Patient is to return to office in 2 week for routine OB appointment. Documented by Jacqui Mcclain LPN on behalf of: Mendel Rosa DO documented in this encounter Plan of Treatment DateTypeDepartmentCare Team (Latest Contact Info)Tmlrogdikxv56/19/2025 3:00 PM ESTAncillary Procedure [facility] [address] [place] [address] 05/05/2025 3:30 PM ESTPostpartum Visit [facility] [address] [place] [phone] Marianna Herrera PA [address] [place] [address] NameTypePriorityAssociated DiagnosesOrder ScheduleUS OB follow up transabdominal approachImagingRoutine RUCHI (amniotic fluid index) borderline low Oligohydramnios in third trimester, fetus 1 of multiple gestation ([facility]) every 4 weeks for 2 Occurrences starting 04/21/2025 until 07/22/2025documented as of this encounter Procedures Procedure NamePriorityDate/TimeAssociated DiagnosisCommentsPOCT URINALYSIS MQXKNDDPSgzbkzw22/05/2025 12:20 PM EST Third trimester ([facility]) 32 weeks gestation of ([facility]) documented in this encounter Results * (ABNORMAL) POCT urinalysis dipstick manually resulted (04/21/2025 12:20 PM EST)ComponentValueRef RangeTest MethodAnalysis TimePerformed AtPathologist SignatureColor, UAYellowClarity, UACloudyGlucose, UANegativeNegative - 2000(110) ++++ mg/dLBilirubin, UANegativeNegative - 4(70) +++ mg/dLKetones, UA NegativeNegative - 160(16) ++++ mg/dLSpec Grav, UA1.0151 - 1.03Blood, UA NegativeNegative - 50 Ryder/mcLpH, UA7.05 - 9Protein, UAPositiveNegative - 2000(20) ++++ mg/dLUrobilinogen, UA2.00.2 - 12 mg/dLLeukocytes, UAPositive Negative - 500+++ Astrid/mcLNitrite, UANegativeNegative - PositiveSpecimen (Source)Anatomical Location / LateralityCollection Method / VolumeCollection TimeReceived GdvqYqjqr30/05/2025 12:20 PM EST Narrative Authorizing ProviderResult TypeResult StatusCorey Shelley DOPOINT OF CARE TEST ENTER/EDIT ORDERABLESFinal Result documented in this encounter Visit Diagnoses Diagnosis Third trimester ([facility]) state, incidental 32 weeks gestation of ([facility]) RUCHI (amniotic fluid index) borderline low Nonspecific abnormal finding in amniotic fluid Oligohydramnios in third trimester, fetus 1 of multiple gestation ([facility]) documented in this encounter Care Teams Team MemberRelationshipSpecialtyStart DateEnd Kym Peraza MD [address] [place] [address] PCP - GeneralFamily Medicine11/28/22 Rosita Yanes MD [address] [place] [address] Referring PhysicianFamily Medicine11/28/22documented as of this encounter
--- NOTE | 2025-04-28 | US_ITS ---
The [address] [address] Patient Name: JOSÉ LUIS NOVOA MRN: [id number] date: 2000 Sex: F Assigned Patient Location: US Current Patient Location: Accession/Order Number: [id number] Exam Date: 04/28/2025 11:36 Report Date: 04/28/2025 12:44 At the request of: CRESENCIO VARELA Procedure: US OB BPP w non-stress BIOPHYSICAL PROFILE: CLINICAL INFORMATION: AMNIOTIC FLUID BORDERLINE LOW O28.8 COMPARISON: 04/21/2025 There is a single live intrauterine gestation in cephalic presentation. The reported gestational age is 33 weeks 2 days. The heart rate beats per minute. FINDINGS: TONE: 1 or more episodes of activity extension and flexion of extremity or opening and closing of the hand [Y] 2/2 GROSS BODY MOVEMENTS: 3 or more discrete body or limb movements [Y] 2/2 BREATHING MOVEMENTS: 1 or more episodes of breathing lasting at least 30 seconds [Y] 2/2 RUCHI: A single deepest vertical pocket of amniotic fluid greater than 2 cm [Y] 2/2 RUCHI: 14.4 cm. This is in normal range. Total score: 8/8 US/ OB BPP w non-stress IMPRESSION: NORMAL BIOPHYSICAL PROFILE Impression dictated by: Jacqui Mendoza M.D. 04/28/2025 12:44 PM Dictation Location: [place] [id number] Electronically authenticated by: [id number] Y Date: 04/28/2025 12:44
[2025-04-28 11:13] VITALS: BP 125/74; PULSE 90
--- OUTSIDE RECORDS SUMMARY | 2025-04-28 11:15 | XMS_ITS | Encounter Summary ---
Author Organization [facility] Address [address] [place] [address] Care Team Providers Care Vice President Lending Name Role Phone Kym Peraza MD Primary Care Provider [phone] Rosita Yanes MD Unavailable [phone] Encounter Details DateTypeDepartmentCare Team (Latest Contact Info)Praxfdeldrm64/13/2025Clinisync Result Encounter [facility] External Department Unsolicited Mendel Rosa, DO [address] [place] [address] [place] [address] Social History Tobacco UseTypesPacks/DayYears UsedDateSmoking Tobacco: NeverSmokeless [...] times a week02/20/2023How often do you attend episcopal or buddhism services?1 to 4 times per year02/20/2023 Do you belong to any clubs or organizations such as episcopal groups, unions, fraternal or athletic groups, or school groups?No02/20/2023How often do you attend meetings of the clubs or organizations you belong to?Never02/20/2023re you , , , , never , or living with a partner?Living with rneoorl9102/20/2023UDIT-CAnswerDate RecordedQ1: How often do you have a [...] and heating?Not very hard02/20/2023HQ-2AnswerDate RecordedPatient Health Questionnaire-2 Rfdyn120[facility] [place] of Occupational Health - Occupational Stress QuestionnaireAnswerDate RecordedDo you feel stress - tense, restless, nervous, or anxious, or unable to sleep at night because yourmind is troubled all the time - these days?Only a qfiaid4202/20/2023Exercise Vital Sign AnswerDate RecordedOn average, how many [...] in ashelter (including now)?No 02/20/2023Estimated Date of EndjaxukAcgqafypLcj50/29/2025Based on Ultrasound, FHR- 176Sex and Gender InformationValueDate RecordedSex Assigned at BirthNot on fileLegal KckJglied53/15/2023 6:51 PM EDTGender IdentityNot on file Sexual OrientationNot on filedocumented as of this encounter Functional Status * Over the past 2 weeks, how often have you been bothered by any of the following problems?QuestionAnswerDate of AssessmentAuthorLittle interest or pleasure in doing thingsNot at all04/09/2025 3:42 PM Marianna Santos LPN Feeling down, depressed, or hopelessNot at all04/09/2025 3:42 PM Marianna Santos LPNPatient Health Questionnaire-2 Kvolc802 3:42 PM Marianna Santos LPN documented as of this encounter Plan of Treatment DateTypeDepartmentCare Team (Latest Contact Info)Zrouqfpevvc40/19/2025 3:00 PM ESTAncillary Procedure [facility] [address] [place] [address] 05/05/2025 3:30 PM ESTPostpartum Visit [facility] [address] [place] [address] Marianna Herrera, SARAH [address] [place] [address] [place] [address] documented as of this encounter Procedures Procedure NamePriorityDate/TimeAssociated DiagnosisCommentsURINE CULTURE, LDOBXIJDgnufzw14/13/2025 1:45 PM EDT [facility] UA (CLEAN/CATCH) TECHNICAL INFORMATION SPECIALIST/MICRO IF IND.Mpoptqa2003/29/2025 1:45 PM EDT documented in this encounter Results * URINE CULTURE, ROUTINE (03/29/2025 1:45 PM EDT)ComponentValueRef RangeTest MethodAnalysis TimePerformed AtPathologist SignatureURINE CULTURE, ROUTINE ??Urine Culture, Routine TBHURINE CULTURE, ROUTINEMixed urogenital floraTBHURINE CULTURE, OUIPOHB69,000- 50,000 colony forming units per mLTBHURINE CULTURE, ROUTINEPerformed at: [facility] CenterTBHURINE C[facility], [id number] [place], [place] [id number] URINE CULTURE, ROUTINELab Director: John Hare PhD, Phone: [phone] Specimen (Source)Anatomical Location / LateralityCollection Method / Volume Collection TimeReceived Time03/29/2025 1:45 PM EDT1 2:20 PM EDT Narrative [facility] - 03/31/2025 7:08 AM EDT Authorizing ProviderResult TypeResult StatusCorey Shelley DOLAB BLOOD ORDERABLES Final ResultPerforming OrganizationAddressCity/State/ZIP CodePhone Number CLINISYNC [facility] * (ABNORMAL) [facility] UA (CLEAN/CATCH) TECHNICAL INFORMATION SPECIALIST/MICRO IF IND. (03/29/2025 1:45 PM EDT) ComponentValueRef RangeTest MethodAnalysis TimePerformed AtPathologist SignatureCOLOR URINELT. YELLOWYELLOWTBHCLARITY URINECLEARCLEARTBHSPECIFIC GRAVITY URINE1.0251.005 - 1.025TBHPH URINE6.05.0 - 9.0TBHPROTEIN URINENEGATIVE NEG/TRACE mg/dLTBHGLUCOSE URINE UANEGATIVENEGATIVE mg/dLTBHBILIRUBIN URINE NEGATIVENEGATIVETBHKETONES URINENEGATIVENEGATIVE mg/dLTBHBLOOD URINENEGATIVE NEGATIVETBHNITRITE URINENEGATIVENEGATIVETBHUROBILINOGEN URINE0.20.2 - 1.0 EU/dLTBHLEUKOCYTE ESTERASE URINETRACE(A)NEGATIVETBHURINE MICROSCOPIC INDICATED YESTBHSpecimen (Source)Anatomical Location / LateralityCollection Method / VolumeCollection TimeReceived Time03/29/2025 1:45 PM EDT1 2:20 PM EDT Narrative [facility] - 03/29/2025 2:26 PM EDT Authorizing ProviderResult TypeResult StatusCorey Shelley DOCLINISYNCFinal Result Performing OrganizationAddressCity/State/ZIP CodePhone Number CLINISYNC [facility] documented in this encounter Visit Diagnoses Not on filedocumented in this encounter Care Teams Team MemberRelationshipSpecialtyStart DateEnd Date Kym Peraza MD [address] [place] [address] PCP - GeneralFamily Medicine11/28/22 Rosita Yanes MD [address] [place] [address] Referring PhysicianFami Medicine11/28/22documented as of this encounter
--- OUTSIDE RECORDS SUMMARY | 2025-04-28 11:15 | XMS_ITS | Encounter Summary ---
Author Organization [facility] Address [address] [place] [address] Care Team Providers Care Ocean Freight Agent Name Role Phone Kym Peraza MD Primary Care Provider [phone] Rosita Yanes MD Unavailable [phone] Encounter Details DateTypeDepartmentCare Team (Latest Contact Info)Nwpjtuxjivh79/06/2025Clinisync Result Encounter [facility] External Department Unsolicited Marianna Varela PA [address] [place] [address] [place] [address] Social History Tobacco UseTypesPacks/DayYears UsedDateSmoking Tobacco: NeverSmokeless [...] times a week02/20/2023How often do you attend orthodox or judaism services?1 to 4 times per year02/20/2023 Do you belong to any clubs or organizations such as orthodox groups, unions, fraternal or athletic groups, or school groups?No02/20/2023How often do you attend meetings of the clubs or organizations you belong to?Never02/20/2023re you , , , , never , or living with a partner?Living with onsjdkv3702/20/2023UDIT-CAnswerDate RecordedQ1: How often do you have a [...] and heating?Not very hard02/20/2023HQ-2AnswerDate RecordedPatient Health Questionnaire-2 Tsmpp115Finj[facility] [place] of Occupational Health - Occupational Stress QuestionnaireAnswerDate RecordedDo you feel stress - tense, restless, nervous, or anxious, or unable to sleep at night because yourmind is troubled all the time - these days?Only a zecsha3702/20/2023Exercise Vital Sign AnswerDate RecordedOn average, how many [...] in ashelter (including now)?No 02/20/2023Estimated Date of OpjiiflkGuvwvwyvMmk09/29/2025Based on Ultrasound, FHR- 176Sex and Gender InformationValueDate RecordedSex Assigned at BirthNot on fileLegal NmhRteveg11/15/2023 6:51 PM EDTGender IdentityNot on file Sexual OrientationNot on filedocumented as of this encounter Plan of Treatment DateTypeDepartmentCare Team (Latest Contact Info)Qcgmgivszud55/19/2025 3:00 PM ESTAncillary Procedure [facility] [address] [facility] [place] [address] 05/05/2025 3:30 PM ESTPostpartum Visit [facility] [address] [facility] [place] [address] Marianna Varela PA [address] [place] [address] documented as of this encounter Procedures Procedure NamePriorityDate/TimeAssociated DiagnosisCommentsUS OB BPP W NON-LCSSST9904/22/2025 7:58 AM EST documented in this encounter Results * US OB BPP W NON-STRESS (04/22/2025 7:58 AM EST)Anatomical Region LateralityModalityOtherSpecimen (Source)Anatomical Location / Laterality Collection Method / VolumeCollection TimeReceived Time04/22/2025 7:58 AM EST Narrative 04/22/2025 8:00 AM EST [facility] ?[address] ? [place] [address] ? Ultrasound Report ? Signed ? Patient: JOS ÉLUIS NOVOA ? MR#: [id number] ?? : 2000 ?Acct:[id number] ?? Age/Sex: 24 / F ?ADM Date: 04/21/25 ?? Loc: US ? Attending Dr: Marianna Varela ? Ordering Physician: Marianna Varela ?? Date of Service: 04/21/25 ?? Procedure(s): US OB BPP w non-stress ?? Accession Number(s): [id number] ? cc: Marianna Varela; DUKE PERAZA ? [facility] ? [address] ? [place] [address] ? Patient Name: ?? JOSÉ LUIS NOVOA ? MRN: [facility]:[id number] ? date: 2000 ?Sex: F ?? Assigned Patient Location: [facility]BC ?? Current Patient Location: ? Accession/Order Number: [id number] ?? Exam Date: 04/21/2025 ??11:35 ?Report Date: 04/22/2025 ??07:58 ? At the request of: ?? MARIANNA ??NICHOLE ? Procedure: ??US OB BPP w non-stress ? BIOPHYSICAL PROFILE: ? CLINICAL INFORMATION: RUCHI borderline low ? COMPARISON: 04/14/2025 ? There is a single live intrauterine gestation in cephalic presentation. ??The ?? reported gestational age is 32 weeks 2 days. ??The heart rate measures ?? 136 beats per minute. ? FINDINGS: ? TONE: 1 or more episodes of activity extension and flexion of ?? extremity or opening and closing of the hand ?[Y] ? 2/2 ?? GROSS BODY MOVEMENTS: 3 or more discrete body or limb movements ?[Y] ? 2/2 ?? BREATHING MOVEMENTS: 1 or more episodes of breathing lasting at ?? least 30 seconds ? [N] ? 0/2 ?? RUCHI: A single deepest vertical pocket of amniotic fluid greater than 2 cm ? [Y] ? 2/2 ?RUCHI: 11.6 cm. ??This is in low-normal range. ? Total score: ? 6/8 ? US/US OB BPP w non-stress ?? IMPRESSION: ? FAILED BIOPHYSICAL PROFILE WITH NO BREATHING ? Impression dictated by: Jacqui Mendoza M.D. ??04/22/2025 7:58 AM ? Dictation Location: RADIO-PC-02 ? Electronically authenticated by: [id number] ??Y ?? Date: 04/22/2025 ??07:58 ? Dictated By: ?Jacqui Mendoza M.D. ? Signed By: ?04/22/25 0800 ? DD/ 0758 ? TD/TT: ? Set Up Mechanic Stamping Machines: Procedure Note Radiology, Radiologist, - 04/22/2025 [place] [address] Ultrasound Report Signed Patient: JOSÉ LUIS NOVOA PMR#: [id number] : 2000Acct:[id number] Age/Sex: 24 / FADM Date: 04/21/25 Loc: US Attending Dr: Marianna Varela Ordering Physician: Marianna Varela Date of Service: 04/21/25 Procedure(s): US OB BPP w non-stress Accession Number(s): [id number] cc: Marianna Varela; DUKE PERAZA The [place] [address] Patient Name: JOSÉ LUIS NOVOA MRN: [id number] date: 2000 Sex: F Assigned Patient Location: [facility] Current Patient Location: Accession/Order Number: [id number] Exam Date: 04/21/2025 11:35 Report Date: 04/22/2025 07:58 At the request of: MRAIANNA VARELA Procedure: US OB BPP w non-stress BIOPHYSICAL PROFILE: CLINICAL INFORMATION: RUCHI borderline low COMPARISON: 04/14/2025 There is a single live intrauterine gestation in cephalic presentation.The reported gestational age is 32 weeks 2 days. The heart ratemeasures 136 beats per minute. FINDINGS: TONE: 1 or more episodes of activity extension and flexion of extremity or opening and closing of the hand [Y] 2/2 GROSS BODY MOVEMENTS: 3 or more discrete body or limb movements [Y] 2/2 BREATHING MOVEMENTS: 1 or more episodes of breathing lastingat least 30 seconds [N] 0/2 RUCHI: A single deepest vertical pocket of amniotic fluid greater than 2 cm [Y] 2/2 RUCHI: 11.6 cm. This is in low-normal range. Total score: 11/22 US/US OB BPP w non-stress IMPRESSION: FAILED BIOPHYSICAL PROFILE WITH NO BREATHING Impression dictated by: Jacqui Mendoza M.D. 04/22/2025 7:58 AM Dictation Location: [place] [address] Electronically authenticated by: [id number] Y Date: 7:58 Dictated By: Jacqui Mendoza M.D. Signed By:04/22/25 0800 DD/ 0758 TD/TT: Set Up Mechanic Stamping Machines: Authorizing ProviderResult TypeResult StatusAmy [place] PACLINISYNC IMAGINGFinal Result documented in this encounter Visit Diagnoses Not on filedocumented in this encounter Care Teams Team MemberRelationshipSpecialtyStart DateEnd Date Kym Peraza MD [address] [place] [address] [facility] - [facility]11/28/22 Rosita Yanes MD [address] [place] [address] Referring PhysicianFabeth israel hospital Medicine11/28/22documented as of this encounter
--- OUTSIDE RECORDS SUMMARY | 2025-04-28 11:16 | XMS_ITS | Encounter Summary ---
Author Organization [facility] Address [address] [place] [address] Care Team Providers Care Composition Board Press Operator Name Role Phone Kym Peraza MD Primary Care Provider [phone] Rosita Yanes MD Unavailable [phone] Encounter Details DateTypeDepartmentCare Team (Latest Contact Info)Ebeejshmqyp30/29/2025Clinisync Result Encounter [facility] External Department Unsolicited Marianna Varela PA [address] [place] [address] [place] [address] Social History Tobacco UseTypesPacks/DayYears UsedDateSmoking Tobacco: NeverSmokeless [...] times a week02/20/2023How often do you attend protestant or adventist services?1 to 4 times per year02/20/2023 Do you belong to any clubs or organizations such as protestant groups, unions, fraternal or athletic groups, or school groups?No02/20/2023How often do you attend meetings of the clubs or organizations you belong to?Never02/20/2023re you , , , , never , or living with a partner?Living with cmnusot0102/20/2023UDIT-CAnswerDate RecordedQ1: How often do you have a [...] and heating?Not very hard02/20/2023HQ-2AnswerDate RecordedPatient Health Questionnaire-2 Nguoy054Finprimary [facility] hospital [place] of Occupational Health - Occupational Stress QuestionnaireAnswerDate RecordedDo you feel stress - tense, restless, nervous, or anxious, or unable to sleep at night because yourmind is troubled all the time - these days?Only a mdqvbw1502/20/2023Exercise Vital Sign AnswerDate RecordedOn average, how many [...] in ashelter (including now)?No 3Estimated Date of DpwzhsffHkwkbgchUop90/29/2025Based on Ultrasound, FHR- 176Sex and Gender InformationValueDate RecordedSex Assigned at BirthNot on fileLegal VkhVklmwq33/15/2023 6:51 PM EDTGender IdentityNot on file Sexual OrientationNot on filedocumented as of this encounter Plan of Treatment DateTypeDepartmentCare Team (Latest Contact Info)Pjdzebrlwfc43/19/2025 3:00 PM ESTAncillary Procedure [facility]il NUEN[facility] [address] [place] [address] 05/05/2025 3:30 PM ESTPostpartum Visit [facility] [address] [place] [address] Marianna Varela PA [address] [facility] [place] [address] documented as of this encounter Procedures Procedure NamePriorityDate/TimeAssociated DiagnosisCommentsUS OB BPP W NON-TPWFMM5304/14/2025 11:19 AM EDT documented in this encounter Results * US OB BPP W NON-STRESS (04/14/2025 11:19 AM EDT)Anatomical Region LateralityModalityOtherSpecimen (Source)Anatomical Location / Laterality Collection Method / VolumeCollection TimeReceived Time04/14/2025 11:19 AM EDT Narrative 04/14/2025 11:21 AM EDT [facility] ?[address] ? [place] [address] ? Ultrasound Report ? Signed ? Patient: JOSÉ LUIS NOVOA ? MR#: [id number] ?? : 2000 ?Acct:[id number] ?? Age/Sex: 24 / F ?ADM Date: 04/14/25 ?? Loc: FBC ??250-1 ? Attending Dr: Marianna Varela ? Ordering Physician: Marianna Varela ?? Date of Service: 04/14/25 ?? Procedure(s): US OB BPP w non-stress ?? Accession Number(s): [id number] ? cc: Marianna Varela; DUKE PERAZA ? [facility] ? [address] ? [place] [address] ? Patient Name: ?? JOSÉ LUIS ??SOMMER ? MRN: [facility]:[id number] ? date: 2000 ?Sex: F ?? Assigned Patient Location: FBC ?? Current Patient Location: [facility] ?? Accession/Order Number: [id number] ?? Exam Date: 04/14/2025 ??11:00 ?Report Date: [...] Dictation Location: RADIO-PC-02 ? Electronically authenticated by: [id number] ??Y ?? Date: 04/14/2025 ??11:19 ? Dictated By: ?Jacqui Mendoza M.D. ? Signed By: ?10/29/25 1121 ? DD/DT: 04/14/ 1119 ? TD/TT: ? Cooking Teacher: Procedure Note Radiology, Radiologist, - 04/14/2025 [place] [address] Ultrasound Report Signed Patient: JOSÉ LUIS NOVOAMR#: [id number] : 2000Acct:[id number] Age/Sex: 24 / FADM Date: 04/14/25 Loc: [facility] 250-[address]: Marianna Varela Ordering Physician: Marianna Varela Date of Service: 04/14/25 Procedure(s): US OB BPP w non-stress Accession Number(s): [id number] cc: Marianna Varela; DUKE PERAZA The [place] [address] Patient Name: JOSÉ LUIS NOVOA MRN: [id number] date: 2000 Sex: F Assigned Patient Location: [facility] Current Patient Location: [facility] Accession/Order Number: [id number] Exam Date: 04/14/2025 11:00 Report Date: 04/14/2025 [...] Mendoza M.D. 04/14/2025 11:19 AM Dictation Location: [place] [address] Electronically authenticated by: [id number] Y Date: 1:19 Dictated By: Jacqui Mendoza M.D. Signed By:04/14/25 1121 DD/ 1119 TD/TT: Cooking Teacher: Authorizing ProviderResult TypeResult StatusAmy Nichole PACLINISYNC IMAGINGFinal Result documented in this encounter Visit Diagnoses Not on filedocumented in this encounter Care Teams Team MemberRelationshipSpecialtyStart DateEnd Date Kym Peraza MD [address] [place] [address] [facility]CP - [facility]11/28/22 Rosita Yanes MD [address] [place] [address] Referring PhysicianFagroton community hospital Medicine11/28/22documented as of this encounter
--- OUTSIDE RECORDS SUMMARY | 2025-04-28 11:16 | XMS_ITS | Encounter Summary ---
Author Organization [facility] Address [address] [place] [address] Care Team Providers Care Learning And Development Administrator Name Role Phone Kym Peraza MD Primary Care Provider Rosita Yanes MD Unavailable [phone] Encounter Details DateTypeDepartmentCare Team (Latest Contact Info)Mjjrjxrnwbk06/05/2025Telephone [facility] [address] [place] [address] Mendel Rosa DO [address] Neil Ma, [facility] Social History Tobacco UseTypesPacks/DayYears UsedDateSmoking Tobacco: [...] week02/20/2023How often do you attend scientology or religion services?1 to 4 times per year02/20/2023 Do you belong to any clubs or organizations such as scientology groups, unions, fraternal or athletic groups, or school groups?No02/20/2023How often do you attend meetings of the clubs or organizations you belong to?Never02/20/2023re you , , , , never , or living with a partner?Living with aiqdrkv1402/20/2023UDIT-CAnswerDate RecordedQ1: How often do you have a [...] and heating?Not very hard02/20/2023HQ-2AnswerDate RecordedPatient Health Questionnaire-2 Rnkqz937Finjordan [facility] [place] [facility] of Occupational Health - Occupational Stress QuestionnaireAnswerDate RecordedDo you feel stress - tense, restless, nervous, or anxious, or unable to sleep at night because yourmind is troubled all the time - these days?Only a bwdvaz7002/20/2023Exercise Vital Sign AnswerDate RecordedOn average, how many [...] in ashelter (including now)?No 02/20/2023Estimated Date of AsdqhugwGzphopycTcd01/29/2025Based on Ultrasound, FHR- 176Sex and Gender InformationValueDate RecordedSex Assigned at BirthNot on fileLegal DnfCtiwaa89/15/2023 6:51 PM EDTGender IdentityNot on file Sexual OrientationNot on filedocumented as of this encounter Miscellaneous Notes * Telephone Encounter - Roselyn Ramesh LPN - 04/21/2025 2:40 PM EST Patient called the office and she left a voicemail stating she had her BPP and that she failed partfor breathing and was not sure if ok or had to go back. Spoke with provider and he states that patient did not have to go back because she had already leftor leaving. Patient was called made aware and she states that she will not be back on Saturday for NST as its her baby shower and she has work. Advised would notify documented in this encounter Plan of Treatment DateTypeDepartmentCare Team (Latest Contact Info)Dnvkwncxumb08/19/2025 3:00 PM ESTAncillary Procedure [facility] Anil NUNEZ [address] [place] [address] [place] [address] 05/05/2025 3:30 PM ESTPostpartum Visit [facility] An[facility] NUNE[facility] [address] [facility] [place] [address] Marianna Herrera PA [address] [facility] [address] [place], [place] [address] documented as of this encounter Visit Diagnoses Not on filedocumented in this encounter Care Teams Team MemberRelationshipSpecialtyStart DateEnd Date Kym Peraza MD [address] [place] [address] PCP - GeneralFamily Medicine11/28/22 Rosita Yanes MD [address] [place] [address] Referring PhysicianFamily Medicine11/28/22documented as of this encounter
--- OUTSIDE RECORDS SUMMARY | 2025-04-28 11:16 | XMS_ITS | Patient Health Record ---
Author Organization [facility] Address [address] [place] [address] Care Team Providers Care Structural Welder Name Role Phone Elizabeth Keating Primary Care Provider [phone] Unavailable Unavailable Reason For Referral No Information Problems Problem Type SNOMED Code ICD Code Onset Dates Problem Status W/U Status Risk Notes Problem Anxiety (93576236) Anxiety (F41.9) ActiveconfirmedProblemBorderline personality disorder (14491518)Borderline personality disorder in adult (F60.3)Activeconfirmed Plan Of Treatment No Information Insurance Providers Payer Name Payer Address Payer Phone Subscriber Number Group Number Insured Name Patient Relationship to Insured Coverage Start Date Coverage End Date [employer] [place] [employer] [address] [facility] [place] [address] [id number] iTp NOVOA - patient is the [id number] 2024 [address] [facility] [address] [place] [id number], MORGANSelf - patient is the [id number] 2023
--- OUTSIDE RECORDS SUMMARY | 2025-04-28 11:16 | XMS_ITS | Clinical Summary ---
Author Organization [facility] Healthcare Address [address] [place] [address] Care Team Providers Care Fish Straightener Name Role Phone Kym Peraza MD Primary Care Provider [phone] Rosita Yanes MD Unavailable [phone] Allergies No known active allergies Medications MedicationSigDispense QuantityRefillsLast FilledStart DateEnd DateStatus ondansetron ODT (Zofran-ODT) 4 MG disintegrating tablet Indications:NauseaTake 1 tablet (4 mg) by mouth every 8 (eight) hours if needed for vomiting or nausea 20 tablet 5Active multivitamin () 27-0.8 MG tablet Indications:8 weeks gestation of ([facility])Take 1 tablet by mouth Daily 90 tablet [...] 70 g 10/22/Expired Active Problems ProblemNoted DateDiagnosed XhreMgznhkf75/16/2023Mild episode of recurrent major depressive udesuhnw62/16/2023Estimated Date of DeliveryCommentsYes 06/14/2025ased on Ultrasound, FHR- 176 Resolved Problems ProblemNoted DateDiagnosed DateResolved DateAcute cough/08/2023 Xjcvgejbiwmh34 Assessment & Plan (08/02/2023 3:58 PM EST): Will try inhaler and follow up as needed or if symptoms change or worsen Encounters DateTypeDepartmentCare WrmdRxgxpruufaj39/06/2025linisync Result Encounter NOMS External Department Unsolicited Marianna Varela PA 04/21/2025 11:00 AM ESTRoutine NOMS [place] [address] Mendel Rosa, DO Third trimester ([facility]); 32 weeks gestation of ([facility]); RUCHI (amniotic fluid index) borderline low; Oligohydramnios in third trimester, fetus 1 of multiple gestation ([facility]) 04/21/2025Telephone NOMS [place] [phone] Mendel Rosa, DO 04/21/2025amboo flowsheet NOMS [facility] [place] [address] Mendel Rosa, DO 04/14/2025Telephone NOMS [place] [address] Mendel Rosa, DO 04/14/2025linisync Result Encounter NOMS External Department Unsolicited Marianna Varela PA 04/09/2025Patient Outreach NOMS [address] [place] [address] Marianna Galdamez LPN 04/07/2025 10:50 AM EDTRoutine NOMS [facility]il [facility] [address] [place] [address] Marianna Varela PA Third trimester ([facility]); 30 weeks gestation of ([facility]); Exposure to STD; RUCHI (amniotic fluid index) borderline low; BV (bacterial vaginosis)04/07/2025amboo flowsheet NOM[facility] [place] [facility] [address] [place] [address] Marianna Varela PA 04/06/2025Telephone NOMS [facility] [address] [place] [address] Mendel Rosa, 04/05/2025Telephone N[facility] [place] [facility] [address] [place] [address] Lenka Jimenez MA 03/31/2025 1:30 PM EDTAncillary Procedure NOMS [facility] [address] [place] [address] size inconsistent with dates ([facility])03/29/2025linisync Result Encounter NOMS External Department Unsolicited Menedl Rosa, 03/29/2025Telephone NOMS [facility] [address] [place] [address] Mendel Rosa, 03/24/2025 10:30 AM EDTRoutine NOMS [facility] [address] [place] [address] Radha Resendez NP size inconsistent with dates ([facility]) (Primary Dx); Third trimester ([facility]); 28 weeks gestation of ([facility])03/24/2025amboo flowsheet NOMS [facility] [address] [place] [address] Radha Resendez NP 03/16/2025bstract NOM[facility] [place] [facility] [address] [place] [address] Lenka Jimenez MA 03/11/2025Patient Outreach NOMS [facility] [address] [place] [address] Marianna Galdamez LPN 03/10/2025bstract NOMS [facility] [address] [place] [address] Marianna Galdamez, PACK CHANGER 03/03/2025 10:30 AM EDTRoutine NOMS [facility] [address] [place] [address] Marianna Varela, PA 25 weeks gestation of ([facility]); Second trimester ([facility]); Diabetes mellitus ovmnovaoj93/17/2025amboo flowsheet NOMS [facility] [address] [place] [address] Marianna Varela PA 02/19/2025Orders Only NOMS [facility] [address] [place] [address] Lenka Jimenez MA 02/03/2025 11:30 AM EDTRoutine NOMS [facility] [address] [place] [address] Mendel Rosa, 21 weeks gestation of ([facility]); Second trimester ([facility]); Exposure to STD; Vaginal discharge; Well woman exam with routine gynecological exam; Diabetes mellitus screening; Urinary tract infection without hematuria, site wsjszsgfmop20/20/2025linisync Result Encounter NOMS External Department Unsolicited Mendel Rosa, 02/03/2025External Result Encounter NOMS External Department Unsolicited Mendel Rosa, DO 02/03/2025amboo flowsheet NOMS [facility] [address] [place] [address] Mendel Rosa DO 01/27/2025 11:00 AM EDTAncillary Procedure NOMS [facility] [address] [place] [address] [place] [address] Screening, , for anatomic survey ([facility])from Last 3 Months Immunizations ImmunizationAdministration DatesNext XdvIMP0401/23/2005,05/07/2001,02/15/2000DTaP, Dxmggrexirn43/26/2000HPV 9-Hkhuui7109/10/2016,05/15/2016,03/12/2016Hep A, ped/adol, 2 dose09/10/2016,03/12/2016Hep B, Adolescent or Kbaspvcox10/09/2001, 02/15/2000,1999HiB, cczhoewnqfr60/31/2001,05/07/2001,04/11/2000,02/05/2000 MMR01/23/2005,06/16/2001Meningococcal B, Omv107/15/2015,03/12/2016Meningococcal LKE7O6203/12/2016Polio, Zuyuwqiwyoz23/09/2005,05/07/2001,04/11/2000,02/15/2000Tdap 12/01/2021,12/08/2019,03/03/20125979Uqyzvkpbg54/29/2016,01/01/2001 Family History Medical HistoryRelationNameCommentsHypertensionOtherBone cancerPaternal GrandfatherCancerPaternal GrandfatherRelationNameStatusCommentsOtherPaternal [...] week02/20/2023How often do you attend rastafari or gnosticist services?1 to 4 times per year02/20/2023o you belong to any clubs or organizations such as rastafari groups, unions, fraMoonbasa or athletic groups, or school groups?No02/20/2023How often do you attend meetings of the clubs or organizations you belong to?Never02/20/2023re you , , , , never , or living with a partner?Living with rueqarc8902/20/2023 AUDIT-CAnswerDate RecordedQ1: How often do you have [...] heating?Not very hard02/20/2023HQ-2Answer Date RecordedPatient Health Questionnaire-2 Jrwae475Finintermountain medical center [place] of Occupational Health - Occupational Stress QuestionnaireAnswerDate RecordedDo you feel stress - tense, restless, nervous, or anxious, or unable to sleep at night because yourmind is troubled all the time - these days?Only a kpajsm1102/20/2023 Exercise Vital SignAnswerDate RecordedOn average, how many [...] steady place to sleep or slept in [facility] (including now)?No02/20/2023Estimated Date of Delivery WxuuonehRzc89/29/2025Based on Ultrasound, FHR- 176Sex and Gender Information ValueDate RecordedSex Assigned at BirthNot on fileLegal WkoNogisq63/15/2023 6:51 PM EDTGender IdentityNot on fileSexual OrientationNot on file Last Filed Vital Signs Vital SignReadingTime TakenCommentsBlood Pruomgpb811/6211/10/2024 11:02 AM EST Hypri946510/27/2024 11:44 AM XPUEmvxukorsnv18.8 ??C (98.3 ??F)10/27/2024 11:44 AM EDTRespiratory Rate--Oxygen Dflesamiyk12%10/27/2024 11:44 AM EDTInhaled Oxygen Concentration--Rklbxt90.6 kg (149 lb)04/21/2025 11:02 AM DJFFjabvd151.1 cm (5' 5 )10/27/2024 11:44 AM EDTBody Mass Index24.7910/27/2024 11:44 AM EDT Plan of Treatment DateTypeDepartmentCare Team (Latest Contact Info)Hvwzrkfvtrs91/19/2025 3:00 PM ESTAncillary Procedure NOMS Anil NUNE[facility] [address] [place] [address] 05/05/2025 3:30 PM ESTPostpartum Visit NOMS Anil NUNEZ [address] [place] [address] Marianna Varela PA [address] [place], [place] [phone] Health MaintenanceDue DateLast DoneCommentsCOVID-19 Vaccine ( season) 2025Influenza Vaccine (#1)2025Pneumococcal Vaccine: Pediatrics (0 to 5 Years) and At-Risk Patients (6 to 64 Years)Aged OutNo longer eligible based on patient's age to complete this topic Procedures Procedure NamePriorityDate/TimeAssociated DiagnosisCommentsUS OB BPP W NON-GEYJXS8604/22/2025 7:58 AM EST POCT URINALYSIS MSRLNZMVGzvjmsh90/05/2025 12:20 PM EST Third trimester ([facility]) 32 weeks gestation of ([facility]) US OB BPP W NON-KIEMCT7804/14/2025 11:19 AM EDT RECURRENT VAGINITIS (HTRX)Jdlenkg0004/07/2025 11:52 AM EDT POCT URINALYSIS ROFKUVIGDyqyube52/22/2025 10:53 AM EDT Third trimester ([facility]) US OB FOLLOW UP TRANSABDOMINAL DVPBCKAGAafxlce61/15/2025 1:59 PM EDT size inconsistent with dates ([facility]) URINE CULTURE, TJEMVDSKvfdynw55/13/2025 1:45 PM EDT [facility] UA (CLEAN/CATCH) SUPERVISOR BEAM DEPARTMENT/MICRO IF IND.Zpwbdco9703/29/2025 1:45 PM EDT POCT URINALYSIS QDNZYZLYJaehtqi71/08/2025 10:44 AM EDT Third trimester ([facility]) POCT URINALYSIS ZMXSKPVXClefcue17/17/2025 10:37 AM EDT 25 weeks gestation of ([facility]) Second trimester ([facility]) URINARY TRACT INFECTION (HTRX)Dusodpv6902/03/2025 12:13 PM EDT RECURRENT VAGINITIS (HTRX)Utbgcvt4902/03/2025 12:11 PM EDT POCT URINALYSIS TWTCQVBFDkdqqzd66/20/2025 12:05 PM EDT 21 weeks gestation of ([facility]) Second trimester ([facility]) IGP,APTIMA HPV,AGE ORVQAvadalz87/20/2025 11:48 AM EDT PAP TVZPXHvohmgd24/20/2025 12:00 AM EDTUS OB 14+ WEEKS ANATOMY SCANRoutine 01/27/2025 11:57 AM EDT Screening, , for anatomic survey ([facility]) from Last 3 Months Results * US OB BPP W NON-STRESS (04/22/2025 7:58 AM EST) Only the most recent of2 resultswithin the time period is included. Anatomical RegionLateralityModalityOtherSpecimen (Source)Anatomical Location / LateralityCollection Method / VolumeCollection TimeReceived Time04/22/2025 7:58 AM EST Narrative 04/22/2025 8:00 AM EST [facility] ?[address] ? [place] [address] ? Ultrasound Report ? Signed ? Patient: JOSÉ LUIS NOVOA ? MR#: [id number] ?? : 2000 ?Acct:[id number] ?? Age/Sex: 24 / F ?ADM Date: 11/05/25 ?? Loc: US ? Attending Dr: Marianna Nichole ? Ordering Physician: Marianna Varela ?? Date of Service: 04/21/25 ?? Procedure(s): US OB BPP w non-stress ?? Accession Number(s): [id number] ? cc: Marianna Varela; DUKE PERAZA ? [facility] ? [address] ? [place] [address] ? Patient Name: ?? JOSÉ LUIS NOVOA ? MRN: [facility]:[id number] ? date: 2000 ?Sex: F ?? Assigned Patient Location: [facility]BC ?? Current Patient Location: ? Accession/Order Number: [id number] ?? Exam Date: 04/21/2025 ??11:35 ?Report Date: [...] M.D. ??04/22/2025 7:58 AM ? Dictation Location: [facility]--02 ? Electronically authenticated by: [id number] ??Y ?? Date: 04/22/2025 ??07:58 ? Dictated By: ?Jacqui Mendoza M.D. ? Signed By: ?04/22/25 0800 ? DD/ 0758 ? TD/TT: ? Assembler 1St Shift: Procedure Note Radiology, Radiologist, MD - 04/22/[address] [address] Ultrasound Report Signed Patient: JOSÉ LUIS NOVOA PMR#: [id number] : 2000Acct:[id number] Age/Sex: 24 / FADM Date: 04/21/25 Loc: US Attending Dr: Marianna Varela Ordering Physician: Marianna Varela Date of Service: 04/21/25 Procedure(s): US OB BPP w non-stress Accession Number(s): [id number] cc: Marianna Varela; DU[facility] PERAZA [place] [id number] Patient Name: JOSÉ LUIS NOVOA MRN: [facility]:[id number] date: 2000 Sex: F Assigned Patient Location: [facility] Current Patient Location: Accession/Order Number: [id number] Exam Date: 04/21/2025 11:35 Report Date: 04/22/2025 07:58 At the request of: MARIANNA VARELA Procedure: [...] This is in low-normal range. Total score: 6/8 US/US OB BPP w non-stress IMPRESSION: FAILED BIOPHYSICAL PROFILE WITH NO BREATHING Impression dictated by: Jacqui Mendoza M.D. 04/22/2025 7:58 AM Dictation Location: [place] [address] Electronically authenticated by: [id number] Y Date: 507:58 Dictated By: Jacqui Mendoza M.D. Signed By:04/22/25 0800 DD/ 0758 TD/TT: Assembler 1St Shift: Authorizing ProviderResult TypeResult StatusAmy [place] PACLINISYNC IMAGINGFinal Result * (ABNORMAL) POCT urinalysis dipstick manually resulted (04/21/2025 12:20 PM EST) Only the most recent of5 resultswithin the time period is included. ComponentValueRef RangeTest MethodAnalysis TimePerformed AtPathologist Signature Color, UAYellowClarity, UACloudyGlucose, UANegativeNegative - 2000(110) ++++ mg/dLBilirubin, UANegativeNegative - 4(70) +++ mg/dLKetones, UANegativeNegative - 160(16) ++++ mg/dLSpec Grav, UA1.0151 - 1.03Blood, UANegativeNegative - 50 Ryder/mcLpH, UA7.05 - 9Protein, UAPositiveNegative - 2000(20) ++++ mg/dL Urobilinogen, UA2.00.2 - 12 mg/dLLeukocytes, UAPositiveNegative - 500+++ Astrid/mcL Nitrite, UANegativeNegative - PositiveSpecimen (Source)Anatomical Location / LateralityCollection Method / VolumeCollection TimeReceived AnqlNzbzi85/05/2025 12:20 PM EST Narrative Authorizing ProviderResult TypeResult StatusCorey Shelley DOPOINT OF CARE TEST ENTER/EDIT ORDERABLESFinal Result * RECURRENT VAGINITIS (HTRX) (04/07/2025 11:52 AM EDT) Only the most recent of2 resultswithin the time period is included. ComponentValueRef RangeTest MethodAnalysis TimePerformed AtPathologist Signature ATOPOBIUM BKJDTYN093.961 - 24.689 ppm04/08/2025 7:42 AM EDTHealthTrackRx at LabPortATOPOBIUM VAGINAENot Ajdeoyyi23.961 - 24.689 ppm04/08/2025 7:42 AM EDT [facility] at LabPortBVAB 2,3 (BACTERIAL VAGINOSIS ASSOCIATED BACTERIA 2, 3); MOBILUNCUS FZR155.961 - 24.689 ppm04/08/2025 7:42 AM EDTHealthTrackRx at LabPortBVAB 2,3 (BACTERIAL VAGINOSIS ASSOCIATED BACTERIA 2, 3); MOBILUNCUS SPP Not Uuzwgqcw33.961 - 24.689 ppm04/08/2025 7:42 AM EDTHealthTrackRx at LabPort HORACE ALBICANS, PARAPSILOSIS, LKZEVOYZDY658.000 - 30.347 ppm04/08/2025 7:42 AM EDTHealthTrackRx at LabPortCANDIDA ALBICANS, PARAPSILOSIS, TROPICALISNot Nhrwubpe38.000 - 30.347 ppm04/08/2025 7:42 AM EDTHealthTrackRx at LabPortCANDIDA WAFVRSXD149.000 - 31.618 ppm04/08/2025 7:42 AM EDTHealthTrackRx at LabPort HORACE GLABRATANot Afcusvmr03.000 - 31.618 ppm04/08/2025 7:42 AM EDT [facility] at LabPortCANDIDA ZBUZYI998.000 - 30.873 ppm04/08/2025 7:42 AM EDT [facility] at LabPortCANDIDA KRUSEINot Ldbrtsev11.000 - 30.873 ppm04/08/2025 7:42 AM EDTHealthTrackRx at LabPortCHLAMYDIA HQCYBZJDVBH811.000 - 31.586 ppm 04/08/2025 7:42 AM EDTHealthTrackRx at LabPortCHLAMYDIA TRACHOMATISNot Detected 23.000 - 31.586 ppm04/08/2025 7:42 AM EDTHealthTrackRx at LabPortGARDNERELLA POBQMAOJM165.961 - 24.689 ppm04/08/2025 7:42 AM EDTHealthTrackRx at LabPort GARDNERELLA VAGINALISNot Kgkgxwig81.961 - 24.689 ppm04/08/2025 7:42 AM EDT [facility] at LabPortMEGASPHAERA (TYPES 1, 2)019.961 - 24.689 ppm04/08/2025 7:42 AM EDTHealthTrackRx at LabPortMEGASPHAERA (TYPES 1, 2)Not Fbvvzpjb05.961 - 24.689 ppm10 7:42 AM EDTHealthTrackRx at LabDekalb Memorial HospitalNEISSERIA GONORRHOEAE0 23.000 - 32.587 ppm04/08/2025 7:42 AM EDTHealthTrackRx at LabPortNEISSERIA GONORRHOEAENot Yebthntg09.000 - 32.587 ppm04/08/2025 7:42 AM EDTHealthTrackRx at LabPortTRICHOMONAS IMKQIPHAG213.000 - 31.995 ppm04/08/2025 7:42 AM EDT [facility] at LabPortTRICHOMONAS VAGINALISNot Udexbljn79.000 - 31.995 ppm 04/08/2025 7:42 AM EDTHealthTrackRx at LabPortMYCOPLASMA FEGJXDHFPF930.961 - 24.689 ppm04/08/2025 7:42 AM EDTHealthTrackRx at LabDekalb Memorial HospitalMYCOPLASMA GENITALIUMNot Hxjqrrna78.961 - 24.689 ppm04/08/2025 7:42 AM EDTHealth[facility]Rx at [facility] Specimen (Source)Anatomical Location / LateralityCollection Method / Volume Collection TimeReceived SwfkBvoojs99/22/2025 11:52 AM EDT1 1:22 AM EDT Narrative Authorizing ProviderResult TypeResult StatusAmy [facility] BLOOD ORDERABLES Final ResultPerforming OrganizationAddressCity/State/ZIP CodePhone Number [facility]ALTH[facility] at LabDekalb [facility] [address] [facility] [address] [place] [address] * OB follow up transabdominal approach (03/31/2025 1:59 [...] StatusRadha Resendez NPIMG OB US PROCEDURESFinal Result * URINE CULTURE, ROUTINE (03/29/2025 1:45 PM EDT)ComponentValueRef RangeTest MethodAnalysis TimePerformed AtPathologist SignatureURINE CULTURE, ROUTINE ??Urine Culture, Routine TBHURINE CULTURE, ROUTINEMixed urogenital floraTBHURINE CULTURE, HEQZWUG40,000- 50,000 colony forming units per mLTBHURINE CULTURE, ROUTINEPerformed at: [facility] LabMunising Memorial HospitalTBHURINE CULTURE, [id number] [place], [place] [id number] URINE CULTURE, ROUTINELab Director: John Hare PhD, Phone: [phone] Specimen (Source)Anatomical Location / LateralityCollection Method / Volume Collection TimeReceived Time03/29/2025 1:45 PM EDT1 2:20 PM EDT Narrative CLINISYNC - 03/31/2025 7:08 AM EDT Authorizing ProviderResult TypeResult StatusCorey Shelley ZHANG BLOOD ORDERABLES Final ResultPerforming OrganizationAddressCity/State/ZIP CodePhone Number CLINISYNC [facility] * (ABNORMAL) [facility] UA (CLEAN/CATCH) SUPERVISOR BEAM DEPARTMENT/MICRO IF IND. (03/29/2025 1:45 PM EDT) ComponentValueRef [...] Shelley DOCLINISYNCFinal Result Performing OrganizationAddressCity/State/ZIP CodePhone Number [facility] * URINARY TRACT INFECTION (HTRX) (02/03/2025 12:13 PM EDT)ComponentValueRef RangeTest MethodAnalysis TimePerformed AtPathologist SignatureACINETOBACTER JVUJFUHK293.961 - 24.689 ppm02/04/2025 7:12 AM EDTHealthTrackRx at LabPort ACINETOBACTER BAUMANIINot Vimowcny20.961 - 24.689 ppm02/04/2025 7:12 AM EDT [facility] at LabPortCITROBACTER YVFQDVYH506.000 - 32.015 ppm02/04/2025 7:12 AM EDTHealthTrackRx at LabPortCITROBACTER FREUNDIINot Efutoahe74.000 - 32.015 ppm02/04/2025 7:12 AM EDTHealthTrackRx at LabPortENTEROBACTER AEROGENES, MPNKRSE796.000 - 32.290 ppm02/04/2025 7:12 AM EDTHealthTrackRx at LabPortENTEROBACTER AEROGENES, CLOACAENot Bfznmlmg14.000 - 32.290 ppm 02/04/2025 7:12 AM EDTHealthTrackRx at LabPortENTEROCOCCUS FAECALIS, FAECIUM0 26.000 - 33.043 ppm02/04/2025 7:12 AM EDTHealthTrackRx at LabPortENTEROCOCCUS FAECALIS, FAECIUMNot Keczffgl13.000 - 33.043 ppm02/04/2025 7:12 AM EDT [facility] at LabPortESCHERICHIA ZWLB570.000 - 28.500 ppm02/04/2025 7:12 AM EDTHealthTrackRx at LabPortESCHERICHIA COLINot Clhemyun20.000 - 28.500 ppm 02/04/2025 7:12 AM EDTHealthTrackRx at LabPortKLEBSIELLA PNEUMONIAE, OXYTOCA0 23.000 - 31.865 ppm02/04/2025 7:12 AM EDTHealthTrackRx at LabPortKLEBSIELLA PNEUMONIAE, OXYTOCANot Jtezvsbl95.000 - 31.865 ppm02/04/2025 7:12 AM EDT [facility] at LabPortMORGANELLA PLJGBBUZ569.961 - 24.689 ppm02/04/2025 7:12 AM EDTHealthTrackRx at LabPortMORGANELLA MORGANIINot Owmctmxn36.961 - 24.689 ppm02/04/2025 7:12 AM EDTHealthTrackRx at LabPortPROTEUS MIRABILIS, EQGTOBUW782.000 - 28.500 ppm02/04/2025 7:12 AM EDTHealthTrackRx at LabPort PROTEUS MIRABILIS, VULGARISNot Juayilnf23.000 - 28.500 ppm02/04/2025 7:12 AM EDTHealthTrackRx at LabPortPSEUDOMONAS MMFRZUIGGN845.000 - 31.801 ppm 02/04/2025 7:12 AM EDTHealthTrackRx at LabPortPSEUDOMONAS AERUGINOSANot Jgtziojg54.000 - 31.801 ppm02/04/2025 7:12 AM EDTHealthTrackRx at LabPort STAPHYLOCOCCUS LKSUYS285.000 - 31.595 ppm02/04/2025 7:12 AM EDTHealthTrackRx at LabPortSTAPHYLOCOCCUS AUREUSNot Ubtrejeb15.000 - 31.595 ppm02/04/2025 7:12 AM EDTHealthTrackRx at LabPortSTREPTOCOCCUS AGALACTIAE (GROUP B STREP)026.000 - 32.435 ppm02/04/2025 7:12 AM EDTHealthTrackRx at LabPortSTREPTOCOCCUS AGALACTIAE (GROUP B STREP)Not Lzflloxq56.000 - 32.435 ppm02/04/2025 7:12 AM EDTHealthTrackRx at LabPortCANDIDA ALBICANS, PARAPSILOSIS, DMIGKWQFTS884.000 - 30.347 ppm02/04/2025 7:12 AM EDTHealthTrackRx at LabPortCANDIDA ALBICANS, PARAPSILOSIS, TROPICALISNot Rkeenehy64.000 - 30.347 ppm02/04/2025 7:12 AM EDT [facility] at LabPortCANDIDA ISDYAXZU667.000 - 31.618 ppm02/04/2025 7:12 AM EDTHealthTrackRx at LabPortCANDIDA GLABRATANot Ycdwcvlg99.000 - 31.618 ppm 02/04/2025 7:12 AM EDTHealthTrackRx at LabPortCANDIDA ALNUVW584.000 - 30.873 ppm02/04/2025 7:12 AM EDTHealthTrackRx at LabPortCANDIDA KRUSEINot Detected 23.000 - 30.873 ppm02/04/2025 7:12 AM EDTHealthTrackRx at LabPortSERRATIA QJKIYKFDVB800.000 - 31.581 ppm02/04/2025 7:12 AM EDTHealthTrackRx at LabPort SERRATIA MARCESCENSNot Kpzdtsnq24.000 - 31.581 ppm02/04/2025 7:12 AM EDT [facility] at LabPortSTREPTOCOCCUS PYOGENES (GROUP A STREP)019.961 - 24.689 ppm02/04/2025 7:12 AM EDTHealthTrackRx at LabPortSTREPTOCOCCUS PYOGENES (GROUP A STREP)Not Ybdjbtax14.961 - 24.689 ppm02/04/2025 7:12 AM EDT [facility] at LabPortSTAPHYLOCOCCUS EPIDERMIDIS, HAEMOLYTICUS, LUGDUNENSIS, SAPROPHYTICUS (EYGJD513.961 - 24.689 ppm02/04/2025 7:12 AM EDTHealthTrackRx at LabPortSTAPHYLOCOCCUS EPIDERMIDIS, HAEMOLYTICUS, LUGDUNENSIS, SAPROPHYTICUS (URINANot Uisnfsud93.961 - 24.689 ppm02/04/2025 7:12 AM EDTHealthTrackRx at Northwest HospitalSTAPHYLOCOCCUS EPIDERMIDIS, HAEMOLYTICUS, LUGDUNENSIS, SAPROPHYTICUS (ZUTFG669.961 - .9 ppm02/04/2025 7:12 AM EDTHealth[facility] at [facility] STAPHYLOCOCCUS EPIDERMIDIS, HAEMOLYTICUS, LUGDUNENSIS, SAPROPHYTICUS (URINANot Onqpmadz70.961 - .9 ppm02/04/2025 7:12 AM EDTHealth[facility] at [facility] Specimen (Source)Anatomical Location / LateralityCollection Method / Volume Collection TimeReceived BhedJsvau05/20/2025 12:13 PM EDT02/04/2025 1:34 AM EDT Narrative Authorizing ProviderResult TypeResult StatusCorey Shelley DOLAB BLOOD ORDERABLES Final ResultPerforming OrganizationAddressCity/State/ZIP CodePhone Number [facility] [address] [address] * IGP,APTIMA HPV,AGE GDLN (02/03/2025 11:48 AM [...] at: 01 =G ?[facility] [address] ?? [address] [place] ??[phone] ?? Brittany Marshall MD, IGP, RFX APTIMA HPV ASCUNote.TBHComment: ?? TESTS ? RESULT ??FLAG ??UNITS ?REF RANGE ??LAB DIAGNOSIS: ?02 ?? NEGATIVE FOR INTRAEPITHELIAL LESION OR MALIGNANCY. Specimen adequacy: ?02 ?? Satisfactory for evaluation. No endocervical component is identified. Performed by: ? 02 ?? Meliza Rangel [employer]er (ASC) . ? 02 Note: ? Note ?02 [...] High,A-Abnormal,AA-Critical Abnormal Performed at: 02 WB ?[facility] ?? [address] [place] ??[phone] ?? Brittany Marshall MD, Performed at: ??=G - [facility] [address], [place] ??[id number] Associate Automation Engineer: Brittany Marshall MD, Phone: ??[phone] Performed at: ??WB - [facility] [address], [place] ??[id number] Associate Automation Engineer: Brittany Marshall MD, Phone: ??[phone] Specimen (Source)Anatomical Location / LateralityCollection Method / Volume Collection TimeReceived Time02/03/2025 11:48 AM EDT02/03/2025 9:18 PM EDT Narrative [facility]IN[facility] - 02/06/2025 11:09 AM EDT SPATULA-ALONE ENDOCERVIX Authorizing ProviderResult TypeResult StatusCorey Shelley DOLAB BLOOD ORDERABLES Final ResultPerforming OrganizationAddressCity/State/ZIP CodePhone Number CLINISYAZ TB * Pap Smear (02/03/2025 12:00 AM EDT)Specimen [...] Laci Boykin MD Authorizing ProviderResult TypeResult StatusAmy Nichole WILHELM OB US PROCEDURES Final Result from Last 3 Months Insurance Care Teams Team MemberRelationshipSpecialtyStart DateEnd Date Kym Peraza MD [address] [place] [address] PCP - GeneralFamily Medicine11/28/22 Rosita Yanes MD [address] [place] [address] Referring PhysicianFamily Medicine11/28/22
--- OUTSIDE RECORDS SUMMARY | 2025-04-28 11:16 | XMS_ITS | Encounter Summary ---
Author Organization [facility] Address [address] [place] [address] Care Team Providers Care Special Education Resource Teacher Name Role Phone Kym Peraza MD Primary Care Provider [phone] Rosita Yanes MD Unavailable [phone] Encounter Details DateTypeDepartmentCare Team (Latest Contact Info)Qpottsfcoag56/05/2025amboo flowsheet ROZ Ma OBGYN [address] [facility] [place] [phone] Mendel Rosa DO [address] [facility] [address] [place], [facility] Social History Tobacco UseTypesPacks/DayYears UsedDateSmoking Tobacco: NeverSmokeless [...] times a week02/20/2023How often do you attend mandaeism or rastafari services?1 to 4 times per year02/20/2023 Do you belong to any clubs or organizations such as mandaeism groups, unions, fraternal or athletic groups, or school groups?No02/20/2023How often do you attend meetings of the clubs or organizations you belong to?Never02/20/2023re you , , , , never , or living with a partner?Living with tppwiab9802/20/2023UDIT-CAnswerDate RecordedQ1: How often do you have a [...] and heating?Not very hard02/20/2023HQ-2AnswerDate RecordedPatient Health Questionnaire-2 Sikjb499Finlake[facility] hospital [place] of Occupational Health - Occupational Stress QuestionnaireAnswerDate RecordedDo you feel stress - tense, restless, nervous, or anxious, or unable to sleep at night because yourmind is troubled all the time - these days?Only a jbcjac6702/20/2023Exercise Vital Sign AnswerDate RecordedOn average, how many [...] in ashelter (including now)?No 02/20/2023Estimated Date of JkvjksppBbdwjcobEae37/29/2025Based on Ultrasound, FHR- 176Sex and Gender InformationValueDate RecordedSex Assigned at BirthNot on fileLegal EcnKjsrqq47/15/2023 6:51 PM EDTGender IdentityNot on file Sexual OrientationNot on filedocumented as of this encounter Plan of Treatment DateTypeDepartmentCare Team (Latest Contact Info)Jtznembhfvi12/19/2025 3:00 PM ESTAncillary Procedure [facility] Anil NUNE[facility] [address] [place] [address] [place] [address] 05/05/2025 3:30 PM ESTPostpartum Visit [facility] [address] [place] [address] [place] [address] Marianna Herrera PA [address] [facility] [address] [place], [place] [id number] documented as of this encounter Visit Diagnoses Not on filedocumented in this encounter Care Teams Team MemberRelationshipSpecialtyStart DateEnd Date Kym Peraza MD [address] [place] [address] PCP - GeneralFamily Medicine11/28/22 Rosita Yanes MD [address] [place] [address] Referring PhysicianFamily Medicine11/28/22documented as of this encounter
--- OUTSIDE RECORDS SUMMARY | 2025-04-28 11:16 | XMS_ITS | Encounter Summary ---
Author Organization [facility] Address [address] [place] [address] Care Team Providers Care Claims Technician Name Role Phone Kym Peraza MD Primary Care Provider [phone] Rosita Yanes MD Unavailable Encounter Details DateTypeDepartmentCare Team (Latest Contact Info)Noqoezzeaem40/29/2025Telephone ROZ Ma OBG[facility] [address] [facility] [facility] [place] [address] Mendel Rosa DO [address] [place], [facility]11 Social History Tobacco UseTypesPacks/DayYears UsedDateSmoking Tobacco: [...] times a week02/20/2023How often do you attend mu-ism or moravian services?1 to 4 times per year02/20/2023 Do you belong to any clubs or organizations such as mu-ism groups, unions, fraternal or athletic groups, or school groups?No02/20/2023How often do you attend meetings of the clubs or organizations you belong to?Never02/20/2023re you , , , , never , or living with a partner?Living with njkqcab4002/20/2023UDIT-CAnswerDate RecordedQ1: How often do you have a [...] and heating?Not very hard02/20/2023HQ-2AnswerDate RecordedPatient Health Questionnaire-2 Svfqh587Finsevier [facility] hospital [place] of Occupational Health - Occupational Stress QuestionnaireAnswerDate RecordedDo you feel stress - tense, restless, nervous, or anxious, or unable to sleep at night because yourmind is troubled all the time - these days?Only a ymnufc9802/20/2023Exercise Vital Sign AnswerDate RecordedOn average, how many [...] in ashelter (including now)?No 02/20/2023Estimated Date of HiaiiectKxdzwphpPfe01/29/2025Based on Ultrasound, FHR- 176Sex and Gender InformationValueDate RecordedSex Assigned at BirthNot on fileLegal PsdJfhqjw33/15/2023 6:51 PM EDTGender IdentityNot on file Sexual [...] Plan of Treatment DateTypeDepartmentCare Team (Latest Contact Info)Lhrdjlfqrlw30/19/2025 3:00 PM ESTAncillary Procedure [facility]il [facility] [address] [facility] [place] [address] 05/05/2025 3:30 PM ESTPostpartum Visit [facility] [address] [facility] [place] [phone] Marianna Herrera PA [address] [facility] [address] [place], [place] [address] documented as of this encounter Visit Diagnoses Not on filedocumented in this encounter Care Teams Team MemberRelationshipSpecialtyStart DateEnd Date Kym Peraza MD [address] [place] [address] PCP - GeneralFamily Medicine11/28/22 Rosita Yanes MD [address] [place] [address] Referring PhysicianFamily Medicine11/28/22documented as of this encounter
== END 2025-04-28 12:00 | disposition home or self-care (01) ==
LOC: US 11:09 → FBC 11:10
PROVIDERS: PCP Student in an Organized Health Care Education/Training Program; Visit Provider Physician Assistant
DX: O28.8 Other abnormal findings on antenatal screening of mother (principal); O41.03X0 Oligohydramnios, third trimester, not applicable or unspecified; Z3A.33 33 weeks gestation of pregnancy
CPT/HCPCS: 76818

== ENCOUNTER 2025-05-01 15:56 | Outpatient (OUT) | payer OTHER, SELFPAY ==
[2025-05-01 16:03] VITALS: BP 120/75; PULSE 85
== END 2025-05-01 16:45 | disposition home or self-care (01) ==
LOC: FBCO 15:56 → FBC 16:00
PROVIDERS: PCP Student in an Organized Health Care Education/Training Program; Visit Provider Obstetrics & Gynecology
DX: O41.00X0 Oligohydramnios, unspecified trimester, not applicable or unspecified (principal)
CPT/HCPCS: 59025

== ENCOUNTER 2025-05-05 10:56 | Outpatient (OUT) | payer OTHER, SELFPAY ==
--- NOTE | 2025-05-05 | US_ITS ---
[place] [id number] Patient Name: JOSÉ LUIS NOVOA MRN: [id number] date: 2000 Sex: F [place] [facility] [place] [facility] [place] Accession/Order Number: [id number] Exam Date: 05/05/2025 11:00 Report Date: 05/05/2025 23:35 At the request of: CRESENCIO VARELA Procedure: US OB growth Ultrasound biophysical profile HISTORY: Borderline low amniotic fluid index Adequate breathing movement, gross body movement, tone and amniotic fluid volume for total score of 8 out of 8. The amniotic fluid index is 10.0cm within normal limits. The heart rate 124 bpm. US/US OB BPP w non-stress IMPRESSION: Adequate ultrasound biophysical profile Limited ultrasound Assessment for growth. Fetus in cephalic presentation. Amniotic fluid volume 10.0 cm. Largest fluid pocket 4.6 cm. heart rate 124 bpm. somatic motion identified. The gestational age by ultrasound 35 weeks 3 days. Estimated delivery 06/06/2025. Estimated weight 2740 g. 83% weight percentile. IMPRESSION: Single live intrauterine gestation 35 weeks 3 days. Impression dictated by: Abdiaziz Doran M.D. 05/05/2025 11:35 PM Dictation Location: [employer] Electronically authenticated by: [id number] Y Date: 05/05/2025 23:35
--- NOTE | 2025-05-05 | US_ITS ---
[address] [address] Patient Name: JOSÉ LUIS NOVOA MRN: [id number] date: 2000 Sex: F Assigned Patient [facility]: [facility] [place] [facility] [place] Accession/Order Number: [id number] Exam Date: 05/05/2025 11:00 Report Date: 05/05/2025 23:35 At the request of: CRESENCIO VARELA Procedure: US OB growth Ultrasound biophysical profile HISTORY: Borderline low amniotic fluid index Adequate breathing movement, gross body movement, tone and amniotic fluid volume for total score of 8 out of 8. The amniotic fluid index is 10.0cm within normal limits. The heart rate 124 bpm. US/US OB growth IMPRESSION: Adequate ultrasound biophysical profile Limited ultrasound Assessment for growth. Fetus in cephalic presentation. Amniotic fluid volume 10.0 cm. Largest fluid pocket 4.6 cm. heart rate 124 bpm. somatic motion identified. The gestational age by ultrasound 35 weeks 3 days. Estimated delivery 06/06/2025. Estimated weight 2740 g. 83% weight percentile. IMPRESSION: Single live intrauterine gestation 35 weeks 3 days. Impression dictated by: Abdiaziz Doran M.D. 05/05/2025 11:35 PM Dictation Location: [employer] Electronically authenticated by: [id number] Y Date: 05/05/2025 23:35
[2025-05-05 11:24] VITALS: BP 131/77; PULSE 86
== END 2025-05-05 11:58 | disposition home or self-care (01) ==
LOC: US 10:56 → FBC 10:58
PROVIDERS: PCP Student in an Organized Health Care Education/Training Program; Visit Provider Physician Assistant
DX: O41.03X0 Oligohydramnios, third trimester, not applicable or unspecified (principal); Z3A.34 34 weeks gestation of pregnancy; O28.8 Other abnormal findings on antenatal screening of mother
CPT/HCPCS: 76816; 76818

== ENCOUNTER 2025-05-12 10:53 | Outpatient (OUT) | payer OTHER, SELFPAY ==
--- NOTE | 2025-05-12 11:04 | US_ITS ---
The [address] [address] Patient Name: JOSÉ LUIS NOVOA MRN: [id number] date: 2000 Sex: F Assigned Patient Location: [facility] Current Patient Location: [facility] Accession/Order Number: [id number] Exam Date: 05/12/2025 11:05 Report Date: 05/12/2025 11:37 At the request of: CRESENCIO VARELA Procedure: US OB BPP w non-stress BIOPHYSICAL PROFILE: CLINICAL INFORMATION: Borderline low RUCHI COMPARISON: 05/05/2025 There is a single live intrauterine gestation in cephalic presentation. The reported gestational age is 35 weeks 2 days. The heart rate measures 131 beats per minute. FINDINGS: TONE: 1 or more episodes of activity extension and flexion of extremity or opening and closing of the hand [Y] 2/2 GROSS BODY MOVEMENTS: 3 or more discrete body or limb movements [Y] 2/2 BREATHING MOVEMENTS: 1 or more episodes of breathing lasting at least 30 seconds [Y] 2/2 RUCHI: A single deepest vertical pocket of amniotic fluid greater than 2 cm [Y] 2/2 RUCHI: 10.9 cm. The 5th percentile is 7.9 cm. Total score: 8/8 US/US OB BPP w non-stress IMPRESSION: NORMAL BIOPHYSICAL PROFILE Impression dictated by: Jacqui Mendoza M.D. 05/12/2025 11:37 AM Dictation Location: [place] [address] Electronically authenticated by: [id number] Y Date: 05/12/2025 11:37
[2025-05-12 11:29] VITALS: BP 129/75; PULSE 92
== END 2025-05-12 11:58 | disposition home or self-care (01) ==
LOC: US 10:53 → FBC 10:59
PROVIDERS: PCP Student in an Organized Health Care Education/Training Program; Visit Provider Physician Assistant
DX: O28.8 Other abnormal findings on antenatal screening of mother (principal); Z3A.35 35 weeks gestation of pregnancy; O41.03X0 Oligohydramnios, third trimester, not applicable or unspecified
CPT/HCPCS: 76818

== ENCOUNTER 2025-05-19 09:11 | Observation (INO) | payer OTHER, SELFPAY ==
--- OUTSIDE RECORDS SUMMARY | 2025-05-05 10:00 | XMS_ITS | Encounter Summary ---
Author Organization [facility] Healthcare Address [address] [place] [address] Care Team Providers Care Nurse Specialist Name Role Phone Kym Peraza MD Primary Care Provider [phone] Rosita Yanes MD Unavailable [phone] Reason for Visit * ReasonCommentsRoutine Visit Encounter Details DateTypeDepartmentCare Team (Latest Contact Info)Nxxpzhunnmz14/19/2025 10:00 AM ESTRoutine ROZ Ma OBGYN [address] [facility] [place] [address] Marianna Herrera PA [address] [facility] [place] [address] Third trimester ([facility]); 34 weeks gestation of ([facility]) Social History Tobacco UseTypesPacks/DayYears UsedDateSmoking Tobacco: NeverSmokeless [...] week02/20/2023How often do you attend christian or taoist services?1 to 4 times per year02/20/2023 Do you belong to any clubs or organizations such as christian groups, unions, fraSyncapse or athletic groups, or school groups?No02/20/2023How often do you attend meetings of the clubs or organizations you belong to?Never02/20/2023re you , , , , never , or living with a partner?Living with lnnnqug0502/20/2023UDIT-CAnswerDate RecordedQ1: How often do you have a [...] and heating?Not very hard02/20/2023HQ-2AnswerDate RecordedPatient Health Questionnaire-2 Fewrt353Finlifepoint hospitals [place] of Occupational Health - Occupational Stress QuestionnaireAnswerDate RecordedDo you feel stress - tense, restless, nervous, or anxious, or unable to sleep at night because yourmind is troubled all the time - these days?Only a hnnupb2202/20/2023Exercise Vital Sign AnswerDate RecordedOn average, how many [...] in ashelter (including now)?No 02/20/2023Estimated Date of PvliwarvQvzmmymaBvs15/29/2025Based on Ultrasound, FHR- 176Sex and Gender InformationValueDate RecordedSex Assigned at BirthNot on fileLegal AzkFiodje66/15/2023 6:51 PM EDTGender IdentityNot on file Sexual OrientationNot on filedocumented as of this encounter Last Filed Vital Signs Vital SignReadingTime TakenCommentsBlood Elvgegrv340/5805/05/2025 10:01 AM EST Pulse--Temperature--Respiratory Rate--Oxygen Saturation--Inhaled Oxygen Concentration--Feqgdk24.5 kg (151 lb)05/05/2025 10:01 AM ESTHeight--Body Mass Index25.1305 11:44 AM EDTdocumented in this encounter Progress Notes * Kaley Musa - 05/05/2025 10:00 AM EST Reason for Appointment: Patient ID: [...] nursing note reviewed. Exam conducted with a renewals representative present. Vitals: Estimated body mass index is 25.13 kg/m?? as calculated from the following: Height as of 10/27/24: 5' 5 . Weight as of this encounter: 151 lb. BP: 108/58 No LMP recorded. Patient is . ASSESSMENT & PLAN ICD-10-CM 1. Third trimester ([facility]) Z34.93 2. 34 weeks gestation of ([facility]) Z3A.34 POCT urinalysis dipstick manually resulted Assessment/Plan Return OB: Patient presents today for a routine obstetrics appointment. Patient is currently 34w2d . Patient states she is doing well [...] week for routine OB appointment. Documented by Kaley Musa CST on behalf of: SARAH Bartlett documented in this encounter Plan of Treatment DateTypeDepartmentCare Team (Latest Contact Info)Ucuubbzklro17/03/2025 11:30 AM ESTRoutine [facility] [address] [facility] [place] [address] Mendel Rosa DO [address] [facility] [address] [place], [place] [address] documented as of this encounter Procedures Procedure NamePriorityDate/TimeAssociated DiagnosisCommentsPOCT URINALYSIS KDHCDJAWGzbhmea21/19/2025 10:09 AM EST 34 weeks gestation of ([facility]) documented in this encounter Results * (ABNORMAL) POCT urinalysis dipstick manually resulted (05/05/2025 10:09 AM EST)ComponentValueRef RangeTest MethodAnalysis TimePerformed AtPathologist SignatureColor, UAYellowClarity, UAClearGlucose, UANegativeNegative - 2000(110) ++++ mg/dLBilirubin, UANegativeNegative - 4(70) +++ mg/dLKetones, UA NegativeNegative - 160(16) ++++ mg/dLSpec Grav, UA1.0201 - 1.03Blood, UA NegativeNegative - 50 Ryder/mcLpH, UA6.55 - 9Protein, UATraceNegative - 2000(20) ++++ mg/dLUrobilinogen, UA1.00.2 - 12 mg/dLLeukocytes, UA2+Negative - 500+++ Astrid/mcLNitrite, UANegativeNegative - PositiveSpecimen (Source)Anatomical Location / LateralityCollection Method / VolumeCollection TimeReceived Time Urine05/05/2025 10:09 AM EST Narrative Authorizing ProviderResult TypeResult StatusInova Health System TEST ENTER/EDIT ORDERABLESFinal Result documented in this encounter Visit Diagnoses Diagnosis Third trimester ([facility]) state, incidental 34 weeks gestation of ([facility]) documented in this encounter Care Teams Team MemberRelationshipSpecialtyStart DateEnd Date Kym Peraza MD [address] [place] [address] PCP - GeneralFamily Medicine11/28/22 Rosita Yanes MD [address] [place] [address] Referring PhysicianFamily Medicine11/28/22documented as of this encounter
--- NOTE | 2025-05-19 | US_ITS ---
The [place] [id number] Patient Name: JOSÉ LUIS NOVOA MRN: [id number] date: 2000 Sex: F Assigned Patient Location: [facility] Current Patient Location: [facility] Accession/Order Number: [id number] Exam Date: 05/19/2025 09:26 Report Date: 05/19/2025 10:23 At the request of: LIA LEA DO Procedure: US OB BPP w non-stress BIOPHYSICAL PROFILE: CLINICAL INFORMATION: BORDERLINE OLIGOHYDRAMNIOS COMPARISON: 05/12/2025 There is a single live intrauterine gestation in cephalic presentation. The reported gestational age is 36 weeks 2 days. The heart rate measures 124 beats per minute. FINDINGS: TONE: 1 or more episodes of activity extension and flexion of extremity or opening and closing of the hand [Y] 2/2 GROSS BODY MOVEMENTS: 3 or more discrete body or limb movements [Y] 2/2 BREATHING MOVEMENTS: 1 or more episodes of breathing lasting at least 30 seconds [Y] 2/2 RUCHI: A single deepest vertical pocket of amniotic fluid greater than 2 cm [Y] 2/2 RUCHI: 11.3 cm Total score: 8/8 US/US OB BPP w non-stress IMPRESSION: NORMAL BIOPHYSICAL PROFILE Impression dictated by: Jacqui Mendoza M.D. 05/19/2025 10:23 AM Dictation Location: [place] [address] Electronically authenticated by: [id number] Y Date: 05/19/2025 10:23
--- OUTSIDE RECORDS SUMMARY | 2025-05-19 09:16 | XMS_ITS | Encounter Summary ---
Author Organization [facility] Healthcare Address [address] [place] [address] Care Team Providers Care Side Seam Tender Name Role Phone Kym Peraza MD Primary Care Provider [phone] Rosita Yanes MD Unavailable [phone] Encounter Details DateTypeDepartmentCare Team (Latest Contact Info)Zjjbxxshexx03/24/2025Patient Outreach [facility] [address] [place] [address] Marianna Galdamez, GABRIELLA [address] [place] [address] Social History Tobacco UseTypesPacks/DayYears UsedDateSmoking Tobacco: NeverSmokeless [...] times a week02/20/2023How often do you attend yazdanism or moravian services?1 to 4 times per year02/20/2023 Do you belong to any clubs or organizations such as yazdanism groups, unions, fraternal or athletic groups, or school groups?No02/20/2023How often do you attend meetings of the clubs or organizations you belong to?Never02/20/2023re you , , , , never , or living with a partner?Living with burvyal9502/20/2023UDIT-CAnswerDate RecordedQ1: How often do you have a [...] and heating?Not very hard02/20/2023HQ-2AnswerDate RecordedPatient Health Questionnaire-2 Rfeza572Fin[facility] hospital [place] of Occupational Health - Occupational Stress QuestionnaireAnswerDate RecordedDo you feel stress - tense, restless, nervous, or anxious, or unable to sleep at night because yourmind is troubled all the time - these days?Only a hydkcq5902/20/2023Exercise Vital Sign AnswerDate RecordedOn average, how many [...] in ashelter (including now)?No 02/20/2023Estimated Date of UolzilhiFcxkehozVqb04/29/2025Based on Ultrasound, FHR- 176Sex and Gender InformationValueDate RecordedSex Assigned at BirthNot on fileLegal OpgFtmuhu37/15/2023 6:51 PM EDTGender IdentityNot on file Sexual OrientationNot on filedocumented as of this encounter Progress Notes * Marianna Galdamez LPN - 05/10/2025 12:25 PM EST Monthly Outreach. Call to pt. Pt reports she feels baby moving frequently. Pt reports nothing has changed since last outreach. Pt denies nay questions, concerns or needs today. Pt encouraged to reachout if needed. documented in this encounter Plan of Treatment DateTypeDepartmentCare Team (Latest Contact Info)Tyudghputdk27/03/2025 11:30 AM ESTRoutine [facility] [address] [facility] [place] [address] Mendel Rosa DO [address] [facility] [place] [address] documented as of this encounter Visit Diagnoses Not on filedocumented in this encounter Care Teams Team MemberRelationshipSpecialtyStart DateEnd Date Kym Peraza MD [address] [place] [address] [facility] - [facility]11/28/22 Rosita Yanes MD [address] [place] [address] Referring [facility]icianP[facility]11/28/22documented as of this encounter
--- OUTSIDE RECORDS SUMMARY | 2025-05-19 09:16 | XMS_ITS | Encounter Summary ---
Author Organization [facility] Address [address] [place] [address] Care Team Providers Care Medicare Specialist Name Role Phone Kym Peraza MD Primary Care Provider [phone] Rostia Yanes MD Unavailable [phone] Encounter Details DateTypeDepartmentCare Team (Latest Contact Info)Vcinzfmfwxs48/19/2025amboo flowsheet ROZ NUNEZ [address] [facility] [place] [address] Marianna Herrera PA [address] [facility] [address] [place], [facility] Social History Tobacco UseTypesPacks/DayYears UsedDateSmoking Tobacco: NeverSmokeless Tobacco: NeverAlcohol UseStandard Drinks/WeekCommentsNever0 (1 standard drink = 0.6 oz pure alcohol)Humiliation, Afraid, Rape, and Kick questionnaireAnswerDate RecordedWithin the last year, have you been afraid of your partner or ex-partner?02/20/2023Within the last year, have you been humiliated [...] times a week02/20/2023How often do you attend jew or uatsdin services?1 to 4 times per year02/20/2023 Do you belong to any clubs or organizations such as jew groups, unions, fraternal or athletic groups, or school groups?No02/20/2023How often do you attend meetings of the clubs or organizations you belong to?Never02/20/2023re you , , , , never , or living with a partner?Living with uxhhaak0602/20/2023UDIT-CAnswerDate RecordedQ1: How often do you have a [...] and heating?Not very hard02/20/2023HQ-2AnswerDate RecordedPatient Health Questionnaire-2 Isqcm033Finuintah [facility] medical center [place] of Occupational Health - Occupational Stress QuestionnaireAnswerDate RecordedDo you feel stress - tense, restless, nervous, or anxious, or unable to sleep at night because yourmind is troubled all the time - these days?Only a fsfbzy0002/20/2023Exercise Vital Sign AnswerDate RecordedOn average, how many [...] in ashelter (including now)?No 3Estimated Date of VhrsslfeAwpaqhlyTie56/29/2025Based on Ultrasound, FHR- 176Sex and Gender InformationValueDate RecordedSex Assigned at BirthNot on fileLegal OsaEszjar76/15/2023 6:51 PM EDTGender IdentityNot on file Sexual OrientationNot on filedocumented as of this encounter Plan of Treatment DateTypeDepartmentCare Team (Latest Contact Info)Vlunucldawp32/03/2025 11:30 AM ESTRoutine [facility] [address] [facility] [address] Mendel Rosa, [address] [facility] [address] [place], [place] [id number] documented as of this encounter Visit Diagnoses Not on filedocumented in this encounter Care Teams Team MemberRelationshipSpecialtyStart DateEnd Date Kym Peraza MD [address] [place] [address] PCP - GeneralFamily Medicine11/28/22 Rosita Yanes MD [address] [place] [address] Referring PhysicianFamily Medicine11/28/22documented as of this encounter
--- OUTSIDE RECORDS SUMMARY | 2025-05-19 09:16 | XMS_ITS | Encounter Summary ---
Author Organization [facility] Address [address] [place] [address] Care Team Providers Care Pediatric Dermatologist Name Role Phone Kym Peraza MD Primary Care Provider [phone] Rosita Yanes MD Unavailable [phone] Encounter Details DateTypeDepartmentCare Team (Latest Contact Info)Askqdmaxcef48/26/2025Clinisync Result Encounter [facility] Unsolicited Marianna Varela PA [address] [place] [address] [place] [address] Social History Tobacco UseTypesPacks/DayYears UsedDateSmoking Tobacco: NeverSmokeless [...] times a week02/20/2023How often do you attend hindu or sabianist services?1 to 4 times per year02/20/2023 Do you belong to any clubs or organizations such as hindu groups, unions, fraternal or athletic groups, or school groups?No02/20/2023How often do you attend meetings of the clubs or organizations you belong to?Never02/20/2023re you , , , , never , or living with a partner?Living with jrijfnk3702/20/2023UDIT-CAnswerDate RecordedQ1: How often do you have a [...] and heating?Not very hard02/20/2023HQ-2AnswerDate RecordedPatient Health Questionnaire-2 Qqwer857Finbrigham city [facility] - Occupational Stress QuestionnaireAnswerDate RecordedDo you feel stress - tense, restless, nervous, or anxious, or unable to sleep at night because yourmind is troubled all the time - these days?Only a uyfosb2602/20/2023Exercise Vital Sign AnswerDate RecordedOn average, how many [...] in ashelter (including now)?No 3Estimated Date of FjjrfgtxQvykvxghLzy36/29/2025Based on Ultrasound, FHR- 176Sex and Gender InformationValueDate RecordedSex Assigned at BirthNot on fileLegal KfpThkjtk35/15/2023 6:51 PM EDTGender IdentityNot on file Sexual OrientationNot on filedocumented as of this encounter Plan of Treatment DateTypeDepartmentCare Team (Latest Contact Info)Zhsjcuadpat10/03/2025 11:30 AM ESTRoutine [facility] [address] [id number] Mendel Rosa, [address] [place], [place] [id number] documented as of this encounter Procedures Procedure NamePriorityDate/TimeAssociated DiagnosisCommentsUS OB BPP W NON-ESAGMF4205/12/2025 11:37 AM EST documented in this encounter Results * US OB BPP W NON-STRESS (05/12/2025 11:37 AM EST)Anatomical Region LateralityModalityOtherSpecimen (Source)Anatomical Location / Laterality Collection Method / VolumeCollection TimeReceived Time05/12/2025 11:37 AM EST Narrative 05/12/2025 11:39 AM EST [facility] ?[address] ? [place] [address] ? Ultrasound Report ? Signed ? Patient: SOMMER,JOSÉ LUIS P ? MR#: [id number] ?? : 2000 ?Acct:[id number] ?? Age/Sex: 24 / F ?ADM Date: 11/26/25 ?? Loc: [facility] ??250-1 ? Attending Dr: Marianna Varela ? Ordering Physician: Marianna Varela ?? Date of Service: 05/12/25 ?? Procedure(s): US OB BPP w non-stress ?? Accession Number(s): [id number] ? cc: Marianna Varela; DUKE PERAZA ? [facility] ? [address] ? [place] [address] ? Patient Name: ?? JOSÉ LUIS NOVOA ? MRN: [facility]:[id number] ? date: 2000 ?Sex: F ?? Assigned Patient Location: [facility] ?? Current Patient Location: [facility] ?? Accession/Order Number: [id number] ?? Exam Date: 05/12/2025 ??11:05 ?Report Date: 05/12/2025 ??11:37 ? At the request of: ?? MARIANNA ??NICHOLE ? Procedure: ??US OB BPP w non-stress ? BIOPHYSICAL PROFILE: ? CLINICAL INFORMATION: Borderline low RUCHI ? COMPARISON: 05/05/2025 ? There is a single live intrauterine gestation in cephalic presentation. ??The ?? reported gestational age is 35 weeks 2 days. ??The heart rate measures ?? 131 beats per minute. ? FINDINGS: ? TONE: [...] 2 cm ? [Y] ? 2/2 ?RUCHI: 10.9 cm. ??The 5th percentile is 7.9 cm. ? Total score: ? 8/8 ? US/US OB BPP w non-stress ?? IMPRESSION: ? NORMAL BIOPHYSICAL PROFILE ? Impression dictated by: Jacqui Mendoza M.D. ??05/12/2025 11:37 AM ? Dictation Location: RADIO-PC-02 ? Electronically authenticated by: [id number] ??Y ?? Date: 05/12/2025 ??11:37 ? Dictated By: ?Jacqui Mendoza M.D. ? Signed By: ?05/12/25 1139 ? DD/ 1137 ? TD/TT: ? Typewriter Operator Automatic: Procedure Note Radiology, Radiologist, MD - 05/12/2025 [place] [address] Ultrasound Report Signed Patient: JOSÉ LUIS NOVOA PMR#: [id number] : 2000Acct:[id number] Age/Sex: 24 / FADM Date: 05/12/25 Loc: [facility] 250-[address]: Marianna Varela Ordering Physician: Marianna Varela Date of Service: 05/12/25 Procedure(s): US OB BPP w non-stress Accession Number(s): [id number] cc: Marianna Varela; DU[facility] PERAZA [place] [address] Patient Name: JOSÉ LUIS NOVOA MRN: [id number] date: 2000 Sex: F Assigned Patient Location: [facility] Current Patient Location: [facility] Accession/Order Number: [id number] Exam Date: 05/12/2025 11:05 Report Date: 05/12/2025 11:37 At the request of: MARIANNA VARELA Procedure: US OB BPP w non-stress BIOPHYSICAL PROFILE: CLINICAL INFORMATION: Borderline low RUCHI COMPARISON: 05/05/2025 There is a single live intrauterine gestation in cephalic presentation.The reported gestational age is 35 weeks 2 days. The heart ratemeasures 131 beats per minute. FINDINGS: TONE: 1 or [...] fluid greater than 2 cm [Y] 2/2 URCHI: 10.9 cm. The 5th percentile is 7.9 cm. Total score: 8/8 US/US OB BPP w non-stress IMPRESSION: NORMAL BIOPHYSICAL PROFILE Impression dictated by: Jacqui Mendoza M.D. 05/12/2025 11:37 AM Dictation Location: [place] [address] Electronically authenticated by: [id number] Y Date: 1:37 Dictated By: Jacqui Mendoza M.D. Signed By:05/12/25 1139 DD/ 1137 TD/TT: Typewriter Operator Automatic: Authorizing ProviderResult TypeResult StatusAmy Nichole PACLINISYNC IMAGINGFinal Result documented in this encounter Visit Diagnoses Not on filedocumented in this encounter Care Teams Team MemberRelationshipSpecialtyStart DateEnd Date Kym Peraza MD [address] [place] [address] PCP - GeneralFapeter [facility]11/28/22 Rosita Yanes MD [address] [place] [address] Referring PhysicianFami Medicine11/28/22documented as of this encounter
--- OUTSIDE RECORDS SUMMARY | 2025-05-19 09:16 | XMS_ITS | Clinical Summary ---
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 Name Role Phone Kym Peraza MD Primary Care Provider Rosita Yanes MD Unavailable [phone] Allergies No known active allergies Medications MedicationSigDispense QuantityRefillsLast FilledStart DateEnd DateStatus ondansetron ODT (Zofran-ODT) 4 MG disintegrating tablet Indications:NauseaTake 1 tablet (4 mg) by mouth every 8 (eight) hours if needed for vomiting or nausea 20 tablet 5Active multivitamin () 27-0.8 MG tablet Indications:8 weeks gestation of ([facility])Take 1 tablet by mouth Daily 90 tablet /6Active pseudoephedrine (Sudafed) 30 MG tablet Take 30 mg by mouth every 4 (four) hours if needed for congestionActive nitrofurantoin, macrocrystal-monohydrate, (Macrobid) 100 MG capsule TAKE 1 CAPSULE BY MOUTH EVERY MORNING, and ONE CAPSULE before bedtime FOR 7 DAYS 5Active nitrofurantoin, macrocrystal-monohydrate, (Macrobid) 100 MG capsule Indications:UTI symptomsTake 1 capsule (100 mg) by mouth in the morning and 1 capsule (100 mg) before bedtime. Do all this for 7 days. 14 capsule 5Active Active Problems ProblemNoted DateDiagnosed WptzKbartrc96/16/2023Mild episode of recurrent major depressive clixnvvb86/16/2023Estimated Date of DeliveryCommentsYes 5Based on Ultrasound, FHR- 176 Resolved Problems ProblemNoted DateDiagnosed DateResolved DateAcute cough/08/2023 Zxtxvhrhxvhz97 Assessment & Plan (08/02/2023 3:58 PM EST): Will try inhaler and follow up as needed or if symptoms change or worsen Encounters DateTypeDepartmentCare SwjzVcjddrdosuc30/26/2025Telephone NOMS [place] OBPARISN [address] [place] [address] Mendel Rosa DO 05/12/2025linisync Result Encounter NOMS External Department Unsolicited Marianna Varela PA 05/10/2025Patient Outreach N[facility]S [facility] [address] [place] [address] Marianna Galdamez LPN 05/05/2025 10:00 AM ESTRoutine NOMS [place] NUNE[facility] [address] [place] [address] Marianna Varela PA Third trimester ([facility]); 34 weeks gestation of ([facility])05/05/2025linisync Result Encounter NOMS External Department Unsolicited Marianna Varela PA 05/05/2025linisync Result Encounter NOMS External Department Unsolicited Marianna Varela PA 05/05/2025amboo flowsheet NOMS [place] NUNEZ [address] [place] [address] Marianna Varela PA 04/29/2025Telephone NOMS [place] N[facility] [address] [place] [address] Lenka Jimenez MA 04/28/2025linisync Result Encounter NOMS External Department Unsolicited Marianna Varela PA 04/22/2025linisync Result Encounter NOMS External Department Unsolicited Marianna Varela PA 04/21/2025 11:00 AM ESTRoutine [facility] [place] [facility] [address] [place] [address] Mendel Rosa, DO Third trimester ([facility]); 32 weeks gestation of ([facility]); RUCHI (amniotic fluid index) borderline low; Oligohydramnios in third trimester, fetus 1 of multiple gestation ([facility]) 04/21/2025Telephone [facility] [place] [facility] [address] [place] [address] Mendel Rosa, DO 04/21/2025amboo flowsheet [facility] [place] [facility] [address] [place] [address] Mendel Rosa, DO 04/14/2025Telephone [facility] [place] [facility] [address] [place] [address] Mendel Rosa, DO 04/14/2025linisync Result Encounter NOMS External Department Unsolicited Marianna Varela PA 04/09/2025Patient Outreach NOMS [facility] [address] [place] [address] Marianna Galdamez LPN 04/07/2025 10:50 AM EDTRoutine NOM[facility] [place] [facility] [address] [place] [address] Marianna Varela PA Third trimester ([facility]); 30 weeks gestation of ([facility]); Exposure to STD; RUCHI (amniotic fluid index) borderline low; BV (bacterial vaginosis)04/07/2025amboo flowsheet [facility] [place] [facility] [address] [place] [address] Marianna Varela PA 04/06/2025Telephone [facility] [place] [facility] [address] [place] [address] Mendel Rosa, DO 04/05/2025Telephone [facility] [place] [facility] [address] [place] [address] Lenka Jimenez [place] 03/31/2025 1:30 PM EDTAncillary Procedure N[facility] [place] [facility] [address] [place] [address] size inconsistent with dates ([facility])03/29/2025linisync Result Encounter NOMS External Department Unsolicited Mendel Rosa, 03/29/2025Telephone [facility] [place] [facility] [address] [place] [address] Mendel Rosa, DO 03/24/2025 10:30 AM EDTRoutine N[facility] [place] [facility] [address] [place] [address] Radha Resendez NP size inconsistent with dates ([facility]) (Primary Dx); Third trimester ([facility]); 28 weeks gestation of ([facility])03/24/2025amboo flowsheet [facility] [place] [facility] [address] [place] [address] Radha Resendez NP 03/16/2025bstract [facility] [place] [facility] [address] [place] [address] Lenka Jimenez [place] 03/11/2025Patient Outreach [facility] [address] [place] [address] Marianna Galdamez LPN 03/10/2025bstract [facility] [address] [place] [address] Marianna Galdamez LPN 03/03/2025 10:30 AM EDTRoutine [facility] [place] [facility] [address] [place] [address] Marianna Varela PA 25 weeks gestation of ([facility]); Second trimester ([facility]); Diabetes mellitus iilnrnwcn82/17/2025amboo flowsheet N[facility] [place] [facility] [address] [facility] [place] [address] Marianna Varela PA 02/19/2025Orders Only NOMS [place] [facility] [address] [place] [address] Lenka Jimenez MA from Last 3 Months Immunizations ImmunizationAdministration DatesNext KvgWLV3001/23/2005,05/07/2001,02/15/2000DTaP, Owfbxvaysgz30/26/2000HPV 9-Mdjtbv7409/10/2016,05/15/2016,03/12/2016Hep A, ped/adol, 2 dose09/10/2016,03/12/2016Hep B, Adolescent or Mhfasubrg15/09/2001, 02/15/2000,1999HiB, tlzrzjkylot05/31/2001,05/07/2001,04/11/2000,02/05/2000 MMR01/23/2005,06/16/2001Meningococcal B, Omv107/15/2015,03/12/2016Meningococcal BDT2R4703/12/2016Polio, Kbusupllbrw27/09/2005,05/07/2001,04/11/2000,02/15/2000Tdap 12/01/2021,12/08/2019,03/03/20128041Eqqfggxrd97/29/2016,01/01/2001 Family History Medical HistoryRelationNameCommentsHypertensionOtherBone cancerPaternal GrandfatherCancerPaternal GrandfatherRelationNameStatusCommentsOtherPaternal [...] week02/20/2023How often do you attend hindu or faith services?1 to 4 times per year02/20/2023o you belong to any clubs or organizations such as hindu groups, unions, fraternal or athletic groups, or school groups?No02/20/2023How often do you attend meetings of the clubs or organizations you belong to?Never02/20/2023re you , , , , never , or living with a partner?Living with johxdmc4602/20/2023 AUDIT-CAnswerDate RecordedQ1: How often do you have [...] heating?Not very hard02/20/2023HQ-2Answer Date RecordedPatient Health Questionnaire-2 Jhlkt219[facility] [place] [facility] Occup[facility] - Occupational Stress QuestionnaireAnswerDate RecordedDo you feel stress - tense, restless, nervous, or anxious, or unable to sleep at night because yourmind is troubled all the time - these days?Only a trogrp6602/20/2023 Exercise Vital SignAnswerDate RecordedOn average, how many [...] steady place to sleep or slept in viennaelter (including now)?No02/20/2023Estimated Date of Delivery XirdfzyzGxg14/29/2025Based on Ultrasound, FHR- 176Sex and Gender Information ValueDate RecordedSex Assigned at BirthNot on fileLegal OloViorkx76/15/2023 6:51 PM EDTGender IdentityNot on fileSexual OrientationNot on file Last Filed Vital Signs Vital SignReadingTime TakenCommentsBlood Crjurtxw174/5805/05/2025 10:01 AM EST Izfgs686210/27/2024 11:44 AM SKHSlscsbaqqdp08.8 ??C (98.3 ??F)10/27/2024 11:44 AM EDTRespiratory Rate--Oxygen Pspxcysjap60%10/27/2024 11:44 AM EDTInhaled Oxygen Concentration--Pnzllx20.5 kg (151 lb)05/05/2025 10:01 AM UOQWyolve378.1 cm (5' 5 )10/27/2024 11:44 AM EDTBody Mass Index25.13010/27/2024 11:44 AM EDT Plan of Treatment DateTypeDepartmentCare Team (Latest Contact Info)Dyqqakbqxbt55/03/2025 11:30 AM ESTRoutine [facility] [place] [facility] [address] [place] [address] Mendel Rosa DO [address] [place] [address] Health MaintenanceDue DateLast DoneCommentsCOVID-19 Vaccine (2024- season) 2025Influenza Vaccine (#1)2025Pneumococcal Vaccine: Pediatrics (0 to 5 Years) and At-Risk Patients (6 to 64 Years)Aged OutNo longer eligible based on patient's age to complete this topic Procedures Procedure NamePriorityDate/TimeAssociated DiagnosisCommentsUS OB BPP W NON-ABLISN6805/12/2025 11:37 AM EST US OB BPP W NON-NCBTPV4305/05/2025 11:35 PM EST US OB EXNCTC0805/05/2025 11:35 PM EST POCT URINALYSIS PTIYEZQKClgvzvs07/19/2025 10:09 AM EST 34 weeks gestation of ([facility]) US OB BPP W NON-LSACSD1204/28/2025 12:44 PM EST US OB BPP W NON-VLINQC6704/22/2025 7:58 AM EST POCT URINALYSIS GPUUPEARYjkbbjv84/05/2025 12:20 PM EST Third trimester ([facility] 32 weeks gestation of ([facility]) US OB BPP W NON-BXSBUW2604/14/2025 11:19 AM EDT RECURRENT VAGINITIS (HTRX)Dhqvpqm7204/07/2025 11:52 AM EDT POCT URINALYSIS KTUMWRYUWadtdnb43/22/2025 10:53 AM EDT Third trimester ([facility]) US OB FOLLOW UP TRANSABDOMINAL XQDJIGRRPhsmmyy33/15/2025 1:59 PM EDT size inconsistent with dates ([facility]) URINE CULTURE, SPJFNRFZavrvps47/13/2025 1:45 PM EDT [facility] UA (CLEAN/CATCH) BEER MERCHANT/MICRO IF IND.Efyzutf6303/29/2025 1:45 PM EDT POCT URINALYSIS MMIOSDYYXahtnet58/08/2025 10:44 AM EDT Third trimester ([facility]) POCT URINALYSIS EULONXJGHzcvmwj10/17/2025 10:37 AM EDT 25 weeks gestation of ([facility]) Second trimester ([facility]) from Last 3 Months Results * US OB BPP W NON-STRESS (05/12/2025 11:37 AM EST) Only the most recent of5 resultswithin the time period is included. Anatomical RegionLateralityModalityOtherSpecimen (Source)Anatomical Location / LateralityCollection Method / VolumeCollection TimeReceived Time05/12/2025 11:37 AM EST Narrative 05/12/2025 11:39 AM EST The [facility] ?[address] ? [place] [address] ? Ultrasound Report ? Signed ? Patient: JOSÉ LUIS NOVOA ? MR#: [id number] ?? : 2000 ?Acct:[id number] ?? Age/Sex: 24 / F ?ADM Date: 05/12/25 ?? Loc: [facility] ??250-1 ? Attending Dr: Marianna Varela ? Ordering Physician: Marianna Varela ?? Date of Service: 05/12/25 ?? Procedure(s): US OB BPP w non-stress ?? Accession Number(s): [id number] ? cc: Marianna Varela; DUKE PERAZA ? [facility] ? [address] ? [place] [address] ? Patient Name: ?? JOSÉ LUIS NOVOA ? MRN: [facility]:[id number] ? date: 2000 ?Sex: F ?? Assigned Patient Location: [facility] ?? Current Patient Location: [facility] ?? Accession/Order Number: [id number] ?? Exam Date: 05/12/2025 ??11:05 ?Report Date: [...] Dictation Location: RADIO-PC-02 ? Electronically authenticated by: [id number] ??Y ?? Date: 05/12/2025 ??11:37 ? Dictated By: ?Jacqui Mendoza M.D. ? Signed By: ?05/12/25 1139 ? DD/ 1137 ? TD/TT: ? Talcer: Procedure Note Radiology, Radiologist, MD - 05/12/[address] [address] Ultrasound Report Signed Patient: JOSÉ LUIS NOVOA PMR#: [id number] : 2000Acct:[id number] Age/Sex: 24 / FADM Date: 05/12/25 Loc: [facility] 250-[address]: Marianna Varela Ordering Physician: Marianna Varela Date of Service: 05/12/25 Procedure(s): US OB BPP w non-stress Accession Number(s): [id number] cc: Marianna Varela; DUKE PERAZA [address] [address] Patient Name: JOSÉ LUIS NOVOA MRN: [id number] date: 2000 Sex: F Assigned Patient Location: [facility] Current Patient Location: [facility] Accession/Order Number: [id number] Exam Date: 05/12/2025 11:05 Report Date: 05/12/2025 [...] greater than 2 cm [Y] 2/2 RUCHI: 10.9 cm. The 5th percentile is 7.9 cm. Total score: 8/8 US/US OB BPP w non-stress IMPRESSION: NORMAL BIOPHYSICAL PROFILE Impression dictated by: Jacqui Mendoza M.D. 05/12/2025 11:37 AM Dictation Location: [place] [address] Electronically authenticated by: [id number] Y Date: 1:37 Dictated By: Jacqui Mendoza M.D. Signed By:05/12/25 1139 DD/ 1137 TD/TT: Talcer: Authorizing ProviderResult TypeResult StatusMarianna Varela PACLINISYNC IMAGINGFinal Result * US OB GROWTH (05/05/2025 11:35 PM EST)Anatomical RegionLateralityModalityOther Specimen (Source)Anatomical Location / LateralityCollection Method / Volume Collection TimeReceived Time05/05/2025 11:35 PM EST Narrative 05/05/2025 11:38 PM EST The [facility] ?[address] ? [place] [address] ? Ultrasound Report ? Signed ? Patient: JOSÉ LUIS NOVOA ? MR#: [id number] ?? : 2000 ?Acct:[id number] ?? Age/Sex: 24 / F ?ADM Date: 05/05/25 ?? Loc: US ? Attending Dr: Marianna Varela ? Ordering Physician: Marianna Varela ?? Date of Service: 05/05/25 ?? Procedure(s): US OB growth ?? Accession Number(s): [id number] ? cc: Marianna Varela; DUKE PERAZA ? The [facility] ? [address] ? [place] [address] ? Patient Name: ?? JOSÉ LUIS NOVOA ? MRN: [facility]:[id number] ? date: 2000 ?Sex: F ?? Assigned Patient Location: [facility] ?? Current Patient Location: [facility] ?? Accession/Order Number: [id number] ?? Exam Date: 05/05/2025 ??11:00 ?Report Date: 05/05/2025 ??23:35 ? At the request of: ?? MARIANNA ??NICHOLE ? Procedure: ??US OB growth ? Ultrasound biophysical profile ? HISTORY: Borderline low amniotic fluid index ? Adequate breathing movement, gross body movement, tone and ?? amniotic fluid volume for total score of 8 out of 8. ??The amniotic fluid index ?? is 10.0cm within normal limits. ??The heart rate 124 bpm. ? US/US OB growth ?? IMPRESSION: Adequate ultrasound biophysical profile ? Limited ultrasound ? Assessment for growth. ? Fetus in cephalic presentation. ??Amniotic fluid volume 10.0 cm. ??Largest fluid ?? pocket 4.6 cm. ?? heart rate 124 bpm. ?? somatic motion identified. ? The gestational age by ultrasound 35 weeks 3 days. ??Estimated delivery ?? 06/06/2025. ??Estimated weight 2740 g. ??83% weight percentile. ? IMPRESSION: Single live intrauterine gestation 35 weeks 3 days. ? Impression dictated by: Abdiaziz Doran M.D. ??05/05/2025 11:35 PM ? Dictation Location: [facility]-PC-20 ? Electronically authenticated by: [id number] ??Y ?? Date: 05/05/2025 ??23:35 ? Dictated By: ?Abdiaziz Doran D.O. ? Signed By: ?05/05/258 ? DD/ ? TD/TT: ? Talcer: Procedure Note Radiology, Radiologist, - 05/05/2025 The [place] [id number] Ultrasound Report Signed Patient: JOSÉ LUIS NOVOA PMR#: [id number] : 2000Acct:[id number] Age/Sex: 24 / FADM Date: 05/05/25 Loc: US Attending Dr: Marianna Varela Ordering Physician: Marianna Varela Date of Service: 05/05/25 Procedure(s): US OB growth Accession Number(s): [id number] cc: Marianna Varela; DUKE PERAZA The [address] [address] Patient Name: JOSÉ LUIS NOVOA MRN: [id number] date: 2000 Sex: F Assigned Patient Location: [facility] Current Patient Location: [facility] Accession/Order Number: [id number] Exam Date: 05/05/2025 11:00 Report Date: 05/05/2025 23:35 At the request of: MARIANNA VARELA Procedure: US OB growth Ultrasound biophysical profile HISTORY: Borderline low amniotic fluid index Adequate breathing movement, gross body movement, tone and amniotic fluid volume for total score of 8 out of 8. The amniotic fluidindex is 10.0cm within normal limits. The heart rate 124 bpm. US/US OB growth IMPRESSION: Adequate ultrasound biophysical profile Limited ultrasound Assessment for growth. Fetus in cephalic presentation. Amniotic fluid volume 10.0 cm. Largestfluid pocket 4.6 cm. heart rate 124 bpm. somatic motionidentified. The gestational age by ultrasound 35 weeks 3 days. Estimated delivery 06/06/2025. Estimated weight 2740 g. 83% weight percentile. IMPRESSION: Single live intrauterine gestation 35 weeks 3 days. Impression dictated by: Abdiaziz Doran M.D. 05/05/2025 11:35 PM Dictation Location: [place] [address] Electronically authenticated by: [id number] Y Date: 3:35 Dictated By: Abdiaziz Doran D.O. Signed By:05/05/258 DD/ 34 TD/TT: Talcer: Authorizing ProviderResult TypeResult StatusAmy Nichole PACLINISYNC IMAGINGFinal Result * (ABNORMAL) POCT urinalysis dipstick manually resulted (05/05/2025 10:09 AM EST) Only the most recent of5 resultswithin the time period is included. ComponentValueRef RangeTest MethodAnalysis TimePerformed AtPathologist Signature Color, UAYellowClarity, UAClearGlucose, UANegativeNegative - 2000(110) ++++ mg/dLBilirubin, UANegativeNegative - 4(70) +++ mg/dLKetones, UANegativeNegative - 160(16) ++++ mg/dLSpec Grav, UA1.0201 - 1.03Blood, UANegativeNegative - 50 Ryder/mcLpH, UA6.55 - 9Protein, UATraceNegative - 2000(20) ++++ mg/dLUrobilinogen, UA1.00.2 - 12 mg/dLLeukocytes, UA2+Negative - 500+++ Astrid/mcLNitrite, UANegative Negative - PositiveSpecimen (Source)Anatomical Location / LateralityCollection Method / VolumeCollection TimeReceived NnozRtoew66/19/2025 10:09 AM EST Narrative Authorizing ProviderResult TypeResult StatusAmy Nichole PAPOINT OF CARE TEST ENTER/EDIT ORDERABLESFinal Result * RECURRENT VAGINITIS (HTRX) (04/07/2025 11:52 AM EDT)ComponentValueRef Range Test MethodAnalysis TimePerformed AtPathologist SignatureATOPOBIUM VAGINAE0 19.961 - 24.689 ppm04/08/2025 7:42 AM EDTHealthTrackRx at LabMemorial Hospital Of South BendATOPOBIUM VAGINAENot Lnvyjlao78.961 - 24.689 ppm04/08/2025 7:42 AM EDTHealthTrackRx at LabPortBVAB 2,3 (BACTERIAL VAGINOSIS ASSOCIATED BACTERIA 2, 3); MOBILUNCUS SPP 019.961 - 24.689 ppm04/08/2025 7:42 AM EDTHealthTrackRx at [facility] HealthBVAB 2,3 (BACTERIAL VAGINOSIS ASSOCIATED BACTERIA 2, 3); MOBILUNCUS SPPNot Detected 19.961 - 24.689 ppm04/08/2025 7:42 AM EDTHealthTrackRx at LabPortCANDIDA ALBICANS, PARAPSILOSIS, DXGOPNFPDF741.000 - 30.347 ppm04/08/2025 7:42 AM EDT [facility] at LabPortCANDIDA ALBICANS, PARAPSILOSIS, TROPICALISNot Detected 23.000 - 30.347 ppm04/08/2025 7:42 AM EDTHealthTrackRx at LabPortCANDIDA AJWMYKHG084.000 - 31.618 ppm04/08/2025 7:42 AM EDTHealthTrackRx at LabMem[facility] Bend HORACE GLABRATANot Lcnsmdoa61.000 - 31.618 ppm04/08/2025 7:42 AM EDT [facility] at LabPortCANDIDA KCXTDQ088.000 - 30.873 ppm04/08/2025 7:42 AM EDTHealthTrackRx at LabPortCANDIDA KRUSEINot Ugalbqfw61.000 - 30.873 ppm 04/08/2025 7:42 AM EDTHealthTrackRx at LabPortCHLAMYDIA RZWAPMUEPBR712.000 - 31.586 ppm04/08/2025 7:42 AM EDTHealthTrackRx at LabPortCHLAMYDIA TRACHOMATIS Not Bbbbatft34.000 - 31.586 ppm04/08/2025 7:42 AM EDTHealthTrackRx at LabPort GARDNERELLA NGATNUUHU547.961 - 24.689 ppm04/08/2025 7:42 AM EDTHealthTrackRx at [facility] HealthGARDNERELLA VAGINALISNot Pzjtdogf88.961 - 24.689 ppm04/08/2025 7:42 AM EDTHealthTrackRx at MultiCare HealthMEGASPHAERA (TYPES 1, 2)019.961 - 24.689 ppm 04/08/2025 7:42 AM EDTHealthTrackRx at LabPortMEGASPHAERA (TYPES 1, 2)Not Agdtokzq37.961 - 24.689 ppm04/08/2025 7:42 AM EDTHealthTrackRx at LabPort NEISSERIA TUFTOSKFYRQ281.000 - 32.587 ppm04/08/2025 7:42 AM EDTHealthTrackRx at LabPortNEISSERIA GONORRHOEAENot Ofpziwri01.000 - 32.587 ppm04/08/2025 7:42 AM EDTHealthTrackRx at LabPortTRICHOMONAS HPQUIXSLN487.000 - 31.995 ppm 04/08/2025 7:42 AM EDTHealthTrackRx at LabPortTRICHOMONAS VAGINALISNot Zinkqhxy52.000 - 31.995 ppm04/08/2025 7:42 AM EDTHealthTrackRx at LabPort MYCOPLASMA HVPPUQMASI524.961 - 24.689 ppm04/08/2025 7:42 AM EDTHealthTrackRx at LabPortMYCOPLASMA GENITALIUMNot Iflyvtww78.961 - 24.689 ppm04/08/2025 7:42 AM EDTHealthTrackRx at LabPortSpecimen (Source)Anatomical Location / LateralityCollection Method / VolumeCollection TimeReceived TimeTissue 04/07/2025 11:52 AM EDT1 1:22 AM EDT Narrative Authorizing ProviderResult TypeResult StatusAmy [facility] BLOOD ORDERABLES Final ResultPerforming OrganizationAddressCity/State/ZIP CodePhone Number [facility] at LabPort [address] [address] * US OB follow up transabdominal approach [...] Routine TBHURINE CULTURE, ROUTINEMixed urogenital floraTBHURINE CULTURE, VTOBUVD25,000- 50,000 colony forming units per mLTBHURINE CULTURE, ROUTINEPerformed at: [facility] LabMcLaren Lapeer RegionTBHURINE CULTURE, [id number] [place], [place] [id number] URINE CULTURE, ROUTINELab Director: John Hare PhD, Phone: [phone] Specimen (Source)Anatomical Location / LateralityCollection Method / Volume Collection TimeReceived Time03/29/2025 1:45 PM EDT1 2:20 PM EDT Narrative CLINISYNC - 03/31/2025 7:08 AM EDT Authorizing ProviderResult TypeResult StatusMendel ZHANG BLOOD ORDERABLES Final ResultPerforming OrganizationAddressCity/State/ZIP CodePhone Number CLINISYNC [facility] * (ABNORMAL) [facility] UA (CLEAN/CATCH) BEER MERCHANT/MICRO IF IND. (03/29/2025 1:45 PM EDT) ComponentValueRef [...] Result Performing OrganizationAddressCity/State/ZIP CodePhone Number CLINISYNC [facility] from Last 3 Months Insurance * Guarantor: José Luis NovoaAccount TypeRelation to PatientDate of BirthPhone Billing AddressPersonal/VmvgojSaym66/28/2000 [facility] [place] [address] Care Teams Team MemberRelationshipSpecialtyStart DateEnd Kym Peraza MD [address] [place] [address] [facility] - [facility]11/28/22 Rosita Yanes MD [address] [place] [address] Referring PhysicianFamiAdventHealth Gordon11/28/22
--- OUTSIDE RECORDS SUMMARY | 2025-05-19 09:16 | XMS_ITS | Encounter Summary ---
Author Organization [facility] Address [address] [place] [address] Care Team Providers Care Tissue Rewinder Name Role Phone Kym Peraza MD Primary Care Provider [phone] Rosita Yanes MD Unavailable [phone] Encounter Details DateTypeDepartmentCare Team (Latest Contact Info)Pmxqazpwqjp06/19/2025Clinisync Result Encounter [facility] External Department Unsolicited Marianna Varela PA [address] [place] [address] [place] [address] Social History Tobacco UseTypesPacks/DayYears UsedDateSmoking Tobacco: NeverSmokeless [...] week02/20/2023How often do you attend confucianist or advent services?1 to 4 times per year02/20/2023 Do you belong to any clubs or organizations such as confucianist groups, unions, fraternal or athletic groups, or school groups?No02/20/2023How often do you attend meetings of the clubs or organizations you belong to?Never02/20/2023re you , , , , never , or living with a partner?Living with dfcdead9202/20/2023UDIT-CAnswerDate RecordedQ1: How often do you have a [...] and heating?Not very hard02/20/2023HQ-2AnswerDate RecordedPatient Health Questionnaire-2 Pauqz706[facility] [place] of Occupational Health - Occupational Stress QuestionnaireAnswerDate RecordedDo you feel stress - tense, restless, nervous, or anxious, or unable to sleep at night because yourmind is troubled all the time - these days?Only a txtzhv4102/20/2023Exercise Vital Sign AnswerDate RecordedOn average, how many [...] in ashelter (including now)?No 3Estimated Date of RsnyaeqqWxaijetkUrn96/29/2025Based on Ultrasound, FHR- 176Sex and Gender InformationValueDate RecordedSex Assigned at BirthNot on fileLegal SjxXthgcs08/15/2023 6:51 PM EDTGender IdentityNot on file Sexual OrientationNot on filedocumented as of this encounter Plan of Treatment DateTypeDepartmentCare Team (Latest Contact Info)Medtzdfnemm54/03/2025 11:30 AM ESTRoutine [facility] [address] [place] [address] Mendel Rosa, [address] [facility] [place] [address] documented as of this encounter Procedures Procedure NamePriorityDate/TimeAssociated DiagnosisCommentsUS OB GROWTH 05/05/2025 11:35 PM EST documented in this encounter Results * US OB GROWTH (05/05/2025 11:35 PM EST)Anatomical RegionLateralityModalityOther Specimen (Source)Anatomical Location / LateralityCollection Method / Volume Collection TimeReceived Time05/05/2025 11:35 PM EST Narrative 05/05/2025 11:38 PM EST [facility] ?[address] ? [place] [address] ? Ultrasound Report ? Signed ? Patient: SOMMER,JOSÉ LUIS P ? MR#: [id number] ?? : 2000 ?Acct:[id number] ?? Age/Sex: 24 / F ?ADM Date: 11/19/25 ?? Loc: US ? Attending Dr: Marianna Varela ? Ordering Physician: Marianna Varela ?? Date of Service: 05/05/25 ?? Procedure(s): US OB growth ?? Accession Number(s): [id number] ? cc: Marianna Varela; DUKE PERAZA ? [facility] ? [address] ? [place] [address] ? Patient Name: ?? JOSÉ LUIS NOVOA ? MRN: [facility]:[id number] ? date: 2000 ?Sex: F ?? Assigned Patient Location: [facility] ?? Current Patient Location: [facility]O ?? Accession/Order Number: [id number] ?? Exam Date: 05/05/2025 ??11:00 ?Report Date: [...] M.D. ??05/05/2025 11:35 PM ? Dictation Location: RADIO-PC-20 ? Electronically authenticated by: [id number] ??Y ?? Date: 05/05/2025 ??23:35 ? Dictated By: ?Abdiaziz Doran D.O. ? Signed By: ?05/05/25 2338 ? DD/DT: 05/05/ 2335 ? TD/TT: ? Hand Bulldozer: Procedure Note Radiology, Radiologist, - 05/05/[address] [address] Ultrasound Report Signed Patient: JOSÉ LUIS NOVOA PMR#: [id number] : 2000Acct:[id number] Age/Sex: 24 / FADM Date: 05/05/25 Loc: US Attending Dr: Marianna Varela Ordering Physician: Marianna Varela Date of Service: 05/05/25 Procedure(s): US OB growth Accession Number(s): [id number] cc: Marianna Varela; DUKE PERAZA The [address] [address] Patient Name: JOSÉ LUIS NOVOA MRN: [id number] date: 2000 Sex: F Assigned Patient [facility]: [facility] Current Patient Location: [facility] Accession/Order Number: [id number] Exam Date: 05/05/2025 11:00 Report Date: 05/05/2025 [...] Doran M.D. 05/05/2025 11:35 PM Dictation Location: [employer] Electronically authenticated by: [id number] Y Date: 3:35 Dictated By: Abdiaziz Doran D.O. Signed By:05/05/25 2338 DD/ 34 TD/TT: Hand Bulldozer: Authorizing ProviderResult TypeResult StatusAmy Nichole PACLINISYNC IMAGINGFinal Result documented in this encounter Visit Diagnoses Not on filedocumented in this encounter Care Teams Team MemberRelationshipSpecialtyStart DateEnd Date Kym Peraza MD [address] [place] [address] PCP - GeneralFamily Medicine11/28/22 Rosita Yanes MD [address] [place] [address] Referring PhysicianFamily Medicine11/28/22documented as of this encounter
--- OUTSIDE RECORDS SUMMARY | 2025-05-19 09:16 | XMS_ITS | Encounter Summary ---
Author Organization [facility] Address [address] [place] [address] Care Team Providers Care Data Abstractor Name Role Phone Kym Peraza MD Primary Care Provider [phone] Rosita Yanes MD Unavailable [phone] Encounter Details DateTypeDepartmentCare Team (Latest Contact Info)Agqkvajrucq66/26/2025Telephone [facility] [address] [place] [place] [address] Mendel Rosa DO [address] [place], [facility] Social History Tobacco UseTypesPacks/DayYears UsedDateSmoking Tobacco: NeverSmokeless [...] week02/20/2023How often do you attend alevism or tenriism services?1 to 4 times per year02/20/2023 Do you belong to any clubs or organizations such as alevism groups, unions, fraternal or athletic groups, or school groups?No02/20/2023How often do you attend meetings of the clubs or organizations you belong to?Never02/20/2023re you , , , , never , or living with a partner?Living with cvunujc8402/20/2023UDIT-CAnswerDate RecordedQ1: How often do you have a [...] and heating?Not very hard02/20/2023HQ-2AnswerDate RecordedPatient Health Questionnaire-2 Xiako097Fin[facility] [place] of Occupational Health - Occupational Stress QuestionnaireAnswerDate RecordedDo you feel stress - tense, restless, nervous, or anxious, or unable to sleep at night because yourmind is troubled all the time - these days?Only a dxzlqe2502/20/2023Exercise Vital Sign AnswerDate RecordedOn average, how many [...] in ashelter (including now)?No 02/20/2023Estimated Date of GlxwvajpDvtqgmerOfe50/29/2025Based on Ultrasound, FHR- 176Sex and Gender InformationValueDate RecordedSex Assigned at BirthNot on fileLegal VpoKcozlb49/15/2023 6:51 PM EDTGender IdentityNot on file Sexual OrientationNot on filedocumented as of this encounter Miscellaneous Notes * Telephone Encounter - Roselyn Ramesh LPN - 05/12/2025 4:08 PM EST Patient called the office and she states that she is having Danilo lee and she is wanting to know how many are too many before she goes into be checked out. Patient was called back and she states that this has gotten worse since being home from T/BP and just feeling the belly really super hard and then lessen. Patient was advised since worsen since she was at hospital earlier to head back to make sure not something and a script was sent for UTI medication as this is what she needed last time. PVU and she states that she will go to [facility]. documented in this encounter Plan of Treatment DateTypeDepartmentCare Team (Latest Contact Info)Demnicgkdcw30/03/2025 11:30 AM ESTRoutine [facility] [address] [facility] [place] [address] Mendel Rosa DO [address] [facility] [address] [address] documented as of this encounter Visit Diagnoses Diagnosis UTI symptoms documented in this encounter Care Teams Team MemberRelationshipSpecialtyStart DateEnd Date Kym Peraza MD [address] [place] [address] PCP - GeneralFamily Medicine11/28/22 Rosita Yanes MD [address] [place] [address] Referring PhysicianFamily Medicine11/28/22documented as of this encounter
--- OUTSIDE RECORDS SUMMARY | 2025-05-19 09:16 | XMS_ITS | Encounter Summary ---
Author Organization [facility] Address [address] [place] [address] Care Team Providers Care Stockbroking Dealer Name Role Phone Kym Peraza MD Primary Care Provider [phone] Rosita Yanes MD Unavailable [phone] Encounter Details DateTypeDepartmentCare Team (Latest Contact Info)Xptgmlckote46/19/2025Clinisync Result Encounter [facility] External Department Unsolicited Marianna Varela PA [address] [place] [address] [place] [address] Social History Tobacco UseTypesPacks/DayYears UsedDateSmoking Tobacco: NeverSmokeless [...] week02/20/2023How often do you attend uatsdin or roman catholic services?1 to 4 times per year02/20/2023 Do you belong to any clubs or organizations such as uatsdin groups, unions, fraternal or athletic groups, or school groups?No02/20/2023How often do you attend meetings of the clubs or organizations you belong to?Never02/20/2023re you , , , , never , or living with a partner?Living with txggvvq5602/20/2023UDIT-CAnswerDate RecordedQ1: How often do you have a [...] and heating?Not very hard02/20/2023HQ-2AnswerDate RecordedPatient Health Questionnaire-2 Vebgc728Finblue mountain hospital, inc. [place] of Occupational Health - Occupational Stress QuestionnaireAnswerDate RecordedDo you feel stress - tense, restless, nervous, or anxious, or unable to sleep at night because yourmind is troubled all the time - these days?Only a wckhsf5702/20/2023Exercise Vital Sign AnswerDate RecordedOn average, how many [...] in ashelter (including now)?No 3Estimated Date of XcjhqpvjHlouiumbUua33/29/2025Based on Ultrasound, FHR- 176Sex and Gender InformationValueDate RecordedSex Assigned at BirthNot on fileLegal SrgKlgshg99/15/2023 6:51 PM EDTGender IdentityNot on file Sexual OrientationNot on filedocumented as of this encounter Plan of Treatment DateTypeDepartmentCare Team (Latest Contact Info)Xowtehhvtqa80/03/2025 11:30 AM ESTRoutine [facility] [address] [facility] [facility] [address] Mendel Rosa, [address] [facility] [address] [place], [place] [address] documented as of this encounter Procedures Procedure NamePriorityDate/TimeAssociated DiagnosisCommentsUS OB BPP W NON-WHKQQM0705/05/2025 11:35 PM EST documented in this encounter Results * US OB BPP W NON-STRESS (05/05/2025 11:35 PM EST)Anatomical Region LateralityModalityOtherSpecimen (Source)Anatomical Location / Laterality Collection Method / VolumeCollection TimeReceived Time05/05/2025 11:35 PM EST Narrative 05/05/2025 11:38 PM EST [facility] ?[address] ? [place] [address] ? Ultrasound Report ? Signed ? Patient: SOMMER,JOSÉ LUIS P ? MR#: [id number] ?? : 2000 ?Acct:[id number] ?? Age/Sex: 24 / F ?ADM Date: 11/19/25 ?? Loc: US ? Attending Dr: Marianna Varela ? Ordering Physician: Marianna Varela ?? Date of Service: 05/05/25 ?? Procedure(s): US OB BPP w non-stress ?? Accession Number(s): [id number] ? cc: Marianna Varela; DUKE PERAZA ? The [facility] ? [address] ? [place] [address] ? Patient Name: ?? JOSÉ LUIS Reyes SOMMER ? MRN: [facility]:[id number] ? date: 2000 ?Sex: F ?? Assigned Patient Location: [facility]O ?? Current Patient Location: [facility]O ?? Accession/Order Number: [id number] ?? Exam Date: 05/05/2025 ??11:00 ?Report Date: [...] heart rate 124 bpm. ? US/US OB BPP w non-stress ?? IMPRESSION: Adequate ultrasound biophysical profile ? [...] Dictation Location: RADIO-PC-20 ? Electronically authenticated by: [id number] ??Y ?? Date: 05/05/2025 ??23:35 ? Dictated By: ?Abdiaziz Doran D.O. ? Signed By: ?05/05/ 2338 ? DD/ 2335 ? TD/TT: ? Adjunct Physics Instructor: Procedure Note Radiology, Radiologist, MD - 05/05/2025 [place] [address] Ultrasound Report Signed Patient: JOSÉ LUIS NOVOA PMR#: [id number] : 2000Acct:[id number] Age/Sex: 24 / FADM Date: 05/05/25 Loc: US Attending Dr: Marianna Varela Ordering Physician: Marianna Varela Date of Service: 05/05/25 Procedure(s): US OB BPP w non-stress Accession Number(s): [id number] cc: Marianna Varela; DUKE PERAZA The [place] [address] Patient Name: JOSÉ LUIS NOVOA MRN: [id number] date: 2000 Sex: F [place] [facility] [place] [facility] [place] Patient [place] [facility] Accession/Order Number: [id number] Exam Date: 05/05/2025 11:00 Report Date: 05/05/2025 23:35 At the request of: MARIANNA VARELA Procedure: US OB growth Ultrasound biophysical profile HISTORY: Borderline low amniotic fluid index Adequate breathing movement, gross body movement, tone and amniotic fluid volume for total score of 8 out of 8. The amniotic fluidindex is 10.0cm within normal limits. The heart rate 124 bpm. US/US OB BPP w non-stress IMPRESSION: Adequate ultrasound biophysical profile Limited ultrasound [...] Doran M.D. 05/05/2025 11:35 PM Dictation Location: [facility] Electronically authenticated by: [id number] Y Date: 3:35 Dictated By: Abdiaziz Doran D.O. Signed By:05/05/252337 DD/ 34 TD/TT: Adjunct Physics Instructor: Authorizing ProviderResult TypeResult StatusAmy [facility] PACLINISYNC IMAGINGFinal Result documented in this encounter Visit Diagnoses Not on filedocumented in this encounter Care Teams Team MemberRelationshipSpecialtyStart DateEnd Date Kym Peraza MD [address] [place] [address] PCP - GeneralFamily Medicine11/28/22 Rosita Yanes MD [address] [place] [address] Referring PhysicianFamily Medicine11/28/22documented as of this encounter
[2025-05-19 09:36] LABS: Glucose Urine UA NEGATIVE (NEGATIVE)
[2025-05-19 09:47] LABS: Cast Seen? NONE SEEN #/LPF (NONE SEEN); Crystals Seen? None Seen #/HPF (None Seen); Urine Culture Indicated YES-FRMC
== END 2025-05-19 10:30 | disposition home or self-care (01) ==
LOC: FBC 09:12
PROVIDERS: Admitting Provider Obstetrics & Gynecology; PCP Student in an Organized Health Care Education/Training Program; Visit Provider Obstetrics & Gynecology
DX: O26.893 Other specified pregnancy related conditions, third trimester (principal); Z3A.36 36 weeks gestation of pregnancy
CPT/HCPCS: 76818; 81001; 84112; 87081; 87086; 87184; G0378; G0379

== ENCOUNTER 2025-05-26 09:58 | Outpatient (OUT) | payer OTHER, SELFPAY ==
--- OUTSIDE RECORDS SUMMARY | 2025-05-19 19:36 | XMS_ITS | Continuity of Care Document ---
Author Organization [facility] Address [address] [place] [address] Phone Care Team Providers Care Fire Truck Driver Name Role Phone Mendel Rosa DO Attending Provider Care Teams Patient Care Team Team Status: Active Member Role/Relationship Status Dates Kym Peraza MD Primary Care Provider Active Patient Care Team Team Status: Inactive Member Role/Relationship Status Dates Mendel Rosa DO Attending Provider Active Start : May 19, 2025 End: May 19, 2025 Social History Smoking Status Unknown if ever smoked Observation Status Observation Response Date of Response Legal Sex Female (finding) Sex Assigned At [facility] 2000 Procedures Procedure Date Performed Status Urine Culture May 19, 2025 active Insurance Providers Guarantor Augustine Jimenes Address [address] [facility] [address]Ajyapxq Info.Home Phone: Payer Group Member ID Coverage Type Subscriber Relationship to Subscriber Effective Date Expiration Date 100 ODJFS HRN CTY MH-ADC [employer] [id number] Encounters Encounter Location(s) Arrival/Admit Date Discharge/Departure Date Discharge/Departure Disposition Provider(s) Departed Referred -[facility] May 19, 2025 9:15am May 19, 2025 9:16am Discharged to home care or self care (routine discharge) Mendel Rosa Plan of Treatment Future Tests Future scheduled test information is unavailable Pending Tests Test Name Ordered Date Scheduled Date Urine Culture May 19, 2025 9:15am Future Visits Future appointment information is unavailable Future Procedures Procedure Name Ordered Date Scheduled Date Urine Culture May 19, 2025 12:44pm Decem 2024 9:15am Future Medications Future medication information is unavailable Patient Instructions Patient instructions are unavailable
--- NOTE | 2025-05-26 | US_ITS ---
The [place] [address] Patient Name: JOSÉ LUIS NOVOA MRN: [id number] date: 2000 Sex: F Assigned Patient Location: [facility] Current Patient Location: Accession/Order Number: [id number] Exam Date: 05/26/2025 10:02 Report Date: 05/26/2025 14:10 At the request of: CRESENCIO VARELA Procedure: US OB BPP w non-stress BIOPHYSICAL PROFILE: CLINICAL INFORMATION: BORDERLINE OLIGOHYDRAMNIOS COMPARISON: 05/19/2025 There is a single live intrauterine gestation in cephalic presentation. The reported gestational age is 37 weeks 2 days. The heart rate measures 157 beats per minute. FINDINGS: TONE: 1 or more episodes of activity extension and flexion of extremity or opening and closing of the hand [Y] 2/2 GROSS BODY MOVEMENTS: 3 or more discrete body or limb movements [Y] 2/2 BREATHING MOVEMENTS: 1 or more episodes of breathing lasting at least 30 seconds [Y] 2/2 RUCHI: A single deepest vertical pocket of amniotic fluid greater than 2 cm [Y] 2/2 RUCHI: 12.7 cm Total score: 8/8 US/US OB BPP w non-stress IMPRESSION: NORMAL BIOPHYSICAL PROFILE Impression dictated by: Jacqui Mendoza M.D. 05/26/2025 2:10 PM Dictation Location: [place] [address] Electronically authenticated by: [id number] Y Date: 05/26/2025 14:10
[2025-05-26 10:14] VITALS: BP 121/71; PULSE 85
== END 2025-05-26 10:40 | disposition home or self-care (01) ==
LOC: US 09:58 → FBC 10:01
PROVIDERS: PCP Student in an Organized Health Care Education/Training Program; Visit Provider Physician Assistant
DX: O26.893 Other specified pregnancy related conditions, third trimester (principal); O10.913 Unspecified pre-existing hypertension complicating pregnancy, third trimester; Z3A.37 37 weeks gestation of pregnancy
CPT/HCPCS: 76818

== ENCOUNTER 2025-05-29 15:45 | Outpatient (OUT) | payer OTHER, SELFPAY ==
--- OUTSIDE RECORDS SUMMARY | 2024-04-20 11:30 | XMS_ITS ---
Author Organization [facility] es Address [address] [place] [address] Care Team Providers Care Weight Analyst Name Role Phone Elizabeth Keating Primary Care Provider DUKE ANDREWS Unavailable Unavailable Sarita Allen Unavailable [phone] REASON FOR VISIT biweekly f/u Encounters Encounter Location Date Provider Diagnosis [place] [address] [place] [address] 04/20/2024 Sarita Allen Plan Of Treatment No Information Progress Notes * JOSÉ LUIS NOVOA PDOB:2000 (24 yo F)Acc No.[id number]:04/20/2024 F/U - Patient Patient: Corie JIN JOSÉ LUIS Reyes :?Sarita Allen LPCDOB:2000???Age:23 Y ???Sex:FemaleDate:04/20/2024hone:[phone]:[address] [facility], [address], [place], [place]Txq:Elizabeth Keating Subjective: * Chief Complaints: * B iweekly f/u Care Plan Details* * Electronic signature of Sarita Allen LPC on 05/29/2025 at 03:48 PM ESTSign off status: Pending * Provider: Reynaldo Allen LPC Date: 06/20/2023 Generated for Printing/Faxing/eTransmitting on:?05/29/2025 03:48 PM EST
--- OUTSIDE RECORDS SUMMARY | 2024-12-09 10:15 | XMS_ITS ---
Author Organization [facility] Address [address] [place] [address] Care Team Providers Care Fresh Work Wrapper Layer Name Role Phone Elizabeth Keating Primary Care Provider [phone] DUKE ANDREWS Unavailable Unavailable REASON FOR VISIT rail bender exam Encounters Encounter Location Date Provider Diagnosis [place] [address] [place] [address] 12/09/2024 Elizabeth Keating Plan Of Treatment No Information Progress Notes * JOSÉ LUIS NOVOA PDOB:2000 (24 yo F)Acc No.[id number]:12/09/2024 Patient:?JOSÉ LUIS NOVOA :?Elizabeth Keating DDSDOB:2000???Age:23 Y ???Sex:FemaleDate:12/09/2024Phone:[phone]:[address] [facility], [address], [place], [place] Subjective: * Chief Complaints: * N p exam Billing Information: * Procedure Codes: * Electronic signature of Elizabeth Keating DDS on 05/29/2025 at 03:48 PM ESTSign off status: Pending * Provider: Rupali Keating DDS Date: 0 12/09/2024 Generated for Printing/Faxing/eTransmitting on:?05/29/2025 03:48 PM EST
--- OUTSIDE RECORDS SUMMARY | 2025-05-26 11:10 | XMS_ITS | Encounter Summary ---
Author Organization [facility] Healthcare Address [address] [place] [address] Care Team Providers Care Studio Operator Name Role Phone Kym Peraza MD Primary Care Provider [phone] Rosita Yanes MD Unavailable [phone] Reason for Visit * ReasonCommentsRoutine Visit Encounter Details DateTypeDepartmentCare Team (Latest Contact Info)Pquepapyrpi18/10/2025 11:10 AM ESTRoutine ROZ Ma OBGYN [address] [address] Mendel Rosa DO [address] [place], [place] [id number] Third trimester ([facility]); 37 weeks gestation of ([facility]) Social History Tobacco UseTypesPacks/DayYears UsedDateSmoking Tobacco: NeverSmokeless [...] times a week02/20/2023How often do you attend holiness or uatsdin services?1 to 4 times per year02/20/2023 Do you belong to any clubs or organizations such as holiness groups, unions, fraefw-suhl or athletic groups, or school groups?No02/20/2023How often do you attend meetings of the clubs or organizations you belong to?Never02/20/2023re you , , , , never , or living with a partner?Living with yzipudw8902/20/2023UDIT-CAnswerDate RecordedQ1: How often do you have a [...] and heating?Not very hard02/20/2023HQ-2AnswerDate RecordedPatient Health Questionnaire-2 Qpash504Finblue mountain hospital, inc. [place] of Occupational Health - Occupational Stress QuestionnaireAnswerDate RecordedDo you feel stress - tense, restless, nervous, or anxious, or unable to sleep at night because yourmind is troubled all the time - these days?Only a pcduwm3402/20/2023Exercise Vital Sign AnswerDate RecordedOn average, how many [...] steady place to sleep or slept in [place] (including now)?No 02/20/2023Estimated Date of QfkcskhrRbplxgbsWoh55/29/2025Based on Ultrasound, FHR- 176Sex and Gender InformationValueDate RecordedSex Assigned at BirthNot on fileLegal DikWfvzzh06/15/2023 6:51 PM EDTGender IdentityNot on file Sexual OrientationNot on filedocumented as of this encounter Last Filed Vital Signs Vital SignReadingTime TakenCommentsBlood Rieahusw405/6412 11:19 AM EST Pulse--Temperature--Respiratory Rate--Oxygen Saturation--Inhaled Oxygen Concentration--Ylntof50 kg (161 lb)05/26/2025 11:19 AM ESTHeight--Body Mass [...] nursing note reviewed. Exam conducted with a print line operator present. Vitals: Estimated body mass index is 26.79 kg/m?? as calculated from the following: Height as of 10/27/24: 5' 5 . Weight as of this encounter: 161 lb. BP: 122/64 No LMP recorded. Patient is . Assessment/Plan ICD-10-CM 1. Third trimester ([facility]) Z34.93 CANCELED: CULTURE, GROUP B STREP WITH SUSCEPTIBLITY CANCELED: CULTURE, GROUP B STREP WITH SUSCEPTIBLITY 2. 37 weeks gestation of ([facility]) Z3A.37 CANCELED: POCT urinalysis dipstick manually resulted [...] this encounter Visit Diagnoses Diagnosis Third trimester ([facility]) state, incidental 37 weeks gestation of ([facility]) documented in this encounter Care Teams Team MemberRelationshipSpecialtyStart DateEnd Date Kym Peraza MD [address] [place] [address] PCP - GeneralFamily Medicine11/28/22 Rosita Yanes MD [address] [place] [address] Referring PhysicianFamily Medicine11/28/22documented as of this encounter
--- OUTSIDE RECORDS SUMMARY | 2025-05-29 15:48 | XMS_ITS | Encounter Summary ---
Author Organization [facility] Address [address] [place] [address] Care Team Providers Care Pipe Smoking Machine Offbearer Name Role Phone Kym Peraza MD Primary Care Provider [phone] Rosita Yanes MD Unavailable [phone] Encounter Details DateTypeDepartmentCare Team (Latest Contact Info)Ljejllupajt49/03/2025Clinisync Result Encounter [facility] External Department Unsolicited Mendel Rosa, DO [address] [place] [address] [place] [address] Social History Tobacco UseTypesPacks/DayYears UsedDateSmoking Tobacco: NeverSmokeless [...] times a week02/20/2023How often do you attend bahai or mosque services?1 to 4 times per year02/20/2023 Do you belong to any clubs or organizations such as bahai groups, unions, fraternal or athletic groups, or school groups?No02/20/2023How often do you attend meetings of the clubs or organizations you belong to?Never02/20/2023re you , , , , never , or living with a partner?Living with nptleqo2002/20/2023UDIT-CAnswerDate RecordedQ1: How often do you have a [...] and heating?Not very hard02/20/2023HQ-2AnswerDate RecordedPatient Health Questionnaire-2 Dklsd497Finbear [facility] valley hospital [place] of Occupational Health - Occupational Stress QuestionnaireAnswerDate RecordedDo you feel stress - tense, restless, nervous, or anxious, or unable to sleep at night because yourmind is troubled all the time - these days?Only a duezrj7702/20/2023Exercise Vital Sign AnswerDate RecordedOn average, how many [...] in ashelter (including now)?No 02/20/2023Estimated Date of YqcjvsuzYpdexebyNuj36/29/2025Based on Ultrasound, FHR- 176Sex and Gender InformationValueDate RecordedSex Assigned at BirthNot on fileLegal UwnDxdzuy29/15/2023 6:51 PM EDTGender IdentityNot on file Sexual OrientationNot on filedocumented as of this encounter Plan of Treatment Not on file documented as of this encounter Procedures Procedure NamePriorityDate/TimeAssociated DiagnosisCommentsAMNISURERoutine 05/19/2025 9:22 AM EST [facility] UA (CLEAN/CATCH) STROKE BELT SANDER OPERATOR/MICRO IF IND.Khwfzhy6805/19/2025 9:15 AM EST documented in this encounter Results * AMNISURE (05/19/2025 9:22 AM EST)ComponentValueRef RangeTest MethodAnalysis TimePerformed AtPathologist SignatureTBH AMNISURENEGATIVENEGATIVETBHSpecimen (Source)Anatomical Location / LateralityCollection Method / VolumeCollection TimeReceived Time05/19/2025 9:22 AM EST05/19/2025 9:30 AM EST Narrative [facility]IN[facility]NC - 05/19/2025 9:44 AM EST Authorizing ProviderResult TypeResult StatusCorey Shelley DOLAB BLOOD ORDERABLES Final ResultPerforming OrganizationAddressCity/State/ZIP CodePhone Number CLINISYNC [facility] * (ABNORMAL) [facility] UA (CLEAN/CATCH) STROKE BELT SANDER OPERATOR/MICRO IF IND. (05/19/2025 9:15 AM EST) ComponentValueRef RangeTest MethodAnalysis TimePerformed AtPathologist SignatureCOLOR URINELT. YELLOWYELLOWTBHCLARITY URINECLEARCLEARTBHSPECIFIC GRAVITY URINE1.0151.005 - 1.025TBHPH URINE6.05.0 - 9.0TBHPROTEIN URINENEGATIVE NEG/TRACE mg/dLTBHGLUCOSE URINE UANEGATIVENEGATIVE mg/dLTBHBILIRUBIN URINE NEGATIVENEGATIVETBHKETONES URINENEGATIVENEGATIVE mg/dLTBHBLOOD URINENEGATIVE NEGATIVETBHNITRITE URINENEGATIVENEGATIVETBHUROBILINOGEN URINE0.20.2 - 1.0 EU/dLTBHLEUKOCYTE ESTERASE URINETRACE(A)NEGATIVETBHURINE MICROSCOPIC INDICATED YESTBHSpecimen (Source)Anatomical Location / LateralityCollection Method / VolumeCollection TimeReceived Time05/19/2025 9:15 AM EST05/19/2025 9:30 AM EST Narrative [facility] - 05/19/2025 9:37 AM EST Authorizing ProviderResult TypeResult StatusCorey Shelley DOCLINISYNCFinal Result Performing OrganizationAddressCity/State/ZIP CodePhone Number [facility] documented in this encounter Visit Diagnoses Not on filedocumented in this encounter Care Teams Team MemberRelationshipSpecialtyStart DateEnd Kym Peraza MD [address] [place] [address] PCP - GeneralFamily Medicine11/28/22 Rosita Yanes MD [address] [place] [address] Referring PhysicianFamily Medicine11/28/22documented as of this encounter
--- OUTSIDE RECORDS SUMMARY | 2025-05-29 15:48 | XMS_ITS | Encounter Summary ---
Author Organization [facility] Address [address] [place] [address] Care Team Providers Care Complex Care Nurse Practitioner Name Role Phone Kym Peraza MD Primary Care Provider [phone] Rosita Yanes MD Unavailable [phone] Encounter Details DateTypeDepartmentCare Team (Latest Contact Info)Kduxgimsdem78/10/2025linisync Result Encounter [facility] External Department Unsolicited Marianna Varela PA [address] [place] [address] [place] [address] Social History Tobacco UseTypesPacks/DayYears UsedDateSmoking Tobacco: NeverSmokeless [...] week02/20/2023How often do you attend orthodox or rastafarian services?1 to 4 times per year02/20/2023 Do you belong to any clubs or organizations such as orthodox groups, unions, fraternal or athletic groups, or school groups?No02/20/2023How often do you attend meetings of the clubs or organizations you belong to?Never02/20/2023re you , , , , never , or living with a partner?Living with jvdcnkm2302/20/2023UDIT-CAnswerDate RecordedQ1: How often do you have a [...] and heating?Not very hard02/20/2023HQ-2AnswerDate RecordedPatient Health Questionnaire-2 Phnsc907Finsalt lake regional medical center [place] of Occupational Health - Occupational Stress QuestionnaireAnswerDate RecordedDo you feel stress - tense, restless, nervous, or anxious, or unable to sleep at night because yourmind is troubled all the time - these days?Only a qnzocc6302/20/2023Exercise Vital Sign AnswerDate RecordedOn average, how many [...] steady place to sleep or slept in [facility] serviceser (including now)?No 02/20/2023Estimated Date of YkxddyljUyebxjmbXxf47/29/2025Based on Ultrasound, FHR- 176Sex and Gender InformationValueDate RecordedSex Assigned at BirthNot on fileLegal DusKftfxz27/15/2023 6:51 PM EDTGender IdentityNot on file Sexual OrientationNot on filedocumented as of this encounter Plan of Treatment Not on file documented as of this encounter Procedures Procedure NamePriorityDate/TimeAssociated DiagnosisCommentsUS OB BPP W NON-TUDNHT4005/26/2025 2:10 PM EST documented in this encounter Results * US OB BPP W NON-STRESS (05/26/2025 2:10 PM EST)Anatomical Region LateralityModalityOtherSpecimen (Source)Anatomical Location / Laterality Collection Method / VolumeCollection TimeReceived Time05/26/2025 2:10 PM EST Narrative 05/26/2025 2:13 PM EST [facility] ?[address] ? [place] [id number] ? Ultrasound Report ? Signed ? Patient: JOSÉ LUIS NOVOA ? MR#: [id number] ?? : 2000 ?Acct:[id number] ?? Age/Sex: 24 / F ?ADM Date: 05/26/25 ?? Loc: US ? Attending Dr: Marianna Varela ? Ordering Physician: Marianna Varela ?? Date of Service: 05/26/25 ?? Procedure(s): US OB BPP w non-stress ?? Accession Number(s): [id number] ? cc: Marianna Varela; DUKE PERAZA ? [facility] ? [address] ? [place] [address] ? Patient Name: ?? JOSÉ LUIS NOVOA ? MRN: [facility]:[id number] ? date: 2000 ?Sex: F ?? Assigned Patient Location: [facility] ?? Current Patient Location: ? Accession/Order Number: [id number] ?? Exam Date: 05/26/2025 ??10:02 ?Report Date: 05/26/2025 ??14:10 ? At the request of: ?? MARIANNA ??NICHOLE ? Procedure: ??US OB BPP w non-stress ? BIOPHYSICAL PROFILE: ? CLINICAL INFORMATION: BORDERLINE OLIGOHYDRAMNIOS ? COMPARISON: 05/19/2025 ? There is a single live intrauterine gestation in cephalic presentation. ??The ?? reported gestational age is 37 weeks 2 days. ??The heart rate measures ?? 157 beats per minute. ? FINDINGS: ? TONE: [...] 2 cm ? [Y] ? 2/2 ?RUCHI: 12.7 cm ? Total score: ? 8/8 ? US/US OB BPP w non-stress ?? IMPRESSION: ? NORMAL BIOPHYSICAL PROFILE ? Impression dictated by: Jacqui Mendoza M.D. ??05/26/2025 2:10 PM ? Dictation Location: RADIO-PC-30 ? Electronically authenticated by: [id number] ??Y ?? Date: 05/26/2025 ??14:10 ? Dictated By: ?Jacqui Mendoza M.D. ? Signed By: ?05/26/25 1413 ? DD/ 1410 ? TD/TT: ? Senior Recruitment Consultant: Procedure Note Radiology, Radiologist, MD - 05/26/2025 [place] [address] Ultrasound Report Signed Patient: JOSÉ LUIS NOVOA PMR#: [id number] : 2000Acct:[id number] Age/Sex: 24 / FADM Date: 05/26/25 Loc: US Attending Dr: Marianna Varela Ordering Physician: Marianna Varela Date of Service: 05/26/25 Procedure(s): US OB BPP w non-stress Accession Number(s): [id number] cc: Marianna Varela; DUKE PERAZA [place] [id number] Patient Name: JOSÉ LUIS NOVOA [facility]N: [id number] date: 2000 Sex: F Assigned Patient Location: [facility] Current Patient Location: Accession/Order Number: [id number] Exam Date: 05/26/2025 10:02 Report Date: 05/26/2025 14:10 At the request of: MARIANNA VARELA Procedure: US OB BPP w non-stress BIOPHYSICAL PROFILE: CLINICAL INFORMATION: BORDERLINE OLIGOHYDRAMNIOS COMPARISON: 05/19/2025 There is a single live intrauterine gestation in cephalic presentation.The reported gestational age is 37 weeks 2 days. The heart ratemeasures 157 beats per minute. FINDINGS: TONE: 1 or [...] greater than 2 cm [Y] 2/2 RUCHI: 12.7 cm Total score: 8/8 US/US OB BPP w non-stress IMPRESSION: NORMAL BIOPHYSICAL PROFILE Impression dictated by: Jcaqui Mendoza M.D. 05/26/2025 2:10 PM Dictation Location: [place] [address] Electronically authenticated by: [id number] Y Date: 4:10 Dictated By: Jacqui Mendoza M.D. Signed By:05/26/25 141 DD/ 09 TD/TT: Senior Recruitment Consultant: Authorizing ProviderResult TypeResult StatusMarianna Varela PACLINISYNC IMAGINGFinal Result documented in this encounter Visit Diagnoses Not on filedocumented in this encounter Care Teams Team MemberRelationshipSpecialtyStart DateEnd Date Kym Peraza MD [address] [place] [address] PCP - GeneralFamily Medicine11/28/22 Rosita Yanes MD [address] [place] [address] Referring PhysicianFahospital for behavioral medicine Medicine11/28/22documented as of this encounter
--- OUTSIDE RECORDS SUMMARY | 2025-05-29 15:48 | XMS_ITS | Encounter Summary ---
Author Organization [facility] Address [address] [place] [address] Care Team Providers Care Industrial X Ray Operator Name Role Phone Kym Peraza MD Primary Care Provider [phone] Rosita Yanes MD Unavailable [phone] Encounter Details DateTypeDepartmentCare Team (Latest Contact Info)Zgvykewkpsb87/10/2025bstract ROZ Ma OBGYN [address] [place] [address] Mendel Rosa DO [address] [facility] [address] [facility] [address] [place], [facility] Social History Tobacco UseTypesPacks/DayYears UsedDateSmoking Tobacco: [...] times a week02/20/2023How often do you attend amish or spiritism services?1 to 4 times per year02/20/2023 Do you belong to any clubs or organizations such as amish groups, unions, fraternal or athletic groups, or school groups?No02/20/2023How often do you attend meetings of the clubs or organizations you belong to?Never02/20/2023re you , , , , never , or living with a partner?Living with pxgemmg1802/20/2023UDIT-CAnswerDate RecordedQ1: How often do you have a [...] and heating?Not very hard02/20/2023HQ-2AnswerDate RecordedPatient Health Questionnaire-2 Kmsll101Fin[facility] [place] of Occupational Health - Occupational Stress QuestionnaireAnswerDate RecordedDo you feel stress - tense, restless, nervous, or anxious, or unable to sleep at night because yourmind is troubled all the time - these days?Only a wkllpg7102/20/2023Exercise Vital Sign AnswerDate RecordedOn average, how many [...] in ashelter (including now)?No 02/20/2023Estimated Date of IpsealeuImlotkmdEzf93/29/2025Based on Ultrasound, FHR- 176Sex and Gender InformationValueDate RecordedSex Assigned at BirthNot on fileLegal AbeYehqcr97/15/2023 6:51 PM EDTGender IdentityNot on file Sexual OrientationNot on filedocumented as of this encounter Plan of Treatment Not on file documented as of this encounter Visit Diagnoses Not on filedocumented in this encounter Care Teams Team MemberRelationshipSpecialtyStart DateEnd Date Kym Peraza MD [address] [place] [address] PCP - GeneralFamily Medicine11/28/22 Rosita Yanes MD [address] [place] [address] Referring PhysicianFamily Medicine11/28/22documented as of this encounter
--- OUTSIDE RECORDS SUMMARY | 2025-05-29 15:48 | XMS_ITS | Clinical Summary ---
Author Organization [facility] Healthcare Address [address] [place] [address] Care Team Providers Care Front End Web Developer Name Role Phone Kym Peraza MD Primary Care Provider Rosita Yanes MD Unavailable [phone] Allergies No known active allergies Medications MedicationSigDispense QuantityRefillsLast FilledStart DateEnd DateStatus ondansetron ODT (Zofran-ODT) 4 MG disintegrating tablet Indications:NauseaTake 1 tablet (4 mg) by mouth every 8 (eight) hours if needed for vomiting or nausea 20 tablet 5Active multivitamin () 27-0.8 MG tablet Indications:8 weeks gestation of ([facility])Take 1 tablet by mouth Daily [...] all this for 7 days. 14 capsule Expired Active Problems ProblemNoted DateDiagnosed UbgjMahwvty47/16/2023Mild episode of recurrent major depressive /16/2023Estimated Date of DeliveryCommentsYes 5Based on Ultrasound, FHR- 176 Resolved Problems ProblemNoted DateDiagnosed DateResolved DateAcute cough Ddoizbwcpwtf02 Assessment & Plan (08/02/2023 3:58 PM EST): Will try inhaler and follow up as needed or if symptoms change or worsen Encounters DateTypeDepartmentCare CabyDfghcyxwfrc09/10/2025 11:10 AM ESTRoutine [facility] [address] [place] [address] Mendel Rosa, DO Third trimester ([facility]); 37 weeks gestation of ([facility])05/26/2025linisync Result Encounter NOMS External Department Unsolicited Marianna Varela PA 05/26/2025bstract [facility] [address] [place] [address] Mendel Rosa, DO 05/26/2025amboo flowsheet [facility] [address] [place] [address] Mendel Rosa, DO 05/24/2025bstract [facility] [address] [place] [address] Mendel Rosa, DO 05/19/2025External Result Encounter NOMS External Department Unsolicited Mendel Rosa, DO 05/19/2025linisync Result Encounter NOMS External Department Unsolicited Mendel Rosa, DO 05/19/2025linisync Result Encounter NOMS External Department Unsolicited Mendel Rosa, DO 05/12/2025Telephone [facility] [address] [place] [address] Mendel Rosa, DO 05/12/2025linisync Result Encounter NOMS External Department Unsolicited Marianna Varela PA 05/10/2025Patient Outreach N[facility] [address] [address] Marianna Galdamez LPN 05/05/2025 10:00 AM ESTRoutine [facility] [address] [place] [address] Marianna Varela PA Third trimester ([facility]); 34 weeks gestation of ([facility])5Clinisync Result Encounter NOMS External Department Unsolicited Marianna Varela PA 05/05/2025linisync Result Encounter NOMS External Department Unsolicited Marianna Varela PA 05/05/2025amboo flowsheet [facility] [address] [place] [address] Marianna Varela PA 04/29/2025Telephone [facility] [address] [place] [address] Lenka Jimenez MA 04/28/2025linisync Result Encounter NOMS External Department Unsolicited Marianna Varela PA 04/22/2025linisync Result Encounter NOMS External Department Unsolicited Marianna Varela PA 04/21/2025 11:00 AM ESTRoutine [facility] [address] [place] [address] Mendel Rosa DO Third trimester ([facility]); 32 weeks gestation of ([facility]); RUCHI (amniotic fluid index) borderline low; Oligohydramnios in third trimester, fetus 1 of multiple gestation ([facility]) 04/21/2025Telephone [facility] [address] [place] [address] Mendel Rosa DO 04/21/2025amboo flowsheet [facility] [address] [place] [address] Mendel Rosa DO 04/14/2025Telephone [facility] [address] [place] [address] Mendel Rosa, DO 04/14/2025linisync Result Encounter NOMS External Department Unsolicited Marianna Varela PA 04/09/2025Patient Outreach [facility] [place] [address] Marianna Galdamez LPN 04/07/2025 10:50 AM EDTRoutine [facility] [address] [place] [address] Marianna Varela PA Third trimester ([facility]); 30 weeks gestation of ([facility]); Exposure to STD; RUCHI (amniotic fluid index) borderline low; BV (bacterial vaginosis)04/07/2025amboo flowsheet [facility] [address] [place] [address] Marianna Varela PA 04/06/2025Telephone [facility] [address] [place] [address] Mendel Rosa, DO 04/05/2025Telephone [facility] [address] [place] [address] Lenka Jimenez MA 03/31/2025 1:30 PM EDTAncillary Procedure [facility] [address] [place] [address] size inconsistent with dates ([facility])03/29/2025linisync Result Encounter NOMS External Department Unsolicited Mendel Rosa, DO 03/29/2025Telephone [facility] [address] [place] [address] Mendel Rosa, DO 03/24/2025 10:30 AM EDTRoutine [facility] [address] [place] [address] Radha Resendez, CLAU size inconsistent with dates ([facility]) (Primary Dx); Third trimester ([facility]); 28 weeks gestation of ([facility])03/24/2025amboo flowsheet [facility] [address] [place] [address] Radha Resendez NP 03/16/2025bstract [facility] [address] [place] [address] Lenka Jimenez MA 03/11/2025Patient Outreach [facility] [address] [place] [address] Marianna Galdamez LPN 03/10/2025bstract [facility] [address] [place] [address] Marianna Galdamez LPN 03/03/2025 10:30 AM EDTRoutine N[facility]S [facility] [address] [facility] [place] [address] Marianna Varela PA 25 weeks gestation of ([facility]); Second trimester ([facility]); Diabetes mellitus /17/2025amboo flowsheet [facility] [address] [place] [address] Marianna Varela PA from Last 3 Months Immunizations ImmunizationAdministration DatesNext RqdBJD5601/23/2005,05/07/2001,02/15/2000DTaP, Inaihihdrpw36/26/2000HPV 9-Mhgfby2409/10/2016,05/15/2016,03/12/2016Hep A, ped/adol, 2 dose09/10/2016,03/12/2016Hep B, Adolescent or Vstafanhj83/09/2001, 02/15/2000,1999HiB, qpeypapyyql84/31/2001,05/07/2001,04/11/2000,02/05/2000 MMR01/23/2005,06/16/2001Meningococcal B, Omv107/15/2015,03/12/2016Meningococcal LEZ0H9003/12/2016Polio, Hstxnvuhksz01/09/2005,05/07/2001,04/11/2000,02/15/2000Tdap 12/01/2021,12/08/2019,03/03/20128985Yeoatsthq10/29/2016,01/01/2001 Family History Medical HistoryRelationNameCommentsHypertensionFatherTony hoffStrokeFatherTony hoffBreast cancerFather's SisterAnnetteThyroid diseaseMotherDawn julissa HypertensionOtherBone cancerPaternal GrandfatherCancerPaternal Grandfather RelationNameStatusCommentsFatherTony hoffAliveFather's SisterAnnetteAliveMother Sabrina knudsenAliveOtherPaternal Grandfather Social History Tobacco UseTypesPacks/DayYears UsedDateSmoking Tobacco: [...] or congregation services?1 to 4 times per year02/20/2023o you belong to any clubs or organizations such as restoration groups, unions, fraternal or athletic groups, or school groups?No02/20/2023How often do you attend meetings of the clubs or organizations you belong to?Never02/20/2023re you , , , , never , or living with a partner?Living with ontmpro6702/20/2023 AUDIT-CAnswerDate RecordedQ1: How often do you have [...] heating?Not very hard02/20/2023HQ-2Answer Date RecordedPatient Health Questionnaire-2 Gnvog746[facility] [place] [facility] - Occupational Stress QuestionnaireAnswerDate RecordedDo you feel stress - tense, restless, nervous, or anxious, or unable to sleep at night because yourmind is troubled all the time - these days?Only a yjhwim8602/20/2023 Exercise Vital SignAnswerDate RecordedOn average, how many [...] in ashelter (including now)?No02/20/2023Estimated Date of Delivery FskbcslzCav90/29/2025Based on Ultrasound, FHR- 176Sex and Gender Information ValueDate RecordedSex Assigned at BirthNot on fileLegal YfuPrdmnm12/15/2023 6:51 PM EDTGender IdentityNot on fileSexual OrientationNot on file Last Filed Vital Signs Vital SignReadingTime TakenCommentsBlood Pwlnjfcs789/6405/26/2025 11:19 AM EST Qxjsu275910/27/2024 11:44 AM ABYMjjkjijfwbj15.8 ??C (98.3 ??F)10/27/2024 11:44 AM EDTRespiratory Rate--Oxygen Okxkgcycxh55%10/27/2024 11:44 AM EDTInhaled Oxygen Concentration--Vsygcd10 kg (161 lb)05/26/2025 11:19 AM JKHOjrggx125.1 cm (5' 5 ) 10/27/2024 11:44 AM EDTBody Mass Index26.7910/27/2024 11:44 AM EDT Plan of Treatment Health MaintenanceDue DateLast DoneCommentsCOVID-19 Vaccine ( season) 2025Influenza Vaccine (#1)2025Pneumococcal Vaccine: Pediatrics (0 to 5 Years) and At-Risk Patients (6 to 64 Years)Aged OutNo longer eligible based on patient's age to complete this topic Procedures Procedure NamePriorityDate/TimeAssociated DiagnosisCommentsUS OB BPP W NON-HUEMDM8805/26/2025 2:10 PM EST US OB BPP W NON-IRTKQN8805/19/2025 10:23 AM EST ORGANISM CRGBOYHYUBHVUVIortbhj22/03/2025 10:15 AM EST STREP GP B CULTURE+TKGIJzwioxy61/03/2025 10:15 AM EST GLYTLYFNDmygycj64/03/2025 9:22 AM EST URINE CULTURE - ANQTFqbiqgw16/03/2025 9:15 AM EST [facility] UA (CLEAN/CATCH) ART INSTALLER/MICRO IF IND.Ozgtsib1205/19/2025 9:15 AM EST CULTURE, URINE, QMSXSRIYbfeofg67/03/2025 9:15 AM EST US OB BPP W NON-KLUYVU8405/12/2025 11:37 AM EST US OB BPP W NON-UMPDPG2405/05/2025 11:35 PM EST US OB QGKJHF6705/05/2025 11:35 PM EST POCT URINALYSIS CBKJDNBBUqrwzip01/19/2025 10:09 AM EST 34 weeks gestation of ([facility]) US OB BPP W NON-OOCYHL8304/28/2025 12:44 PM EST US OB BPP W NON-ZTVKYN4004/22/2025 7:58 AM EST POCT URINALYSIS BGLLNDGYPhxsbvu84/05/2025 12:20 PM EST Third trimester ([facility]) 32 weeks gestation of ([facility]) US OB BPP W NON-ZXLLPO2104/14/2025 11:19 AM EDT RECURRENT VAGINITIS (HTRX)Dtetdbo9604/07/2025 11:52 AM EDT POCT URINALYSIS WPYHVWKBYztpfte21/22/2025 10:53 AM EDT Third trimester ([facility]) US OB FOLLOW UP TRANSABDOMINAL TCKLFTEOLlgeveu03/15/2025 1:59 PM EDT size inconsistent with dates ([facility]) URINE CULTURE, JOQRJWBPxmgsza10/13/2025 1:45 PM EDT TB[facility] UA (CLEAN/CATCH) ART INSTALLER/MICRO IF IND.Yayriid5103/29/2025 1:45 PM EDT POCT URINALYSIS LKQNNBZIPswrinz47/08/2025 10:44 AM EDT Third trimester ([facility]) POCT URINALYSIS BALNEIENHkwrgmz88/17/2025 10:37 AM EDT 25 weeks gestation of ([facility]) Second trimester ([facility]) from Last 3 Months Results * US OB BPP W NON-STRESS (05/26/2025 2:10 PM EST) Only the most recent of7 resultswithin the time period is included. Anatomical RegionLateralityModalityOtherSpecimen (Source)Anatomical Location / LateralityCollection Method / VolumeCollection TimeReceived Time05/26/2025 2:10 PM EST Narrative 05/26/2025 2:13 PM EST [facility] ?[address] ? [place] [id number] ? Ultrasound Report ? Signed ? Patient: JOSÉ LUIS NOVOA ? MR#: [id number] ?? : 2000 ?Acct:[id number] ?? Age/Sex: 24 / F ?ADM Date: 05/26/25 ?? Loc: US ? Attending Dr: Marianna Varela ? Ordering Physician: Marianna Varela ?? Date of Service: 05/26/25 ?? Procedure(s): US OB BPP w non-stress ?? Accession Number(s): [id number] ? cc: Marianna Varela; DUKE PERAZA ? [facility] ? [address] ? [place] [address] ? Patient Name: ?? JOSÉ LUIS NOVOA ? MRN: [facility]:[id number] ? date: 2000 ?Sex: F ?? Assigned Patient Location: [facility] ?? Current Patient Location: ? Accession/Order Number: [id number] ?? Exam Date: 05/26/2025 ??10:02 ?Report Date: [...] Dictation Location: RADIO-PC-30 ? Electronically authenticated by: [id number] ??Y ?? Date: 05/26/2025 ??14:10 ? Dictated By: ?Jacqui Mendoza M.D. ? Signed By: ?05/26/25 1413 ? DD/ 1410 ? TD/TT: ? [employer]: Procedure Note Radiology, Radiologist, MD - 05/26/2025 [place] [address] Ultrasound Report Signed Patient: JOSÉ LUIS NOVOA PMR#: [id number] : 2000Acct:[id number] Age/Sex: 24 / FADM Date: 05/26/25 Loc: US Attending Dr: Marianna Varela Ordering Physician: Marianna Varela Date of Service: 05/26/25 Procedure(s): US OB BPP w non-stress Accession Number(s): [id number] cc: Marianna Varela; DU[facility] PERAZA [place] [id number] Patient Name: JOSÉ LUIS NOVOA MRN: [id number] date: 2000 Sex: F Assigned Patient Location: [facility] Current Patient Location: Accession/Order Number: [id number] Exam Date: 05/26/2025 10:02 Report Date: 05/26/2025 [...] PROFILE Impression dictated by: Jacqui Mendoza M.D. 05/26/2025 2:10 PM Dictation Location: [place] [address] Electronically authenticated by: [id number] Y Date: 4:10 Dictated By: Jacqui Mendoza M.D. Signed By:05/26/25 1413 DD/ 1410 TD/TT: [employer]: Authorizing ProviderResult TypeResult StatusMarianna Varela PACLINISYN IMAGINGFinal Result * ORGANISM IDENTIFICATION (05/19/2025 10:15 AM EST)ComponentValueRef RangeTest MethodAnalysis TimePerformed AtPathologist SignatureORGANISM IDENTIFICATION ??Organism Identification WILL FOLLOW TBHSpecimen (Source)Anatomical Location / LateralityCollection Method / Volume Collection TimeReceived Time05/19/2025 10:15 AM EST05/19/2025 10:24 AM EST Narrative [facility] - 05/23/2025 4:08 PM EST Authorizing ProviderResult TypeResult StatusCorey Shelley DOLAB BLOOD ORDERABLES Final ResultPerforming OrganizationAddressCity/State/ZIP CodePhone Number [facility] * STREP GP B CULTURE+RFLX (05/19/2025 10:15 AM EST)ComponentValueRef RangeTest MethodAnalysis TimePerformed AtPathologist SignatureSTREP GP B CULTURE+RFLX ??Strep Gp B Culture+Rflx TBHSTREP GP B CULTURE+RFLX*ABNORMAL*TBHSTREP GP B CULTURE+RFLXPositiveTBHSTREP GP B CULTURE+RFLXCenters for Disease Control and Prevention (CDC) andTBHSTREP GP B CULTURE+RFLXAmerican Congress of Obstetricians and GynecologistsTBHSTREP GP B CULTURE+RFLX(ACOG) guidelines for prevention of group BTBHSTREP GP B CULTURE+RFLXstreptococcal (GBS) disease specify co-collection ofTBHSTREP GP B CULTURE+RFLXa vaginal and rectal swab specimen to maximizeTBHSTREP GP B CULTURE+RFLXsensitivity of GBS detection. Per the CDC and ACOG,TBHSTREP GP B CULTURE+RFLXswabbing both the lower vagina and rectumTBHSTREP GP B CULTURE+RFLX substantially increases the yield of detectionTBHSTREP GP B CULTURE+RFLXcompared with sampling the vagina alone.TBHSTREP GP B CULTURE+RFLXPenicillin G, ampicillin, or cefazolin are indicatedTBHSTREP GP B CULTURE+RFLXfor intrapartum prophylaxis of GBSTBHSTREP GP B CULTURE+RFLXcolonization. Reflex susceptibility testing should beTBHSTREP GP B CULTURE+RFLXperformed prior to use of clindamycin only on GBSTBHSTREP GP B CULTURE+RFLXisolates from penicillin- allergic women who areTBHSTREP GP B CULTURE+RFLXconsidered a high risk for anaphylaxis. Treatment withTBHSTREP GP B CULTURE+RFLXvancomycin without additional testing is warranted ifTBHSTREP GP B CULTURE+RFLXresistance to clindamycin is noted.TBHSpecimen (Source)Anatomical Location / Laterality Collection Method / VolumeCollection TimeReceived Time05/19/2025 10:15 AM EST 05/19/2025 10:24 AM EST Narrative [facility]IN[facility] - 05/23/2025 4:08 PM EST Authorizing ProviderResult TypeResult StatusCorey Shelley DOLAB BLOOD ORDERABLES Final ResultPerforming OrganizationAddressCity/State/ZIP CodePhone Number [facility] * AMNISURE (05/19/2025 9:22 AM EST)ComponentValueRef RangeTest MethodAnalysis TimePerformed AtPathologist SignatureTBH AMNISURENEGATIVENEGATIVETBHSpecimen (Source)Anatomical Location / LateralityCollection Method / VolumeCollection TimeReceived Time05/19/2025 9:22 AM EST05/19/2025 9:30 AM EST Narrative CLINISYMS - 05/19/2025 9:44 AM EST Authorizing ProviderResult TypeResult StatusCorey Shelley DOLAB BLOOD ORDERABLES Final ResultPerforming OrganizationAddressCity/State/ZIP CodePhone Number [facility] * URINE CULTURE - [facility] (05/19/2025 9:15 AM EST)ComponentValueRef RangeTest MethodAnalysis TimePerformed AtPathologist SignatureURINE CULTURE - [facility] ??Urine Culture - [facility] SEE[facility] RESULT^[facility] RESULT TBHURINE CULTURE - FRMCSEEN SEE SCANNED REPORT, NORMAL^SEE SCANNED REPORT, NORMALTBHSpecimen (Source)Anatomical Location / LateralityCollection Method / VolumeCollection TimeReceived Time05/19/2025 9:15 AM EST05/19/2025 9:30 AM EST Narrative CLINISYMS - 05/21/2025 3:03 PM EST Authorizing ProviderResult TypeResult StatusCorey Shelley DOLAB BLOOD ORDERABLES Final ResultPerforming OrganizationAddressCity/State/ZIP CodePhone Number [facility] * (ABNORMAL) [facility] UA (CLEAN/CATCH) ART INSTALLER/MICRO IF IND. (05/19/2025 9:15 AM EST) Only the most recent of2 resultswithin the time period is included. ComponentValueRef RangeTest MethodAnalysis TimePerformed AtPathologist Signature COLOR URINELT. YELLOWYELLOWTBHCLARITY URINECLEARCLEARTBHSPECIFIC GRAVITY URINE 1.0151.005 - 1.025TBHPH URINE6.05.0 - 9.0TBHPROTEIN URINENEGATIVENEG/TRACE mg/dL TBHGLUCOSE URINE UANEGATIVENEGATIVE mg/dLTBHBILIRUBIN URINENEGATIVENEGATIVETBH KETONES URINENEGATIVENEGATIVE mg/dLTBHBLOOD URINENEGATIVENEGATIVETBHNITRITE URINENEGATIVENEGATIVETBHUROBILINOGEN URINE0.20.2 - 1.0 EU/dLTBHLEUKOCYTE ESTERASE URINETRACE(A)NEGATIVETBHURINE MICROSCOPIC INDICATEDYESTBHSpecimen (Source)Anatomical Location / LateralityCollection Method / VolumeCollection TimeReceived Time05/19/2025 9:15 AM EST05/19/2025 9:30 AM EST Narrative CLINISYNC - 05/19/2025 9:37 AM EST Authorizing ProviderResult TypeResult StatusCorey Shelley DOCLINISYNCFinal Result Performing OrganizationAddressWestern [facility] CodePhone Number [facility] * Urine culture (05/19/2025 9:15 AM EST)ComponentValueRef RangeTest Method Analysis TimePerformed AtPathologist SignatureFRMC NOTE?50,000 colonies/ml mixed ?bacterial skin contaminants ?2 Days 05/21/2025 9:03 AM [facility] CtrSpecimen (Source)Anatomical Location / LateralityCollection Method / VolumeCollection TimeReceived TimeUrine Urine specimen obtained by clean catch procedure / Pyuguth3205/19/2025 9:15 AM EST 05/19/2025 12:44 PM ESTComment:Clean-Voided Midstream [facility]ie [facility] 05/21/2025 9:03 AM EST Diagnosis: [facility] POSSIBLE RUPTURE OF MEMBRANES Comment: Authorizing ProviderResult TypeResult StatusCorey Shelley DOLAB MICROBIOLOGY - GENERAL ORDERABLESFinal ResultPerforming OrganizationAddExcela [facility]/ZIP Code Phone Number [facility] [address] [place] [address], [facility] [address] [place] [address] * US OB GROWTH (05/05/2025 11:35 PM EST)Anatomical RegionLateralityModalityOther Specimen (Source)Anatomical Location / LateralityCollection Method / Volume Collection TimeReceived Time05/05/2025 11:35 PM EST Narrative 05/05/2025 11:38 PM EST [facility] ?[address] ? [place] [address] ? Ultrasound Report ? Signed ? Patient: JOSÉ LUIS NOVOA ? MR#: [id number] ?? : 2000 ?Acct:[id number] ?? Age/Sex: 24 / F ?ADM Date: 05/05/25 ?? Loc: US ? Attending Dr: Marianna Varela ? Ordering Physician: Marianna Varela ?? Date of Service: 05/05/25 ?? Procedure(s): US OB growth ?? Accession Number(s): [id number] ? cc: Marianna Varela; DUKE PERAZA ? [facility] ? [address] [facility] ? [place] [address] ? Patient Name: ?? JOSÉ LUIS NOVOA ? MRN: [facility]:[id number] ? date: 2000 ?Sex: F ?? Assigned Patient Location: [facility] ?? Current Patient Location: [facility]O ?? Accession/Order Number: [id number] ?? Exam Date: 05/05/2025 ??11:00 ?Report Date: [...] Dictation Location: RADIO-PC-20 ? Electronically authenticated by: [id number] ??Y ?? Date: 05/05/2025 ??23:35 ? Dictated By: ?Abdiaziz Doran D.O. ? Signed By: ?05/05/25 2338 ? DD/ 2335 ? TD/TT: ? [employer]: Procedure Note Radiology, Radiologist, - 05/05/2025 The [place] [id number] Ultrasound Report Signed Patient: JOSÉ LUIS NOVOA PMR#: [id number] : 2000Acct:[id number] Age/Sex: 24 / FADM Date: 05/05/25 Loc: US Attending Dr: Marianna Varela Ordering Physician: Marianna Varela Date of Service: 05/05/25 Procedure(s): US OB growth Accession Number(s): [id number] cc: Marianna Varela; DU[facility] PERAZA [place] [id number] Patient Name: JOSÉ LUIS NOVOA MRN: [id number] date: 2000 Sex: F Assigned Patient Location: [facility] Current Patient [place] [facility] Accession/Order Number: [id number] Exam Date: 05/05/2025 11:00 Report Date: 05/05/2025 [...] Doran M.D. 05/05/2025 11:35 PM Dictation Location: [place] [address] Electronically authenticated by: [id number] Y Date: 3:35 Dictated By: Abdiaziz Doran D.O. Signed By:05/05/252337 DD/ 34 TD/TT: [employer]: Authorizing ProviderResult TypeResult StatusAmy Nichole PACLINISYNC IMAGINGFinal [...] Location / LateralityCollection Method / VolumeCollection TimeReceived FlveSopme80/19/2025 10:09 AM EST Narrative Authorizing ProviderResult TypeResult StatusMarianna Varela PAPOINT OF CARE TEST ENTER/EDIT ORDERABLESFinal Result * RECURRENT VAGINITIS (HTRX) (04/07/2025 11:52 AM EDT)ComponentValueRef Range Test MethodAnalysis TimePerformed AtPathologist SignatureATOPOBIUM VAGINAE0 19.961 - 24.689 ppm04/08/2025 7:42 AM EDTHealthTrackRx at North Valley HospitalATOPOBIUM VAGINAENot Rulbezoz03.961 - 24.689 ppm04/08/2025 7:42 AM EDTHealthTrackRx at LabPortBVAB 2,3 (BACTERIAL VAGINOSIS ASSOCIATED BACTERIA 2, 3); MOBILUNCUS SPP 019.961 - 24.689 ppm04/08/2025 7:42 AM EDTHealthTrackRx at LabPulaski [facility] HospitalBVAB 2,3 (BACTERIAL VAGINOSIS ASSOCIATED BACTERIA 2, 3); MOBILUNCUS SPPNot Detected 19.961 - 24.689 ppm04/08/2025 7:42 AM EDTHealthTrackRx at LabPortCANDIDA ALBICANS, PARAPSILOSIS, GEIKOWQMXS197.000 - 30.347 ppm04/08/2025 7:42 AM EDT [facility] at LabPortCANDIDA ALBICANS, PARAPSILOSIS, TROPICALISNot Detected 23.000 - 30.347 ppm04/08/2025 7:42 AM EDTHealthTrackRx at LabPortCANDIDA NUSXZTYP135.000 - 31.618 ppm04/08/2025 7:42 AM EDTHealthTrackRx at [facility] CenterPort HORACE GLABRATANot Rqmsctid69.000 - 31.618 ppm04/08/2025 7:42 AM EDT [facility] at LabPulaski [facility] HospitalCANDIDA GDXLPY471.000 - 30.873 ppm04/08/2025 7:42 AM EDTHealthTrackRx at LabPortCANDIDA KRUSEINot Pkysgfyr67.000 - 30.873 ppm 04/08/2025 7:42 AM EDTHealthTrackRx at LabPortCHLAMYDIA JPGBIHVOKUD378.000 - 31.586 ppm04/08/2025 7:42 AM EDTHealthTrackRx at [facility] CenterPortCHLAMYDIA TRACHOMATIS Not Ehmzrgol64.000 - 31.586 ppm04/08/2025 7:42 AM EDTHealthTrackRx at [facility] CenterPort GARDNERELLA OMSGZODSM964.961 - 24.689 ppm04/08/2025 7:42 AM EDTHealthTrackRx at [facility] HospitalGARDNERELLA VAGINALISNot Gkmgdxqp18.961 - 24.689 ppm04/08/2025 7:42 AM EDTHealthTrackRx at LabPortMEGASPHAERA (TYPES 1, 2)019.961 - 24.689 ppm 04/08/2025 7:42 AM EDTHealthTrackRx at LabPortMEGASPHAERA (TYPES 1, 2)Not Yjkfnlnb53.961 - 24.689 ppm04/08/2025 7:42 AM EDTHealthTrackRx at LabPort NEISSERIA DJWOZIMULFI846.000 - 32.587 ppm04/08/2025 7:42 AM EDTHealth[facility] at [facility]NE[facility] GONORRHOEAENot Qfxjhnfc77.000 - 32.587 ppm04/08/2025 7:42 AM EDTHealth[facility] at LabPortTRICHOMONAS AXTPZCRPG352.000 - 31.995 ppm 04/08/2025 7:42 AM EDTHealth[facility] at LabPortTRICHOMONAS VAGINALISNot Ctpsdjwb65.000 - 31.995 ppm04/08/2025 7:42 AM [facility] MYCOPLASMA ICVYQLGQPE658.961 - 24.689 ppm04/08/2025 7:42 AM EDTHealth[facility]Rx at LabPortMYCOPLASMA GENITALIUMNot Pepbaoms39.961 - 24.689 ppm04/08/2025 7:42 AM EDTHealthTrackRx at LabPortSpecimen (Source)Anatomical Location / LateralityCollection Method / VolumeCollection TimeReceived TimeTissue 04/07/2025 11:52 AM EDT1 1:22 AM EDT Narrative Authorizing ProviderResult TypeResult StatusAmy Edgarton PALAB BLOOD ORDERABLES Final ResultPerforming OrganizationAddressCity/State/ZIP CodePhone Number [facility] [address] [address] * OB follow up transabdominal approach (03/31/2025 [...] Routine TBHURINE CULTURE, ROUTINEMixed urogenital floraTBHURINE CULTURE, DQJYDOG03,000- 50,000 colony forming units per mLTBHURINE CULTURE, ROUTINEPerformed at: [facility] LabMy[facility] Center SaultTBHURINE CULTURE, [id number] [place], [place] [id number] URINE CULTURE, ROUTINELab Director: John Hare PhD, Phone: [phone] Specimen (Source)Anatomical Location / LateralityCollection Method / Volume Collection TimeReceived Time03/29/2025 1:45 PM EDT1 2:20 PM EDT Narrative [facility] - 03/31/2025 7:08 AM EDT Authorizing ProviderResult TypeResult StatusCorey Shelley DOLAB BLOOD ORDERABLES Final ResultPerforming OrganizationAddressCity/State/ZIP CodePhone Number [facility] Last 3 Months Insurance Care Teams Team MemberRelationshipSpecialtyStart DateEnd Date Kym Peraza MD [address] [place] [address] PCP - GeneralFamily Medicine11/28/22 Rosita Yanes MD [address] [place] [address] Referring PhysicianFamily Medicine11/28/22
--- OUTSIDE RECORDS SUMMARY | 2025-05-29 15:48 | XMS_ITS | Patient Health Record ---
Author Organization [facility] es Address [address] [place] [address] Care Team Providers Care Aerial Photograph Interpreter Name Role Phone Elizabeth Keating Primary Care Provider [phone] DUKE ANDREWS Unavailable Unavailable Reason For Referral No Information Problems Problem Type SNOMED Code ICD Code Onset Dates Problem Status W/U Status Risk Notes Problem Anxiety (67077110) Anxiety (F41.9) ActiveconfirmedProblemBorderline personality disorder (39334633)Borderline personality disorder in adult (F60.3)Activeconfirmed Plan Of Treatment No Information Insurance Providers Payer Name Payer Address Payer Phone Subscriber Number Group Number Insured Name Patient Relationship to Insured Coverage Start Date Coverage End Date [employer] [place] [employer] [address] [facility] [place] [address] [id number] Tip NOVOA - patient is the [id number] [address] [facility] [address] [place] [id number], MORGANSelf - patient is the [id number] 2023
--- OUTSIDE RECORDS SUMMARY | 2025-05-29 15:48 | XMS_ITS | Encounter Summary ---
Author Organization [facility] Address [address] [place] [address] Care Team Providers Care Hydrant Setter Name Role Phone Kym Peraza MD Primary Care Provider [phone] Rosita Yanes MD Unavailable Encounter Details DateTypeDepartmentCare Team (Latest Contact Info)Frisgyaxqgd69/10/2025amboo flowsheet ROZ Ma OBG[facility] [address] [place] [address] Mendel Rosa DO [address] [facility] [address] [facility] [address] Neil Ma, [facility]11 Social History Tobacco UseTypesPacks/DayYears [...] week02/20/2023How often do you attend yazidism or hinduism services?1 to 4 times per year02/20/2023 Do you belong to any clubs or organizations such as yazidism groups, unions, fraternal or athletic groups, or school groups?No02/20/2023How often do you attend meetings of the clubs or organizations you belong to?Never02/20/2023re you , , , , never , or living with a partner?Living with ekhoaeq6402/20/2023UDIT-CAnswerDate RecordedQ1: How often do you have a [...] and heating?Not very hard02/20/2023HQ-2AnswerDate RecordedPatient Health Questionnaire-2 Shivs762Finbear [facility] hospital [place] of Occupational Health - Occupational Stress QuestionnaireAnswerDate RecordedDo you feel stress - tense, restless, nervous, or anxious, or unable to sleep at night because yourmind is troubled all the time - these days?Only a jgodad3502/20/2023Exercise Vital Sign AnswerDate RecordedOn average, how many [...] in ashelter (including now)?No 3Estimated Date of FmvfejgzXsajbcwqTpo95/29/2025Based on Ultrasound, FHR- 176Sex and Gender InformationValueDate RecordedSex Assigned at BirthNot on fileLegal PzbElcili61/15/2023 6:51 PM EDTGender IdentityNot on file Sexual OrientationNot on filedocumented as of this encounter Plan of Treatment Not on file documented as of this encounter Visit Diagnoses Not on filedocumented in this encounter Care Teams Team MemberRelationshipSpecialtyStart DateEnd Date Kym Peraza MD [address] [place] [address] PCP - GeneralFamily Medicine11/28/22 Rosita Yanes MD [address] [place] [address] Referring PhysicianFamily Medicine11/28/22documented as of this encounter
--- OUTSIDE RECORDS SUMMARY | 2025-05-29 15:49 | XMS_ITS | Encounter Summary ---
Author Organization [facility] Address [address] [place] [address] Care Team Providers Care Tsa Screener Name Role Phone Kym Peraza MD Primary Care Provider [phone] Rosita Yanes MD Unavailable [phone] Encounter Details DateTypeDepartmentCare Team (Latest Contact Info)Asrhwtudzku34/08/2025bstract ROZ Ma OBGYN [address] [facility] [address] [facility] [place] [address] Mendel Rosa DO [address] [facility] [address] Neil Ma, [facility]11 Social History Tobacco UseTypesPacks/DayYears UsedDateSmoking Tobacco: [...] times a week02/20/2023How often do you attend buddhist or latter day services?1 to 4 times per year02/20/2023 Do you belong to any clubs or organizations such as buddhist groups, unions, fraternal or athletic groups, or school groups?No02/20/2023How often do you attend meetings of the clubs or organizations you belong to?Never02/20/2023re you , , , , never , or living with a partner?Living with lrxswit5502/20/2023UDIT-CAnswerDate RecordedQ1: How often do you have a [...] and heating?Not very hard02/20/2023HQ-2AnswerDate RecordedPatient Health Questionnaire-2 Dbngg131Fingunnison valley hospital [place] of Occupational Health - Occupational Stress QuestionnaireAnswerDate RecordedDo you feel stress - tense, restless, nervous, or anxious, or unable to sleep at night because yourmind is troubled all the time - these days?Only a jkfuwv2002/20/2023Exercise Vital Sign AnswerDate RecordedOn average, how many [...] in ashelter (including now)?No 02/20/2023Estimated Date of VkzitfwiWilmnwnnEfl59/29/2025Based on Ultrasound, FHR- 176Sex and Gender InformationValueDate RecordedSex Assigned at BirthNot on fileLegal ZaiZgwhyf05/15/2023 6:51 PM EDTGender IdentityNot on file Sexual OrientationNot on filedocumented as of this encounter Plan of Treatment Not on file documented as of this encounter Visit Diagnoses Not on filedocumented in this encounter Care Teams Team MemberRelationshipSpecialtyStart DateEnd Date Kym Peraza MD [address] [place] [address] PCP - GeneralFamily Medicine11/28/22 Rosita Yanes MD [address] [place] [address] Referring PhysicianFamily Medicine11/28/22documented as of this encounter
--- OUTSIDE RECORDS SUMMARY | 2025-05-29 15:49 | XMS_ITS | Encounter Summary ---
Author Organization [facility] Address [address] [place] [address] Care Team Providers Care Umbrella Frame Maker Name Role Phone Kym Peraza MD Primary Care Provider [phone] Rosita Yanes MD Unavailable [phone] Encounter Details DateTypeDepartmentCare Team (Latest Contact Info)Leauklbtacs09/03/2025Clinisync Result Encounter [facility] Unsolicited Lia Rosa, DO [address] [place] [address] [place] [address] Social History Tobacco UseTypesPacks/DayYears UsedDateSmoking Tobacco: NeverSmokeless [...] times a week02/20/2023How often do you attend confucianism or bahai services?1 to 4 times per year02/20/2023 Do you belong to any clubs or organizations such as confucianism groups, unions, fraternal or athletic groups, or school groups?No02/20/2023How often do you attend meetings of the clubs or organizations you belong to?Never02/20/2023re you , , , , never , or living with a partner?Living with sehwftf8802/20/2023UDIT-CAnswerDate RecordedQ1: How often do you have a [...] and heating?Not very hard02/20/2023HQ-2AnswerDate RecordedPatient Health Questionnaire-2 Eenta880Finced[facility] [place] of Occupational Health - Occupational Stress QuestionnaireAnswerDate RecordedDo you feel stress - tense, restless, nervous, or anxious, or unable to sleep at night because yourmind is troubled all the time - these days?Only a tqkbzz2402/20/2023Exercise Vital Sign AnswerDate RecordedOn average, how many [...] in ashelter (including now)?No 02/20/2023Estimated Date of FfjrcmnbZlbewdlyXqu76/29/2025Based on Ultrasound, FHR- 176Sex and Gender InformationValueDate RecordedSex Assigned at BirthNot on fileLegal VcvFukttz35/15/2023 6:51 PM EDTGender IdentityNot on file Sexual OrientationNot on filedocumented as of this encounter Plan of Treatment Not on file documented as of this encounter Procedures Procedure NamePriorityDate/TimeAssociated DiagnosisCommentsUS OB BPP W NON-TNINZB0005/19/2025 10:23 AM EST ORGANISM VQQYFVZORQMZVLGuvvcis97/03/2025 10:15 AM EST STREP GP B CULTURE+TOHJUthgjhi69/03/2025 10:15 AM EST URINE CULTURE - XKRLVcfvavd22/03/2025 9:15 AM EST documented in this encounter Results * US OB BPP W NON-STRESS (05/19/2025 10:23 AM EST)Anatomical Region LateralityModalityOtherSpecimen (Source)Anatomical Location / Laterality Collection Method / VolumeCollection TimeReceived Time05/19/2025 10:23 AM EST Narrative 05/19/2025 10:[address] [facility] ?[address] ? [place] [address] ? Ultrasound Report ? Signed ? Patient: SOMMER,JOSÉ LUIS P ? MR#: [id number] ?? : 2000 ?Acct:[id number] ?? Age/Sex: 24 / F ?ADM Date: ?? Loc: [facility] ??250-1 ? Attending Dr: Lia Rosa D.O. ? Ordering Physician: Lia Rosa D.O. ?? Date of Service: 05/19/25 ?? Procedure(s): US OB BPP w non-stress ?? Accession Number(s): [id number] ? cc: Lia Rosa D.O.; DUKE PERAZA ? [facility] ? [address] ? [place] [address] ? Patient Name: ?? JOSÉ LUIS NOVOA ? MRN: [facility]:[id number] ? date: 2000 ?Sex: F ?? Assigned Patient Location: [facility] ?? Current Patient Location: [facility] ?? Accession/Order Number: [id number] ?? Exam Date: 05/19/2025 ??09:26 ?Report Date: 05/19/2025 ??10:23 ? At the request of: ?? LIA ??SHELLEY ??DO ? Procedure: ??US OB BPP w non-stress ? BIOPHYSICAL PROFILE: ? CLINICAL INFORMATION: BORDERLINE OLIGOHYDRAMNIOS ? COMPARISON: 05/12/2025 ? There is a single live intrauterine gestation in cephalic presentation. ??The ?? reported gestational age is 36 weeks 2 days. ??The heart rate measures ?? 124 beats per minute. ? FINDINGS: ? TONE: [...] 2 cm ? [Y] ? 2/2 ?RUCHI: 11.3 cm ? Total score: ? 8/8 ? US/US OB BPP w non-stress ?? IMPRESSION: ? NORMAL BIOPHYSICAL PROFILE ? Impression dictated by: Jacqui Mendoza M.D. ??05/19/2025 10:23 AM ? Dictation Location: RADIO-PC-02 ? Electronically authenticated by: [id number] ??Y ?? Date: 05/19/2025 ??10:23 ? Dictated By: ?Jacqui Mendoza M.D. ? Signed By: ?05/19/25 1026 ? DD/ 1023 ? TD/TT: ? Mobile Solutions Architect: Procedure Note Radiology, Radiologist, MD - 12/03/2025 [place] [address] Ultrasound Report Signed Patient: JOSÉ LUIS NOVOA PMR#: [id number] : 2000Acct:[id number] Age/Sex: 24 / FADM Date: Loc: [facility] 250-[address]: Lia Rosa D.O. Ordering Physician: Lia Rosa D.O. Date of Service: 05/19/25 Procedure(s): US OB BPP w non-stress Accession Number(s): [id number] cc: Lia Rosa D.O.; DUKE PERAZA The [place] [address] Patient Name: JOSÉ LUIS NOVOA MRN: [id number] date: 2000 Sex: F Assigned Patient Location: [facility] Current Patient Location: [facility] Accession/Order Number: [id number] Exam Date: 05/19/2025 09:26 Report Date: 05/19/2025 10:23 At the request of: LIA ROSA DO Procedure: US OB BPP w non-stress BIOPHYSICAL PROFILE: CLINICAL INFORMATION: BORDERLINE OLIGOHYDRAMNIOS COMPARISON: 05/12/2025 There is a single live intrauterine gestation in cephalic presentation.The reported gestational age is 36 weeks 2 days. The heart ratemeasures 124 beats per minute. FINDINGS: TONE: 1 or [...] greater than 2 cm [Y] 2/2 RUCHI: 11.3 cm Total score: 8/8 US/US OB BPP w non-stress IMPRESSION: NORMAL BIOPHYSICAL PROFILE Impression dictated by: Jacqui Mendoza M.D. 05/19/2025 10:23 AM Dictation Location: [place] [address] Electronically authenticated by: [id number] Y Date: 0:23 Dictated By: Jacqui Mendoza M.D. Signed By:05/19/25 1026 DD/ 1023 TD/TT: Mobile Solutions Architect: Authorizing ProviderResult TypeResult StatusCorey Shelley DOCLINISYNC IMAGINGFinal Result * ORGANISM IDENTIFICATION (05/19/2025 10:15 AM EST)ComponentValueRef RangeTest MethodAnalysis TimePerformed AtPathologist SignatureORGANISM IDENTIFICATION ??Organism Identification WILL FOLLOW TBHSpecimen (Source)Anatomical Location / LateralityCollection Method / Volume Collection TimeReceived Time05/19/2025 10:15 AM EST05/19/2025 10:24 AM EST Narrative [facility] - 05/23/2025 4:08 PM EST Authorizing ProviderResult TypeResult StatusCorey Shelley DOLAB BLOOD ORDERABLES Final ResultPerforming OrganizationAddressCity/State/ZIP CodePhone Number [facility] * STREP GP B CULTURE+RFLX (05/19/2025 [...] AM EST 05/19/2025 10:24 AM EST Narrative [facility] - 05/23/2025 4:08 PM EST Authorizing ProviderResult TypeResult StatusCorey Shelley DOLAB BLOOD ORDERABLES Final ResultPerforming OrganizationAddressty/State/ZIP CodePhone Number [facility] * URINE CULTURE - [facility] (05/19/2025 9:15 AM EST)ComponentValueRef RangeTest MethodAnalysis TimePerformed AtPathologist SignatureURINE CULTURE - [facility] ??Urine Culture - [facility] SEE[facility] RESULT^[facility] RESULT TBHURINE CULTURE - FRMCSEEN SEE SCANNED REPORT, NORMAL^SEE SCANNED REPORT, NORMALTBHSpecimen (Source)Anatomical Location / LateralityCollection Method / VolumeCollection TimeReceived Time05/19/2025 9:15 AM EST05/19/2025 9:30 AM EST Narrative [facility] - 05/21/2025 3:03 PM EST Authorizing ProviderResult TypeResult StatusCorey Shelley DOLAB BLOOD ORDERABLES Final ResultPerforming OrganizationAddressCity/State/ZIP CodePhone Number [facility] documented in this encounter Visit Diagnoses Not on filedocumented in this encounter Care Teams Team MemberRelationshipSpecialtyStart DateEnd Kym Peraza MD [address] [place] [address] PCP - GeneralFamily Medicine11/28/22 Rosita Yanes MD [address] [place] [address] Referring PhysicianFamily Medicine11/28/22documented as of this encounter
--- OUTSIDE RECORDS SUMMARY | 2025-05-29 15:49 | XMS_ITS | Encounter Summary ---
Author Organization [facility] Address [address] [place] [address] Care Team Providers Care Cryptographic Vulnerability Analyst Name Role Phone Kym Peraza MD Primary Care Provider [phone] Rosita Yanes MD Unavailable [phone] Encounter Details DateTypeDepartmentCare Team (Latest Contact Info)Seyfadoklaw24/03/2025External Result Encounter [facility] External Department Unsolicited Mendel Rosa, DO [address] [facility] [address] [place] [address] Social History Tobacco UseTypesPacks/DayYears UsedDateSmoking Tobacco: NeverSmokeless [...] times a week02/20/2023How often do you attend sabianism or samaritan services?1 to 4 times per year02/20/2023 Do you belong to any clubs or organizations such as sabianism groups, unions, fraternal or athletic groups, or school groups?No02/20/2023How often do you attend meetings of the clubs or organizations you belong to?Never02/20/2023re you , , , , never , or living with a partner?Living with qqgztby3802/20/2023UDIT-CAnswerDate RecordedQ1: How often do you have a [...] and heating?Not very hard02/20/2023HQ-2AnswerDate RecordedPatient Health Questionnaire-2 Iamgp652Finintermountain medical center [place] of Occupational Health - Occupational Stress QuestionnaireAnswerDate RecordedDo you feel stress - tense, restless, nervous, or anxious, or unable to sleep at night because yourmind is troubled all the time - these days?Only a ezodtz5502/20/2023Exercise Vital Sign AnswerDate RecordedOn average, how many [...] in ashelter (including now)?No 02/20/2023Estimated Date of QvglsftiOrtfhmyuKwb33/29/2025Based on Ultrasound, FHR- 176Sex and Gender InformationValueDate RecordedSex Assigned at BirthNot on fileLegal WgcPxpxam15/15/2023 6:51 PM EDTGender IdentityNot on file Sexual OrientationNot on filedocumented as of this encounter Plan of Treatment Not on file documented as of this encounter Procedures Procedure NamePriorityDate/TimeAssociated DiagnosisCommentsCULTURE, URINE, VCPFNVLNgjqeeb84/03/2025 9:15 AM EST documented in this encounter Results * Urine culture (05/19/2025 9:15 AM EST)ComponentValueRef RangeTest Method Analysis TimePerformed AtPathologist SignatureFR NOTE?50,000 colonies/ml mixed ?bacterial skin contaminants ?2 Days 05/21/2025 9:03 AM [facility] CtrSpecimen (Source)Anatomical Location / LateralityCollection Method / VolumeCollection TimeReceived TimeUrine Urine specimen obtained by clean catch procedure / Iohzdtf9505/19/2025 9:15 AM EST 05/19/2025 12:44 PM ESTComment:Clean-Voided Midstream Narrative [facility] - 05/21/2025 9:03 AM EST Diagnosis: [facility] POSSIBLE RUPTURE OF MEMBRANES Comment: Authorizing ProviderResult TypeResult StatusCorey Shelley DOLAB MICROBIOLOGY - GENERAL ORDERABLESFinal ResultPerforming OrganizationAddressCity/State/ZIP Code Phone Number [facility] [address] [place] [address], [facility] [address] [place] [address] documented in this encounter Visit Diagnoses Not on filedocumented in this encounter Care Teams Team MemberRelationshipSpecialtyStart DateEnd Date Kym Peraza MD [address] [place] [address] PCP - GeneralFamily Medicine11/28/22 Rosita Yanes MD [address] [place] [address] Referring PhysicianFamily Medicine11/28/22documented as of this encounter
[2025-05-29 15:52] VITALS: BP 134/88; PULSE 100
== END 2025-05-29 16:20 | disposition home or self-care (01) ==
LOC: FBCO 15:45 → FBC 15:48
PROVIDERS: PCP Student in an Organized Health Care Education/Training Program; Visit Provider Obstetrics & Gynecology
DX: O41.03X0 Oligohydramnios, third trimester, not applicable or unspecified (principal); Z3A.37 37 weeks gestation of pregnancy
CPT/HCPCS: 59025

== ENCOUNTER 2025-06-02 11:02 | Outpatient (OUT) | payer OTHER, SELFPAY ==
--- OUTSIDE RECORDS SUMMARY | 2024-04-20 11:30 | XMS_ITS ---
Author Organization [facility] Address [address] [facility] [place] [address] Care Team Providers Care Hardware Press Operator Name Role Phone Elizabeth Keating Primary Care Provider DUKE ANDREWS Unavailable Unavailable Sarita Allen Unavailable [phone] REASON FOR VISIT biweekly f/u Encounters Encounter Location Date Provider Diagnosis [place] [address] [place] [address] 04/20/2024 Sarita Allen Plan Of Treatment No Information Progress Notes * JOSÉ LUIS NOVOA PDOB:2000 (24 yo F)Acc No.[id number]:04/20/2024 F/U - Patient Patient: Corie JIN JOSÉ LUIS Reyes :?Sarita Allen LPCDOB:2000???Age:23 Y ???Sex:FemaleDate:04/20/2024hone:[phone]:[address] [facility], [address], [place], [place]Euw:Elizabeth Keating Subjective: * Chief Complaints: * B iweekly f/u Care Plan Details* * Electronic signature of Sarita Allen LPC on 06/02/2025 at 11:06 AM ESTSign off status: Pending * Provider: Reynaldo Allen LPC Date: 06/20/2023 Generated for Printing/Faxing/eTransmitting on:?06/02/2025 11:06 AM EST
--- OUTSIDE RECORDS SUMMARY | 2024-12-09 10:15 | XMS_ITS ---
Author Organization 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 Encounters Encounter Location Date Provider Diagnosis [place] [address] [place] [address] 12/09/2024 Elizabeth Keating Plan Of Treatment No Information Progress Notes * JOSÉ LUIS NOVOA PDOB:2000 (24 yo F)Acc No.[id number]:12/09/2024 Patient:?JOSÉ LUIS NOVOA :?Elizabeth Keating DDSDOB:2000???Age:23 Y ???Sex:FemaleDate:12/09/2024Phone:[phone]:[address] [facility], [address], [place], [place] Subjective: * Chief Complaints: * N p exam Billing Information: * Procedure Codes: * Electronic signature of Elizabeth Keating DDS on 06/02/2025 at 11:06 AM ESTSign off status: Pending * Provider: Rupali Keating DDS Date: 0 12/09/2024 Generated for Printing/Faxing/eTransmitting on:?06/02/2025 11:06 AM EST
--- OUTSIDE RECORDS SUMMARY | 2025-05-26 11:10 | XMS_ITS | Encounter Summary ---
Author Organization [facility] Address [address] [place] [address] Care Team Providers Care Supervisor Steel Division Name Role Phone Kym Peraza MD Primary Care Provider [phone] Rosita Yanes MD Unavailable [phone] Reason for Visit * ReasonCommentsRoutine Visit Encounter Details DateTypeDepartmentCare Team (Latest Contact Info)Qpjxzzakllm46/10/2025 11:10 AM ESTRoutine [facility] [address] [place] [address] Mendel Rosa DO [address] [facility] [address] [place] [phone] Third trimester ([facility]); 37 weeks gestation of ([facility]) Social History Tobacco UseTypesPacks/DayYears UsedDateSmoking Tobacco: NeverSmokeless [...] times a week02/20/2023How often do you attend restorationism or judaism services?1 to 4 times per year02/20/2023 Do you belong to any clubs or organizations such as restorationism groups, unions, [employer] or athletic groups, or school groups?No02/20/2023How often do you attend meetings of the clubs or organizations you belong to?Never02/20/2023re you , , , , never , or living with a partner?Living with ucmggow5102/20/2023UDIT-CAnswerDate RecordedQ1: How often do you have a [...] and heating?Not very hard02/20/2023HQ-2AnswerDate RecordedPatient Health Questionnaire-2 Bquev659F[facility] [place] of Occupational Health - Occupational Stress QuestionnaireAnswerDate RecordedDo you feel stress - tense, restless, nervous, or anxious, or unable to sleep at night because yourmind is troubled all the time - these days?Only a uypbfu6502/20/2023Exercise Vital Sign AnswerDate RecordedOn average, how many [...] steady place to sleep or slept in atwaterelter (including now)?No 02/20/2023Estimated Date of NzckaqxuGbptmpayBrs12/29/2025Based on Ultrasound, FHR- 176Sex and Gender InformationValueDate RecordedSex Assigned at BirthNot on fileLegal UieZjgogc78/15/2023 6:51 PM EDTGender IdentityNot on file Sexual OrientationNot on filedocumented as of this encounter Last Filed Vital Signs Vital SignReadingTime TakenCommentsBlood Hpfrmtau505/6412 11:19 AM EST Pulse--Temperature--Respiratory Rate--Oxygen Saturation--Inhaled Oxygen Concentration--Xykoat06 kg (161 lb)05/26/2025 11:19 AM ESTHeight--Body Mass Index26.7905 11:44 AM EDTdocumented in this encounter Progress Notes * Jacqui Mcclain LPN - 05/26/2025 11:10 AM EST Reason for Appointment: Patient ID: Augustine Brooke is a 24 y.o. female who presents [...] Date Noted Bronchospasm 08/02/2023 Acute cough 08/23/2023 Past Medical History: Diagnosis Date Allergic 3 years ago? Headache Yesterday HISTORY PAST MEDICAL HISTORY SOCIAL HISTORY Past Medical History: Diagnosis Date Allergic 3 years ago? Anxiety Headache Yesterday Social History Tobacco Use Smoking status: Never Smokeless tobacco: Never Substance Use Topics Alcohol use: Never Drug use: Yes Types: Marijuana FAMILY HISTORY Family History Problem Relation Name Age of Onset Bone cancer Paternal Grandfather Cancer Paternal Grandfather Hypertension Other Thyroid disease Mother Sabrina costa Hypertension Father Min brooke Stroke Father Min brooke Breast cancer Father's Sister Chari SURGICAL HISTORY Past Surgical History: Procedure Laterality Date TONSILLECTOMY REVIEW OF SYSTEMS Review of Systems: Review of Systems Constitutional: Negative. HENT: Negative. Eyes: Negative. Respiratory: Negative. Cardiovascular: Negative. Gastrointestinal: Negative. Genitourinary: Negative. Musculoskeletal: Negative. Skin: Negative. Neurological: Negative. All other systems reviewed and are negative. Hematological: Negative. Endocrine: Negative. Allergic/Immunologic: Negative. OBJECTIVE Objective: Physical Exam Constitutional: Appearance: Normal appearance. She is well-developed. Genitourinary: Vulva normal. Cardiovascular: Rate and Rhythm: Normal rate and [...] nursing note reviewed. Exam conducted with a parcel contractor present. Vitals: Estimated body mass index is 26.79 kg/m?? as calculated from the following: Height as of 10/27/24: 5' 5 . Weight as of this encounter: 161 lb. BP: 122/64 No LMP recorded. Patient is . Assessment/Plan ICD-10-CM 1. Third trimester ([facility]) Z34.93 CANCELED: CULTURE, GROUP B STREP WITH SUSCEPTIBLITY CANCELED: CULTURE, GROUP B STREP WITH SUSCEPTIBLITY 2. 37 weeks gestation of ([facility]) Z3A.37 CANCELED: POCT urinalysis dipstick manually resulted Assessment/Plan Return OB: Patient presents today for a routine obstetrics appointment. Patient is currently 37w2d . Patient states she is doing well but has complaints of being tired due to current . Patient has verbalizes frequent movement. labor precautions was discussed/given and patient was instructed to perform kick counts three times a day. Pt to be induced 05/04/25 for cytotec, at 1830. No orders of the defined types were placed in this encounter. Follow Up: Patient is to return to office in 1 week for routine OB appointment. Documented by Jacqui Mcclain LPN on behalf of: Mendel Rosa DO documented in this encounter Plan of Treatment Not on file documented as of this encounter Visit Diagnoses Diagnosis Third trimester ([facility]) state, incidental 37 weeks gestation of ([facility]) documented in this encounter Care Teams Team MemberRelationshipSpecialtyStart DateEnd Date Kym Peraza MD [address] [place] [address] PCP - GeneralFamily Medicine11/28/22 Rosita Yanes MD [address] [place] [address] Referring PhysicianFamily Medicine11/28/22documented as of this encounter
--- NOTE | 2025-06-02 | US_ITS ---
The [address] [address] Patient Name: JOSÉ LUIS NOVOA MRN: [id number] date: 2000 Sex: F Assigned Patient Location: [facility] Current Patient Location: [facility] Accession/Order Number: [id number] Exam Date: 06/02/2025 11:05 Report Date: 06/02/2025 11:52 At the request of: CRESENCIO VARELA Procedure: US OB BPP w non-stress BIOPHYSICAL PROFILE: CLINICAL INFORMATION: BORDERLINE OLIGOHYDRAMNIOS COMPARISON: 05/26/2025 There is a single live intrauterine gestation in cephalic presentation. The reported gestational age is 38 weeks 2 days. The heart rate beats per minute. Incidental note is made of mild right sided hydronephrosis. There is also a small left hydrocele. FINDINGS: TONE: 1 or more episodes of activity extension and flexion of extremity or opening and closing of the hand [Y] 2/2 GROSS BODY MOVEMENTS: 3 or more discrete body or limb movements [Y] 2/2 BREATHING MOVEMENTS: 1 or more episodes of breathing lasting at least 30 seconds [Y] 2/2 RUCHI: A single deepest vertical pocket of amniotic fluid greater than 2 cm [Y] 2/2 RUCHI: 11.1 cm. This is in low-normal range. Total score: 8/8 US/US OB BPP w non-stress IMPRESSION: NORMAL BIOPHYSICAL PROFILE. INCIDENTAL MILD RIGHT HYDRONEPHROSIS AND SMALL LEFT HYDROCELE. Impression dictated by: Jacqui Mendoza M.D. 06/02/2025 11:52 AM Dictation Location: [employer] America[employer] Electronically authenticated by: [id number] Y Date: 06/02/2025 11:52
--- OUTSIDE RECORDS SUMMARY | 2025-06-02 09:00 | XMS_ITS | Encounter Summary ---
Author Organization [facility] Address [address] [place] [address] Care Team Providers Care Admin Asst Name Role Phone Kym Peraza MD Primary Care Provider [phone] Rosita Yanes MD Unavailable [phone] Reason for Visit * ReasonCommentsNauseaPt here today with nausea and diarrhea on 06/01/2025. Pt feels much better today and she is to be induced 06/03/2025. Encounter Details DateTypeDepartmentCare Team (Latest Contact Info)Buhindbopmk31/17/2025 9:00 AM ESTOffice Visit [facility] [address] [place] [address] Su Bucio NP [address] [place] [address] Acute diarrhea (Primary Dx); Nausea; 38 weeks gestation of ([facility] BMI 26.0-26.9,adult; Overweight Social History Tobacco UseTypesPacks/DayYears [...] times a week02/20/2023How often do you attend catholic or restoration services?1 to 4 times per year02/20/2023 Do you belong to any clubs or organizations such as catholic groups, unions, fraternal or athletic groups, or school groups?No02/20/2023How often do you attend meetings of the clubs or organizations you belong to?Never02/20/2023re you , , , , never , or living with a partner?Living with pzztknm2102/20/2023UDIT-CAnswerDate RecordedQ1: How often do you have a [...] and heating?Not very hard02/20/2023HQ-2AnswerDate RecordedPatient Health Questionnaire-2 Udwky946Finmck[facility] [place] of Occupational Health - Occupational Stress QuestionnaireAnswerDate RecordedDo you feel stress - tense, restless, nervous, or anxious, or unable to sleep at night because yourmind is troubled all the time - these days?Only a mfsrxq1102/20/2023Exercise Vital Sign AnswerDate RecordedOn average, how many [...] steady place to sleep or slept in [facility] (including now)?No 02/20/2023Estimated Date of PvqzqygdWrkknpnwExx15/29/2025Based on Ultrasound, FHR- 176Sex and Gender InformationValueDate RecordedSex Assigned at BirthNot on fileLegal GbqKaksvq20/15/2023 6:51 PM EDTGender IdentityNot on file Sexual OrientationNot on filedocumented as of this encounter Last Filed Vital Signs Vital SignReadingTime TakenCommentsBlood Anmwbjnb976/6206/02/2025 8:57 AM EST Slqru388006/02/2025 8:57 AM CLHNsdbktdqawo70.9 ??C (98.4 ??F)06/02/2025 8:57 AM ESTRespiratory Rate--Oxygen Scissvxchz17%06/02/2025 8:57 AM ESTInhaled Oxygen Concentration--Rsetdb67.5 kg (162 lb)06/02/2025 8:57 AM OLQTayopo063.1 cm (5' 5 )06/02/2025 8:57 AM ESTBody Mass Index26.9612 8:57 AM ESTdocumented in this encounter Plan of Treatment Not on file documented as of this encounter Visit Diagnoses Diagnosis Acute diarrhea- Primary Diarrhea Nausea Nausea alone 38 weeks gestation of ([facility]) BMI 26.0-26.9,adult Overweight documented in this encounter Care Teams Team MemberRelationshipSpecialtyStart DateEnd Date Kym Peraza MD [address] [place] [address] PCP - GeneralFamily Medicine11/28/22 Rosita Yanes MD [address] [place] [address] Referring PhysicianFamily Medicine11/28/22documented as of this encounter
--- OUTSIDE RECORDS SUMMARY | 2025-06-02 11:05 | XMS_ITS | Encounter Summary ---
Author Organization [facility] Address [address] [place] [address] Care Team Providers Care Endorsement Clerk Name Role Phone Kym Peraza MD Primary Care Provider [phone] Rosita Yanes MD Unavailable [phone] Encounter Details DateTypeDepartmentCare Team (Latest Contact Info)Zndrivouipz32/17/2025Travel Social History Tobacco UseTypesPacks/DayYears UsedDateSmoking Tobacco: NeverSmokeless [...] times a week02/20/2023How often do you attend taoist or shinto services?1 to 4 times per year02/20/2023 Do you belong to any clubs or organizations such as taoist groups, unions, fraternal or athletic groups, or school groups?No02/20/2023How often do you attend meetings of the clubs or organizations you belong to?Never02/20/2023re you , , , , never , or living with a partner?Living with dknfmry1602/20/2023UDIT-CAnswerDate RecordedQ1: How often do you have a [...] and heating?Not very hard02/20/2023HQ-2AnswerDate RecordedPatient Health Questionnaire-2 Klixy323F[facility] [place] of Occupational Health - Occupational Stress QuestionnaireAnswerDate RecordedDo you feel stress - tense, restless, nervous, or anxious, or unable to sleep at night because yourmind is troubled all the time - these days?Only a mrxdeh7502/20/2023Exercise Vital Sign AnswerDate RecordedOn average, how many [...] in ashelter (including now)?No 3Estimated Date of VqkwtqpbSsjjwxthCcx49/29/2025Based on Ultrasound, FHR- 176Sex and Gender InformationValueDate RecordedSex Assigned at BirthNot on fileLegal VvnFkqqqz45/15/2023 6:51 PM EDTGender IdentityNot on file Sexual OrientationNot on filedocumented as of this encounter Plan of Treatment Not on file documented as of this encounter Visit Diagnoses Not on filedocumented in this encounter Care Teams Team MemberRelationshipSpecialtyStart DateEnd Date Kym Peraza MD [address] [place] [address] PCP - GeneralFamily Medicine11/28/22 Rosita Yanes MD [address] [place] [address] Referring PhysicianFamily Medicine11/28/22documented as of this encounter
--- OUTSIDE RECORDS SUMMARY | 2025-06-02 11:05 | XMS_ITS | Encounter Summary ---
Author Organization [facility] Address [address] [place] [address] Care Team Providers Care Commercial Real Estate Sales Manager Name Role Phone Kym Peraza MD Primary Care Provider Rosita Yanes MD Unavailable [phone] Encounter Details DateTypeDepartmentCare Team (Latest Contact Info)Ppiimyrxfwb39/17/2025amboo flowsheet [facility] [place] [facility] [address] [place] [address] Su Bucio NP [address] [place] [address] Social History Tobacco UseTypesPacks/DayYears UsedDateSmoking Tobacco: NeverSmokeless [...] week02/20/2023How often do you attend taoist or adventism services?1 to 4 times per year02/20/2023 Do you belong to any clubs or organizations such as taoist groups, unions, fraternal or athletic groups, or school groups?No02/20/2023How often do you attend meetings of the clubs or organizations you belong to?Never02/20/2023re you , , , , never , or living with a partner?Living with wjnhbzw4202/20/2023UDIT-CAnswerDate RecordedQ1: How often do you have a [...] and heating?Not very hard02/20/2023HQ-2AnswerDate RecordedPatient Health Questionnaire-2 Hbwqv972Fin[facility] hospital [place] of Occupational Health - Occupational Stress QuestionnaireAnswerDate RecordedDo you feel stress - tense, restless, nervous, or anxious, or unable to sleep at night because yourmind is troubled all the time - these days?Only a akqxsr7402/20/2023Exercise Vital Sign AnswerDate RecordedOn average, how many [...] in ashelter (including now)?No 02/20/2023Estimated Date of AspaalnmAkefaokfZca95/29/2025Based on Ultrasound, FHR- 176Sex and Gender InformationValueDate RecordedSex Assigned at BirthNot on fileLegal UjtApugmk29/15/2023 6:51 PM EDTGender IdentityNot on file Sexual OrientationNot on filedocumented as of this encounter Plan of Treatment Not on file documented as of this encounter Visit Diagnoses Not on filedocumented in this encounter Care Teams Team MemberRelationshipSpecialtyStart DateEnd Date Kym Peraza MD [address] [place] [address] PCP - GeneralFamily Medicine11/28/22 Rosita Yanes MD [address] [place] [address] Referring PhysicianFamily Medicine11/28/22documented as of this encounter
--- OUTSIDE RECORDS SUMMARY | 2025-06-02 11:05 | XMS_ITS | Clinical Summary ---
Author Organization [facility] Healthcare Address [address] [place] [address] Care Team Providers Care Grief Counsellor Name Role Phone Kym Peraza MD Primary Care Provider [phone] Rosita Yanes MD Unavailable [phone] Allergies No known active allergies Medications MedicationSigDispense QuantityRefillsLast FilledStart DateEnd DateStatus multivitamin () 27-0.8 MG tablet Indications:8 weeks gestation of ([facility])Take 1 tablet by mouth Daily 90 tablet /ctive ondansetron ODT (Zofran-ODT) 4 MG disintegrating tablet Indications:NauseaTake 1 tablet (4 mg) by mouth every 8 (eight) hours if needed for vomiting or nausea 20 tablet Discontinued(Med list cleanup) pseudoephedrine (Sudafed) 30 MG tablet Take 30 mg by mouth every 4 (four) hours if needed for yyxjqpgzfe37/17/2025 Discontinued(Med list cleanup) nitrofurantoin, macrocrystal-monohydrate, (Macrobid) 100 MG capsule TAKE 1 CAPSULE BY MOUTH EVERY MORNING, and ONE CAPSULE before bedtime FOR 7 DAYS Discontinued(Med list cleanup) nitrofurantoin, macrocrystal-monohydrate, (Macrobid) 100 MG capsule Indications:UTI symptomsTake 1 capsule (100 mg) by mouth in the morning and 1 capsule (100 mg) before bedtime. Do all this for 7 days. 14 capsule Expired Active Problems ProblemNoted DateDiagnosed YtrrMchxjhe33/16/2023Mild episode of recurrent major depressive sthxvglo14/16/2023Estimated Date of DeliveryCommentsYes 5Based on Ultrasound, FHR- 176 Resolved Problems ProblemNoted DateDiagnosed DateResolved DateAcute cough/08/2023 Rphlwnxubjjx58 Assessment & Plan (08/02/2023 3:58 PM EST): Will try inhaler and follow up as needed or if symptoms change or worsen Encounters DateTypeDepartmentCare KesaJslshlbnlxt44/17/2025 9:00 AM ESTOffice Visit [facility] [address] [place] [address] Su Bucio NP Acute diarrhea (Primary Dx); Nausea; 38 weeks gestation of ([facility]); BMI 26.0-26.9,adult; Vsaeoimfoh11/17/2025amboo flowsheet [facility] [address] [place] [phone] Su Bucio NP 06/02/20251149Vigedr69/10/2025 11:10 AM ESTRoutine [facility] [address] [place] [address] Mendel Rosa, DO Third trimester ([facility]); 37 weeks gestation of ([facility])05/26/2025linisync Result Encounter NOM[facility] External Department Unsolicited Marianna Varela PA 05/26/2025bstract [facility] [place] [facility] [address] [place] [address] Mendel Rosa, 05/26/2025amboo flowsheet [facility] [address] [place] [address] Mendel Rosa, DO 05/24/2025bstract [facility] [address] [place] [phone] Mendel Rosa, DO 05/19/2025External Result Encounter NOMS External Department Unsolicited Mendel Rosa, DO 05/19/2025linisync Result Encounter NOMS External Department Unsolicited Mendel Rosa, DO 05/19/2025linisync Result Encounter NOMS External Department Unsolicited ShelleyMendel, DO 05/12/2025Telephone [facility] [address] [place] [address] ShelleyMendel cerrato, DO 05/12/2025linisync Result Encounter NOMS External Department Unsolicited Marianna Varela PA 05/10/2025Patient Outreach [facility] [address] [place] [address] Marianna Galdamez LPN 05/05/2025 10:00 AM ESTRoutine [facility] [address] [place] [address] Marianna Varela PA Third trimester ([facility]); 34 weeks gestation of ([facility])05/05/2025linisync Result Encounter NOMS External Department Unsolicited Marianna Varela PA 05/05/2025linisync Result Encounter NOMS External Department Unsolicited Marianna Varela PA 05/05/2025amboo flowsheet [facility] [address] [place] [phone] Marianna Varela PA 04/29/2025Telephone [facility] [address] [place] [address] Lenka Jimenez MA 04/28/2025linisync Result Encounter NOMS External Department Unsolicited Marianna Varela PA 04/22/2025linisync Result Encounter NOMS External Department Unsolicited Marianna Varela PA 04/21/2025 11:00 AM ESTRoutine [facility] [address] [place] [address] Mendel Rosa, DO Third trimester ([facility]); 32 weeks gestation of ([facility]); RUCHI (amniotic fluid index) borderline low; Oligohydramnios in third trimester, fetus 1 of multiple gestation ([facility]) 04/21/2025Telephone [facility] [address] [place] [address] Mendel Rosa, DO 04/21/2025amboo flowsheet [facility] [address] [place] [address] Mendel Rosa, DO 04/14/2025Telephone [facility] [address] [place] [address] Mendel Rosa, DO 04/14/2025linisync Result Encounter NOMS External Department Unsolicited Marianna Varela PA 04/09/2025Patient Outreach [facility] [address] [place] [address] Marianna Galdamez LPN 04/07/2025 10:50 AM EDTRoutine [facility] [address] [place] [address] Marianna Varela PA Third trimester ([facility]); 30 weeks gestation of ([facility]); Exposure to STD; RUCHI (amniotic fluid index) borderline low; BV (bacterial vaginosis)04/07/2025amboo flowsheet [facility] [address] [place] [address] Marianna Varela PA 04/06/2025Telephone [facility] [place] [facility] [address] [place] [address] Mendel Rosa, DO 10/20/2025Telephone [facility] [address] [place] [address] Lenka Jimenez [place] 03/31/2025 1:30 PM EDTAncillary Procedure [facility] [address] [place] [address] size inconsistent with dates ([facility])03/29/2025linisync Result Encounter NOMS External Department Unsolicited Mendel Rosa, DO 03/29/2025Telephone [facility] [address] [place] [address] Mendel Rosa, DO 03/24/2025 10:30 AM EDTRoutine [facility] [address] [place] [address] Radha Resendez NP size inconsistent with dates ([facility]) (Primary Dx); Third trimester ([facility]); 28 weeks gestation of ([facility])03/24/2025amboo flowsheet [facility] [address] [place] [address] [place] [address] Radha Resendez NP 03/16/2025bstract [facility] [address] [place] [address] Lenka Jimenez [place] 03/11/2025Patient Outreach [facility] [address] [place] [place] [address] Marianna Galdamez LPN 03/10/2025bstract [facility] [address] [place] [address] Marianna Galdamez LPN 03/03/2025 10:30 AM EDTRoutine [facility] [address] [place] [address] Marianna Varela PA 25 weeks gestation of ([facility]); Second trimester ([facility]); Diabetes mellitus fxkehfcsp01/17/2025Bamboo flowsheet [facility] [address] [place] [address] [place] [address] Marianna Varela PA from Last 3 Months Immunizations ImmunizationAdministration DatesNext LvyFZU8801/23/2005,05/07/2001,02/15/2000DTaP, Bkwhyacucgh31/26/2000HPV 9-Yeumgu1009/10/2016,05/15/2016,03/12/2016Hep A, ped/adol, 2 dose09/10/2016,03/12/2016Hep B, Adolescent or Dbtysqvhp50/09/2001, 02/15/2000,1999HiB, yhjwqlzabbs27/31/2001,05/07/2001,04/11/2000,02/05/2000 MMR01/23/2005,06/16/2001Meningococcal B, Omv107/15/2015,03/12/2016Meningococcal DJE1Q9303/12/2016Polio, Afjteguzbmg58/09/2005,05/07/2001,04/11/2000,02/15/2000Tdap 12/01/2021,12/08/2019,03/03/20127264Dkbtvssji51/29/2016,01/01/2001 Family History Medical HistoryRelationNameCommentsHypertensionFatherTony hoffStrokeFatherTony hoffBreast cancerFather's [...] week02/20/2023How often do you attend holiness or zoroastrianism services?1 to 4 times per year02/20/2023o you belong to any clubs or organizations such as holiness groups, unions, fraternal or athletic groups, or school groups?No02/20/2023How often do you attend meetings of the clubs or organizations you belong to?Never02/20/2023re you , , , , never , or living with a partner?Living with cbmfodn0902/20/2023 AUDIT-CAnswerDate RecordedQ1: How often do you have [...] heating?Not very hard02/20/2023HQ-2Answer Date RecordedPatient Health Questionnaire-2 Kufww254Finencompass health [facility] of Occupational [facility] - Occupational Stress QuestionnaireAnswerDate RecordedDo you feel stress - tense, restless, nervous, or anxious, or unable to sleep at night because yourmind is troubled all the time - these days?Only a iibkbl0102/20/2023 Exercise Vital SignAnswerDate RecordedOn average, how many [...] in ashelter (including now)?No02/20/2023Estimated Date of Delivery PdqsccemUjw77/29/2025Based on Ultrasound, FHR- 176Sex and Gender Information ValueDate RecordedSex Assigned at BirthNot on fileLegal WmuLkadey11/15/2023 6:51 PM EDTGender IdentityNot on fileSexual OrientationNot on file Last Filed Vital Signs Vital SignReadingTime TakenCommentsBlood Lxojlxri283/6206/02/2025 8:57 AM EST Baois325206/02/2025 8:57 AM QKUZayrknzhden44.9 ??C (98.4 ??F)06/02/2025 8:57 AM ESTRespiratory Rate--Oxygen Pzngbsanhk99%06/02/2025 8:57 AM ESTInhaled Oxygen Concentration--Emvnbo81.5 kg (162 lb)06/02/2025 8:57 AM JTLJtvdng127.1 cm (5' 5 )06/02/2025 8:57 AM ESTBody Mass Index26.9606/02/2025 8:57 AM EST Plan of Treatment Health MaintenanceDue DateLast DoneCommentsCOVID-19 Vaccine ( season) 2025Influenza Vaccine (#1)2025Pneumococcal Vaccine: Pediatrics (0 to 5 Years) and At-Risk Patients (6 to 64 Years)Aged OutNo longer eligible based on patient's age to complete this topic Procedures Procedure NamePriorityDate/TimeAssociated DiagnosisCommentsUS OB BPP W NON-WMBQFF9405/26/2025 2:10 PM EST US OB BPP W NON-VHSOLK9505/19/2025 10:23 AM EST ORGANISM HGHLRJOZQHMIIOMvkspvr24/03/2025 10:15 AM EST STREP GP B CULTURE+FJQQGggvqkb36/03/2025 10:15 AM EST FAQYKTZFZqzqbgv99/03/2025 9:22 AM EST URINE CULTURE - KONTNbpoylt19/03/2025 9:15 AM EST [facility] UA (CLEAN/CATCH) AMMONIUM NITRATE CRYSTALLIZER/MICRO IF IND.Whypnmd2405/19/2025 9:15 AM EST CULTURE, URINE, IUCMQIKArqbwgd22/03/2025 9:15 AM EST US OB BPP W NON-AAETUK0205/12/2025 11:37 AM EST US OB BPP W NON-PEGRMF4705/05/2025 11:35 PM EST US OB SXVQBB8305/05/2025 11:35 PM EST POCT URINALYSIS VRHKGUYBBeyvxsw31/19/2025 10:09 AM EST 34 weeks gestation of ([facility]) US OB BPP W NON-UKIYXL1104/28/2025 12:44 PM EST US OB BPP W NON-BTLRXA2304/22/2025 7:58 AM EST POCT URINALYSIS AMRTHQEZSvpoaxr30/05/2025 12:20 PM EST Third trimester ([facility]) 32 weeks gestation of ([facility]) US OB BPP W NON-ULQPJD8904/14/2025 11:19 AM EDT RECURRENT VAGINITIS (HTRX)Asehiiz0604/07/2025 11:52 AM EDT POCT URINALYSIS BZPQRBKTWwcpihh92/22/2025 10:53 AM EDT Third trimester ([facility]) US OB FOLLOW UP TRANSABDOMINAL NUMTAXNKUzpledr86/15/2025 1:59 PM EDT size inconsistent with dates ([facility]) URINE CULTURE, AQLNZOMAdrpfxi91/13/2025 1:45 PM EDT TB[facility] UA (CLEAN/CATCH) AMMONIUM NITRATE CRYSTALLIZER/MICRO IF IND.Keyxbyk5303/29/2025 1:45 PM EDT POCT URINALYSIS CFHOXJEEMimvlqw08/08/2025 10:44 AM EDT Third trimester ([facility]) POCT URINALYSIS DAHFDJCMHwbmlxl15/17/2025 10:37 AM EDT 25 weeks gestation of ([facility]) Second trimester ([facility]) from Last 3 Months Results * US OB BPP W NON-STRESS (05/26/2025 2:10 PM EST) Only the most recent of7 resultswithin the time period is included. Anatomical RegionLateralityModalityOtherSpecimen (Source)Anatomical Location / LateralityCollection Method / VolumeCollection TimeReceived Time05/26/2025 2:10 PM EST Narrative 05/26/2025 2:13 PM EST [facility] ?[address] ? [place] [address] ? Ultrasound Report ? Signed ? Patient: JOSÉ LUIS NOVOA Amy ? MR#: [id number] ?? : 2000 ?Acct:[id number] ?? Age/Sex: 24 / F ?ADM Date: 05/26/25 ?? Loc: US ? Attending Dr: Marianna Varela ? Ordering Physician: Marianna Varela ?? Date of Service: 05/26/25 ?? Procedure(s): US OB BPP w non-stress ?? Accession Number(s): [id number] ? cc: Marianna Varela; [facility] ? [facility] ? [address] ? [place] [address] ? Patient Name: ?? JOSÉ LUIS NOVOA ? MRN: [facility]:[id number] ? date: 2000 ?Sex: F ?? Assigned Patient Location: FB ?? Current Patient Location: ? Accession/Order Number: [id number] ?? Exam Date: 05/26/2025 ??10:02 ?Report Date: [...] Dictation Location: RADIO-PC-30 ? Electronically authenticated by: [id number] ??Y ?? Date: 05/26/2025 ??14:10 ? Dictated By: ?Jacqui Mendoza M.D. ? Signed By: ?12/10/25 1413 ? DD/ 1410 ? TD/TT: ? Tea Taster: Procedure Note Radiology, Radiologist, - 05/26/2025 [place] [address] Ultrasound Report Signed Patient: JOSÉ LUIS NOVOA PMR#: [id number] : 2000Acct:[id number] Age/Sex: 24 / FADM Date: 05/26/25 Loc: US Attending Dr: Marianna Varela Ordering Physician: Marianna Varela Date of Service: 05/26/25 Procedure(s): US OB BPP w non-stress Accession Number(s): [id number] cc: Marianna Varela; [facility] The [place] [address] Patient Name: JOSÉ LUIS NOVOA MRN: [id number] date: 2000 Sex: F Assigned Patient Location: [facility] Current Patient Location: Accession/Order Number: [id number] Exam Date: 05/26/2025 10:02 Report Date: 05/26/2025 [...] Mendoza M.D. 05/26/2025 2:10 PM Dictation Location: [place] [address] Electronically authenticated by: [id number] Y Date: 4:10 Dictated By: Jacqui Mendoza M.D. Signed By:05/26/25 1413 DD/ 1410 TD/TT: Tea Taster: Authorizing ProviderResult TypeResult StatusAmy [place] PACLINISYNC IMAGINGFinal Result * ORGANISM IDENTIFICATION (05/19/2025 10:15 [...] AM EST 05/19/2025 10:24 AM EST Narrative [facility] - 05/23/2025 4:08 PM EST Authorizing ProviderResult TypeResult StatusCorey Shelley DOLAB BLOOD ORDERABLES Final ResultPerforming OrganizationAddressCity/State/ZIP CodePhone Number [facility] * AMNISURE (05/19/2025 9:22 AM EST)ComponentValueRef RangeTest MethodAnalysis TimePerformed AtPathologist SignatureTBH AMNISURENEGATIVENEGATIVETBHSpecimen (Source)Anatomical Location / LateralityCollection Method / VolumeCollection TimeReceived Time05/19/2025 9:22 AM EST05/19/2025 9:30 AM EST Narrative [facility]IN[facility]YNC - 05/19/2025 9:44 AM EST Authorizing ProviderResult TypeResult StatusCorey Shelley DOLAB BLOOD ORDERABLES Final ResultPerforming OrganizationAddressCity/State/ZIP CodePhone Number [facility] * URINE CULTURE - [facility] (05/19/2025 9:15 [...] CLINISYNC [facility] * (ABNORMAL) [facility] UA (CLEAN/CATCH) AMMONIUM NITRATE CRYSTALLIZER/MICRO IF IND. (05/19/2025 9:15 AM EST) Only [...] Result Performing OrganizationAddressCity/State/ZIP CodePhone Number CLINIS[facility]NC [facility] * Urine culture (05/19/2025 9:15 AM EST)ComponentValueRef RangeTest Method Analysis TimePerformed AtPathologist SignatureFRMC NOTE?50,000 colonies/ml mixed ?bacterial skin contaminants ?2 Days 05/21/2025 9:03 AM [facility] CtrSpecimen (Source)Anatomical Location / LateralityCollection Method / VolumeCollection TimeReceived TimeUrine Urine specimen obtained by clean catch procedure / Hmvpnua2905/19/2025 9:15 AM EST 05/19/2025 12:44 PM ESTComment:Clean-Voided Midstream Narrative [facility] - 05/21/2025 9:03 AM EST Diagnosis: [facility] POSSIBLE RUPTURE OF MEMBRANES Comment: Authorizing ProviderResult TypeResult StatusCorey Shelley DOLAB MICROBIOLOGY - GENERAL ORDERABLESFinal ResultPerforming OrganizationAddressCity/State/ZIP Code Phone Number [facility] [address] [place] [address], [facility] [address] [place] [address] * OB GROWTH (05/05/2025 11:35 PM EST)Anatomical RegionLateralityModalityOther Specimen (Source)Anatomical Location / LateralityCollection Method / Volume Collection TimeReceived Time05/05/2025 11:35 PM EST Narrative 05/05/2025 11:38 PM EST [facility] ?[address] ? [place] [address] ? Ultrasound Report ? Signed ? Patient: JOSÉ LUIS NOVOA ? MR#: [id number] ?? : 2000 ?Acct:[id number] ?? Age/Sex: 24 / F ?ADM Date: 05/05/25 ?? Loc: US ? Attending Dr: Marianna Varela ? Ordering Physician: Marianna Varela ?? Date of Service: 05/05/25 ?? Procedure(s): US OB growth ?? Accession Number(s): [id number] ? cc: Marianna Varela; [facility] ? [facility] ? [address] ? [place] [address] ? Patient Name: ?? JOSÉ LUIS NOVOA ? MRN: [facility]:[id number] ? date: 2000 ?Sex: F ?? Assigned Patient Location: [facility] ?? Current Patient Location: FBCO ?? Accession/Order Number: [id number] ?? Exam Date: 05/05/2025 ??11:00 ?Report Date: [...] M.D. ??05/05/2025 11:35 PM ? Dictation Location: [place] [address] ? Electronically authenticated by: [id number] ??Y ?? Date: 05/05/2025 ??23:35 ? Dictated By: ?Abdiaziz Doran D.O. ? Signed By: ?05/05/25 2338 ? DD/ 2335 ? TD/TT: ? Tea Taster: Procedure Note Radiology, Radiologist, - 05/05/2025 [place] [address] Ultrasound Report Signed Patient: JOSÉ LUIS NOVOA PMR#: [id number] : 2000Acct:[id number] Age/Sex: 24 / FADM Date: 05/05/25 Loc: US Attending Dr: Marianna Varela Ordering Physician: Marianna Varela Date of Service: 05/05/25 Procedure(s): US OB growth Accession Number(s): [id number] cc: Marianna Varela; [facility] The [address] [address] Patient Name: JOSÉ LUIS NOVOA MRN: [id number] date: 2000 Sex: F Assigned Patient Location: [facility] Current Patient Location: [facility] Accession/Order Number: [id number] Exam Date: 05/05/2025 11:00 Report Date: 05/05/2025 [...] Doran M.D. 05/05/2025 11:35 PM Dictation Location: [employer] Electronically authenticated by: [id number] Y Date: 3:35 Dictated By: Abdiaziz Doran D.O. Signed By:05/05/252337 DD/ 34 TD/TT: Tea Taster: Authorizing ProviderResult TypeResult StatusMarianna Varela [facility] IMAGINGFinal Result * (ABNORMAL) POCT urinalysis dipstick manually resulted (05/05/2025 10:09 AM EST) Only the most recent of5 resultswithin the time period is included. ComponentValueRef RangeTest MethodAnalysis TimePerformed AtPathologist Signature Color, UAYellowClarity, UAClearGlucose, UANegativeNegative - 2000(110) ++++ mg/dLBilirubin, UANegativeNegative - 4(70) +++ mg/dLKetones, UANegativeNegative - 160(16) ++++ mg/dLSpec Grav, UA1.0201 - 1.03Blood, UANegativeNegative - 50 Ryder/mcLpH, UA6.55 - 9Protein, UATraceNegative - 1999(20) ++++ mg/dLUrobilinogen, UA1.00.2 - 12 mg/dLLeukocytes, UA2+Negative - 500+++ Astrid/mcLNitrite, UANegative Negative - PositiveSpecimen (Source)Anatomical Location / LateralityCollection Method / VolumeCollection TimeReceived IatgUjcpf66/19/2025 10:09 AM EST Narrative Authorizing ProviderResult TypeResult StatusJohnston Memorial Hospital TEST ENTER/EDIT ORDERABLESFinal Result * RECURRENT VAGINITIS (HTRX) (04/07/2025 11:52 AM EDT)ComponentValueRef Range Test MethodAnalysis TimePerformed AtPathologist SignatureATOPOBIUM VAGINAE0 19.961 - 24.689 ppm04/08/2025 7:42 AM EDTHealthTrackRx at Confluence HealthATOPOBIUM VAGINAENot Dymuzqas48.961 - 24.689 ppm04/08/2025 7:42 AM EDTHealthTrackRx at Confluence HealthBVAB 2,3 (BACTERIAL VAGINOSIS ASSOCIATED BACTERIA 2, 3); MOBILUNCUS SPP 019.961 - 24.689 ppm04/08/2025 7:42 AM EDTHealthTrackRx at [facility]fluence HealthBVAB 2,3 (BACTERIAL VAGINOSIS ASSOCIATED BACTERIA 2, 3); MOBILUNCUS SPPNot Detected 19.961 - 24.689 ppm04/08/2025 7:42 AM EDTHealthTrackRx at [facility]fluence HealthCANDIDA ALBICANS, PARAPSILOSIS, ARFPSJRFLU332.000 - 30.347 ppm04/08/2025 7:42 AM EDT [facility] at LabPortCANDIDA ALBICANS, PARAPSILOSIS, TROPICALISNot Detected 23.000 - 30.347 ppm04/08/2025 7:42 AM EDTHealthTrackRx at [facility] HospitalPortCANDIDA WNYNQATQ536.000 - 31.618 ppm04/08/2025 7:42 AM EDTHealthTrackRx at [facility] Health HORACE GLABRATANot Mbbklycr44.000 - 31.618 ppm04/08/2025 7:42 AM EDT [facility] HealthCANDIDA ZGIJXP417.000 - 30.873 ppm10/ 7:42 AM EDTHealthTrackRx at [facility] HealthCANDIDA KRUSEINot Cikjftwe73.000 - 30.873 ppm 04/08/2025 7:42 AM EDTHealthTrackRx at LabPortCHLAMYDIA GAJMJBBSCRK944.000 - 31.586 ppm04/08/2025 7:42 AM EDTHealthTrackRx at [facility] HealthCHLAMYDIA TRACHOMATIS Not Qlldhofb91.000 - 31.586 ppm04/08/2025 7:42 AM EDTHealthTrackRx at [facility] GARDNERELLA VKILJTTJC762.961 - 24.689 ppm04/08/2025 7:42 AM EDTHealthTrackRx at [facility]fluence HealthGARDNERELLA VAGINALISNot Ahrtrvye32.961 - 24.689 ppm04/08/2025 7:42 AM EDTHealthTrackRx at [facility] HealthMEGASPHAERA (TYPES 1, 2)019.961 - 24.689 ppm 04/08/2025 7:42 AM EDTHealthTrackRx at LabPortage HospitalMEGASPHAERA (TYPES 1, 2)Not Qjvqwris79.961 - 24.689 ppm04/08/2025 7:42 AM EDTHealthTrackRx at [facility] NEISSERIA WUZDWVTYKUY715.000 - 32.587 ppm04/08/2025 7:42 AM EDTHealthTrackRx at [facility] HealthNEISSERIA GONORRHOEAENot Acarsmib97.000 - 32.587 ppm04/08/2025 7:42 AM EDTHealthTrackRx at LabPortTRICHOMONAS PUWYITKBI445.000 - 31.995 ppm 04/08/2025 7:42 AM EDTHealthTrackRx at [facility] HealthTRICHOMONAS VAGINALISNot Oqohyaug35.000 - 31.995 ppm04/08/2025 7:42 AM EDTHealthTrackRx at [facility] MYCOPLASMA HHQOZDKLHY024.961 - 24.689 ppm04/08/2025 7:42 AM EDTHealthTrackRx at [facility]fluence HealthMYCOPLASMA GENITALIUMNot Tkpcwrxt99.961 - 24.689 ppm04/08/2025 7:42 AM EDTHealthTrackRx at LabPortage HospitalSpecimen (Source)Anatomical Location / LateralityCollection Method / VolumeCollection TimeReceived TimeTissue 04/07/2025 11:52 AM EDT1 1:22 AM EDT Narrative Authorizing ProviderResult TypeResult StatusAmy Nichole NAVAS BLOOD ORDERABLES Final ResultPerforming OrganizationAddressCity/State/ZIP CodePhone Number [facility] [address] [address] * OB follow up transabdominal approach (03/31/2025 [...] MD Authorizing ProviderResult TypeResult StatusRadha Resendez NPIMG [facility] PROCEDURESFinal Result * URINE CULTURE, ROUTINE (03/29/2025 1:45 PM EDT)ComponentValueRef RangeTest MethodAnalysis TimePerformed AtPathologist SignatureURINE CULTURE, ROUTINE ??Urine Culture, Routine TBHURINE CULTURE, ROUTINEMixed urogenital floraTBHURINE CULTURE, YFAYXCC88,000- 50,000 colony forming units per mLTBHURINE CULTURE, ROUTINEPerformed at: - [facility] La JaraTBHURINE CULTURE, [id number] [place], [place] [id number] URINE CULTURE, ROUTINELab Director: John Hare PhD, Phone: [phone] Specimen (Source)Anatomical Location / LateralityCollection Method / Volume Collection TimeReceived Time03/29/2025 1:45 PM EDT1 2:20 PM EDT Narrative [facility]IN[facility]NC - 03/31/2025 7:08 AM EDT Authorizing ProviderResult TypeResult StatusCorey Shelley DOLAB BLOOD ORDERABLES Final ResultPerforming OrganizationAddressCity/State/ZIP CodePhone Number CLINISYNC TB from Last 3 Months Insurance * Guarantor: José Luis NovoaAccount TypeRelation to PatientDate of BirthPhone Billing AddressPersonal/SdwuqdOqwm71/28/2000 [facility] [place] [address] Care Teams Team MemberRelationshipSpecialtyStart DateEnd Kym Peraza MD [address] [place] [address] PCP - GeneralFamily Medicine11/28/22 Rosita Yanes MD [address] [place] [address] Referring PhysicianFami Medicine11/28/22
--- OUTSIDE RECORDS SUMMARY | 2025-06-02 11:05 | XMS_ITS | Encounter Summary ---
Author Organization [facility] Address [address] [place] [address] Care Team Providers Care Recovery Coach Name Role Phone Kym Peraza MD Primary Care Provider [phone] Rosita Yanes MD Unavailable [phone] Encounter Details DateTypeDepartmentCare Team (Latest Contact Info)Gnmmjyocckf78/03/2025Clinisync Result Encounter [facility] External Department Unsolicited Mendel Rosa, DO [address] [place] [address] [place] [address] Social History Tobacco UseTypesPacks/DayYears UsedDateSmoking Tobacco: NeverSmokeless [...] week02/20/2023How often do you attend uatsdin or taoist services?1 to 4 times per year02/20/2023 Do you belong to any clubs or organizations such as uatsdin groups, unions, fraternal or athletic groups, or school groups?No02/20/2023How often do you attend meetings of the clubs or organizations you belong to?Never02/20/2023re you , , , , never , or living with a partner?Living with xbpacjl7902/20/2023UDIT-CAnswerDate RecordedQ1: How often do you have a [...] and heating?Not very hard02/20/2023HQ-2AnswerDate RecordedPatient Health Questionnaire-2 Fdoue560[facility] [place] of Occupational Health - Occupational Stress QuestionnaireAnswerDate RecordedDo you feel stress - tense, restless, nervous, or anxious, or unable to sleep at night because yourmind is troubled all the time - these days?Only a zjywdk6802/20/2023Exercise Vital Sign AnswerDate RecordedOn average, how many [...] in ashelter (including now)?No 02/20/2023Estimated Date of WbdocgcgKifhkohmBif40/29/2025Based on Ultrasound, FHR- 176Sex and Gender InformationValueDate RecordedSex Assigned at BirthNot on fileLegal YxwRmxkfi88/15/2023 6:51 PM EDTGender IdentityNot on file Sexual OrientationNot on filedocumented as of this encounter Plan of Treatment Not on file documented as of this encounter Procedures Procedure NamePriorityDate/TimeAssociated DiagnosisCommentsAMNISURERoutine 05/19/2025 9:22 AM EST [facility] (CLEAN/CATCH) TRAINING DEVELOPMENT MANAGER/MICRO IF IND.Thhxssy2105/19/2025 9:15 AM EST documented in this encounter Results * AMNISURE (05/19/2025 9:22 AM EST)ComponentValueRef RangeTest MethodAnalysis TimePerformed AtPathologist SignatureTBH AMNISURENEGATIVENEGATIVETBHSpecimen (Source)Anatomical Location / LateralityCollection Method / VolumeCollection TimeReceived Time05/19/2025 9:22 AM EST05/19/2025 9:30 AM EST Narrative [facility] - 05/19/2025 9:44 AM EST Authorizing ProviderResult TypeResult StatusCorey Shelley DOLAB BLOOD ORDERABLES Final ResultPerforming OrganizationAddressCity/State/ZIP CodePhone Number [facility] * (ABNORMAL) [facility] UA (CLEAN/CATCH) TRAINING DEVELOPMENT MANAGER/MICRO IF IND. (05/19/2025 9:15 AM EST) ComponentValueRef [...] DateEnd Kym Peraza MD [address] [place] [address] PCP - GeneralFamily Medicine11/28/22 Rosita Yanes MD [address] [place] [address] Referring PhysicianFamily Medicine11/28/22documented as of this encounter
--- OUTSIDE RECORDS SUMMARY | 2025-06-02 11:05 | XMS_ITS | Encounter Summary ---
Author Organization [facility] Address [address] [place] [address] Care Team Providers Care Yard Motor Operator Name Role Phone Kym Peraza MD Primary Care Provider [phone] Rosita Yanes MD Unavailable [phone] Encounter Details DateTypeDepartmentCare Team (Latest Contact Info)Ddemnypeumq30/10/2025amboo flowsheet ROZ Ma OBGYN [address] [place] [address] Mendel Rosa DO [address] [facility] [address] Neil Ma, [facility]11 Social History Tobacco UseTypesPacks/DayYears UsedDateSmoking [...] week02/20/2023How often do you attend voodoo or jew services?1 to 4 times per year02/20/2023 Do you belong to any clubs or organizations such as voodoo groups, unions, fraternal or athletic groups, or school groups?No02/20/2023How often do you attend meetings of the clubs or organizations you belong to?Never02/20/2023re you , , , , never , or living with a partner?Living with bevpmwb0302/20/2023UDIT-CAnswerDate RecordedQ1: How often do you have a [...] and heating?Not very hard02/20/2023HQ-2AnswerDate RecordedPatient Health Questionnaire-2 Iowwr270[facility] [place] of Occupational Health - Occupational Stress QuestionnaireAnswerDate RecordedDo you feel stress - tense, restless, nervous, or anxious, or unable to sleep at night because yourmind is troubled all the time - these days?Only a puttks9702/20/2023Exercise Vital Sign AnswerDate RecordedOn average, how many [...] in ashelter (including now)?No 3Estimated Date of GtyedhyuPepenxtqCtf19/29/2025Based on Ultrasound, FHR- 176Sex and Gender InformationValueDate RecordedSex Assigned at BirthNot on fileLegal XhaHzudvs28/15/2023 6:51 PM EDTGender IdentityNot on file Sexual OrientationNot on filedocumented as of this encounter Plan of Treatment Not on file documented as of this encounter Visit Diagnoses Not on filedocumented in this encounter Care Teams Team MemberRelationshipSpecialtyStart DateEnd Date Kym Peraza MD [address] [place] [address] PCP - GeneralFamily Medicine11/28/22 Rosita Yanes MD [address] [place] [address] Referring PhysicianFamily Medicine11/28/22documented as of this encounter
--- OUTSIDE RECORDS SUMMARY | 2025-06-02 11:05 | XMS_ITS | Encounter Summary ---
Author Organization [facility] Address [address] [place] [address] Care Team Providers Care Plastics Heat Welder Name Role Phone Kym Peraza MD Primary Care Provider [phone] Rosita Yanes MD Unavailable [phone] Encounter Details DateTypeDepartmentCare Team (Latest Contact Info)Jwjnvsrypaw11/10/2025bstract ROZ Ma OBGYN [address] [place] [address] Mendel Rosa DO [address] [facility] [address] Neil Ma, [facility]11 Social History Tobacco UseTypesPacks/DayYears UsedDateSmoking Tobacco: NeverSmokeless [...] times a week02/20/2023How often do you attend zoroastrian or cheondoism services?1 to 4 times per year02/20/2023 Do you belong to any clubs or organizations such as zoroastrian groups, unions, fraternal or athletic groups, or school groups?No02/20/2023How often do you attend meetings of the clubs or organizations you belong to?Never02/20/2023re you , , , , never , or living with a partner?Living with ujckhsk3802/20/2023UDIT-CAnswerDate RecordedQ1: How often do you have a [...] and heating?Not very hard02/20/2023HQ-2AnswerDate RecordedPatient Health Questionnaire-2 Boskm900[facility] [place] of Occupational Health - Occupational Stress QuestionnaireAnswerDate RecordedDo you feel stress - tense, restless, nervous, or anxious, or unable to sleep at night because yourmind is troubled all the time - these days?Only a hxorud4702/20/2023Exercise Vital Sign AnswerDate RecordedOn average, how many [...] in ashelter (including now)?No 02/20/2023Estimated Date of RcjoqbirWtajtybjKuc22/29/2025Based on Ultrasound, FHR- 176Sex and Gender InformationValueDate RecordedSex Assigned at BirthNot on fileLegal CsqPcmbdl98/15/2023 6:51 PM EDTGender IdentityNot on file Sexual OrientationNot on filedocumented as of this encounter Plan of Treatment Not on file documented as of this encounter Visit Diagnoses Not on filedocumented in this encounter Care Teams Team MemberRelationshipSpecialtyStart DateEnd Date Kym Peraza MD [address] [place] [address] PCP - GeneralFamily Medicine11/28/22 Rosita Yanes MD [address] [place] [address] Referring PhysicianFamily Medicine11/28/22documented as of this encounter
--- OUTSIDE RECORDS SUMMARY | 2025-06-02 11:05 | XMS_ITS | Encounter Summary ---
Author Organization [facility] Address [address] [place] [address] Care Team Providers Care Core Drier Name Role Phone Kym Peraza MD Primary Care Provider [phone] Rosita Yanes MD Unavailable [phone] Encounter Details DateTypeDepartmentCare Team (Latest Contact Info)Wfpftexmmkd94/10/2025linisync Result Encounter [facility] External Department Unsolicited Marianna Varela PA [address] [place] [address] [place] [address] Social History Tobacco UseTypesPacks/DayYears UsedDateSmoking Tobacco: NeverSmokeless [...] week02/20/2023How often do you attend uatsdin or taoism services?1 to 4 times per year02/20/2023 Do you belong to any clubs or organizations such as uatsdin groups, unions, fraternal or athletic groups, or school groups?No02/20/2023How often do you attend meetings of the clubs or organizations you belong to?Never02/20/2023re you , , , , never , or living with a partner?Living with wuwdrtv7702/20/2023UDIT-CAnswerDate RecordedQ1: How often do you have a [...] and heating?Not very hard02/20/2023HQ-2AnswerDate RecordedPatient Health Questionnaire-2 Zmehc193Finhe[facility] [place] of Occupational Health - Occupational Stress QuestionnaireAnswerDate RecordedDo you feel stress - tense, restless, nervous, or anxious, or unable to sleep at night because yourmind is troubled all the time - these days?Only a wleydd9002/20/2023Exercise Vital Sign AnswerDate RecordedOn average, how many [...] place to sleep or slept in multicare healther (including now)?No 02/20/2023Estimated Date of XxrvjgsiKovctdwyDsj45/29/2025Based on Ultrasound, FHR- 176Sex and Gender InformationValueDate RecordedSex Assigned at BirthNot on fileLegal UujTueful59/15/2023 6:51 PM EDTGender IdentityNot on file Sexual OrientationNot on filedocumented as of this encounter Plan of Treatment Not on file documented as of this encounter Procedures Procedure NamePriorityDate/TimeAssociated DiagnosisCommentsUS OB BPP W NON-WVWVVB1205/26/2025 2:10 PM EST documented in this encounter Results * US OB BPP W NON-STRESS (05/26/2025 2:10 PM EST)Anatomical Region LateralityModalityOtherSpecimen (Source)Anatomical Location / Laterality Collection Method / VolumeCollection TimeReceived Time05/26/2025 2:10 PM EST Narrative 05/26/2025 2:13 PM EST [facility] ?[address] ? [place] [id number] ? Ultrasound Report ? Signed ? Patient: JOSÉ LUIS NOVOA ? MR#: [id number] ?? : 2000 ?Acct:[id number] ?? Age/Sex: 24 / F ?ADM Date: 05/26/25 ?? Loc: US ? Attending Dr: Marianna Varela ? Ordering Physician: Marianna Varela ?? Date of Service: 05/26/25 ?? Procedure(s): US OB BPP w non-stress ?? Accession Number(s): [id number] ? cc: Marianna Varela; DUKE PERAZA ? [facility] ? [address] ? [place] [address] ? Patient Name: ?? JOSÉ LUIS NOVOA ? MRN: [facility]:[id number] ? date: 2000 ?Sex: F ?? Assigned Patient Location: [facility]BC ?? Current Patient Location: ? Accession/Order Number: [id number] ?? Exam Date: 05/26/2025 ??10:02 ?Report Date: [...] Dictation Location: RADIO-PC-30 ? Electronically authenticated by: [id number] ??Y ?? Date: 05/26/2025 ??14:10 ? Dictated By: ?Jacqui Mendoza M.D. ? Signed By: ?05/26/25 1413 ? DD/ 1410 ? TD/TT: ? Reptile Farmer: Procedure Note Radiology, Radiologist, MD - 05/26/2025 [place] [address] Ultrasound Report Signed Patient: JOSÉ LUIS NOVOA PMR#: [id number] : 2000Acct:[id number] Age/Sex: 24 / FADM Date: 05/26/25 Loc: US Attending Dr: Marianna Varela Ordering Physician: Marianna Varela Date of Service: 05/26/25 Procedure(s): US OB BPP w non-stress Accession Number(s): [id number] cc: Marianna Varela; DUKE PERAZA [place] [id number] Patient Name: JOSÉ LUIS NOVOA MRN: [facility]:[id number] date: 2000 Sex: F Assigned Patient [facility]: [facility] Current Patient Location: Accession/Order Number: [id number] Exam Date: 05/26/2025 10:02 Report Date: 05/26/2025 [...] Mendoza M.D. 05/26/2025 2:10 PM Dictation Location: [place] [address] Electronically authenticated by: [id number] Y Date: 4:10 Dictated By: Jacqui Mendoza M.D. Signed By:05/26/25 141 DD/ 09 TD/TT: Reptile Farmer: Authorizing ProviderResult TypeResult StatusMarianna Varela PACLINISYNC IMAGINGFinal Result documented in this encounter Visit Diagnoses Not on filedocumented in this encounter Care Teams Team MemberRelationshipSpecialtyStart DateEnd Date Kym Peraza MD [address] [place] [address] PCP - GeneralFamily Medicine11/28/22 Rosita Yanes MD [address] [place] [address] Referring PhysicianFachelsea memorial hospital Medicine11/28/22documented as of this encounter
--- OUTSIDE RECORDS SUMMARY | 2025-06-02 11:06 | XMS_ITS | Encounter Summary ---
Author Organization [facility] Address [address] [place] [address] Care Team Providers Care Oil Driller Name Role Phone Kym Peraza MD Primary Care Provider [phone] Rosita Yanes MD Unavailable [phone] Encounter Details DateTypeDepartmentCare Team (Latest Contact Info)Melaytasmit92/03/2025External Result Encounter [facility] External Department Unsolicited Mendel Rosa, DO [address] [facility] [place] [address] Social History Tobacco UseTypesPacks/DayYears UsedDateSmoking Tobacco: NeverSmokeless [...] times a week02/20/2023How often do you attend advent or episcopal services?1 to 4 times per year02/20/2023 Do you belong to any clubs or organizations such as advent groups, unions, fraternal or athletic groups, or school groups?No02/20/2023How often do you attend meetings of the clubs or organizations you belong to?Never02/20/2023re you , , , , never , or living with a partner?Living with egnswdb1802/20/2023UDIT-CAnswerDate RecordedQ1: How often do you have a [...] and heating?Not very hard02/20/2023HQ-2AnswerDate RecordedPatient Health Questionnaire-2 Spyew073Finshriners hospitals for [facility] [place] [employer] of Occupational Health - Occupational Stress QuestionnaireAnswerDate RecordedDo you feel stress - tense, restless, nervous, or anxious, or unable to sleep at night because yourmind is troubled all the time - these days?Only a dztxwm9202/20/2023Exercise Vital Sign AnswerDate RecordedOn average, how many [...] in ashelter (including now)?No 02/20/2023Estimated Date of MmkxxjplAuregorbBil61/29/2025Based on Ultrasound, FHR- 176Sex and Gender InformationValueDate RecordedSex Assigned at BirthNot on fileLegal IixGwvhkx52/15/2023 6:51 PM EDTGender IdentityNot on file Sexual OrientationNot on filedocumented as of this encounter Plan of Treatment Not on file documented as of this encounter Procedures Procedure NamePriorityDate/TimeAssociated DiagnosisCommentsCULTURE, URINE, IZDEUFBHtjwigd33/03/2025 9:15 AM EST documented in this encounter Results * Urine culture (05/19/2025 9:15 AM EST)ComponentValueRef RangeTest Method Analysis TimePerformed AtPathologist SignatureFR NOTE?50,000 colonies/ml mixed ?bacterial skin contaminants ?2 Days 05/21/2025 9:03 AM [facility] CtrSpecimen (Source)Anatomical Location / LateralityCollection Method / VolumeCollection TimeReceived TimeUrine Urine specimen obtained by clean catch procedure / Bgebwzs4805/19/2025 9:15 AM EST 05/19/2025 12:44 PM ESTComment:Clean-Voided Midstream Narrative [facility] - 05/21/2025 9:03 AM EST Diagnosis: [facility]BC POSSIBLE RUPTURE OF MEMBRANES Comment: Authorizing ProviderResult TypeResult StatusCorey Shelley DOLAB MICROBIOLOGY - GENERAL ORDERABLESFinal ResultPerforming OrganizationAddressCity/State/ZIP Code Phone Number [facility] [address] [place] [address], [facility] [address] [place] [address] documented in this encounter Visit Diagnoses Not on filedocumented in this encounter Care Teams Team MemberRelationshipSpecialtyStart DateEnd Date Kym Peraza MD [address] [place] [address] PCP - GeneralFamily Medicine11/28/22 Rosita Yanes MD [address] [place] [address] Referring PhysicianFamily Medicine11/28/22documented as of this encounter
--- OUTSIDE RECORDS SUMMARY | 2025-06-02 11:06 | XMS_ITS | Patient Health Record ---
Author Organization [facility] Address [address] [place] [address] Care Team Providers Care Wedding Day Coordinator Name Role Phone Elizabeth Keating Primary Care Provider DUKE ANDREWS Unavailable Unavailable Reason For Referral No Information Problems Problem Type SNOMED Code ICD Code Onset Dates Problem Status W/U Status Risk Notes Problem Anxiety (80695948) Anxiety (F41.9) ActiveconfirmedProblemBorderline personality disorder (96953039)Borderline personality disorder in adult (F60.3)Activeconfirmed Plan Of Treatment No Information Insurance Providers Payer Name Payer Address Payer Phone Subscriber Number Group Number Insured Name Patient Relationship to Insured Coverage Start Date Coverage End Date [employer] [place] [employer] [address] [facility] [place] [address] [id number] Tip NOVOA - patient is the [id number] [address] [facility] [address] [place] [id number], MORGANSelf - patient is the [id number] 2023
--- OUTSIDE RECORDS SUMMARY | 2025-06-02 11:06 | XMS_ITS | Encounter Summary ---
Author Organization [facility] Address [address] [place] [address] Care Team Providers Care Lime Trimmer Name Role Phone Kym Peraza MD Primary Care Provider [phone] Rosita Yanes MD Unavailable [phone] Encounter Details DateTypeDepartmentCare Team (Latest Contact Info)Kkmrtklxiem72/08/2025bstract ROZ Ma OBGYN [address] [facility] [address] Mendel Rosa DO [address] [facility] [address] Neil Ma, [facility]11 Social History Tobacco UseTypesPacks/DayYears UsedDateSmoking Tobacco: [...] week02/20/2023How often do you attend protestant or yazidi services?1 to 4 times per year02/20/2023 Do you belong to any clubs or organizations such as protestant groups, unions, fraternal or athletic groups, or school groups?No02/20/2023How often do you attend meetings of the clubs or organizations you belong to?Never02/20/2023re you , , , , never , or living with a partner?Living with kfdgmvl0702/20/2023UDIT-CAnswerDate RecordedQ1: How often do you have a [...] and heating?Not very hard02/20/2023HQ-2AnswerDate RecordedPatient Health Questionnaire-2 Wafzt141Finfillmore [facility] [place] of Occupational Health - Occupational Stress QuestionnaireAnswerDate RecordedDo you feel stress - tense, restless, nervous, or anxious, or unable to sleep at night because yourmind is troubled all the time - these days?Only a oksijl2402/20/2023Exercise Vital Sign AnswerDate RecordedOn average, how many [...] in ashelter (including now)?No 02/20/2023Estimated Date of TqchxsikUmuwupagSdd50/29/2025Based on Ultrasound, FHR- 176Sex and Gender InformationValueDate RecordedSex Assigned at BirthNot on fileLegal DmkXbyxjc96/15/2023 6:51 PM EDTGender IdentityNot on file Sexual OrientationNot on filedocumented as of this encounter Plan of Treatment Not on file documented as of this encounter Visit Diagnoses Not on filedocumented in this encounter Care Teams Team MemberRelationshipSpecialtyStart DateEnd Date Kym Peraza MD [address] [place] [address] PCP - GeneralFamily Medicine11/28/22 Rosita Yanes MD [address] [place] [address] Referring PhysicianFamily Medicine11/28/22documented as of this encounter
--- OUTSIDE RECORDS SUMMARY | 2025-06-02 11:06 | XMS_ITS | Encounter Summary ---
Author Organization [facility] Address [address] [place] [address] Care Team Providers Care Double Bass Player Name Role Phone Kym Peraza MD Primary Care Provider [phone] Rosita Yanes MD Unavailable [phone] Encounter Details DateTypeDepartmentCare Team (Latest Contact Info)Dqbttbinwui14/03/2025Clinisync Result Encounter [facility] External Department Unsolicited Lia Rosa, DO [address] [place] [address] [place] [address] Social History Tobacco UseTypesPacks/DayYears UsedDateSmoking Tobacco: NeverSmokeless [...] , or living with a partner?Living with jvnfunb0002/20/2023UDIT-CAnswerDate RecordedQ1: How often do you have a [...] and heating?Not very hard02/20/2023HQ-2AnswerDate RecordedPatient Health Questionnaire-2 Alhfe913Finj[facility] [place] of Occupational Health - Occupational Stress QuestionnaireAnswerDate RecordedDo you feel stress - tense, restless, nervous, or anxious, or unable to sleep at night because yourmind is troubled all the time - these days?Only a vzquri1702/20/2023Exercise Vital Sign AnswerDate RecordedOn average, how many [...] in ashelter (including now)?No 02/20/2023Estimated Date of KznaaqkhXjjxaoxkEyv70/29/2025Based on Ultrasound, FHR- 176Sex and Gender InformationValueDate RecordedSex Assigned at BirthNot on fileLegal TouXvisio18/15/2023 6:51 PM EDTGender IdentityNot on file Sexual OrientationNot on filedocumented as of this encounter Plan of Treatment Not on file documented as of this encounter Procedures Procedure NamePriorityDate/TimeAssociated DiagnosisCommentsUS OB BPP W NON-BJOXLK6205/19/2025 10:23 AM EST ORGANISM LGKXDMCWNOOZPSVufsjwn64/03/2025 10:15 AM EST STREP GP B CULTURE+ZYBLCaifgsj11/03/2025 10:15 AM EST URINE CULTURE - ASRJWouoion38/03/2025 9:15 AM EST documented in this encounter Results * US OB BPP W NON-STRESS (05/19/2025 10:23 AM EST)Anatomical Region LateralityModalityOtherSpecimen (Source)Anatomical Location / Laterality Collection Method / VolumeCollection TimeReceived Time05/19/2025 10:23 AM EST Narrative 05/19/2025 10:[address] [facility] ?[address] ? [place] [address] ? Ultrasound Report ? Signed ? Patient: SOMMER,JOSÉ LUIS P ? MR#: [id number] ?? : 2000 ?Acct:[id number] ?? Age/Sex: 24 / F ?ADM Date: ?? Loc: FBC ??250-1 ? Attending Dr: Lia Rosa D.O. ? Ordering Physician: Lia Rosa D.O. ?? Date of Service: 05/19/25 ?? Procedure(s): US OB BPP w non-stress ?? Accession Number(s): [id number] ? cc: Lia Rosa D.O.; DUKE PERAZA ? [facility] ? [address] ? [place] [address] ? Patient Name: ?? JOSÉ LUIS NOVOA ? MRN: [facility]:[id number] ? date: 2000 ?Sex: F ?? Assigned Patient Location: FBC ?? Current Patient Location: [facility]BC ?? Accession/Order Number: [id number] ?? Exam Date: 05/19/2025 ??09:26 ?Report Date: [...] Dictation Location: RADIO-PC-02 ? Electronically authenticated by: [id number] ??Y ?? Date: 05/19/2025 ??10:23 ? Dictated By: ?Jacqui Mendoza M.D. ? Signed By: ?05/19/25 1026 ? DD/ 1023 ? TD/TT: ? Drywall Finishing Foreman: Procedure Note Radiology, Radiologist, MD - 12/03/2025 [place] [address] Ultrasound Report Signed Patient: JOSÉ LUIS NOVOA PMR#: [id number] : 2000Acct:[id number] Age/Sex: 24 / FADM Date: Loc: [facility] 250-[address]: Lia Rosa D.O. Ordering Physician: Lia Rosa D.O. Date of Service: 05/19/25 Procedure(s): US OB BPP w non-stress Accession Number(s): [id number] cc: Lia Rosa D.O.; DUKE PERAZA The [place] [address] Patient Name: JOSÉ LUIS NOVOA MRN: [id number] date: 2000 Sex: F Assigned Patient Location: [facility] Current Patient Location: [facility] Accession/Order Number: [id number] Exam Date: 05/19/2025 09:26 Report Date: 05/19/2025 [...] Mendoza M.D. 05/19/2025 10:23 AM Dictation Location: [place] [address] Electronically authenticated by: [id number] Y Date: 0:23 Dictated By: Jacqui Mendoza M.D. Signed By:05/19/25 1026 DD/ 1023 TD/TT: Drywall Finishing Foreman: Authorizing ProviderResult TypeResult StatusCorey Shelley DOCLINISYNC IMAGINGFinal [...] BLOOD ORDERABLES Final ResultPerforming OrganizationAddressty/State/ZIP CodePhone Number [facility] * URINE CULTURE - [facility] (05/19/2025 9:15 [...] DateEnd Kym Peraza MD [address] [place] [address] PCP - GeneralFamily Medicine11/28/22 Rosita Yanes MD [address] [place] [address] Referring PhysicianFamily Medicine11/28/22documented as of this encounter
[2025-06-02 11:27] VITALS: BP 124/77; PULSE 88
== END 2025-06-02 12:00 | disposition home or self-care (01) ==
LOC: US 11:02 → FBC 11:05
PROVIDERS: PCP Student in an Organized Health Care Education/Training Program; Visit Provider Physician Assistant
DX: O26.893 Other specified pregnancy related conditions, third trimester (principal); Z3A.38 38 weeks gestation of pregnancy
CPT/HCPCS: 76818

== ENCOUNTER 2025-06-03 18:28 | Inpatient (IN) | payer OTHER, SELFPAY ==
--- OUTSIDE RECORDS SUMMARY | 2024-04-20 11:30 | XMS_ITS ---
Author Organization [facility] Address [address] [facility] [address] [place] [address] Care Team Providers Care Customer Insight Analyst Name Role Phone Elizabeth Keating Primary Care Provider [phone] DUKE ANDREWS Unavailable Unavailable Sarita Allen Unavailable [phone] REASON FOR VISIT biweekly f/u Encounters Encounter Location Date Provider Diagnosis [place] [address] [place] [address] 04/20/2024 Sarita Allen Plan Of Treatment No Information Progress Notes * JOSÉ LUIS NOVOA PDOB:2000 (24 yo F)Acc No.[id number]:04/20/2024 F/U - Patient Patient: Corie JIN JOSÉ LUIS Reyes :?Sarita Allen LPCDOB:2000???Age:23 Y ???Sex:FemaleDate:04/20/2024hone:[phone]:[address] [facility], [address], [place], [place]Fxh:Elizabeth Keating Subjective: * Chief Complaints: * B iweekly f/u Care Plan Details* * Electronic signature of Sarita Allen LPC on 06/03/2025 at 06:35 PM ESTSign off status: Pending * Provider: Reynaldo Allen LPC Date: 06/20/2023 Generated for Printing/Faxing/eTransmitting on:?06/03/2025 06:35 PM EST
--- OUTSIDE RECORDS SUMMARY | 2024-12-09 10:15 | XMS_ITS ---
Author Organization [facility] Address [address] [place] [address] Care Team Providers Care Manager School Name Role Phone Elizabeth Keating Primary Care Provider DUKE ANDREWS Unavailable Unavailable REASON FOR VISIT hopper filler exam Encounters Encounter Location Date Provider Diagnosis [place] [address] [place] [address] 12/09/2024 Elizabeth Keating Plan Of Treatment No Information Progress Notes * JOSÉ LUIS NOVOA PDOB:2000 (24 yo F)Acc No.[id number]:12/09/2024 Patient:?JOSÉ LUIS NOVOA :?Elizabeth Keating DDSDOB:2000???Age:23 Y ???Sex:FemaleDate:12/09/2024Phone:[phone]:[address] [facility], [address], [place], [place] Subjective: * Chief Complaints: * N p exam Billing Information: * Procedure Codes: * Electronic signature of Elizabeth Keating DDS on 06/03/2025 at 06:35 PM ESTSign off status: Pending * Provider: Rupali Keating DDS Date: 0 12/09/2024 Generated for Printing/Faxing/eTransmitting on:?06/03/2025 06:35 PM EST
--- OUTSIDE RECORDS SUMMARY | 2025-05-26 11:10 | XMS_ITS | Encounter Summary ---
Author Organization [facility] Healthcare Address [address] [place] [address] Care Team Providers Care Manager Retail Name Role Phone Kym Peraza MD Primary Care Provider [phone] Rosita Yanes MD Unavailable [phone] Reason for Visit * ReasonCommentsRoutine Visit Encounter Details DateTypeDepartmentCare Team (Latest Contact Info)Hgobgpzahwu23/10/2025 11:10 AM ESTRoutine ROZ Ma OBGYN [address] [place] [address] Mendel Rosa DO [address] [place], [place] [id number] Third trimester ([facility]); 37 weeks gestation of ([facility]) Social History Tobacco UseTypesPacks/DayYears UsedDateSmoking Tobacco: [...] times a week02/20/2023How often do you attend judaism or catholic services?1 to 4 times per year02/20/2023 Do you belong to any clubs or organizations such as judaism groups, unions, [employer] or athletic groups, or school groups?No02/20/2023How often do you attend meetings of the clubs or organizations you belong to?Never02/20/2023re you , , , , never , or living with a partner?Living with jriitzd9402/20/2023UDIT-CAnswerDate RecordedQ1: How often do you have a [...] and heating?Not very hard02/20/2023HQ-2AnswerDate RecordedPatient Health Questionnaire-2 Brrfo951Finspanish fork hospital [facility] [place] of Occupational Health - Occupational Stress QuestionnaireAnswerDate RecordedDo you feel stress - tense, restless, nervous, or anxious, or unable to sleep at night because yourmind is troubled all the time - these days?Only a fmhsfa5002/20/2023Exercise Vital Sign AnswerDate RecordedOn average, how many [...] steady place to sleep or slept in [place] (including now)?No 02/20/2023Estimated Date of FviffwlwRkwdwimhTqi45/29/2025Based on Ultrasound, FHR- 176Sex and Gender InformationValueDate RecordedSex Assigned at BirthNot on fileLegal FolWhtbym47/15/2023 6:51 PM EDTGender IdentityNot on file Sexual OrientationNot on filedocumented as of this encounter Last Filed Vital Signs Vital SignReadingTime TakenCommentsBlood Pyiyfylp467/6412 11:19 AM EST Pulse--Temperature--Respiratory Rate--Oxygen Saturation--Inhaled Oxygen Concentration--Zmujcl93 kg (161 lb)05/26/2025 11:19 AM ESTHeight--Body Mass [...] nursing note reviewed. Exam conducted with a live hanger present. Vitals: Estimated body mass index is 26.79 kg/m?? as calculated from the following: Height as of 10/27/24: 5' 5 . Weight as of this encounter: 161 lb. BP: 122/64 No LMP recorded. Patient is . Assessment/Plan ICD-10-CM 1. Third trimester ([facility]) Z34.93 CANCELED: CULTURE, GROUP B STREP WITH SUSCEPTIBLITY CANCELED: CULTURE, GROUP B STREP WITH SUSCEPTIBLITY 2. 37 weeks gestation of ([facility]) Z3A.37 CANCELED: POCT urinalysis dipstick manually [...] this encounter Visit Diagnoses Diagnosis Third trimester ([facility]) state, incidental 37 weeks gestation of ([facility]) documented in this encounter Care Teams Team MemberRelationshipSpecialtyStart DateEnd Date Kym Peraza MD [address] [place] [address] PCP - GeneralFamily Medicine11/28/22 Rosita Yanes MD [address] [place] [address] Referring PhysicianFamily Medicine11/28/22documented as of this encounter
--- OUTSIDE RECORDS SUMMARY | 2025-06-02 09:00 | XMS_ITS | Encounter Summary ---
Author Organization [facility] Address [address] [place] [address] Care Team Providers Care Maintenance Fitter Name Role Phone Kym Peraza MD Primary Care Provider Rosita Yanes MD Unavailable [phone] Reason for Visit * ReasonCommentsNauseaPt here today with nausea and diarrhea on 06/01/2025. Pt feels much better today and she is to be induced 06/03/2025. Encounter Details DateTypeDepartmentCare Team (Latest Contact Info)Xiifiaicsru09/17/2025 9:00 AM ESTOffice [facility] [address] [place] [address] Su Bucio NP [address] [place] [address] Acute diarrhea (Primary Dx); Nausea; 38 weeks gestation of ([facility] BMI 26.0-26.9,adult; Overweight Social History Tobacco UseTypesPacks/DayYears UsedDateSmoking Tobacco: NeverSmokeless [...] times a week02/20/2023How often do you attend yarsanism or anabaptism services?1 to 4 times per year02/20/2023 Do you belong to any clubs or organizations such as yarsanism groups, unions, fraternal or athletic groups, or school groups?No02/20/2023How often do you attend meetings of the clubs or organizations you belong to?Never02/20/2023re you , , , , never , or living with a partner?Living with auuvocn6602/20/2023UDIT-CAnswerDate RecordedQ1: How often do you have a [...] and heating?Not very hard02/20/2023HQ-2AnswerDate RecordedPatient Health Questionnaire-2 Cvlfv180[facility] [place] of Occupational Health - Occupational Stress QuestionnaireAnswerDate RecordedDo you feel stress - tense, restless, nervous, or anxious, or unable to sleep at night because yourmind is troubled all the time - these days?Only a vuljco5402/20/2023Exercise Vital Sign AnswerDate RecordedOn average, how many [...] steady place to sleep or slept in [facility] (including now)?No 02/20/2023Estimated Date of ZcozkmoiPpksvmkbTlt41/29/2025Based on Ultrasound, FHR- 176Sex and Gender InformationValueDate RecordedSex Assigned at BirthNot on fileLegal GogDpzkqq00/15/2023 6:51 PM EDTGender IdentityNot on file Sexual OrientationNot on filedocumented as of this encounter Last Filed Vital Signs Vital SignReadingTime TakenCommentsBlood Bkiwdcwk835/6206/02/2025 8:57 AM EST Pnmnt444006/02/2025 8:57 AM EAECjnkghqkyzx24.9 ??C (98.4 ??F)06/02/2025 8:57 AM ESTRespiratory Rate--Oxygen Pkyddzwguc88%06/02/2025 8:57 AM ESTInhaled Oxygen Concentration--Lnayga53.5 kg (162 lb)06/02/2025 8:57 AM YKWOcptbu157.1 cm (5' 5 )06/02/2025 8:57 AM ESTBody Mass Index26.9606/02/2025 8:57 AM ESTdocumented in this encounter Progress Notes * Su Bucio NP - 06/02/2025 9:00 AM EST Images from the original note were not included. Augustine Jimenes is a 24 y.o. female presents with chief complaint of Nausea (Pt here today with nausea and diarrhea on 06/01/2025. Pt feels much better today and she is to be induced 06/03/2025.) HPI: History of Present Illness The patient presents for evaluation of nausea. She experienced a significant bout of nausea yesterday, which she attributes to the consumption of a meal from [employer]. The nausea was intense enough to prevent her from getting up. Additionally, she reported an episode of diarrhea but did not experience any vomiting. Her symptoms have since subsided, and she has been able to maintain her usual diet and hydration. She reports no respiratory symptoms such as nasal drainage or coughing. Furthermore, she reports no ear pain, sore throat, or abdominal pain. She is currently at 38 weeks and 3 days gestation and is scheduled for induction tomorrow morning at 6:30 AM with a plan for vaginal delivery. She continues to perceive movements and reports novaginal bleeding or abnormal discharge. She has been under regular monitoring due to a previous diagnosis of low amniotic fluid, necessitating bi-weekly appointments and ultrasounds. Despite this, her has been progressing well, with no complications reported since her 29-week anatomy scan. SUBJECTIVE: ALLERGIES: Allergies[1] MEDICATIONS: Current Outpatient Medications Medication Instructions multivitamin () 27-0.8 MG tablet 1 tablet, Oral, Daily REVIEW OF SYMPTOMS: Constitutional: Denies fever or chills, anorexia. EENT: Denies ear pain or st. Skin: Denies new skin lesions, rash. Respiratory: Denies cough, wheezing or difficulty breathing. Cardiovascular: Denies chest pain or pressure. Gastrointestinal: Denies vomiting and abdominal pain. Nausea and diarrhea has since resolved. Infections: Denies enlarged lymph nodes. Genitourinary: Denies vaginal bleeding or discharge. Obejctive: Visit Vitals BP 114/62 (BP Location: Left arm, Patient Position: Sitting, BP Cuff Size: Large adult) Pulse 92 Temp 98.4 ??F (Temporal) Ht 5' 5 Wt 162 lb SpO2 97% BMI 26.96 kg/m?? OB Status Smoking Status Never BSA 1.84 m?? BP Readings from Last 3 Encounters: 06/02/25 114/62 05/26/25 122/64 05/05/25 108/58 Wt Readings from Last 3 Encounters: 06/02/25 162 lb 05/26/25 161 lb 05/05/25 151 lb Physical Exam General: Well developed, well nourished, in no acute distress sitting upright in chair. Head: Normocephalic/atraumatic. Eyes: No conjunctival irritation. Ears: Grossly normal hearing. Bilateral Tms clear and intact, no erythema. Nose: No discharge. Mouth: MMM, talkative. No erythema, edema or exudate. Neck: Supple. Chest: No distress. Lungs: Normal respiratory effort and clear to auscultation. No rhonchi or wheeze. Cardio: RRR, without murmur. Abdomen: Normal bowel sounds noted. Abdomen is rounded and nontender. Musculoskeletal: Steady gait. Neurologic: Grossly normal. Skin: Skin is warm and dry. Lymph Nodes: No cervical adenopathy, nodes normal. Mental Status: Alert and cooperative. Results Lab Results Component Value Date HGBA1C 5.2 11/10/2024 No results found for: GLUF , MICROALBUR , LDLCALC , CREATININE ASSESSMENT AND PLAN: Assessment & Plan 1. Nausea: - Significant nausea was experienced yesterday, attributed to eating a chipped item. No vomiting, nasal drainage, or coughing were reported. - Diarrhea was noted but no abdominal pain. - She has been able to eat and drink since then and feels movement. No vaginal bleeding or abnormal discharge was noted. 2. at 38 weeks and 3 days: - She is scheduled for induction tomorrow at 6:30 AM with a plan for vaginal delivery. - Regular appointments and ultrasounds have been conducted due to previously low amniotic fluid. Nocurrent issues since her 29-week anatomy scan. - The baby has been progressing well. Assessment/Plan Diagnoses and all orders for this visit: Acute diarrhea Resolved. Nausea Resolved. 38 weeks gestation of ([facility]) BMI 26.0-26.9,adult Overweight Other orders - Follow Up In Family Medicine; Future Please Note: Portions of this chart may have been created using voice recognition software. Occasional wrong-word or sound-like substitutions may have occurred due to inherent limitations of the voice recognition software. Please read the chart carefully and recognize, using context, where the sub stitutions have occurred. [1] No Known Allergies documented in this encounter Plan of Treatment Not on file documented as of this encounter Visit Diagnoses Diagnosis Acute diarrhea- Primary Diarrhea Nausea Nausea alone 38 weeks gestation of ([facility]) BMI 26.0-26.9,adult Overweight documented in this encounter Care Teams Team MemberRelationshipSpecialtyStart DateEnd Date Kym Peraza MD [address] [place] [address] PCP - GeneralFamily Medicine11/28/22 Rosita Yanes MD [address] [place] [address] Referring PhysicianFamily Medicine11/28/22documented as of this encounter
[2025-06-03] VITALS (8 sets, daily range): BP systolic 120–137; BP diastolic 64–92; PULSE 81–93
--- OUTSIDE RECORDS SUMMARY | 2025-06-03 18:35 | XMS_ITS | Encounter Summary ---
Author Organization [facility] Address [address] [place] [address] Care Team Providers Care Disposal Man Name Role Phone Kym Peraza MD Primary Care Provider [phone] Rosita Yanes MD Unavailable [phone] Encounter Details DateTypeDepartmentCare Team (Latest Contact Info)Lubafhhsvtb06/08/2025bstract [facility] [address] [place] [address] Mendel Rosa DO [address] Neil Ma, [facility] Social History Tobacco UseTypesPacks/DayYears UsedDateSmoking [...] week02/20/2023How often do you attend jainism or lutheran services?1 to 4 times per year02/20/2023 Do you belong to any clubs or organizations such as jainism groups, unions, fraternal or athletic groups, or school groups?No02/20/2023How often do you attend meetings of the clubs or organizations you belong to?Never02/20/2023re you , , , , never , or living with a partner?Living with wwwmgny3602/20/2023UDIT-CAnswerDate RecordedQ1: How often do you have a [...] and heating?Not very hard02/20/2023HQ-2AnswerDate RecordedPatient Health Questionnaire-2 [id number] [place] of Occupational Health - Occupational Stress QuestionnaireAnswerDate RecordedDo you feel stress - tense, restless, nervous, or anxious, or unable to sleep at night because yourmind is troubled all the time - these days?Only a oezroe5502/20/2023Exercise Vital Sign AnswerDate RecordedOn average, how many [...] in ashelter (including now)?No 02/20/2023Estimated Date of PqnzygjnUsuwlqjzAor53/29/2025Based on Ultrasound, FHR- 176Sex and Gender InformationValueDate RecordedSex Assigned at BirthNot on fileLegal LkwThqqah18/15/2023 6:51 PM EDTGender IdentityNot on file Sexual OrientationNot on filedocumented as of this encounter Plan of Treatment Not on file documented as of this encounter Visit Diagnoses Not on filedocumented in this encounter Care Teams Team MemberRelationshipSpecialtyStart DateEnd Date Kym Peraza MD [address] [place] [address] PCP - GeneralFamily Medicine11/28/22 Rosita Yanes MD [address] [place] [address] Referring PhysicianFamily Medicine11/28/22documented as of this encounter
--- OUTSIDE RECORDS SUMMARY | 2025-06-03 18:35 | XMS_ITS | Encounter Summary ---
Author Organization [facility] Address [address] [place] [address] Care Team Providers Care Career And Technology Education Teacher Name Role Phone Kym Peraza MD Primary Care Provider [phone] Rosita Yanes MD Unavailable [phone] Encounter Details DateTypeDepartmentCare Team (Latest Contact Info)Aehetqajpqz16/17/2025amboo flowsheet [facility] [address] [place] [address] Su Bucio NP [address] [place] [address] Social History Tobacco UseTypesPacks/DayYears UsedDateSmoking [...] times a week02/20/2023How often do you attend mosque or mormonism services?1 to 4 times per year02/20/2023 Do you belong to any clubs or organizations such as mosque groups, unions, fraternal or athletic groups, or school groups?No02/20/2023How often do you attend meetings of the clubs or organizations you belong to?Never02/20/2023re you , , , , never , or living with a partner?Living with xkiioat1102/20/2023UDIT-CAnswerDate RecordedQ1: How often do you have a [...] and heating?Not very hard02/20/2023HQ-2AnswerDate RecordedPatient Health Questionnaire-2 Ctipq683[facility] [place] of Occupational Health - Occupational Stress QuestionnaireAnswerDate RecordedDo you feel stress - tense, restless, nervous, or anxious, or unable to sleep at night because yourmind is troubled all the time - these days?Only a zlnmvk1402/20/2023Exercise Vital Sign AnswerDate RecordedOn average, how many [...] in ashelter (including now)?No 02/20/2023Estimated Date of JbuyujwbUhclucdzKsj72/29/2025Based on Ultrasound, FHR- 176Sex and Gender InformationValueDate RecordedSex Assigned at BirthNot on fileLegal XvjHnhozh11/15/2023 6:51 PM EDTGender IdentityNot on file Sexual OrientationNot on filedocumented as of this encounter Plan of Treatment Not on file documented as of this encounter Visit Diagnoses Not on filedocumented in this encounter Care Teams Team MemberRelationshipSpecialtyStart DateEnd Date Kym Peraza MD [address] [place] [address] PCP - GeneralFamily Medicine11/28/22 Rosita Yanes MD [address] [place] [address] Referring PhysicianFamily Medicine11/28/22documented as of this encounter
--- OUTSIDE RECORDS SUMMARY | 2025-06-03 18:35 | XMS_ITS | Encounter Summary ---
Author Organization [facility] Address [address] [place] [address] Care Team Providers Care Industrial Roofer Name Role Phone Kym Peraza MD Primary Care Provider [phone] Rosita Yanes MD Unavailable [phone] Encounter Details DateTypeDepartmentCare Team (Latest Contact Info)Kkpuzrewnsy32/17/2025Travel Social History Tobacco UseTypesPacks/DayYears UsedDateSmoking Tobacco: NeverSmokeless [...] times a week02/20/2023How often do you attend evangelical or presybeterian services?1 to 4 times per year02/20/2023 Do you belong to any clubs or organizations such as evangelical groups, unions, fraternal or athletic groups, or school groups?No02/20/2023How often do you attend meetings of the clubs or organizations you belong to?Never02/20/2023re you , , , , never , or living with a partner?Living with hkklssy7302/20/2023UDIT-CAnswerDate RecordedQ1: How often do you have a [...] and heating?Not very hard02/20/2023HQ-2AnswerDate RecordedPatient Health Questionnaire-2 Ehqsl911Finblue [facility] hospital, [facility] [place] of Occupational Health - Occupational Stress QuestionnaireAnswerDate RecordedDo you feel stress - tense, restless, nervous, or anxious, or unable to sleep at night because yourmind is troubled all the time - these days?Only a ghkqas5202/20/2023Exercise Vital Sign AnswerDate RecordedOn average, how many [...] in ashelter (including now)?No 3Estimated Date of ScnnguvyAgtkgnmtRsh25/29/2025Based on Ultrasound, FHR- 176Sex and Gender InformationValueDate RecordedSex Assigned at BirthNot on fileLegal KusWqrpex32/15/2023 6:51 PM EDTGender IdentityNot on file Sexual OrientationNot on filedocumented as of this encounter Plan of Treatment Not on file documented as of this encounter Visit Diagnoses Not on filedocumented in this encounter Care Teams Team MemberRelationshipSpecialtyStart DateEnd Date Kym Peraza MD [address] [place] [address] PCP - GeneralFamily Medicine11/28/22 Rosita Yanes MD [address] [place] [address] Referring PhysicianFamily Medicine11/28/22documented as of this encounter
--- OUTSIDE RECORDS SUMMARY | 2025-06-03 18:35 | XMS_ITS | Encounter Summary ---
Author Organization [facility] Address [address] [place] [address] Care Team Providers Care Strike Plate Attacher Name Role Phone Kym Peraza MD Primary Care Provider [phone] Rosita Yanes MD Unavailable [phone] Encounter Details DateTypeDepartmentCare Team (Latest Contact Info)Kfxdssahtto03/10/2025bstract [facility] [address] [place] [address] Mendel Rosa DO [address] [facility] [address] Neil Ma, [facility] Social History Tobacco UseTypesPacks/DayYears UsedDateSmoking Tobacco: [...] week02/20/2023How often do you attend yazidism or religion services?1 to 4 times per year02/20/2023 Do you belong to any clubs or organizations such as yazidism groups, unions, fraternal or athletic groups, or school groups?No02/20/2023How often do you attend meetings of the clubs or organizations you belong to?Never02/20/2023re you , , , , never , or living with a partner?Living with hmipamn2302/20/2023UDIT-CAnswerDate RecordedQ1: How often do you have a [...] and heating?Not very hard02/20/2023HQ-2AnswerDate RecordedPatient Health Questionnaire-2 [id number] [place] of Occupational Health - Occupational Stress QuestionnaireAnswerDate RecordedDo you feel stress - tense, restless, nervous, or anxious, or unable to sleep at night because yourmind is troubled all the time - these days?Only a eyldts2002/20/2023Exercise Vital Sign AnswerDate RecordedOn average, how many [...] in ashelter (including now)?No 02/20/2023Estimated Date of TvrhuncuOioqsyrtAke35/29/2025Based on Ultrasound, FHR- 176Sex and Gender InformationValueDate RecordedSex Assigned at BirthNot on fileLegal BjvRsyvsn03/15/2023 6:51 PM EDTGender IdentityNot on file Sexual OrientationNot on filedocumented as of this encounter Plan of Treatment Not on file documented as of this encounter Visit Diagnoses Not on filedocumented in this encounter Care Teams Team MemberRelationshipSpecialtyStart DateEnd Date Kym Peraza MD [address] [place] [address] PCP - GeneralFamily Medicine11/28/22 Rosita Yanes MD [address] [place] [address] Referring PhysicianFamily Medicine11/28/22documented as of this encounter
--- OUTSIDE RECORDS SUMMARY | 2025-06-03 18:35 | XMS_ITS | Clinical Summary ---
Author Organization [facility] Healthcare Address [address] [place] [address] Care Team Providers Care Billing And Accounting Staff Assistant Name Role Phone Kym Peraza MD Primary Care Provider [phone] Rosita Yanes MD Unavailable [phone] Allergies No known active allergies Medications MedicationSigDispense QuantityRefillsLast FilledStart DateEnd DateStatus multivitamin () 27-0.8 MG tablet Indications:8 weeks gestation of ([facility])Take 1 tablet by mouth Daily 90 tablet /ctive ondansetron ODT (Zofran-ODT) 4 MG disintegrating tablet Indications:NauseaTake 1 tablet (4 mg) by mouth every 8 (eight) hours if needed for vomiting or nausea 20 tablet Discontinued(Med list cleanup) pseudoephedrine (Sudafed) 30 MG tablet Take 30 mg by mouth every 4 (four) hours if needed for agohyyzlou91/17/2025 Discontinued(Med list cleanup) nitrofurantoin, macrocrystal-monohydrate, (Macrobid) 100 MG capsule TAKE 1 CAPSULE BY MOUTH EVERY MORNING, and ONE CAPSULE before bedtime FOR 7 DAYS /Discontinued(Med list cleanup) nitrofurantoin, macrocrystal-monohydrate, (Macrobid) 100 MG capsule Indications:UTI symptomsTake 1 capsule (100 mg) by mouth in the morning and 1 capsule (100 mg) before bedtime. Do all this for 7 days. 14 capsule Expired Active Problems ProblemNoted DateDiagnosed CrueKibttwv05/16/2023Mild episode of recurrent major depressive smgmwjij77/16/2023Estimated Date of DeliveryCommentsYes 5Based on Ultrasound, FHR- 176 Resolved Problems ProblemNoted DateDiagnosed DateResolved DateAcute cough/08/2023 Xgojngvwkcxx93/16/202410/08/2023 Assessment & Plan (08/02/2023 3:58 PM EST): Will try inhaler and follow up as needed or if symptoms change or worsen Encounters DateTypeDepartmentCare KhgwFiqkzvomytu79/17/2025 9:00 AM ESTOffice Visit [facility] [address] [place] [address] Su Bucio NP Acute diarrhea (Primary Dx); Nausea; 38 weeks gestation of ([facility]); BMI 26.0-26.9,adult; Zwkapaekxf16/17/2025linisync Result Encounter NOMS External Department Unsolicited Marianna Varela PA 06/02/2025ambisatu flowsheet [facility] [address] [place] [address] Su Bucio NP 06/02/20251740Azaunt72/10/2025 11:10 AM ESTRoutine [facility] [address] [address] [place] [address] Mendel Rosa DO Third trimester ([facility]); 37 weeks gestation of ([facility])05/26/2025linisync Result Encounter NOMS External Department Unsolicited Marianna Varela PA 05/26/2025bstract [facility] [address] [place] [address] Mendel Rosa DO 05/26/2025ambisatu flowsheet [facility] [address] [place] [address] Mendel Rosa, DO 05/24/2025bstract [facility] [place] [facility] [address] [facility] [place] [address] Mendel Rosa, DO 05/19/2025External Result Encounter NOMS External Department Unsolicited Mendel Rosa, DO 05/19/2025linisync Result Encounter NOMS External Department Unsolicited Mendel Rosa, DO 05/19/2025linisync Result Encounter NOMS External Department Unsolicited Mendel Rosa, DO 05/12/2025Telephone [facility] [place] [facility] [address] [facility] [place] [address] Mendel Rosa, DO 05/12/2025linisync Result Encounter NOMS External Department Unsolicited Marianna Varela PA 05/10/2025Patient Outreach [facility] [address] [place] [address] [phone] Marianna Galdamez LPN 05/05/2025 10:00 AM ESTRoutine [facility] [place] [facility] [address] [place] [address] Marianna Varela PA Third trimester ([facility]); 34 weeks gestation of ([facility])05/05/2025linisync Result Encounter NOMS External Department Unsolicited Marianna Varela PA 05/05/2025linisync Result Encounter NOMS External Department Unsolicited Marianna Varela PA 05/05/2025amboo flowsheet [facility] [place] [facility] [address] [place] [address] Marianna Varela PA 04/29/2025Telephone [facility] [place] [facility] [address] [facility] [place] [address] Lenka Jimenez MA 04/28/2025linisync Result Encounter NOMS External Department Unsolicited Marianna Varela PA 04/22/2025linisync Result Encounter NOMS External Department Unsolicited Marianna Varela PA 04/21/2025 11:00 AM ESTRoutine [facility] [address] [facility] [place] [address] Mendel Rosa, DO Third trimester ([facility]); 32 weeks gestation of ([facility]); RUCHI (amniotic fluid index) borderline low; Oligohydramnios in third trimester, fetus 1 of multiple gestation ([facility]) 04/21/2025Telephone [facility] [place] [facility] [address] [facility] [place] [address] Mendel Rosa, DO 04/21/2025amboo flowsheet [facility] [address] [place] [address] [place] [address] Mendel Rosa, DO 04/14/2025Telephone [facility] [address] [facility] [place] [address] Mendel Rosa, DO 04/14/2025linisync Result Encounter NOMS External Department Unsolicited Marianna Varela PA 04/09/2025Patient Outreach [facility] [address] [place] [address] Marianna Galdamez LPN 04/07/2025 10:50 AM EDTRoutine [facility] An[facility] OBPARISN [address] [facility] [place] [address] Marianna Varela PA Third trimester ([facility]); 30 weeks gestation of ([facility]); Exposure to STD; RUCHI (amniotic fluid index) borderline low; BV (bacterial vaginosis)04/07/2025amboo flowsheet [facility] [address] [facility] [place] [address] Marianna Varela PA 04/06/2025Telephone [facility] [address] [facility] [place] [address] Mendel Rosa, DO 04/05/2025Telephone [facility] [address] [facility] [place] [address] Lenka Jimenez ME 03/31/2025 1:30 PM EDTAncillary Procedure [facility] [address] [facility] [place] [address] size inconsistent with dates ([facility])5Clinisync Result Encounter NOMS External Department Unsolicited Mendel Rosa, DO 03/29/2025Telephone [facility] [address] [facility] [place] [address] Mendel Rosa, DO 03/24/2025 10:30 AM EDTRoutine [facility] KRAUSGYN [address] [facility] [place] [address] Radha Resendez NP size inconsistent with dates ([facility]) (Primary Dx); Third trimester ([facility]); 28 weeks gestation of ([facility])03/24/2025amboo flowsheet [facility] KRAUSGYN [address] [facility] [place] [address] Radha Resendez NP 03/16/2025bstract [facility] [address] [facility] [place] [address] Lenka Jimenez ME 03/11/2025Patient Outreach [facility] [address] [place] [address] Marianna Galdamez LPN 03/10/2025bstract [facility] [address] [place] [address] Marianna Galdamez LPN from Last 3 Months Immunizations ImmunizationAdministration DatesNext XngXDW4401/23/2005,05/07/2001,02/15/2000DTaP, Bslcxeusuog84/26/2000HPV 9-Ocdbeu1609/10/2016,05/15/2016,03/12/2016Hep A, ped/adol, 2 dose09/10/2016,03/12/2016Hep B, Adolescent or Idgdyiviy01/09/2001, 02/15/2000,1999HiB, wfliuvqttih73/31/2001,05/07/2001,04/11/2000,02/05/2000 MMR01/23/2005,06/16/2001Meningococcal B, Omv107/15/2015,03/12/2016Meningococcal AGI3N4503/12/2016Polio, Qalzepzaakw23/09/2005,05/07/2001,04/11/2000,02/15/2000Tdap 12/01/2021,12/08/2019,03/03/20126796Tjanjewcr74/29/2016,01/01/2001 Family History Medical HistoryRelationNameCommentsHypertensionFatherTony hoffStrokeFatherTony hoffBreast cancerFather's [...] times a week02/20/2023How often do you attend jewish or yarsani services?1 to 4 times per year02/20/2023o you belong to any clubs or organizations such as jewish groups, unions, fraDepartment of Health and Human Services or athletic groups, or school groups?No02/20/2023How often do you attend meetings of the clubs or organizations you belong to?Never02/20/2023re you , , , , never , or living with a partner?Living with lknhvos8502/20/2023 AUDIT-CAnswerDate RecordedQ1: How often do you have [...] heating?Not very hard02/20/2023HQ-2Answer Date RecordedPatient Health Questionnaire-2 Otwgm856Finmountain west medical [facility] [place] of Occupational Health - Occupational Stress QuestionnaireAnswerDate RecordedDo you feel stress - tense, restless, nervous, or anxious, or unable to sleep at night because yourmind is troubled all the time - these days?Only a gtelmi0902/20/2023 Exercise Vital SignAnswerDate RecordedOn average, how many [...] in ashelter (including now)?No02/20/2023Estimated Date of Delivery HvotmyjqNur63/29/2025Based on Ultrasound, FHR- 176Sex and Gender Information ValueDate RecordedSex Assigned at BirthNot on fileLegal McgUnwqyq86/15/2023 6:51 PM EDTGender IdentityNot on fileSexual OrientationNot on file Last Filed Vital Signs Vital SignReadingTime TakenCommentsBlood Hnewmlkz317/6206/02/2025 8:57 AM EST Dkjiy281506/02/2025 8:57 AM XLGDseypwwowrl97.9 ??C (98.4 ??F)06/02/2025 8:57 AM ESTRespiratory Rate--Oxygen Qdootzybdi01%06/02/2025 8:57 AM ESTInhaled Oxygen Concentration--Prkhge69.5 kg (162 lb)06/02/2025 8:57 AM SORUrrnwk952.1 cm (5' 5 )06/02/2025 8:57 AM ESTBody Mass Index26.9606/02/2025 8:57 AM EST Plan of Treatment Health MaintenanceDue DateLast DoneCommentsCOVID-19 Vaccine ( season) 2025Influenza Vaccine (#1)2025Pneumococcal Vaccine: Pediatrics (0 to 5 Years) and At-Risk Patients (6 to 64 Years)Aged OutNo longer eligible based on patient's age to complete this topic Procedures Procedure NamePriorityDate/TimeAssociated DiagnosisCommentsUS OB BPP W NON-BKTLHX2706/02/2025 11:52 AM EST US OB BPP W NON-XBPYMQ3305/26/2025 2:10 PM EST US OB BPP W NON-ZFSIHP9005/19/2025 10:23 AM EST ORGANISM MZNDGYVVIJFELXBwveexo16/03/2025 10:15 AM EST STREP GP B CULTURE+QKPQInraxun29/03/2025 10:15 AM EST XXPHKTNXJlkbrgo86/03/2025 9:22 AM EST URINE CULTURE - ZWHLIxgexyv99/03/2025 9:15 AM EST [facility] UA (CLEAN/CATCH) VETERINARY PRACTITIONER/MICRO IF IND.Vxxgckm8605/19/2025 9:15 AM EST CULTURE, URINE, OPJNZFJVjxqwek35/03/2025 9:15 AM EST US OB BPP W NON-KXHPHK7005/12/2025 11:37 AM EST US OB BPP W NON-FMFCIX6805/05/2025 11:35 PM EST US OB DDMNFO9805/05/2025 11:35 PM EST POCT URINALYSIS JJYMOMXBQjsdxwx44/19/2025 10:09 AM EST 34 weeks gestation of ([facility]) US OB BPP W NON-DVUUDL4704/28/2025 12:44 PM EST US OB BPP W NON-DXFGGT1704/22/2025 7:58 AM EST POCT URINALYSIS EJDCOMCIWuvwlsl04/05/2025 12:20 PM EST Third trimester ([facility]) 32 weeks gestation of ([facility]) US OB BPP W NON-GONGKG7704/14/2025 11:19 AM EDT RECURRENT VAGINITIS (HTRX)Wyfuots2304/07/2025 11:52 AM EDT POCT URINALYSIS RIMXTEXNNltougs21/22/2025 10:53 AM EDT Third trimester ([facility]) US OB FOLLOW UP TRANSABDOMINAL KJSXAMHQMekhtep93/15/2025 1:59 PM EDT size inconsistent with dates ([facility]) URINE CULTURE, ZGHGQIRBhibqua52/13/2025 1:45 PM EDT [facility] UA (CLEAN/CATCH) VETERINARY PRACTITIONER/MICRO IF IND.Xazqfdb7803/29/2025 1:45 PM EDT POCT URINALYSIS BVBRLCDIKpuekxm24/08/2025 10:44 AM EDT Third trimester ([facility]) from Last 3 Months Results * US OB BPP W NON-STRESS (06/02/2025 11:52 AM EST) Only the most recent of8 resultswithin the time period is included. Anatomical RegionLateralityModalityOtherSpecimen (Source)Anatomical Location / LateralityCollection Method / VolumeCollection TimeReceived Time06/02/2025 11:52 AM EST Narrative 06/02/2025 11:54 AM EST [facility] ?[address] ? [place] [address] ? Ultrasound Report ? Signed ? Patient: JOSÉ LUIS NOVOA ? MR#: [id number] ?? : 2000 ?Acct:[id number] ?? Age/Sex: 24 / F ?ADM Date: 12/17/25 ?? Loc: [facility] ??250-1 ? Attending Dr: Marianna Varela ? Ordering Physician: Marianna Varela ?? Date of Service: 06/02/25 ?? Procedure(s): US OB BPP w non-stress ?? Accession Number(s): [id number] ? cc: Marianna Varela; DUKE PERAZA ? [facility] ? [address] ? [place] [address] ? Patient Name: ?? JOSÉ LUIS NOVOA ? MRN: [facility]:[id number] ? date: 2000 ?Sex: F ?? Assigned Patient Location: [facility] ?? Current Patient Location: [facility] ?? Accession/Order Number: [id number] ?? Exam Date: 06/02/2025 ??11:05 ?Report Date: 06/02/2025 ??11:52 ? At the request of: ?? MARIANNA ??NICHOLE ? Procedure: ??US OB BPP w non-stress ? BIOPHYSICAL PROFILE: ? CLINICAL INFORMATION: BORDERLINE OLIGOHYDRAMNIOS ? COMPARISON: 05/26/2025 ? There is a single live intrauterine gestation in cephalic presentation. ??The ?? reported gestational age is 38 weeks 2 days. ??The heart rate gffayocz801 ?? beats per minute. ??Incidental note is made of mild right sided hydronephrosis. ?? There is also a small left hydrocele. ? FINDINGS: ? TONE: 1 or more [...] 2 cm ? [Y] ? 2/2 ?RUCHI: 11.1 cm. ??This is in low-normal range. ? Total score: ? 8/8 ? US/US OB BPP w non-stress ?? IMPRESSION: ? NORMAL BIOPHYSICAL PROFILE. ? INCIDENTAL MILD RIGHT HYDRONEPHROSIS AND SMALL LEFT HYDROCELE. ? Impression dictated by: Jacqui Mendoza M.D. ??06/02/2025 11:52 AM ? Dictation Location: RADIO-PC-30 ? Electronically authenticated by: [id number] ??Y ?? Date: 06/02/2025 ??11:52 ? Dictated By: ?Jacqui Mendoza M.D. ? Signed By: ?06/02/25 1154 ? DD/ 1152 ? TD/TT: ? Legal Support Analyst: Procedure Note Radiology, Radiologist, MD - 06/02/2025 [place] [address] Ultrasound Report Signed Patient: JOSÉ LUIS NOVOA PMR#: [id number] : 2000Acct:[id number] Age/Sex: 24 / FADM Date: 06/02/25 Loc: [facility] 250-[address]: Marianna Varela Ordering Physician: Marianna Varela Date of Service: 06/02/25 Procedure(s): US OB BPP w non-stress Accession Number(s): [id number] cc: Marianna Varela; [facility] PERAZA The [place] [address] Patient Name: JOSÉ LUIS NOVOA MRN: [id number] date: 2000 Sex: F Assigned Patient Location: [facility] Current Patient Location: [facility] Accession/Order Number: [id number] Exam Date: 06/02/2025 11:05 Report Date: 06/02/2025 11:52 At the request of: MARIANNA VARELA Procedure: US OB BPP w non-stress BIOPHYSICAL PROFILE: CLINICAL INFORMATION: BORDERLINE OLIGOHYDRAMNIOS COMPARISON: 05/26/2025 There is a single live intrauterine gestation in cephalic presentation.The reported gestational age is 38 weeks 2 days. The heart jxmwxrewwyjk528 beats per minute. Incidental note is made of mild right sidedhydronephrosis. There is also a small left hydrocele. FINDINGS: TONE: 1 or more episodes of [...] greater than 2 cm [Y] 2/2 RUCHI: 11.1 cm. This is in low-normal range. Total score: 8/8 US/US OB BPP w non-stress IMPRESSION: NORMAL BIOPHYSICAL PROFILE. INCIDENTAL MILD RIGHT HYDRONEPHROSIS AND SMALL LEFT HYDROCELE. Impression dictated by: Jacqui Mendoza M.D. 06/02/2025 11:52 AM Dictation Location: [place] [address] Electronically authenticated by: [id number] Y Date: 1:52 Dictated By: Jacqui Mendoza M.D. Signed By:06/02/25 1154 DD/ 1152 TD/TT: Legal Support Analyst: Authorizing ProviderResult TypeResult StatusAmy Nichole PACLINISYNC IMAGINGFinal Result * ORGANISM IDENTIFICATION (05/19/2025 [...] AM EST 05/19/2025 10:24 AM EST Narrative [facility] - 05/23/2025 4:08 PM EST Authorizing ProviderResult TypeResult StatusCorey Shelley DOLAB BLOOD ORDERABLES Final ResultPerforming OrganizationAddressCity/State/ZIP CodePhone Number [facility] * AMNISURE (05/19/2025 9:22 AM EST)ComponentValueRef RangeTest MethodAnalysis TimePerformed AtPathologist SignatureTBH AMNISURENEGATIVENEGATIVETBHSpecimen (Source)Anatomical Location / LateralityCollection Method / VolumeCollection TimeReceived Time05/19/2025 9:22 AM EST05/19/2025 9:30 AM EST Narrative [facility] - 05/19/2025 9:44 AM EST Authorizing ProviderResult TypeResult StatusCorey Shelley DOLAB BLOOD ORDERABLES Final ResultPerforming OrganizationAddSelect Specialty Hospital [facility] Laurel Highlandsty/State/ZIP CodePhone Number [facility] * URINE CULTURE - [facility] [...] HAZEL [facility] * (ABNORMAL) [facility] UA (CLEAN/CATCH) VETERINARY PRACTITIONER/MICRO IF IND. (05/19/2025 9:15 AM EST) Only [...] Shelley DOCLINISYNCFinal Result Performing OrganizationAddressCity/State/ZIP CodePhone Number [facility] * Urine culture (05/19/2025 9:15 AM EST)ComponentValueRef RangeTest Method Analysis TimePerformed AtPathologist SignatureFR NOTE?50,000 colonies/ml mixed ?bacterial skin contaminants ?2 Days 05/21/2025 9:03 AM [facility] CtrSpecimen (Source)Anatomical Location / LateralityCollection Method / VolumeCollection TimeReceived TimeUrine Urine specimen obtained by clean catch procedure / Lpsauxh4005/19/2025 9:15 AM EST 05/19/2025 12:44 PM ESTComment:Clean-Voided Midstream Narrative [facility] - 05/21/2025 9:03 AM EST Diagnosis: [facility] POSSIBLE RUPTURE OF MEMBRANES Comment: Authorizing ProviderResult TypeResult StatusCorey Shelley DOLAB MICROBIOLOGY - GENERAL ORDERABLESFinal ResultPerforming OrganizationAddressCity/State/ZIP Code Phone Number [facility] [address] [place] [address], [facility] [address] [place] [address] * OB GROWTH (05/05/2025 11:35 PM EST)Anatomical RegionLateralityModalityOther Specimen (Source)Anatomical Location / LateralityCollection Method / Volume Collection TimeReceived Time05/05/2025 11:35 PM EST Narrative 05/05/2025 11:38 PM EST [facility] ?[address] ? [place] [address] ? Ultrasound Report ? Signed ? Patient: JOSÉ LUIS NOVOA ? MR#: [id number] ?? : 2000 ?Acct:[id number] ?? Age/Sex: 24 / F ?ADM Date: 05/05/25 ?? Loc: US ? Attending Dr: Marianna Varela ? Ordering Physician: Marianna Varela ?? Date of Service: 05/05/25 ?? Procedure(s): US OB growth ?? Accession Number(s): [id number] ? cc: Marianna Varela; DU[facility] PERAZA ? [facility] ? [address] ? [place] [address] ? Patient Name: ?? JOSÉ LUIS NOVOA ? MRN: [id number] ? date: 2000 ?Sex: F ?? Assigned Patient Location: [facility] ?? Current Patient Location: [facility]O ?? Accession/Order Number: [id number] ?? Exam Date: 05/05/2025 ??11:00 ?Report Date: [...] M.D. ??05/05/2025 11:35 PM ? Dictation Location: [facility] ? Electronically authenticated by: [id number] ??Y ?? Date: 05/05/2025 ??23:35 ? Dictated By: ?Abdiaziz Doran D.O. ? Signed By: ?05/05/25 2338 ? DD/ 2335 ? TD/TT: ? Legal Support Analyst: Procedure Note Radiology, Radiologist, - 05/05/2025 [place] [address] Ultrasound Report Signed Patient: JOSÉ LUIS NOVOA PMR#: [id number] : 2000Acct:[id number] Age/Sex: 24 / FADM Date: 05/05/25 Loc: US Attending Dr: Marianna Varela Ordering Physician: Marianna Varela Date of Service: 05/05/25 Procedure(s): US growth Accession Number(s): [id number] cc: Marianna Varela; [facility] PERAZA The [place] [id number] Patient Name: JOSÉ LUIS NOVOA MRN: [id number] date: 2000 Sex: F Assigned Patient Location: FB Current Patient Location: [facility]O Accession/Order Number: [id number] Exam Date: 05/05/2025 11:00 Report Date: 05/05/2025 [...] Doran M.D. 05/05/2025 11:35 PM Dictation Location[facility] Electronically authenticated by: [id number] Y Date: 3:35 Dictated By: Abdiaziz Doran D.O. Signed By:05/05/252337 DD/ 34 TD/TT: Legal Support Analyst: Authorizing ProviderResult TypeResult StatusMarianna Nichole PACLINISYNC IMAGINGFinal Result * (ABNORMAL) POCT urinalysis dipstick manually resulted (05/05/2025 10:09 AM EST) Only the most recent of4 resultswithin the [...] Location / LateralityCollection Method / VolumeCollection TimeReceived QdhfYodzk97/19/2025 10:09 AM EST Narrative Authorizing ProviderResult TypeResult StatusL[facility] Hospital OF CARE TEST ENTER/EDIT ORDERABLESFinal Result * RECURRENT VAGINITIS (HTRX) (04/07/2025 11:52 AM EDT)ComponentValueRef Range Test MethodAnalysis TimePerformed AtPathologist SignatureATOPOBIUM VAGINAE0 19.961 - 24.689 ppm04/08/2025 7:42 AM EDTHealthTrackRx at LabPortATOPOBIUM VAGINAENot Zsdsninm41.961 - 24.689 ppm04/08/2025 7:42 AM EDTHealthTrackRx at LabPortBVAB 2,3 (BACTERIAL VAGINOSIS ASSOCIATED BACTERIA 2, 3); MOBILUNCUS SPP 019.961 - 24.689 ppm04/08/2025 7:42 AM EDTHealthTrackRx at LabPortBVAB 2,3 (BACTERIAL VAGINOSIS ASSOCIATED BACTERIA 2, 3); MOBILUNCUS SPPNot Detected 19.961 - 24.689 ppm04/08/2025 7:42 AM EDTHealthTrackRx at LabPortCANDIDA ALBICANS, PARAPSILOSIS, UWGXEDVGGR494.000 - 30.347 ppm04/08/2025 7:42 AM EDT [facility] at LabPortCANDIDA ALBICANS, PARAPSILOSIS, TROPICALISNot Detected 23.000 - 30.347 ppm04/08/2025 7:42 AM EDTHealthTrackRx at LabPortCANDIDA ZFILXUHX474.000 - 31.618 ppm04/08/2025 7:42 AM EDTHealthTrackRx at LabPort HORACE GLABRATANot Mhjowjcm39.000 - 31.618 ppm04/08/2025 7:42 AM EDT [facility] at LabPortCANDIDA IXXYQZ906.000 - 30.873 ppm04/08/2025 7:42 AM EDTHealthTrackRx at LabRehabilitation [facility] Of IndianaCANDIDA KRUSEINot Ffnncsmu35.000 - 30.873 ppm 04/08/2025 7:42 AM EDTHealthTrackRx at LabPortCHLAMYDIA YRGXUYOCVQO764.000 - 31.586 ppm04/08/2025 7:42 AM EDTHealthTrackRx at LabPortCHLAMYDIA TRACHOMATIS Not Qfxrybje23.000 - 31.586 ppm04/08/2025 7:42 AM EDTHealthTrackRx at LabPort GARDNERELLA PTOKEJBLD018.961 - 24.689 ppm04/08/2025 7:42 AM EDTHealthTrackRx at [facility] CenterGARDNERELLA VAGINALISNot Ozkhcrpj33.961 - 24.689 ppm04/08/2025 7:42 AM EDTHealthTrackRx at LabRehabilitation Hospital Of IndianaMEGASPHAERA (TYPES 1, 2)019.961 - 24.689 ppm 04/08/2025 7:42 AM EDTHealthTrackRx at LabRehabilitation Hospital Of IndianaMEGASPHAERA (TYPES 1, 2)Not Sixncjoh35.961 - 24.689 ppm04/08/2025 7:42 AM EDTHealthTrackRx at [facility]Re[facility] Indiana NEISSERIA FIPUZPQYOWG314.000 - 32.587 ppm04/08/2025 7:42 AM EDTHealthTrackRx at [facility] CenterNEISSERIA GONORRHOEAENot Hmpitsbg66.000 - 32.587 ppm04/08/2025 7:42 AM EDTHealthTrackRx at LabRehabilitation Hospital Of IndianaTRICHOMONAS CRRLIGTBQ117.000 - 31.995 ppm 04/08/2025 7:42 AM EDTHealthTrackRx at LabRehabilitation Hospital Of IndianaTRICHOMONAS VAGINALISNot Lmhaucfi51.000 - 31.995 ppm04/08/2025 7:42 AM EDTHealthTrackRx at LabRe[facility] Indiana MYCOPLASMA CKMIBQMZKQ473.961 - 24.689 ppm04/08/2025 7:42 AM EDTHealth[facility]Rx at [facility]MYCOPLASMA GENITALIUMNot Oxzpxebx26.961 - 24.689 ppm04/08/2025 7:42 AM EDTHealthTrackRx at LabRehabilitation [facility] Of IndianaSpecimen (Source)Anatomical Location / LateralityCollection Method / VolumeCollection TimeReceived TimeTissue 04/07/2025 11:52 AM EDT1 1:22 AM EDT Narrative Authorizing ProviderResult TypeResult StatusAmy Nichole NAVAS BLOOD ORDERABLES Final ResultPerforming OrganizationAddressCity/State/ZIP CodePhone Number [facility] [address] [place] [id number] * OB follow up transabdominal approach (03/31/2025 [...] Boykin MD Authorizing ProviderResult TypeResult StatusRadha Resendez [facility] PROCEDURESFinal Result * URINE CULTURE, ROUTINE (03/29/2025 1:45 PM EDT)ComponentValueRef RangeTest MethodAnalysis TimePerformed AtPathologist SignatureURINE CULTURE, ROUTINE ??Urine Culture, Routine TBHURINE CULTURE, ROUTINEMixed urogenital floraTBHURINE CULTURE, WCMKGKL47,000- 50,000 colony forming units per mLTBHURINE CULTURE, ROUTINEPerformed at: CB - [facility] TulsaTBHURINE CULTURE, [id number] [place], [place] [id number] URINE CULTURE, ROUTINELab Director: John Hare PhD, Phone: [phone] Specimen (Source)Anatomical Location / LateralityCollection Method / Volume Collection TimeReceived Time03/29/2025 1:45 PM EDT1 2:20 PM EDT Narrative [facility] - 03/31/2025 7:08 AM EDT Authorizing ProviderResult TypeResult StatusCorey Shelley DOLAB BLOOD ORDERABLES Final ResultPerforming OrganizationAddressCity/State/ZIP CodePhone Number [facility] TB from Last 3 Months Insurance * Guarantor: José Luis NovoaAccount TypeRelation to PatientDate of BirthPhone Billing AddressPersonal/OmhdbuEtsj10/28/2000 [facility] [place] [address] Care Teams Team MemberRelationshipSpecialtyStart DateEnd Date Kym Peraza MD [address] [place] [address] [facility] - [facility]11/28/22 Rosita Yanes MD [address] [place] [address] Referring Physicianmi Medicine11/28/22
--- OUTSIDE RECORDS SUMMARY | 2025-06-03 18:35 | XMS_ITS | Encounter Summary ---
Author Organization [facility] Address [address] [place] [address] Care Team Providers Care Front Tender Name Role Phone Kym Peraza MD Primary Care Provider [phone] Rosita Yanes MD Unavailable [phone] Encounter Details DateTypeDepartmentCare Team (Latest Contact Info)Iztavwnfvaa01/10/2025amboo flowsheet ROZ Ma OBGYN [address] [address] Mendel Rosa DO [address] [facility] [address] [address] Neil Ma, [facility]11 Social History Tobacco UseTypesPacks/DayYears UsedDateSmoking Tobacco: NeverSmokeless [...] times a week02/20/2023How often do you attend latter-day or episcopalian services?1 to 4 times per year02/20/2023 Do you belong to any clubs or organizations such as latter-day groups, unions, fraternal or athletic groups, or school groups?No02/20/2023How often do you attend meetings of the clubs or organizations you belong to?Never02/20/2023re you , , , , never , or living with a partner?Living with qqmfewp4902/20/2023UDIT-CAnswerDate RecordedQ1: How often do you have a [...] and heating?Not very hard02/20/2023HQ-2AnswerDate RecordedPatient Health Questionnaire-2 Eapbe561Finintermountain healthcare [place] of Occupational Health - Occupational Stress QuestionnaireAnswerDate RecordedDo you feel stress - tense, restless, nervous, or anxious, or unable to sleep at night because yourmind is troubled all the time - these days?Only a tfoezd0102/20/2023Exercise Vital Sign AnswerDate RecordedOn average, how many [...] in ashelter (including now)?No 3Estimated Date of YlnwmckzFnzsxfgbGuw70/29/2025Based on Ultrasound, FHR- 176Sex and Gender InformationValueDate RecordedSex Assigned at BirthNot on fileLegal ClsCkqndz16/15/2023 6:51 PM EDTGender IdentityNot on file Sexual OrientationNot on filedocumented as of this encounter Plan of Treatment Not on file documented as of this encounter Visit Diagnoses Not on filedocumented in this encounter Care Teams Team MemberRelationshipSpecialtyStart DateEnd Date Kym Peraza MD [address] [place] [address] PCP - GeneralFamily Medicine11/28/22 Rosita Yanes MD [address] [place] [address] Referring PhysicianFamily Medicine11/28/22documented as of this encounter
--- OUTSIDE RECORDS SUMMARY | 2025-06-03 18:35 | XMS_ITS | Encounter Summary ---
Author Organization [facility] Address [address] [place] [address] Care Team Providers Care Installment Agent Name Role Phone Kym Peraza MD Primary Care Provider [phone] Rosita Yanes MD Unavailable [phone] Encounter Details DateTypeDepartmentCare Team (Latest Contact Info)Mgtcmzprfse87/17/2025Clinisync Result Encounter [facility] External Department Unsolicited Marianna Varela PA [address] [place] [address] [place] [address] Social History Tobacco UseTypesPacks/DayYears UsedDateSmoking Tobacco: NeverSmokeless [...] week02/20/2023How often do you attend catholic or amish services?1 to 4 times per year02/20/2023 Do you belong to any clubs or organizations such as catholic groups, unions, fraternal or athletic groups, or school groups?No02/20/2023How often do you attend meetings of the clubs or organizations you belong to?Never02/20/2023re you , , , , never , or living with a partner?Living with owaqhrh7302/20/2023UDIT-CAnswerDate RecordedQ1: How often do you have a [...] and heating?Not very hard02/20/2023HQ-2AnswerDate RecordedPatient Health Questionnaire-2 Coels772Finse[facility] [place] of Occupational Health - Occupational Stress QuestionnaireAnswerDate RecordedDo you feel stress - tense, restless, nervous, or anxious, or unable to sleep at night because yourmind is troubled all the time - these days?Only a klqptc3902/20/2023Exercise Vital Sign AnswerDate RecordedOn average, how many [...] steady place to sleep or slept in peacehealther (including now)?No 02/20/2023Estimated Date of LepfcobpRpefihreHqe70/29/2025Based on Ultrasound, FHR- 176Sex and Gender InformationValueDate RecordedSex Assigned at BirthNot on fileLegal DgzOcnype55/15/2023 6:51 PM EDTGender IdentityNot on file Sexual OrientationNot on filedocumented as of this encounter Plan of Treatment Not on file documented as of this encounter Procedures Procedure NamePriorityDate/TimeAssociated DiagnosisCommentsUS OB BPP W NON-KXLUWM4606/02/2025 11:52 AM EST documented in this encounter Results * US OB BPP W NON-STRESS (06/02/2025 11:52 AM EST)Anatomical Region LateralityModalityOtherSpecimen (Source)Anatomical Location / Laterality Collection Method / VolumeCollection TimeReceived Time06/02/2025 11:52 AM EST Narrative 06/02/2025 11:54 AM EST [facility] ?[address] ? [place] [id number] ? Ultrasound Report ? Signed ? Patient: JOSÉ LUIS NOVOA ? MR#: [id number] ?? : 2000 ?Acct:[id number] ?? Age/Sex: 24 / F ?ADM Date: 06/02/25 ?? Loc: [facility] ??250-1 ? Attending Dr: Marianna Varela ? Ordering Physician: Marianna Varela ?? Date of Service: 06/02/25 ?? Procedure(s): US OB BPP w non-stress ?? Accession Number(s): [id number] ? cc: Marianna Varela; DUKE PERAZA ? [facility] ? [address] ? [place] [address] ? Patient Name: ?? JOSÉ LUIS NOVOA ? MRN: [facility]:[id number] ? date: 2000 ?Sex: F ?? Assigned Patient Location: [facility] ?? Current Patient Location: [facility] ?? Accession/Order Number: [id number] ?? Exam Date: 06/02/2025 ??11:05 ?Report Date: 06/02/2025 ??11:52 ? At the request of: ?? MARIANNA ??NICHOLE ? Procedure: ??US OB BPP w non-stress ? BIOPHYSICAL PROFILE: ? CLINICAL INFORMATION: BORDERLINE OLIGOHYDRAMNIOS ? COMPARISON: 05/26/2025 ? There is a single live intrauterine gestation in cephalic presentation. ??The ?? reported gestational age is 38 weeks 2 days. ??The heart rate gislsddp051 ?? beats per minute. ??Incidental note is [...] Dictation Location: RADIO-PC-30 ? Electronically authenticated by: [id number] ??Y ?? Date: 06/02/2025 ??11:52 ? Dictated By: ?Jacqui Mendoza M.D. ? Signed By: ?06/02/25 1154 ? DD/ 1152 ? TD/TT: ? Airplane Tester: Procedure Note Radiology, Radiologist, MD - 06/02/2025 [place] [address] Ultrasound Report Signed Patient: JOSÉ LUIS NOVOA PMR#: [id number] : 2000Acct:[id number] Age/Sex: 24 / FADM Date: 06/02/25 Loc: [facility] 250-[address]: Marianna Varela Ordering Physician: Marianna Varela Date of Service: 06/02/25 Procedure(s): US OB BPP w non-stress Accession Number(s): [id number] cc: Marianna Varela; DUKE PERAZA [place] [address] Patient Name: JOSÉ LUIS NOVOA MRN: [facility]:[id number] date: 2000 Sex: F Assigned Patient Location: [facility] Current Patient Location: [facility] Accession/Order Number: [id number] Exam Date: 06/02/2025 11:05 Report Date: 06/02/2025 11:52 At the request of: MARIANNA AVRELA Procedure: US OB BPP w non-stress BIOPHYSICAL PROFILE: CLINICAL INFORMATION: BORDERLINE OLIGOHYDRAMNIOS COMPARISON: 05/26/2025 There is a single live intrauterine gestation in cephalic presentation.The reported gestational age is 38 weeks 2 days. The heart enoebuiqwjpa150 beats per minute. Incidental note is made [...] Mendoza M.D. 06/02/2025 11:52 AM Dictation Location: [place] [address] Electronically authenticated by: [id number] Y Date: 1:52 Dictated By: Jacqui Mendoza M.D. Signed By:06/02/25 1154 DD/ 1152 TD/TT: Airplane Tester: Authorizing ProviderResult TypeResult StatusAmy Nichole PACLINISYNC IMAGINGFinal Result documented in this encounter Visit Diagnoses Not on filedocumented in this encounter Care Teams Team MemberRelationshipSpecialtyStart DateEnd Date Kym Peraza MD [address] [place] [address] [facility] - [facility]11/28/22 Rosita Yanes MD [address] [place] [address] Referring PhysicianFafairview hospital Medicine11/28/22documented as of this encounter
--- OUTSIDE RECORDS SUMMARY | 2025-06-03 18:35 | XMS_ITS | Encounter Summary ---
Author Organization [facility] Address [address] [place] [address] Care Team Providers Care Nitrate Operator Name Role Phone Kym Peraza MD Primary Care Provider [phone] Rosita Yanes MD Unavailable [phone] Encounter Details DateTypeDepartmentCare Team (Latest Contact Info)Gsbvfujxyad31/03/2025External Result Encounter [facility] External Department Unsolicited Mendel Rosa, DO [address] [place] [address] Social History Tobacco UseTypesPacks/DayYears UsedDateSmoking Tobacco: NeverSmokeless [...] times a week02/20/2023How often do you attend synagogue or tenriism services?1 to 4 times per year02/20/2023 Do you belong to any clubs or organizations such as synagogue groups, unions, fraternal or athletic groups, or school groups?No02/20/2023How often do you attend meetings of the clubs or organizations you belong to?Never02/20/2023re you , , , , never , or living with a partner?Living with ebfjrbk6002/20/2023UDIT-CAnswerDate RecordedQ1: How often do you have a [...] and heating?Not very hard02/20/2023HQ-2AnswerDate RecordedPatient Health Questionnaire-2 Tmhxc721Fin[facility] hospital [place] of Occupational Health - Occupational Stress QuestionnaireAnswerDate RecordedDo you feel stress - tense, restless, nervous, or anxious, or unable to sleep at night because yourmind is troubled all the time - these days?Only a kttwpi9602/20/2023Exercise Vital Sign AnswerDate RecordedOn average, how many [...] in ashelter (including now)?No 02/20/2023Estimated Date of NwshilwxAkicvghxAip53/29/2025Based on Ultrasound, FHR- 176Sex and Gender InformationValueDate RecordedSex Assigned at BirthNot on fileLegal VuiWhygrb35/15/2023 6:51 PM EDTGender IdentityNot on file Sexual OrientationNot on filedocumented as of this encounter Plan of Treatment Not on file documented as of this encounter Procedures Procedure NamePriorityDate/TimeAssociated DiagnosisCommentsCULTURE, URINE, FEMDRZNIoasahl33/03/2025 9:15 AM EST documented in this encounter Results * Urine culture (05/19/2025 9:15 AM EST)ComponentValueRef RangeTest Method Analysis TimePerformed AtPathologist SignatureFR NOTE?50,000 colonies/ml mixed ?bacterial skin contaminants ?2 Days 05/21/2025 9:03 AM [facility] CtrSpecimen (Source)Anatomical Location / LateralityCollection Method / VolumeCollection TimeReceived TimeUrine Urine specimen obtained by clean catch procedure / Jsfgrsk9405/19/2025 9:15 AM EST 05/19/2025 12:44 PM ESTComment:Clean-Voided Midstream Narrative [facility] - 05/21/2025 9:03 AM EST Diagnosis: FBC POSSIBLE RUPTURE OF MEMBRANES Comment: Authorizing ProviderResult TypeResult StatusCorey Shelley DOLAB MICROBIOLOGY - GENERAL ORDERABLESFinal ResultPerforming OrganizationAddressCity/State/ZIP Code Phone Number [facility] [address] [place] [address], [facility] [address] [place] [address] documented in this encounter Visit Diagnoses Not on filedocumented in this encounter Care Teams Team MemberRelationshipSpecialtyStart DateEnd Date Kym Preaza MD [address] [place] [address] PCP - GeneralFamily Medicine11/28/22 Rosita Yanes MD [address] [place] [address] Referring PhysicianFamily Medicine11/28/22documented as of this encounter
--- OUTSIDE RECORDS SUMMARY | 2025-06-03 18:35 | XMS_ITS | Patient Health Record ---
Author Organization [facility] Address [address] [place] [address] Care Team Providers Care Associate Professor Of Economics Name Role Phone Elizabeth Keating Primary Care Provider [phone] DU[address] ANDREWS Unavailable Unavailable Reason For Referral No Information Problems Problem Type SNOMED Code ICD Code Onset Dates Problem Status W/U Status Risk Notes Problem Anxiety (41477999) Anxiety (F41.9) ActiveconfirmedProblemBorderline personality disorder (46558291)Borderline personality disorder in adult (F60.3)Activeconfirmed Plan Of Treatment No Information Insurance Providers Payer Name Payer Address Payer Phone Subscriber Number Group Number Insured Name Patient Relationship to Insured Coverage Start Date Coverage End Date [employer] [place] [employer] [address] [facility] [place] [address] [id number] Tip NOVOA - patient is the [id number] [address] [facility] [address] [place] [id number], MORGANSelf - patient is the [id number] 2023
--- OUTSIDE RECORDS SUMMARY | 2025-06-03 18:35 | XMS_ITS | Encounter Summary ---
Author Organization [facility] Address [address] [place] [address] Care Team Providers Care Sweater Designer Name Role Phone Kym Peraza MD Primary Care Provider [phone] Rosita Yanes MD Unavailable [phone] Encounter Details DateTypeDepartmentCare Team (Latest Contact Info)Rkwhhhgcmjh53/10/2025linisync Result Encounter [facility] External Department Unsolicited Marianna Varela PA [address] [place] [address] [place] [address] Social History Tobacco UseTypesPacks/DayYears UsedDateSmoking Tobacco: NeverSmokeless [...] times a week02/20/2023How often do you attend mandaen or christianity services?1 to 4 times per year02/20/2023 Do you belong to any clubs or organizations such as mandaen groups, unions, fraternal or athletic groups, or school groups?No02/20/2023How often do you attend meetings of the clubs or organizations you belong to?Never02/20/2023re you , , , , never , or living with a partner?Living with wiplzyl5002/20/2023UDIT-CAnswerDate RecordedQ1: How often do you have a [...] and heating?Not very hard02/20/2023HQ-2AnswerDate RecordedPatient Health Questionnaire-2 Upnkm843Finmountainstar healthcare [place] of Occupational Health - Occupational Stress QuestionnaireAnswerDate RecordedDo you feel stress - tense, restless, nervous, or anxious, or unable to sleep at night because yourmind is troubled all the time - these days?Only a qihkrj4502/20/2023Exercise Vital Sign AnswerDate RecordedOn average, how many [...] steady place to sleep or slept in [facility] (including now)?No 02/20/2023Estimated Date of PpflmbcsGlhforytEsw89/29/2025Based on Ultrasound, FHR- 176Sex and Gender InformationValueDate RecordedSex Assigned at BirthNot on fileLegal WxhTxsryt85/15/2023 6:51 PM EDTGender IdentityNot on file Sexual OrientationNot on filedocumented as of this encounter Plan of Treatment Not on file documented as of this encounter Procedures Procedure NamePriorityDate/TimeAssociated DiagnosisCommentsUS OB BPP W NON-MYEKDH6505/26/2025 2:10 PM EST documented in this encounter Results * US OB BPP W NON-STRESS (05/26/2025 2:10 PM EST)Anatomical Region LateralityModalityOtherSpecimen (Source)Anatomical Location / Laterality Collection Method / VolumeCollection TimeReceived Time05/26/2025 2:10 PM EST Narrative 05/26/2025 2:13 PM EST [facility] ?[address] ? [place] [id number] ? Ultrasound Report ? Signed ? Patient: JOSÉ LUIS NOVOA ? MR#: [id number] ?? : 2000 ?Acct:[id number] ?? Age/Sex: 24 / F ?ADM Date: 05/26/25 ?? Loc: US ? Attending Dr: Marianna Varela ? Ordering Physician: Marianna Varela ?? Date of Service: 05/26/25 ?? Procedure(s): US OB BPP w non-stress ?? Accession Number(s): [id number] ? cc: Marianna Varela; DUKE PERAZA ? [facility] ? [address] ? [place] [address] ? Patient Name: ?? JOSÉ LUIS NOVOA ? MRN: [facility]:[id number] ? date: 2000 ?Sex: F ?? Assigned Patient Location: [facility] ?? Current Patient Location: ? Accession/Order Number: [id number] ?? Exam Date: 05/26/2025 ??10:02 ?Report Date: [...] Dictation Location: RADIO-PC-30 ? Electronically authenticated by: [id number] ??Y ?? Date: 05/26/2025 ??14:10 ? Dictated By: ?Jacqui Mendoza M.D. ? Signed By: ?05/26/25 1413 ? DD/ 1410 ? TD/TT: ? Quote Clerk: Procedure Note Radiology, Radiologist, MD - 05/26/2025 [place] [address] Ultrasound Report Signed Patient: JOSÉ LUIS NOVOA PMR#: [id number] : 2000Acct:[id number] Age/Sex: 24 / FADM Date: 05/26/25 Loc: US Attending Dr: Marianna Varela Ordering Physician: Marianna Varela Date of Service: 05/26/25 Procedure(s): US OB BPP w non-stress Accession Number(s): [id number] cc: Marianna Varela; DUKE PERAZA [place] [id number] Patient Name: JOSÉ LUIS NOVOA MRN: [facility]:[id number] date: 2000 Sex: F Assigned Patient Location: [facility] Current Patient Location: Accession/Order Number: [id number] Exam Date: 05/26/2025 10:02 Report Date: 05/26/2025 [...] Mendoza M.D. 05/26/2025 2:10 PM Dictation Location: [place] [address] Electronically authenticated by: [id number] Y Date: 4:10 Dictated By: Jacqui Mendoza M.D. Signed By:05/26/25 141 DD/ 09 TD/TT: Quote Clerk: Authorizing ProviderResult TypeResult StatusMarianna Varela PACLINISYNC IMAGINGFinal Result documented in this encounter Visit Diagnoses Not on filedocumented in this encounter Care Teams Team MemberRelationshipSpecialtyStart DateEnd Date Kym Peraza MD [address] [place] [address] PCP - GeneralFamily Medicine11/28/22 Rosita Yanes MD [address] [place] [address] Referring PhysicianFaboston city hospital Medicine11/28/22documented as of this encounter
[2025-06-03 19:55] LABS: Hematocrit 35.4 % (36.0-48.0); Hemoglobin 12.0 g/dL (12.0-16.0); Mean Corpuscular HGB Conc 33.9 g/dL (29.9-35.2); Mean Corpuscular Hemoglobin 27.4 pg (26.7-34.0); Mean Corpuscular Volume 80.8 fL (81.0-99.0); Platelet Count 172 10^3/uL (150-450); Red Blood Count 4.38 10^6/uL (4.20-5.40); White Blood Count 8.0 10^3/uL (4.0-11.0)
[2025-06-03] MEDS: MISOPROSTOL 100 MCG TABLET 25 MCG VAGINAL ×2 (20:08→23:08)
[2025-06-03 20:14] LABS: Cannabinoid Screen Urine NEGATIVE (NEGATIVE); Methamphetamines Screen Urine NEGATIVE (NEGATIVE); Tricyclic Antidepressant Urine NEGATIVE (NEGATIVE)
[2025-06-03] MEDS: 0.9 % SODIUM CHLORIDE 1,000 ML 50 ML IV (20:36)
[2025-06-03] MEDS: AMPICILLIN SODIUM 2,000 MG in 0.9 % SODIUM CHLORIDE 100 ML 200 MG IV (20:37)
[2025-06-04] VITALS (36 sets, daily range): BP systolic 116–162; BP diastolic 65–109; PULSE 65–110; TEMP 35.7–36.4
[2025-06-04] MEDS: AMPICILLIN SODIUM 1,000 MG in 0.9 % SODIUM CHLORIDE 50 ML 100 MG IV ×3 (00:17→08:22)
[2025-06-04] MEDS: MISOPROSTOL 100 MCG TABLET 25 MCG VAGINAL (02:34)
[2025-06-04] MEDS: OXYTOCIN/0.9 % SODIUM CHLORIDE 10 UNITS/500 ML PLAST..BAG 6 UNIT IV (06:38)
[2025-06-04] MEDS: 0.9 % SODIUM CHLORIDE 1,000 ML 125 ML IV (07:29)
[2025-06-04] MEDS: OXYTOCIN/0.9 % SODIUM CHLORIDE 20 UNITS/1,000 ML PLAST..BAG 125 UNIT IV (08:45)
--- NOTE | 2025-06-04 08:48 | PM.OBPRCVD ---
Procedure Intrapartal events: None Induction method: per misoprostol protocol Delivery augmentation: rupture of membranes and pitocin Delivery monitor: external FHT and external uterine Route of delivery: Episiotomy Description: none L&D Laceration Description: none Estimated blood loss (mL): 10 Anesthesia type: Epidural Disposition: floor Infant Delivery date: 06/04/25 presentation: vertex Placental delivery description: Spontaneous cord description: 3 Vessels
[2025-06-04] MEDS: KETOROLAC TROMETHAMINE 30 MG/ML VIAL IVP (10:04)
[2025-06-04] MEDS: IBUPROFEN 600 MG TABLET PO (16:38)
[2025-06-05] MEDS: IBUPROFEN 600 MG TABLET PO (04:52)
[2025-06-05 06:31] LABS: Hematocrit 32.1 % (36.0-48.0); Hemoglobin 10.6 g/dL (12.0-16.0); Immature Granulocytes Abs Auto 0.09 10^3/uL (0.00-0.03); Immature Granulocytes Pct Auto 1.0 % (0.0-0.5); Lymphocytes Absolute Auto 1.3 10^3/uL (1.2-3.8); Mean Corpuscular HGB Conc 33.0 g/dL (29.9-35.2); Mean Corpuscular Hemoglobin 27.0 pg (26.7-34.0); Mean Corpuscular Volume 81.7 fL (81.0-99.0); Platelet Count 193 10^3/uL (150-450); Red Blood Count 3.93 10^6/uL (4.20-5.40); White Blood Count 9.2 10^3/uL (4.0-11.0)
--- NOTE | 2025-06-05 08:22 | P.OBPN_ITS ---
OB - PN: Subj Subjective Patient comments: no complaints and pain well controlled [place] status: doing well Exam Constitutional Vital Signs, click to edit/add: Last Vital Signs Temp 97.5 F L 06/04/25 23:54 Pulse 78 06/04/25 23:54 Resp 16 06/05/25 00:05 BP 116/65 06/04/25 23:54 O2 Del Method Room Air 06/05/25 00:05 Documenting provider has reviewed patient's vital signs: yes Common normals: no apparent distress Respiratory Common normals: normal respiratory effort and clear to auscultation bilaterally Cardio Common normals: regular rate and regular rhythm GI Common normals: Normal to inspection, nondistended, normoactive bowel sounds present Extremity Common normals: no clubbing, cyanosis or edema and no calf tenderness Results Labs Labs: Short CBC 06/05/25 Range/Units 06:00 WBC 9.2 (4.0-11.0) 10^3/uL Hgb 10.6 L (12.0-16.0) g/dL Hct 32.1 L (36.0-48.0) % Plt Count 193 (150-450) 10^3/uL OB - PN: A/P Plan - Vaginal Delivery day: 1 Plan: routine care, discharge home and follow up 6 weeks Time Spent with Patient Time: Total time spent is greater than 50% in coordination of care (as documented) at patient's floor/unit and/or counseling patient: Total time spent with greater than 50% in coordination of care (as documented) at patient's floor/unit and/or counseling patient: less than 15 minutes
--- NOTE | 2025-06-05 08:27 | PC.NURSE ---
pt states, you came in at the worst time Nurses inquires as to why pt states that, pt states, you're about to stick that thing in his arm and i just got him to sleep. Nurse asks if she means the thermometer? pt says yes, nurse explains that she needs to perform assessments on and her, but can wait until pt is ready. pt asks if nurse has to perform assessment on her. Nurse explains that she does and that pt is to call out when ready and that is due for testing at 0842. pt also educated that may start bunch feeding at this time. pt asks when they will be discharged to home, tomorrow or saturday, pt educated that it depends on what the physician determines, as long as everything is ok then possibly tomorrow.
[2025-06-05 09:34] VITALS: BP 123/84; PULSE 93
[2025-06-05 09:35] VITALS: TEMP 36.9
== END 2025-06-05 16:00 | disposition home or self-care (01) | DRG 560 ==
PROVIDERS: Admitting Provider Obstetrics & Gynecology; PCP Student in an Organized Health Care Education/Training Program; Visit Provider Obstetrics & Gynecology
DX: O80 Encounter for full-term uncomplicated delivery (principal); Z3A.38 38 weeks gestation of pregnancy; Z37.0 Single live birth
CPT/HCPCS: 36415; 76818; 80307; 85025; 85027; 86850; 86900; 86901; J0290; J1885; J2300